=== PATIENT | female | born 1970 | race Caucasian/White ===

== ENCOUNTER 2018-02-14 14:33 | Inpatient (IN) ==
--- NOTE | 2018-02-14 15:03 | ED ---
HPI General Chief Complaint: Weakness Stated Complaint: GENERAL MALAISE Time Seen by Provider: 02/14/18 14:39 Source: patient, EMS and RN notes reviewed Mode of arrival: EMS Limitations: altered mental status History of Present Illness HPI narrative: 48-year-old female presents by ambulance after call for domestic by police. When they arrived on scene she had a laceration to her hand and hematoma to her head That she really can not tell them how she got them. She keeps talking to me about when she takes Benadryl at night she cannot sleep and has not really slept in 3 days. She states maybe she bumped herself on a cabinet but it is not sure. History is significantly limited. Related Data Home Medications Medication Instructions Recorded Confirmed diphenhydramine HCl [Benadryl] 25 mg PO Q4-6H PRN 02/14/18 02/14/18 divalproex [Depakote ER] 50 mg PO DAILY 02/14/18 02/14/18 Allergies Allergy/AdvReac Type Severity Reaction Status Date / Time Penicillins Allergy Unknown Hives Verified 02/14/18 14:43 Review of Systems ROS Unobtainable ROS Unobtainable: unobtainable due to mental status PMFSH Medical History Medical History Hx of bipolar disorder (Acute) Surgical History Surgical History History of partial hysterectomy (Acute) History of surgery on arm (Acute) Family History Family History Other Family history in first degree relatives is unremarkable Social History Social History Substance History: No History of Abuse Second Hand Smoke Exposure: No Smoking Status: Current every day smoker Tobacco Type: Cigarettes How Often Do You Have a Drink Containing Alcohol: Never Recent Travel in [place] within the Last 8 Weeks: No Recent Out of Country Travel within the Last 8 Weeks: No Immunization History Tetanus Immunization: Unsure Exam Narrative Exam Narrative: GENERAL: 48 y/o female who is hugging a iman bear SKIN: Focused skin assessment warm/dry. Laceration noted just below the DIP on dorsal aspect of right finger with deformity noted HEAD: hematoma to forehead. Normocephalic. EYES: Pupils equal and round. No scleral icterus. No injection or drainage. ENT: No nasal bleeding or discharge. Mucous membranes pink and moist. NECK: Trachea midline. No JVD. CARDIOVASCULAR: Regular rate and rhythm. RESPIRATORY: No accessory muscle use. Clear to auscultation. Breath sounds equal bilaterally. GASTROINTESTINAL: Abdomen soft, non-tender, nondistended MUSCULOSKELETAL: No clubbing. No cyanosis. No edema. NEUROLOGICAL: Awake. moves all extremities, pressured speech Course Reevaluation(s) Reevaluation #1: Patient suddenly became aggressive with staff and more confused and combative. She was given 20 of Geodon IM and a half a milligram of Ativan IV. Locked restraints were placed. Reevaluation #2: On reevaluation patient awakens easily to voice and is able to talk. She is now more calm and appropriate. She is now stating Elena has worked for her in the past and seems to again today. She is in acute rhabdomyolysis and appears to be in a sympathomimetic response with tachycardia , hypertension, mild elevated temp. Question drug exposure. She will need to be monitored more in the hospital for medical clearance and a Alexandra act has been placed. She will be monitored initially overnight in the ICU for closer monitoring Consultations Consultation #1: dr reese states to admit to the main icu for psych consult and further care Initial Documented Vital Signs Pulse Oximetry 98 02/14/18 14:40 Last Documented Vital Signs Temperature 100 F H 02/14/18 14:46 Pulse Rate 103 H 02/14/18 17:00 Respiratory Rate 18 02/14/18 17:00 Blood Pressure 177/76 H 02/14/18 17:00 Pulse Oximetry 96 02/14/18 17:00 Critical Care Time Critical Care Time: Yes Total Critical Care Time: 31 Attestation: Aggregate critical care time was 31 minutes. Time to perform other separately billable procedures was not included in the critical care time. My time did not include minutes spent treating any other patients simultaneously or on activities that did not directly contribute to the patient's treatment. The services I provided to this patient were to treat and/or prevent clinically significant deterioration that could result in: Further injury or I provided critical care services requiring my management, as noted below: Chart data review, documentation time, medication orders and management, vital sign assessments/reviewing monitor data, ordering and reviewing lab tests, ordering and interpreting/reviewing x-rays and diagnostic studies, care of the patient and discussion of the patient with the admitting physicians. Medical Decision Making MDM Narrative Medical decision making narrative: Will check blood work, imaging and monitor. Patient appears to be a harm to herself currently and appears to be in a manic phase. Will Place Alexandra act and help work on medical clearance Medical Screen Exam Complete: Yes Emergency Medical Condition: Yes Differential Diagnosis Differential Diagnosis: Intercranial bleed, fracture, UTI, pneumonia, ligament injury, laceration Lab Data Lab results reviewed: Yes I reviewed the patient's lab results. Result diagrams: 02/14/18 14:55 02/14/18 14:55 Lab Results 02/14/18 02/14/18 02/14/18 Range/Units 14:55 14:55 14:55 CBC w Diff Auto diff final WBC 15.2 H (4.0-11.0) th/mm3 RBC 4.83 (4.00-5.30) mil/mm3 Hgb 14.5 (11.6-15.3) gm/dL Hct 43.1 (35.0-46.0) % MCV 89.3 (80.0-100.0) fL MCH 30.0 (27.0-34.0) pg MCHC 33.6 (32.0-36.0) % RDW 13.3 (11.6-17.2) % Plt Count 364 (150-450) th/mm3 MPV 8.9 (7.0-11.0) fL Neut % (Auto) 88.6 H (16.0-70.0) % Lymph % (Auto) 6.8 L (9.0-44.0) % Mitchell % (Auto) 3.9 (0.0-8.0) % Eos % (Auto) 0.1 (0.0-4.0) % Baso % (Auto) 0.6 (0.0-2.0) % Neut # (Auto) 13.5 H (1.8-7.7) th/mm3 Lymph # (Auto) 1.0 (1.0-4.8) th/mm3 Mitchell # (Auto) 0.6 (0.0-0.9) th/mm3 Eos # (Auto) 0.0 (0.0-0.4) th/mm3 Baso # (Auto) 0.1 (0.0-0.2) th/mm3 WBC Differential . Differential Comment . PT 10.6 (9.8-11.6) sec INR 1.0 Ratio APTT 23.8 L (24.3-30.1) sec Sodium 139 (136-145) meq/L Potassium 2.8 L* (3.5-5.1) meq/L Chloride 103 (98-107) meq/L Carbon Dioxide 24.6 (21.0-32.0) meq/L Anion Gap 11 (5-15) meq/L BUN 14 (7-18) mg/dL Creatinine 1.80 H (0.50-1.00) mg/dL Estimated GFR 30 L (>89) mL/min Random Glucose 105 (74-106) mg/dL Calcium 8.3 L (8.5-10.1) mg/dL Magnesium 2.2 (1.5-2.5) mg/dL Total Bilirubin 0.8 (0.2-1.0) mg/dL AST 1177 H (15-37) U/L ALT 66 H (10-53) U/L Alkaline Phosphatase 102 (45-117) U/L Total Creatine Kinase Greater [place] 74408 H (26-192) U/L CK-MB (CK-2) 61.1 H (0.5-3.6) ng/mL CK-MB (CK-2) % 0.0 (0.0-4.0) % Total Protein 7.7 (6.4-8.2) g/dL Albumin 3.8 (3.4-5.0) g/dL Serum Alcohol Less than 3 (0-5) mg/dL Imaging Data Attestation: I personally reviewed and interpreted this imaging study as follows : Radiologist's impression: Hand X-Ray 02/14/18 14:39 CONCLUSION: No evidence of recent bony injury. Head CT 02/14/18 14:39 CONCLUSION: 1. No acute intracranial abnormality. . Chest X-Ray 02/14/18 14:41 CONCLUSION: Negative examination. Discharge Plan Discharge Disposition Patient Disposition: 30 Still Patient Discharge Details Diagnosis: Rhabdomyolysis, Acute kidney injury, Elevated liver enzymes, Acute psychosis, Acute hypokalemia Physicians Team ED Provider: Nanci Orr Primary Care Provider: Primary Care Elaine Leslie Attending Provider: Dmitry Cabezas Other Providers: Jl Kennedy Status ED Status: Admitted Patient
[2018-02-14 15:25] LABS: Baso # (Auto) 0.1 th/mm3 (0.0-0.2); Baso % (Auto) 0.6 % (0.0-2.0); Eos % (Auto) 0.1 % (0.0-4.0); Hematocrit 43.1 % (35.0-46.0); Hemoglobin 14.5 gm/dL (11.6-15.3); Lymph % (Auto) 6.8 % (9.0-44.0); Mean Corpuscular HGB Conc 33.6 % (32.0-36.0); Mean Corpuscular Volume 89.3 fL (80.0-100.0); Mean Platelet Volume 8.9 fL (7.0-11.0); Mono # (Auto) 0.6 th/mm3 (0.0-0.9); Mono % (Auto) 3.9 % (0.0-8.0); Neut # (Auto) 13.5 th/mm3 (1.8-7.7); Neut % (Auto) 88.6 % (16.0-70.0); Platelet Count 364 th/mm3 (150-450); Red Blood Count 4.83 mil/mm3 (4.00-5.30); Red Cell Distribution Width 13.3 % (11.6-17.2); White Blood Count 15.2 th/mm3 (4.0-11.0)
[2018-02-14 15:35] LABS: Activated Partial Thrombo Time 23.8 sec (24.3-30.1); Prothrombin Time 10.6 sec (9.8-11.6)
--- NOTE | 2018-02-14 15:47 | CT ---
EXAM DATE: 02/14/2018 3:09 PM EDT AGE/SEX: 48 years / Female INDICATIONS: Trauma. Head injury. CLINICAL DATA: This is the patient's initial encounter. Patient reports that signs and symptoms have been present for 1 day and indicates a pain score of 2/10. MEDICAL/SURGICAL HISTORY: . Bipolar. Hysterectomy. RADIATION DOSE: 47.44 CTDI (mGy) COMPARISON: . TECHNIQUE: CT of the head without contrast. Using automated exposure control and adjustment of the mA and/or kV according to patient size, radiation dose was kept as low as reasonably achievable to ob tain optimal diagnostic quality images. DICOM format image data is available electronically for revi ew and comparison. FINDINGS: Cerebrum: The ventricles are normal for age. No evidence of midline shift, mass lesion, hemorrhage or acute infarction. No extraaxial fluid collections are seen. Posterior Fossa: The cerebellum and brainstem are intact. The 4th ventricle is midline. The cerebe llopontine angle is unremarkable. Extracranial: The visualized portion of the orbits is intact. Skull: The calvaria is intact. No evidence of skull fracture. CONCLUSION: 1. No acute intracranial abnormality. . Electronically signed by: Abdulaziz Lazaro MD 02/14/2018 3:46 PM EDT
[2018-02-14 15:54] LABS: Alanine Aminotransferase 66 U/L (10-53); Albumin 3.8 g/dL (3.4-5.0); Alkaline Phosphatase 102 U/L (45-117); Anion Gap 11 meq/L (5-15); Aspartate Aminotransferase 1177 U/L (15-37); Blood Urea Nitrogen 14 mg/dL (7-18); Calcium 8.3 mg/dL (8.5-10.1); Carbon Dioxide 24.6 meq/L (21.0-32.0); Chloride 103 meq/L (98-107); Glomerular Filtration Rate 30 mL/min (>89); Glucose,Random 105 mg/dL (74-106); Magnesium 2.2 mg/dL (1.5-2.5); Sodium 139 meq/L (136-145); Total Protein 7.7 g/dL (6.4-8.2)
[2018-02-14 16:00] LABS: Potassium 2.8 meq/L (3.5-5.1)
--- NOTE | 2018-02-14 16:01 | XR ---
EXAM DATE: 02/14/2018 2:39 PM EDT AGE/SEX: 48 years / Female INDICATIONS: Right 3rd digit pain post punching injury today CLINICAL DATA: This is the patient's initial encounter. Patient reports that signs and symptoms have been present for 1 day and indicates a pain score of 2/10. MEDICAL/SURGICAL HISTORY: None. None. COMPARISON: No prior exams available for comparison. FINDINGS: Bony structures are intact and in normal alignment. Osseous density is normal. Soft tissues are unre markable. No radiopaque foreign bodies seen. CONCLUSION: No evidence of recent bony injury. Electronically signed by: Medhat Taylor MD 02/14/2018 3:59 PM EDT
[2018-02-14] MEDS ORDERED: Potassium Chlor 20 mEq Premix 20 MEQ/100 ML PIGGYBACK IV.SIG ONE (16:04)
[2018-02-14] MEDS ORDERED: Sod Chloride 0.9% Inj 1,000 ML IV.SIG SCH ×2 (16:30→17:15)
[2018-02-14 16:39] LABS: Creatine Kinase MB 61.1 ng/mL (0.5-3.6)
[2018-02-14] MEDS ORDERED: Bisacodyl 10 MG Supp RECTAL PRN (17:00)
--- NOTE | 2018-02-14 17:05 | P.HP ---
History of Present Illness Primary Care Physician: No Primary Care Physician Chief Complaint: Severe rhabdo, weakness, Alexandra act History of Present Illness: This is a 48-year-old female patient with a known medical history of bipolar disorder who presents the ED via ambulance after call for domestic abuse by the police. It was noted that the police arrived on the scene, patient supposedly had a laceration to her hand and hematoma to her head. Patient is definitely in a manic state on assessment this evening. She states that she has been unable to sleep for the past week, she states she has been taking excessive amounts of Benadryl at home. She states since Saturday night she has been taking at least 12 pills of Benadryl 25 mg at night to help her sleep. She denies any suicidal ideation or attempt. She slowly states that this was due to her inability to sleep and aspiration for something to help her in this area. When questioned about patient's laceration to her head she states she was moving too quickly and bumped her head on the cabinet. She states that also while she was at home she got angry and punched a wall. Patient does have a history of bipolar disorder, takes Depakote at home. She does have a history of tobacco abuse, states she smokes up to 2 packs/day of cigarettes. Patient denies any recent illness including fever, chills, cough, shortness of breath, headache, dumping, nausea, vomiting, diarrhea or dysuria. Patient has been admitted under Alexandra act. Patient will be transferred to the main hospital to the ICU for closer monitoring and eventually moved to the psychiatry unit. She presents with severe rhabdomyolysis with CPK above 14,000, liver enzymes elevated as well as acute kidney injury. - Diagnosis (1) Rhabdomyolysis (2) Bipolar 1 disorder, mixed (3) Acute kidney injury (4) Elevated liver enzymes Review of Systems All other systems reviewed negative except as stated in HPI PMFSH - History History Provided By: Patient, Nurses Supervisor / EMT - Medical History Medical History: Medical History (Last Reviewed 02/14/18 @ 15:00 by Nanci Orr MD) Hx of bipolar disorder - Surgical History Surgical History: Surgical History (Last Reviewed 02/14/18 @ 15:00 by Nanci Orr MD) History of partial hysterectomy History of surgery on arm - Family History Family History: Family History (Last Updated 02/14/18 @ 17:27 by Dede Paz) Other Family history in first degree relatives is unremarkable - Tobacco History Second Hand Smoke Exposure: No Tobacco Use In Past 30 Days: Yes Smoking Status: Current every day smoker Tobacco Type: Cigarettes - Alcohol History How Often Do You Have a Drink Containing Alcohol: Never - Substance Use History Substance History: No History of Abuse - Travel History Recent Travel in the [place] Within the Last 8 Weeks: No Recent Travel Out of the Country Within the Last 8 Weeks: No - Immunization History Tetanus Immunization: Unsure Medications and Allergies Active Medications: Active Medications Al Hydroxide/Mg Hydroxide (Milk Of Magnesia Liq) 30 ml PO Q12H PRN PRN Reason: Mild Constipation Bisacodyl (Dulcolax Supp) 10 mg RECTAL DAILY PRN PRN Reason: SEVERE CONSITIPATION Potassium Chloride (Kcl 20 Meq Premix Inj) 20 meq in 100 mls @ 50 mls/hr IV.SIG ONCE ONE Stop: 02/14/18 18:03 Last Admin: 02/14/18 16:40 Dose: 50 mls/hr Sodium Chloride (Ns Inj) 1,000 mls @ 0 mls/hr IV.SIG BOLUS SIGRID Last Admin: 02/14/18 16:37 Dose: 1,000 mls/hr Potassium Chloride 20 meq/ (Sodium Chloride) 1,010 mls @ 100 mls/hr IV.CONT .Q10H6M SIGRID Lactulose (Lactulose Liq) 30 ml PO DAILY PRN PRN Reason: SEVERE CONSITIPATION Ondansetron HCl (Zofran Inj) 4 mg IV.PUSH Q6H PRN PRN Reason: NAUSEA OR VOMITING Sennosides (Senokot) 17.2 mg PO Q12H PRN PRN Reason: Moderate Constipation Sodium Chloride (Ns Flush) 2 ml IV.FLUSH PRN PRN PRN Reason: FLUSH AFTER USING IV ACCESS Allergies Allergy/AdvReac Type Severity Reaction Status Date / Time Penicillins Allergy Unknown Hives Verified 02/14/18 14:43 Home Medications Medication Instructions Recorded Confirmed Type diphenhydramine HCl [Benadryl] 25 mg PO Q4-6H PRN 02/14/18 02/14/18 History divalproex [Depakote ER] 50 mg PO DAILY 02/14/18 02/14/18 History Exam Vital signs: Vital Signs 02/14/18 14:40 02/14/18 14:46 Temperature 100 F H Pulse Rate 109 H Respiratory Rate 16 Blood Pressure 153/100 H Pulse Oximetry 98 99 Intake & Output 02/13/18 02/14/18 02/14/18 18:59 06:59 18:59 Weight 94 kg Narrative: GENERAL: Well-developed, well-nourished patient in [facility]. SKIN: Warm and dry. No rash. RIGHT HAND: Laceration just below the DIP on dorsal aspect of the right finger. HEAD: Normocephalic. Atraumatic. Hematoma noted to right forehead. EYES: Pupils equal and round. No scleral icterus. No injection or drainage. ENT: No nasal bleeding or discharge. Mucous membranes pink and moist. NECK: Supple. Trachea midline. CARDIOVASCULAR: Regular rate and rhythm. S1, S2 noted. No murmur appreciated. RESPIRATORY: No accessory muscle use. Clear to auscultation. Breath sounds equal bilaterally. GASTROINTESTINAL: Abdomen soft, non-tender, nondistended. Normoactive bowel sounds x4. MUSCULOSKELETAL: No obvious deformities. Extremities without clubbing, cyanosis , or edema. NEUROLOGICAL: Awake and alert. No obvious cranial nerve deficits. Motor grossly within normal limits. 5/5 muscle strength in bilateral upper and lower extremities. Normal speech. PSYCHIATRIC: Appropriate mood and affect; insight and judgment normal. Results - Labs CBC & Chem 7: 02/14/18 14:55 02/14/18 14:55 Labs: Laboratory Results - last 24 hr 02/14/18 02/14/18 02/14/18 14:55 14:55 14:55 CBC w Diff Auto diff final WBC 15.2 H RBC 4.83 Hgb 14.5 Hct 43.1 MCV 89.3 MCH 30.0 MCHC 33.6 RDW 13.3 Plt Count 364 MPV 8.9 Neut % (Auto) 88.6 H Lymph % (Auto) 6.8 L Rolette % (Auto) 3.9 Eos % (Auto) 0.1 Baso % (Auto) 0.6 Neut # (Auto) 13.5 H Lymph # (Auto) 1.0 Rolette # (Auto) 0.6 Eos # (Auto) 0.0 Baso # (Auto) 0.1 WBC Differential . Differential Comment . PT 10.6 INR 1.0 APTT 23.8 L Sodium 139 Potassium 2.8 L* Chloride 103 Carbon Dioxide 24.6 Anion Gap 11 BUN 14 Creatinine 1.80 H Estimated GFR 30 L Random Glucose 105 Calcium 8.3 L Magnesium 2.2 Total Bilirubin 0.8 AST 1177 H ALT 66 H Alkaline Phosphatase 102 Total Creatine Kinase Greater than 32709 H CK-MB (CK-2) 61.1 H CK-MB (CK-2) % 0.0 Total Protein 7.7 Albumin 3.8 Serum Alcohol Less than 3 - Imaging Impressions Hand X-Ray 02/14/18 14:39 CONCLUSION: No evidence of recent bony injury. Head CT 02/14/18 14:39 CONCLUSION: 1. No acute intracranial abnormality. . Caprini VTE Risk Assessment Caprini VTE Risk Assessment: No/Low Risk (score <= 1) Caprini Risk Assessment Model: Point Value = 1 Point Value = 2 Point Value = 3 Point Value = 5 Age 41-60 Minor surgery BMI > 25 kg/m2 Swollen legs Varicose veins or History of unexplained or recurrent spontaneous Oral contraceptives or hormone replacement Sepsis (< 1 month) Serious lung disease, including pneumonia (< 1 month) Abnormal pulmonary function Acute myocardial infarction Congestive heart failure (< 1 month) History of inflammatory bowel disease Medical patient at bed rest Age 61-74 Arthroscopic surgery Major open surgery (> 45 min) Laparoscopic surgery (> 45 min) Malignancy Confined to bed (> 72 hours) Immobilizing plaster cast Central venous access Age >= 75 History of VTE Family history of VTE Factor V Leiden Prothrombin [id number] Lupus anticoagulant Anticardiolipin antibodies Elevated serum homocysteine Heparin-induced thrombocytopenia Other congenital or acquired thrombophilia Stroke (< 1 month) Elective arthroplasty Hip, pelvis, or leg fracture Acute spinal cord injury (< 1 month) Prophylaxis Regimen: Total Risk Factor Score Risk Level Prophylaxis Regimen 0-1 Low Early ambulation 2 Moderate Order ONE of the following: *Sequential Compression Device (SCD) *Heparin 5000 units SQ BID 3-4 Higher Order ONE of the following medications: *Heparin 5000 units SQ TID *Enoxaparin/Lovenox 40 mg SQ daily (WT < 150 kg, CrCl > 30 mL/min) *Enoxaparin/Lovenox 30 mg SQ daily (WT < 150 kg, CrCl > 10-29 mL/min) *Enoxaparin/Lovenox 30 mg SQ BID (WT < 150 kg, CrCl > 30 mL/min) AND/OR *Sequential Compression Device (SCD) 5 or more Highest Order ONE of the following medications: *Heparin 5000 units SQ TID (Preferred with Epidurals) *Enoxaparin/Lovenox 40 mg SQ daily (WT < 150 kg, CrCl > 30 mL/min) *Enoxaparin/Lovenox 30 mg SQ daily (WT < 150 kg, CrCl > 10-29 mL/min) *Enoxaparin/Lovenox 30 mg SQ BID (WT < 150 kg, CrCl > 30 mL/min) AND *Sequential Compression Device (SCD) Assessment and Plan - Assessment (1) Rhabdomyolysis Code(s): M62.82 - Rhabdomyolysis Status: Acute (2) Bipolar 1 disorder, mixed Code(s): F31.60 - Bipolar disorder, current episode mixed, unspecified Status : Acute (3) Acute kidney injury Code(s): N17.9 - Acute kidney failure, unspecified Status: Acute (4) Elevated liver enzymes Code(s): R74.8 - Abnormal levels of other serum enzymes Status: Acute - Plan This is a 48-year-old female patient with: Severe rhabdomyolysis Elevated liver enzymes suspect secondary to above Acute kidney injury suspect secondary to above -Patient admits to taking 12 pills of Benadryl nightly for the past 5 nights. Has been admitted under Alexandra act. Patient denies any suicidal ideation, plan or act. -CPK was well over 14,000. Patient given 2 L NS bolus in ED. Will continue IV fluid. -Continue cardiac telemetry, monitor for any arrhythmias. -Continue to monitor labs tonight and in a.m. including CPK and LFTs. -Avoid nephrotoxins and hepatotoxins. -Admit to ICU for closer monitoring. Hypokalemia -Replete as ordered. Continue IVF with potassium supplementation. -Monitor potassium level. -Continue cardiac telemetry. Leukocytosis -Patient meets SIRS criteria with leukocytosis 15,000, fever of 100, tachycardia. Source unknown at this time, may be stress reaction. -Lactic acid pending. Follow. -Chest x-ray, blood cultures and UA pending, follow. Hand laceration: Right hand with laceration, secondary to patient hitting a wall. X-ray reviewed showing no fracture. Stable at this time. Continue to monitor. Head laceration: Head CT done in ED and reviewed showing no acute findings. History of bipolar disorder, currently in manic state -Admitted under Alexandra act. Geodon and Ativan given in ED. Available as needed. -Consult placed to psychiatry, input and recommendations pending. -Continue restraints as needed. -On Depakote at home. Hold for now secondary to elevated LFTs. Check valproic acid level. -Ativan as needed for agitation. -Transfer to [facility] then eventually to psych unit when stable. DVT prophylaxis: SCDs.
--- NOTE | 2018-02-14 18:01 | XR ---
EXAM DATE: 02/14/2018 2:41 PM EDT AGE/SEX: 48 years / Female INDICATIONS: Fever starting today CLINICAL DATA: This is the patient's initial encounter. Patient reports that signs and symptoms have been present for 1 day and indicates a pain score of 0/10. MEDICAL/SURGICAL HISTORY: None. None. COMPARISON: No prior exams available for comparison. FINDINGS: A single AP view of the chest demonstrates the lungs to be symmetrically aerated without evidence of mass, infiltrate or effusion. The cardiomediastinal contours are unremarkable. Osseous structures a re intact. CONCLUSION: Negative examination. Electronically signed by: Charlie Dominguez MD 02/14/2018 5:59 PM EDT
[2018-02-14 22:14] LABS: Albumin 3.5 g/dL (3.4-5.0); Anion Gap 9 meq/L (5-15); Blood Urea Nitrogen 18 mg/dL (7-18); Calcium 7.7 mg/dL (8.5-10.1); Carbon Dioxide 22.6 meq/L (21.0-32.0); Chloride 107 meq/L (98-107); Glucose,Random 71 mg/dL (74-106); Potassium 3.2 meq/L (3.5-5.1); Sodium 139 meq/L (136-145)
[2018-02-14 22:16] LABS: Alanine Aminotransferase 78 U/L (10-53); Valproic Acid 15 mcg/mL (50-100)
[2018-02-14 22:36] LABS: Amphetamine Screen,Urine Neg (Neg); Barbiturate Screen,Urine Neg (Neg); Cannabinoid Screen,Urine Neg (Neg); Cocaine Screen,Urine Neg (Neg)
[2018-02-14 22:39] LABS: Amorphous Sediment,Urine Rare /hpf; Bacteria,Urine Rare /hpf; Bilirubin,Urine Negative (Negative); Clarity,Urine Cloudy (Clear); Color,Urine Amber (Yellw/Straw); Glucose,Urine (UA) Negative (Negative); Leukocyte Esterase,Urine Negative (Negative); Mucus,Urine Few /lpf (Occasional); Nitrite,Urine Negative (Negative); Specific Gravity,Urine 1.017 (1.002-1.035); Squamous Epithelial Cell,Urine <1 /hpf (0-5)
[2018-02-14 22:41] LABS: Alkaline Phosphatase 92 U/L (45-117); Aspartate Aminotransferase 1485 U/L (15-37); Total Protein 7.1 g/dL (6.4-8.2)
[2018-02-14 22:52] LABS: Opiate Screen,Urine Neg (Neg)
[2018-02-14 23:43] LABS: Creatine Kinase 137699 U/L (26-192)
[2018-02-14 23:58] LABS: Creatine Kinase MB 60.1 ng/mL (0.5-3.6)
[2018-02-15] MEDS ORDERED: Sodium Chloride 0.9% 2 ML Flush PRN IV.FLUSH (03:43)
[2018-02-15] MEDS ORDERED: Chlorhexidine Gluconate 2% 1 Pack (2 Cloths) TOPICAL PRN (04:00)
[2018-02-15] MEDS: Chlorhexidine Gluconate 2% 1 Pack (2 Cloths) TOPICAL SCH (04:30)
[2018-02-15 06:42] LABS: Baso % (Auto) 0.4 % (0.0-2.0); Eos # (Auto) 0.1 th/mm3 (0.0-0.4); Eos % (Auto) 0.9 % (0.0-4.0); Hematocrit 39.8 % (35.0-46.0); Hemoglobin 13.5 gm/dL (11.6-15.3); Lymph # (Auto) 1.7 th/mm3 (1.0-4.8); Lymph % (Auto) 16.1 % (9.0-44.0); Mean Corpuscular HGB Conc 33.9 % (32.0-36.0); Mean Corpuscular Hemoglobin 30.8 pg (27.0-34.0); Mean Corpuscular Volume 90.8 fL (80.0-100.0); Mean Platelet Volume 8.4 fL (7.0-11.0); Mono # (Auto) 0.7 th/mm3 (0.0-0.9); Mono % (Auto) 6.1 % (0.0-8.0); Neut # (Auto) 8.3 th/mm3 (1.8-7.7); Neut % (Auto) 76.5 % (16.0-70.0); Platelet Count 264 th/mm3 (150-450); Red Blood Count 4.38 mil/mm3 (4.00-5.30); Red Cell Distribution Width 14.1 % (11.6-17.2); White Blood Count 10.9 th/mm3 (4.0-11.0)
[2018-02-15 07:22] LABS: Calcium 7.5 mg/dL (8.5-10.1); Carbon Dioxide 20.8 meq/L (21.0-32.0); Potassium 3.6 meq/L (3.5-5.1); Total Protein 6.4 g/dL (6.4-8.2)
[2018-02-15] MEDS ORDERED: Dextrose 50% in Water 50 ML Vial IV.PUSH PRN (07:39)
[2018-02-15] MEDS: Sod Chloride 0.9% Inj 1,000 ML IV.CONT SCH ×2 (08:45→18:28)
[2018-02-15] MEDS: Sodium Chloride 0.9% 2 ML Flush BID IV.FLUSH SCH ×2 (08:45→20:09)
[2018-02-15] MEDS: QUEtiapine 25 MG Tablet PO SCH ×2 (08:45→20:09)
[2018-02-15 10:39] LABS: Creatine Kinase MB 47.1 ng/mL (0.5-3.6)
--- NOTE | 2018-02-15 10:46 | P.PNIM ---
Subjective Interval history: 48-year-old female admitted to ICU for severe rhabdomyolysis and acute kidney impairment. She states she is feeling much better this morning, she is sitting up and eating her breakfast and quite conversive. She has bipolar disorder and has insight into this, admits to being hypomanic currently. Physical Exam Vital signs: Vital Signs 02/14/18 14:40 02/14/18 14:46 02/14/18 17:00 Temperature 100 F H Pulse Rate 109 H 103 H Respiratory Rate 16 18 Blood Pressure 153/100 H 177/76 H Pulse Oximetry 98 99 96 02/14/18 18:30 02/14/18 20:00 02/14/18 21:07 Temperature Pulse Rate 100 H 95 H Respiratory Rate 16 42 H Blood Pressure 152/90 H Pulse Oximetry 95 98 100 02/14/18 21:30 02/14/18 22:00 02/14/18 22:30 Temperature Pulse Rate 91 H 91 H 93 H Respiratory Rate 32 H 23 28 H Blood Pressure 146/78 H 128/75 144/91 H Pulse Oximetry 99 98 99 02/14/18 23:00 02/14/18 23:30 02/15/18 00:00 Temperature 99.2 F Pulse Rate 96 H 92 H 86 Respiratory Rate 19 44 H 24 Blood Pressure 155/78 H 169/98 H 125/64 Pulse Oximetry 100 98 97 02/15/18 00:30 02/15/18 01:00 02/15/18 01:30 Temperature Pulse Rate 78 79 81 Respiratory Rate 27 H 27 H 26 H Blood Pressure 115/65 123/69 127/66 Pulse Oximetry 96 97 98 02/15/18 02:00 02/15/18 02:30 02/15/18 03:00 Temperature Pulse Rate 78 78 85 Respiratory Rate 25 H 27 H 31 H Blood Pressure 118/68 121/76 131/78 Pulse Oximetry 97 100 98 02/15/18 03:30 02/15/18 04:00 02/15/18 04:30 Temperature 98.1 F 98.9 F Pulse Rate 83 80 81 Respiratory Rate 38 H 36 H 25 H Blood Pressure 142/64 H 129/66 127/75 Pulse Oximetry 97 95 96 02/15/18 05:00 02/15/18 05:30 02/15/18 06:00 Temperature Pulse Rate 80 80 87 Respiratory Rate 25 H 25 H 20 Blood Pressure 123/74 127/72 144/71 H Pulse Oximetry 96 96 99 02/15/18 06:30 02/15/18 07:00 02/15/18 08:00 Temperature 96.8 F L Pulse Rate 90 83 82 Respiratory Rate 9 L 26 H 24 Blood Pressure 126/68 131/68 113/71 Pulse Oximetry 97 97 98 02/15/18 09:00 02/15/18 10:00 Temperature Pulse Rate 85 91 H Respiratory Rate 27 H Blood Pressure 140/76 Pulse Oximetry 98 Intake & Output 02/14/18 02/15/18 02/15/18 18:59 06:59 18:59 Intake Total 1900 / 1900 1500 / 1500 300 / 300 Output Total 50 / 50 Balance 1900 / 1900 1450 / 1450 300 / 300 Weight 94 kg 94.5 kg Intake: IV 1900 / 1900 1000 / 1000 300 / 300 NS + KCl 20 mEq Inj 1,000 ML @ 1000 / 1000 300 / 300 100 mls/hr IV.CONT .Q10H SIGRID Rx #:[id number] KCl 20 mEq Premix Inj 20 meq In 100 / 100 100 ml @ 50 mls/hr IV.SIG ONCE ONE Rx#:[id number] NS Inj 1,000 ML @ Wide Open IV. 1800 / 1800 SIG BOLUS SIGRID Rx#:[id number] Oral 500 / 500 Output: Urine 50 / 50 Other: Date of Last Bowel Movement 02/13/18 02/13/18 Weight On Admission 98.5 kg Narrative: GENERAL: AAOx3, no acute distress, talkative SKIN: Warm and dry. No rashes, bruise scrape on forehead, laceration on right finger under bandage, bruising over both arms HEAD: Atruamtic, normocephalic. EYES: No scleral icterus. No injection or drainage. ENT: Moist mucous membranes, patent nares, no erythema of oropharynx. NECK: Supple, trachea midline. No JVD or lymphadenopathy. Normal thyroid. CARDIOVASCULAR: Regular rate and rhythm. No murmurs, gallops, or rubs. RESPIRATORY: Breath sounds clear equal bilaterally. No crackles or wheezes. No accessory muscle use. GASTROINTESTINAL: Abdomen soft, non-tender, nondistended, normal active bowel sounds MUSCULOSKELETAL: No cyanosis, or edema. NEURO: CN II-XII grossly intact, no focal deficits, no slurring of speech PSYCH: Patient is exhibiting signs of hypomanic affect, no evidence of delusion or psychosis Results - Labs CBC & Chem 7: 02/15/18 06:12 02/15/18 09:33 Laboratory Results - last 24 hr 02/14/18 02/14/18 02/14/18 14:55 14:55 14:55 CBC w Diff Auto diff final WBC 15.2 H RBC 4.83 Hgb 14.5 Hct 43.1 MCV 89.3 MCH 30.0 MCHC 33.6 RDW 13.3 Plt Count 364 MPV 8.9 Neut % (Auto) 88.6 H Lymph % (Auto) 6.8 L [place] % (Auto) 3.9 Eos % (Auto) 0.1 Baso % (Auto) 0.6 Neut # (Auto) 13.5 H Lymph # (Auto) 1.0 [place] # (Auto) 0.6 Eos # (Auto) 0.0 Baso # (Auto) 0.1 WBC Differential . Differential Comment . PT 10.6 INR 1.0 APTT 23.8 L Sodium 139 Potassium 2.8 L* Chloride 103 Carbon Dioxide 24.6 Anion Gap 11 BUN 14 Creatinine 1.80 H Estimated GFR 30 L POC Glucose Random Glucose 105 Lactic Acid Calcium 8.3 L Magnesium 2.2 Total Bilirubin 0.8 Direct Bilirubin Indirect Bilirubin AST 1177 H ALT 66 H Alkaline Phosphatase 102 Total Creatine Kinase Greater than 99068 H CK-MB (CK-2) 61.1 H CK-MB (CK-2) % 0.0 Total Protein 7.7 Albumin 3.8 Urine Color Urine Clarity Urine pH Ur Specific [place] Urine Protein Urine Glucose (UA) Urine Ketones Urine Occult Blood Urine Nitrate Urine Bilirubin Urine Urobilinogen Ur Leukocyte Esterase Urine RBC Urine WBC Urine WBC Clumps Ur Squamous Epith Cells Amorphous Sediment Urine Bacteria Urine Mucus Micro UA Comment Ur Microscopic Review Urine Culture Comments Nasal Screen MRSA (PCR) Urine Opiates Screen Ur Barbiturates Screen Valproic Acid Ur Amphetamines Screen U Benzodiazepines Scrn Urine Cocaine Screen U Cannabinoids Screen Serum Alcohol Less than 3 02/14/18 02/14/18 02/14/18 19:40 21:25 21:25 CBC w Diff WBC RBC Hgb Hct MCV MCH MCHC RDW Plt Count MPV Neut % (Auto) Lymph % (Auto) [place] % (Auto) Eos % (Auto) Baso % (Auto) Neut # (Auto) Lymph # (Auto) [place] # (Auto) Eos # (Auto) Baso # (Auto) WBC Differential Differential Comment PT INR APTT Sodium 139 Potassium 3.2 L Chloride 107 Carbon Dioxide 22.6 Anion Gap 9 BUN 18 Creatinine 2.27 H Estimated GFR POC Glucose Random Glucose 71 L Lactic Acid 0.9 Calcium 7.7 L Magnesium Total Bilirubin 0.7 Direct Bilirubin Indirect Bilirubin AST 1485 H ALT 78 H Alkaline Phosphatase 92 Total Creatine Kinase 191552 H CK-MB (CK-2) 60.1 H CK-MB (CK-2) % 0.0 Total Protein 7.1 D Albumin 3.5 Urine Color Urine Clarity Urine pH Ur Specific [place] Urine Protein Urine Glucose (UA) Urine Ketones Urine Occult Blood Urine Nitrate Urine Bilirubin Urine Urobilinogen Ur Leukocyte Esterase Urine RBC Urine WBC Urine WBC Clumps Ur Squamous Epith Cells Amorphous Sediment Urine Bacteria Urine Mucus Micro UA Comment Ur Microscopic Review Urine Culture Comments Nasal Screen MRSA (PCR) Not detected Urine Opiates Screen Ur Barbiturates Screen Valproic Acid 15 L Ur Amphetamines Screen U Benzodiazepines Scrn Urine Cocaine Screen U Cannabinoids Screen Serum Alcohol 02/14/18 02/14/18 02/15/18 22:10 22:10 06:12 CBC w Diff WBC 10.9 RBC 4.38 Hgb 13.5 Hct 39.8 MCV 90.8 MCH 30.8 MCHC 33.9 RDW 14.1 Plt Count 264 MPV 8.4 Neut % (Auto) 76.5 H Lymph % (Auto) 16.1 [place] % (Auto) 6.1 Eos % (Auto) 0.9 Baso % (Auto) 0.4 Neut # (Auto) 8.3 H Lymph # (Auto) 1.7 [place] # (Auto) 0.7 Eos # (Auto) 0.1 Baso # (Auto) 0.0 WBC Differential . Differential Comment Auto diff final PT INR APTT Sodium Potassium Chloride Carbon Dioxide Anion Gap BUN Creatinine Estimated GFR POC Glucose Random Glucose Lactic Acid Calcium Magnesium Total Bilirubin Direct Bilirubin Indirect Bilirubin AST ALT Alkaline Phosphatase Total Creatine Kinase CK-MB (CK-2) CK-MB (CK-2) % Total Protein Albumin Urine Color [place] Urine Clarity Cloudy H Urine pH 5.0 Ur Specific [place] 1.017 Urine Protein 100 H Urine Glucose (UA) Negative Urine Ketones Negative Urine Occult Blood Large H Urine Nitrate Negative Urine Bilirubin Negative Urine Urobilinogen Less than 2 Ur Leukocyte Esterase Negative Urine RBC 1 Urine WBC 2 Urine WBC Clumps Rare H Ur Squamous Epith Cells <1 Amorphous Sediment Rare H Urine Bacteria Rare H Urine Mucus Few H Micro UA Comment Culture not ind Ur Microscopic Review Not Reportable Urine Culture Comments Culture not ind Nasal Screen MRSA (PCR) Urine Opiates Screen Neg Ur Barbiturates Screen Neg Valproic Acid Ur Amphetamines Screen Neg U Benzodiazepines Scrn Neg Urine Cocaine Screen Neg U Cannabinoids Screen Neg Serum Alcohol 02/15/18 02/15/18 02/15/18 06:12 07:48 08:05 CBC w Diff WBC RBC Hgb Hct MCV MCH MCHC RDW Plt Count MPV Neut % (Auto) Lymph % (Auto) [place] % (Auto) Eos % (Auto) Baso % (Auto) Neut # (Auto) Lymph # (Auto) [place] # (Auto) Eos # (Auto) Baso # (Auto) WBC Differential Differential Comment PT INR APTT Sodium 141 Potassium 3.6 Chloride 110 H Carbon Dioxide 20.8 L Anion Gap 10 BUN 27 H Creatinine 3.15 H Estimated GFR 16 L POC Glucose 70 98 Random Glucose 45 L* Lactic Acid Calcium 7.5 L Magnesium Total Bilirubin 0.5 Direct Bilirubin 0.2 Indirect Bilirubin 0.3 AST 1556 H ALT 79 H Alkaline Phosphatase 83 Total Creatine Kinase CK-MB (CK-2) CK-MB (CK-2) % Total Protein 6.4 D Albumin 3.0 L Urine Color Urine Clarity Urine pH Ur Specific [place] Urine Protein Urine Glucose (UA) Urine Ketones Urine Occult Blood Urine Nitrate Urine Bilirubin Urine Urobilinogen Ur Leukocyte Esterase Urine RBC Urine WBC Urine WBC Clumps Ur Squamous Epith Cells Amorphous Sediment Urine Bacteria Urine Mucus Micro UA Comment Ur Microscopic Review Urine Culture Comments Nasal Screen MRSA (PCR) Urine Opiates Screen Ur Barbiturates Screen Valproic Acid Ur Amphetamines Screen U Benzodiazepines Scrn Urine Cocaine Screen U Cannabinoids Screen Serum Alcohol 02/15/18 02/15/18 08:32 09:33 CBC w Diff WBC RBC Hgb Hct MCV MCH MCHC RDW Plt Count MPV Neut % (Auto) Lymph % (Auto) [place] % (Auto) Eos % (Auto) Baso % (Auto) Neut # (Auto) Lymph # (Auto) [place] # (Auto) Eos # (Auto) Baso # (Auto) WBC Differential Differential Comment PT INR APTT Sodium Potassium Chloride Carbon Dioxide Anion Gap BUN Creatinine Estimated GFR POC Glucose 123 H Random Glucose 121 H Lactic Acid Calcium Magnesium Total Bilirubin Direct Bilirubin Indirect Bilirubin AST ALT Alkaline Phosphatase Total Creatine Kinase CK-MB (CK-2) CK-MB (CK-2) % Total Protein Albumin Urine Color Urine Clarity Urine pH Ur Specific [place] Urine Protein Urine Glucose (UA) Urine Ketones Urine Occult Blood Urine Nitrate Urine Bilirubin Urine Urobilinogen Ur Leukocyte Esterase Urine RBC Urine WBC Urine WBC Clumps Ur Squamous Epith Cells Amorphous Sediment Urine Bacteria Urine Mucus Micro UA Comment Ur Microscopic Review Urine Culture Comments Nasal Screen MRSA (PCR) Urine Opiates Screen Ur Barbiturates Screen Valproic Acid Ur Amphetamines Screen U Benzodiazepines Scrn Urine Cocaine Screen U Cannabinoids Screen Serum Alcohol - Imaging Impressions Hand X-Ray 02/14/18 14:39 CONCLUSION: No evidence of recent bony injury. Head CT 02/14/18 14:39 CONCLUSION: 1. No acute intracranial abnormality. . Chest X-Ray 02/14/18 14:41 CONCLUSION: Negative examination. Assessment and Plan - Assessment (1) Rhabdomyolysis Code(s): M62.82 - Rhabdomyolysis Status: Acute (2) Bipolar 1 disorder, mixed Code(s): F31.60 - Bipolar disorder, current episode mixed, unspecified Status : Acute (3) Acute kidney injury Code(s): N17.9 - Acute kidney failure, unspecified Status: Acute (4) Elevated liver enzymes Code(s): R74.8 - Abnormal levels of other serum enzymes Status: Acute - Plan Severe rhabdomyolysis CK on admission was greater than 14,000, now down to mid 13,000s Continue generous IV fluid hydration for flushing Monitor daily CK level Acute renal impairment Creatinine increased from 1.7 at admission to 3.15 today Patient is asymptomatic, this is likely a latent effect from rhabdomyolysis Monitor kidney function closely, intake and output If creatinine does not trend downward, consult nephrology Bipolar disorder, hypomanic Patient admits to being hypomanic, she has been taking Benadryl at home to help her sleep She may have taken too much Benadryl, laid in bed for too long, dehydration contributing to rhabdomyolysis She denies any suicidal ideations and does not seem depressed She is hypomanic but does not exhibit signs of psychosis or delusions Psychiatry started her on Seroquel Appreciate psychiatry consult Lacerations Right finger under wrap, gauze clean Superficial scrapes and bruising of forehead, no sign of infection Continue with routine wound care DVT prophylaxis SCD hose, chemoprophylaxis held at this time due to lacerations and extensive bruising Disposition Patient is stable for transfer out of the ICU, continue to monitor renal function and CK levels closely (1) Rhabdomyolysis Qualifiers: Rhabdomyolysis type: non-traumatic Qualified Code(s): M62.82 - Rhabdomyolysis
--- NOTE | 2018-02-15 13:18 | P.CONPSY ---
Provisional Diagnosis Admission Date: February 14, 2018 16:34 [place] I.: Bipolar disorder History of Present Illness Service: Medicine Primary Care Provider: No Primary Care Physician Chief Complaint: Severe rhabdo, weakness, Alexandra act History of Present Illness: The patient 48-year-old woman, domiciled along in [place], no kids , single, unemployed, on SSI process, with a psychiatric history of bipolar disorder, 2 previous psychiatric hospitalization, last hospitalization in 2016, she denies previous suicide attempts, she is on Depakote 500 mg twice daily, with a Depakote level of 7, with a medical history of IBS, who presents the ED via ambulance after call for domestic abuse by the police. It was noted that the police arrived on the scene, patient supposedly had a laceration to her hand and hematoma to her head. Patient was reported definitely in a manic state by physicians in the ER. She initially reported that she has been unable to sleep for the past week, she stated she has been taking excessive amounts of Benadryl at home. She stated that since Saturday night she has been taking at least 12 pills of Benadryl 25 mg at night to help her sleep. Patient was admitted under Alexandra act. Patient was be transferred to the main hospital from [place] to the ICU for closer monitoring and eventually moved to the psychiatry unit. She presents with severe rhabdomyolysis with CPK above 14,000 , liver enzymes elevated as well as acute kidney injury. She is now admitted to medicine with severe rhabdomyolysis CK on admission was greater than 14,000, now down to mid-13,000s, Acute renal impairment, Creatinine increased from 1.7 at admission to 3.15 today. She also has Right finger under wrap, gauze clean, Superficial scrapes and bruising of forehead, no sign of infection. The chart was reviewed. No collateral information available. On my psychiatric evaluation today I find a patient that is quite calm, superficially cooperative , with a very low volume in her voice and decreased tone. She reports that she feels much better today. She says that the last weeks have been crazy for her. She says that she has not been sleeping, especially the last 3 days. She says that she has been manic but very manic in a happy way. She has being hypertalkative, not sleeping, with an increased energy, also doing crazy stuff . The patient cannot tell me the reason of her lacerations. Initially told me that it was an accident. But later on told me that she fell. She described a good mood at the moment, denies depressive symptoms, she denies anxiety, she denies suicidal and homicidal ideation, she denies visual and auditory hallucinations. She does seem to be a little bit expansive, is smiling inappropriately at the moment. Oddly related, but there is no pressure speech at the moment, there is no major loosening of associations flight of ideas, there is no elicited paranoia or delusions at this moment. She is fully oriented x3, no attention deficit, no fluctuation of consciousness. The patient reports that she has not been taking her Depakote I keep forgetting, but at the same time she does admit that she has been misusing Benadryl just to sleep. She denies the use of illegal drugs or alcohol. PPHx: psychiatric history of bipolar disorder, 2 previous psychiatric hospitalization, last hospitalization in 2016, she denies previous suicide attempts, she is on Depakote 500 mg twice daily, with a Depakote level of 7 PMHx: with a medical history of IBS Substance Hx: She denies the use of illegal drugs or alcohol. 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 - Medical History Medical History: Medical History (Last Reviewed 02/14/18 @ 18:05 by Nanci Orr MD) Hx of bipolar disorder - Surgical History Surgical History: Surgical History (Last Reviewed 02/14/18 @ 18:05 by Nanci Orr MD) History of partial hysterectomy History of surgery on arm - Family History Family History: Family History (Last Reviewed 02/14/18 @ 18:05 by Nanci Orr MD) Other Family history in first degree relatives is unremarkable - Tobacco History Second Hand Smoke Exposure: No Tobacco Use In Past 30 Days: Yes Smoking Status: Current every day smoker Tobacco Type: Cigarettes - Alcohol History How Often Do You Have a Drink Containing Alcohol: Never - Substance Use History Substance History: No History of Abuse - Travel History Recent Travel in the [place] Within the Last 8 Weeks: No Recent Travel Out of the Country Within the Last 8 Weeks: No - Immunization History Tetanus Immunization: Unsure Medications and Allergies Active Medications: Active Medications Al Hydroxide/Mg Hydroxide (Milk Of Magnesia Liq) 30 ml PO Q12H PRN PRN Reason: Mild Constipation Bisacodyl (Dulcolax Supp) 10 mg RECTAL DAILY PRN PRN Reason: SEVERE CONSITIPATION Chlorhexidine Gluconate (Chlorhexidine 2% Cloth) 3 pack TOPICAL DAILY@0400 [facility] Stop: 02/20/18 03:59 Last Admin: 02/15/18 04:30 Dose: 3 pack Chlorhexidine Gluconate (Chlorhexidine 2% Cloth) 3 pack TOPICAL DAILY@0400 PRN PRN Reason: Extra cloth needed Stop: 02/20/18 03:59 Dextrose (D50w Vial) 50 ml IV.PUSH UNSCH PRN PRN Reason: PER HYPOGLYCEMIA PROTOCOL Sodium Chloride (Ns Inj) 1,000 mls @ 0 mls/hr IV.SIG BOLUS [facility] Last Infusion: 02/14/18 17:36 Dose: Infused Sodium Chloride (Ns Inj) 1,000 mls @ 0 mls/hr IV.SIG BOLUS [facility] Last Infusion: 02/14/18 18:38 Dose: Infused Sodium Chloride (Ns Inj) 1,000 mls @ 100 mls/hr IV.CONT .Q10H [facility] Last Admin: 02/15/18 08:45 Dose: 100 mls/hr Lactulose (Lactulose Liq) 30 ml PO DAILY PRN PRN Reason: SEVERE CONSITIPATION Lorazepam (Ativan Inj) 1 mg IV.PUSH Q4H PRN PRN Reason: AGITATION Last Admin: 02/15/18 01:24 Dose: 1 mg Ondansetron HCl (Zofran Inj) 4 mg IV.PUSH Q6H PRN PRN Reason: NAUSEA OR VOMITING Quetiapine Fumarate (Seroquel) 50 mg PO BID [facility] Last Admin: 02/15/18 08:45 Dose: 50 mg Sennosides (Senokot) 17.2 mg PO Q12H PRN PRN Reason: Moderate Constipation Sodium Chloride (Ns Flush) 2 ml IV.FLUSH BID [facility] Last Admin: 02/15/18 08:45 Dose: 2 ml Sodium Chloride (Ns Flush) 2 ml IV.FLUSH PRN PRN PRN Reason: FLUSH AFTER USING IV ACCESS Ziprasidone (Geodon Inj) 10 mg IM Q12H PRN PRN Reason: SEVERE AGITATION Allergies Allergy/AdvReac Type Severity Reaction Status Date / Time Penicillins Allergy Unknown Hives Verified 02/14/18 14:43 Home Medications Medication Instructions Recorded Confirmed Type diphenhydramine HCl [Benadryl] 25 mg PO Q4-6H PRN 02/14/18 02/14/18 History divalproex [Depakote ER] 50 mg PO DAILY 02/14/18 02/14/18 History Exam Vital signs: Vital Signs 02/14/18 14:40 02/14/18 14:46 02/14/18 17:00 Temperature 100 F H Pulse Rate 109 H 103 H Respiratory Rate 16 18 Blood Pressure 153/100 H 177/76 H Pulse Oximetry 98 99 96 02/14/18 18:30 02/14/18 20:00 02/14/18 21:07 Temperature Pulse Rate 100 H 95 H Respiratory Rate 16 42 H Blood Pressure 152/90 H Pulse Oximetry 95 98 100 02/14/18 21:30 02/14/18 22:00 02/14/18 22:30 Temperature Pulse Rate 91 H 91 H 93 H Respiratory Rate 32 H 23 28 H Blood Pressure 146/78 H 128/75 144/91 H Pulse Oximetry 99 98 99 02/14/18 23:00 02/14/18 23:30 02/15/18 00:00 Temperature 99.2 F Pulse Rate 96 H 92 H 86 Respiratory Rate 19 44 H 24 Blood Pressure 155/78 H 169/98 H 125/64 Pulse Oximetry 100 98 97 02/15/18 00:30 02/15/18 01:00 02/15/18 01:30 Temperature Pulse Rate 78 79 81 Respiratory Rate 27 H 27 H 26 H Blood Pressure 115/65 123/69 127/66 Pulse Oximetry 96 97 98 02/15/18 02:00 02/15/18 02:30 02/15/18 03:00 Temperature Pulse Rate 78 78 85 Respiratory Rate 25 H 27 H 31 H Blood Pressure 118/68 121/76 131/78 Pulse Oximetry 97 100 98 02/15/18 03:30 02/15/18 04:00 02/15/18 04:30 Temperature 98.1 F 98.9 F Pulse Rate 83 80 81 Respiratory Rate 38 H 36 H 25 H Blood Pressure 142/64 H 129/66 127/75 Pulse Oximetry 97 95 96 02/15/18 05:00 02/15/18 05:30 02/15/18 06:00 Temperature Pulse Rate 80 80 87 Respiratory Rate 25 H 25 H 20 Blood Pressure 123/74 127/72 144/71 H Pulse Oximetry 96 96 99 02/15/18 06:30 02/15/18 07:00 02/15/18 08:00 Temperature 96.8 F L Pulse Rate 90 83 82 Respiratory Rate 9 L 26 H 24 Blood Pressure 126/68 131/68 113/71 Pulse Oximetry 97 97 98 02/15/18 09:00 02/15/18 10:00 02/15/18 10:01 Temperature Pulse Rate 85 91 H 93 H Respiratory Rate 27 H 43 H 30 H Blood Pressure 140/76 133/60 Pulse Oximetry 98 99 99 02/15/18 11:00 02/15/18 12:00 Temperature 96.7 F L Pulse Rate 82 97 H Respiratory Rate 23 38 H Blood Pressure 135/70 135/69 Pulse Oximetry 95 88 L Intake & Output 02/14/18 02/15/18 02/15/18 18:59 06:59 18:59 Intake Total 1900 / 1900 1500 / 1500 300 / 300 Output Total 50 / 50 Balance 1900 / 1900 1450 / 1450 300 / 300 Weight 94 kg 94.5 kg Intake: IV 1900 / 1900 1000 / 1000 300 / 300 NS + KCl 20 mEq Inj 1,000 ML @ 1000 / 1000 300 / 300 100 mls/hr IV.CONT .Q10H [facility] Rx #:[id number] KCl 20 mEq Premix Inj 20 meq In 100 / 100 100 ml @ 50 mls/hr IV.SIG ONCE ONE Rx#:[id number] NS Inj 1,000 ML @ Wide Open IV. 1800 / 1800 SIG BOLUS [facility] Rx#:[id number] Oral 500 / 500 Output: Urine 50 / 50 Other: Date of Last Bowel Movement 02/13/18 02/13/18 Weight On Admission 98.5 kg Narrative: No EPS, no psychomotor agitation or retardation, no catatonia, no stiffness. - Constitutional mild distress - Routine HEENT Exam Head: Present: normocephalic, atraumatic Eye: Present: EOMI, PERRL ENT: Present: mucous membranes moist Mental Status Examination Appearance: Appropriate Consciousness: Alert Orientation: x4 Motor Activity: Normal gait Speech: Unremarkable Language: Adequate Fund of Knowledge: Adequate Attention and Concentration: Adequate Memory: Unremarkable Mood: Good, Manic Affect: Other Thought Process & Associations: Intact Thought Content: Appropriate Hallucination Type: None Delusion Type: None Suicidal Ideation: No Suicidal Plan: No Suicidal Intention: No Homicidal Ideation: No Homicidal Plan: No Homicidal Intention: No Insight: Poor Judgment: Poor Assessment and Plan - Assessment (1) Bipolar 1 disorder, mixed Code(s): F31.60 - Bipolar disorder, current episode mixed, unspecified Status : Acute - Plan Plan: Psychiatric evaluation I find a patient that is calm, cooperative, with attentive expansive mood, at times laughing inappropriately, oddly related, but mostly logical, coherent, relevant. The patient has been described as manic by initial assessment, she does report that she has not been sleeping at all in the last 3 days, sleeping poorly in the last 2 weeks, she has multiple lacerations over her body that she cannot explain, she also reports that she has being in a "happily manic state", and her Depakote level is subtherapeutic, 7. She has being using high amounts of Benadryl to sleep, she says that up to 12/day. She is a patient with a psychiatric history of bipolar disorder, 2 previous psychiatric hospitalizations, who has been in Depakote 500 mg twice daily for a long time now, she has been stable, who apparently has relapsed in a manic state. There is no collateral information available. The patient has a significant rhabdomyolysis, elevated liver enzyme and acute kidney injury, for this reason I am not starting the Depakote or lithium for her chuck. I am going to start a low dose of Seroquel, 50 mg twice daily as a mood stabilizer. Patient will continue on the Alexandra act for psychiatric admission once medically stable. I will follow-up in the medical floor. Justification for Continued Inpatient Stay: Patient needs psychiatric admission once medically stable.
[2018-02-16] MEDS: Sod Chloride 0.9% Inj 1,000 ML IV.CONT SCH ×3 (03:55→20:18)
[2018-02-16] MEDS: Chlorhexidine Gluconate 2% 1 Pack (2 Cloths) TOPICAL SCH (03:55)
[2018-02-16 06:13] LABS: Calcium 6.6 mg/dL (8.5-10.1); Carbon Dioxide 20.9 meq/L (21.0-32.0); Potassium 3.7 meq/L (3.5-5.1)
[2018-02-16 06:28] LABS: Total Protein 5.4 g/dL (6.4-8.2)
[2018-02-16 06:31] LABS: Calcium-Albumin Corrected 7.4 mg/dL (8.5-10.1)
[2018-02-16] MEDS ORDERED: Senna/Docusate Sodium 8.6/50 MG Tablet PO PRN (07:55)
[2018-02-16] MEDS: QUEtiapine 25 MG Tablet PO SCH ×2 (08:20→20:19)
[2018-02-16] MEDS: Sodium Chloride 0.9% 2 ML Flush BID IV.FLUSH SCH ×2 (08:37→20:19)
--- NOTE | 2018-02-16 11:18 | XR ---
EXAM DATE: 02/16/2018 12:00 AM EDT AGE/SEX: 48 years / Female INDICATIONS: Short of breath. CLINICAL DATA: This is the patient's subsequent encounter. Patient reports that signs and symptoms h ave been present for 4 - 6 days and indicates a pain score of 0/10. MEDICAL/SURGICAL HISTORY: None. Bipolar None. COMPARISON: [facility]PO, CHEST 1V SINGLE AP, 02/14/2018. . FINDINGS: A single AP view of the chest demonstrates the lungs to be symmetrically aerated without evidence of mass, infiltrate or effusion. The cardiomediastinal contours are unremarkable. Osseous structures a re intact. Multiple overlying electrocardiogram leads are present. CONCLUSION: Stable appearance with no acute cardiopulmonary disease. Electronically signed by: Jose Simeon MD 02/16/2018 11:17 AM EDT
--- NOTE | 2018-02-16 11:44 | P.PNIM ---
Subjective Interval history: Patient states that she does not feel any better compared to yesterday, but she also does not feel worse. I explained to her that her kidneys are failing to improve and in fact are worsening despite standard treatment for rhabdomyolysis with generous IV fluids. Physical Exam Vital signs: Vital Signs 02/15/18 12:00 02/15/18 13:00 02/15/18 14:00 Temperature 96.7 F L Pulse Rate 97 H 92 H 91 H Respiratory Rate 38 H 34 H 26 H Blood Pressure 135/69 123/71 121/71 Pulse Oximetry 88 L 99 97 02/15/18 15:00 02/15/18 16:00 02/15/18 17:00 Temperature 98.1 F Pulse Rate 100 H 88 88 Respiratory Rate 43 H 23 38 H Blood Pressure 135/61 123/68 Pulse Oximetry 98 94 L 94 L 02/15/18 17:18 02/15/18 18:00 02/15/18 19:00 Temperature Pulse Rate 89 90 92 H Respiratory Rate 32 H 33 H 36 H Blood Pressure 125/70 119/66 127/75 Pulse Oximetry 94 L 92 L 98 02/15/18 20:00 02/15/18 21:00 02/15/18 21:02 Temperature 98.7 F Pulse Rate 89 93 H 94 H Respiratory Rate 28 H 34 H 50 H Blood Pressure 127/71 136/96 H Pulse Oximetry 97 94 L 97 02/15/18 22:00 02/15/18 22:07 02/15/18 23:00 Temperature Pulse Rate 96 H 99 H 88 Respiratory Rate 51 H 18 18 Blood Pressure 130/68 Pulse Oximetry 93 L 95 97 02/16/18 00:00 02/16/18 01:00 02/16/18 02:00 Temperature 98.6 F Pulse Rate 91 H 86 89 Respiratory Rate 18 28 H 30 H Blood Pressure 124/71 Pulse Oximetry 94 L 93 L 94 L 02/16/18 02:24 02/16/18 03:00 02/16/18 04:00 Temperature 98.1 F Pulse Rate 89 87 83 Respiratory Rate 13 24 27 H Blood Pressure 138/78 132/81 Pulse Oximetry 97 93 L 94 L 02/16/18 04:05 02/16/18 05:00 02/16/18 05:16 Temperature Pulse Rate 85 84 81 Respiratory Rate 20 26 H 25 H Blood Pressure 132/81 144/70 H Pulse Oximetry 98 96 98 02/16/18 06:00 02/16/18 07:00 02/16/18 08:00 Temperature 97.9 F Pulse Rate 85 80 82 Respiratory Rate 25 H 22 24 Blood Pressure 112/73 119/73 Pulse Oximetry 92 L 92 L 94 L 02/16/18 10:00 Temperature Pulse Rate 83 Respiratory Rate Blood Pressure Pulse Oximetry Intake & Output 02/15/18 02/16/18 02/16/18 18:59 06:59 18:59 Intake Total 2019 1700 / 1700 Output Total Balance 1999 / 1999 1700 / 1700 Weight 100.5 kg Intake: IV 1300 / 1300 1000 / 1000 NS + KCl 20 mEq Inj 1,000 ML @ 300 / 300 100 mls/hr IV.CONT .Q10H [facility] Rx #:[id number] NS Inj 1,000 ML @ 100 mls/hr IV 1000 / 1000 1000 / 1000 .CONT .Q10H [facility] Rx#:[id number] Oral 720 / 720 700 / 700 Output: Urine Other: # Voids 1 Date of Last Bowel Movement 02/15/18 02/16/18 02/16/18 # Bowel Movements 1 1 Narrative: GENERAL: AAOx3, no acute distress, talkative SKIN: Warm and dry. Extensive bruising, laceration of right finger under bandage, scrape and bruise on right forehead HEAD: Atruamtic, normocephalic. EYES: No scleral icterus. No injection or drainage. ENT: Moist mucous membranes, patent nares, no erythema of oropharynx. NECK: Supple, trachea midline. No JVD or lymphadenopathy. Normal thyroid. CARDIOVASCULAR: Regular rate and rhythm. No murmurs, gallops, or rubs. RESPIRATORY: Breath sounds clear equal bilaterally. No crackles or wheezes. No accessory muscle use. GASTROINTESTINAL: Abdomen soft, non-tender, nondistended, normal active bowel sounds MUSCULOSKELETAL: No cyanosis, or edema. NEURO: CN II-XII grossly intact, no focal deficits, no slurring of speech Results - Labs CBC & Chem 7: 02/15/18 06:12 02/16/18 05:18 Laboratory Results - last 24 hr 02/15/18 02/15/18 02/15/18 11:52 16:10 20:11 Sodium Potassium Chloride Carbon Dioxide Anion Gap BUN Creatinine Estimated GFR POC Glucose 75 102 131 H Random Glucose Calcium Prot Corrected Calcium Total Protein 02/16/18 02/16/18 02/16/18 00:43 03:57 05:18 Sodium 137 Potassium 3.7 Chloride 106 Carbon Dioxide 20.9 L Anion Gap 10 BUN 41 H Creatinine 5.21 H Estimated GFR 9 L POC Glucose 109 168 H Random Glucose 92 Calcium 6.6 L* D Prot Corrected Calcium 7.4 L* Total Protein 5.4 L D 02/16/18 08:04 Sodium Potassium Chloride Carbon Dioxide Anion Gap BUN Creatinine Estimated GFR POC Glucose 92 Random Glucose Calcium Prot Corrected Calcium Total Protein Microbiology 02/14/18 21:30 Blood - Peripheral Aerobic Blood Culture - Preliminary No growth in 2 days 02/14/18 21:30 Blood - Peripheral Anaerobic Blood Culture - Preliminary No growth in 2 days 02/14/18 21:25 Blood - Peripheral Aerobic Blood Culture - Preliminary No growth in 2 days 02/14/18 21:25 Blood - Peripheral Anaerobic Blood Culture - Preliminary No growth in 2 days - Imaging Impressions Chest X-Ray 02/16/18 00:00 CONCLUSION: Stable appearance with no acute cardiopulmonary disease. Assessment and Plan - Assessment (1) Rhabdomyolysis Code(s): M62.82 - Rhabdomyolysis Status: Acute (2) Bipolar 1 disorder, mixed Code(s): F31.60 - Bipolar disorder, current episode mixed, unspecified Status : Acute (3) Acute kidney injury Code(s): N17.9 - Acute kidney failure, unspecified Status: Acute (4) Elevated liver enzymes Code(s): R74.8 - Abnormal levels of other serum enzymes Status: Acute - Plan Severe rhabdomyolysis with acute renal failure CK on admission was greater than 14,000, up to 130,000 and now 98,000 She has failed to respond to generous IV fluid hydration Creatinine 1.7 on admission, 3.15 yesterday, now 5.21 Her urine output has been rather dismal despite receiving generous amounts of IV fluids, she does not seem dehydrated at this point Nephrology consult for possible dialysis intervention Monitor daily CK level Hypocalcemia Will monitor for now given poor urine output and increasing creatinine Follow all electrolytes with a.m. labs Bipolar disorder, hypomanic Patient admits to being hypomanic, she has been taking Benadryl at home to help her sleep She may have taken too much Benadryl, laid in bed for too long, dehydration contributing to rhabdomyolysis She denies any suicidal ideations and does not seem depressed She is hypomanic but does not exhibit signs of psychosis or delusions Psychiatry started her on Seroquel Appreciate psychiatry consult Lacerations Right finger under wrap, gauze clean Superficial scrapes and bruising of forehead, no sign of infection Continue with routine wound care DVT prophylaxis SCD hose, chemoprophylaxis held at this time due to lacerations and extensive bruising Disposition Keep in ICU due to acute renal failure and elevating creatinine level (1) Rhabdomyolysis Qualifiers: Rhabdomyolysis type: non-traumatic Qualified Code(s): M62.82 - Rhabdomyolysis
[2018-02-16] MEDS ORDERED: Calcium Gluconate Inj 2 GM in Dextrose 5% in Water Inj 100 ML IV.SIG ONE ×2 (12:00)
[2018-02-16 12:01] LABS: Bacteria,Urine Many /hpf; Bilirubin,Urine Negative (Negative); Clarity,Urine Hazy (Clear); Color,Urine Yellow (Yellw/Straw); Glucose,Urine (UA) Negative (Negative); Leukocyte Esterase,Urine Moderate (Negative); Nitrite,Urine Negative (Negative); Specific Gravity,Urine 1.009 (1.002-1.035); Squamous Epithelial Cell,Urine 16 /hpf (0-5)
--- NOTE | 2018-02-16 13:15 | MB ---
cc: Ervin Stallings MD DATE: 02/16/2018 REASON FOR CONSULTATION: Acute renal failure management. HISTORY OF PRESENT ILLNESS: This is a 48-year-old female with a known history of bipolar disorder. Apparently, she was treated with Depakote for this. Patient was admitted on 02/14/2018, when she was brought via the ambulance to the hospital. She apparently had been taking excessive amounts of Benadryl at home with more than 12 mg of Benadryl nightly. She denies any suicidal ideations and she was seen with Psychiatry here. However, the patient reports that she was having some ongoing confusion and apparently has had an ongoing manic episode in the middle of her bipolar disorder. Apparently, the patient had inability to sleep; however, took a lot of Benadryl and slept for an excessive amount of time. She is unclear as far as the timeframe of these events. However, she apparently punched a wall at home and got angry. She was admitted here under a Alexandra Act. Here, the patient was seen with Psychiatry and assessed with a manic episode of her bipolar disorder. As far as her medical issues, the patient had a creatinine of 1.8 at time of admission. She also had a serum CPK level of greater than a 140,000 consistent with rhabdomyolysis. Her creatinine over the last several days since admission has increased up to a level of 5.2 today. Over the last 24 hours, she has had minimal urine output with only 20 mL of urine output. Her electrolytes have otherwise been stable with a potassium of 3.7 and a bicarbonate level of 20.9. Given her decreased urine output and azotemia in the setting of rhabdomyolysis, Nephrology was consulted for further evaluation. REVIEW OF SYSTEMS: The patient denies any fevers or chills, however, reports feeling somewhat fatigued at this point. No nausea, no vomiting, no diarrhea, no constipation. No dysuria. The patient has had minimal urine output. The patient denies any chest pain. No shortness of breath at this time. Otherwise, review of systems is negative. PAST MEDICAL HISTORY: Includes bipolar disorder. No other medical history noted. SURGICAL HISTORY: Includes partial hysterectomy, previous surgery of the arm. FAMILY HISTORY: Noncontributory. SOCIAL HISTORY: The patient is a smoker with daily cigarette use. No alcohol use. No reported drug use. Urine tox screen was negative for any drugs other than Depakote, which she has been taking for bipolar. ALLERGIES: INCLUDE PENICILLIN. MEDICATIONS AT HOME: Included Benadryl and Depakote. PHYSICAL EXAMINATION: VITAL SIGNS: At time of evaluation, temperature 97.9, pulse 83, blood pressure 119/73, pulse oximetry 94%. GENERAL: Awake, alert, mild confusion. HEENT: The patient with dry oral mucosa. NECK: Soft, supple. CARDIAC: Regular rate and rhythm. PULMONARY: Lungs clear to auscultation. Decreased breath sounds at bases. ABDOMEN: Soft, nontender, nondistended. EXTREMITIES: No edema. LABORATORY DATA: Sodium 137, potassium 3.7, chloride 106, bicarbonate 20.9, BUN 41, creatinine 5.2, glucose 92, corrected calcium 7.4, magnesium 2.2. AST 1500, ALT is 79. CK level initially greater than 140,000, improved to 98,000 now. Urinalysis with 100 protein, large occult blood, 1 RBC, rare bacteria, rare mucus. ASSESSMENT AND PLAN: 1. Acute kidney injury. The patient has apparent acute kidney injury in the setting of rhabdomyolysis. It is unclear what her baseline renal function is. However, she presented here with a creatinine of 1.8. This has steadily increased to a level of 5.2 today. Her CK level and urinalysis are all suggestive of acute rhabdomyolysis. This may have been secondary to prolonged sleeping with the recent Benadryl versus recent trauma with punching a wall at home. It is unclear as far as exact circumstances prior to admission here. At this point, continue with IV fluids. The patient had been receiving normal saline at 100 mL per hour. I will go ahead and increase to 150 mL per hour. In addition, I will go ahead and place a Hamm catheter. With a benadryl overdose urinary retention is possible at times; however, bladder scans have been negative. We will use a Hamm catheter and further quantify urine output. At this point, there is no acute indications for dialysis. While she does have increasing azotemia with a creatinine up to 5.2, her potassium and bicarbonate levels are stable. In addition, she has no signs of any respiratory dysfunction and she is breathing well on room air at this point. We will get a chest x-ray to assess for any pulmonary edema; however, continue with aggressive IV fluids at this point. If she has little improvement in urine output over the next 24-48 hours, she may require hemodialysis; however, there is no acute indications at this point. Regarding her Benadryl overdose, this is several days out now. It is unclear if she took an actual overdose of Benadryl versus taking just multiple tablets. Per Psychiatry, there is no suicidal ideations here. We will continue to monitor and continue with supportive care. In addition, the patient has slightly low calcium levels. We will replace this IV. Continue to monitor with ICU team. Continue to monitor closely with daily electrolytes. 2. Bipolar disorder. The patient has been seen with Psychiatry here. [place] has not been given at this point. She had been on Depakote at home. Continue followup management with Psychiatry. She appears stable at this point in the setting of a manic episode of her bipolar disorder. MD BRENNEN Moares/ron , 10:25 AM , 10:37 AM MTDD
--- NOTE | 2018-02-16 14:28 | US ---
EXAM DATE: 02/16/2018 10:25 AM EDT AGE/SEX: 48 years / Female INDICATIONS: Elevated lab values. CLINICAL DATA: This is the patient's initial encounter. Patient reports that signs and symptoms have been present for 1 day and indicates a pain score of 1/10. MEDICAL/SURGICAL HISTORY: . Bipolar disorder. Hysterectomy. Surgery on arm. COMPARISON: No prior exams available for comparison. MEASUREMENTS: Right Kidney:__12.1 x 5.3 x 4.4 cm Left Kidney:__10.2 x 5.5 x 4.8 cm FINDINGS: Right Kidney: Increased echotexture. No mass or hydronephrosis. Left Kidney: Increased echotexture. No mass or hydronephrosis. Bladder: Hamm catheter is present. Bladder decompressed. Other: None. CONCLUSION: 1. Mildly echogenic kidneys which may reflect medical renal disease. 2. No sonographic evidence for obstructive uropathy. Electronically signed by: Wang Hernadez MD 02/16/2018 2:27 PM EDT
[2018-02-16] MEDS: Nitrofurantoin Monohydrate-Macrocrystal 100 MG Capsule PO SCH ×2 (15:07→18:26)
[2018-02-16 17:12] LABS: Calcium 6.8 mg/dL (8.5-10.1); Carbon Dioxide 19.1 meq/L (21.0-32.0); Potassium 4.2 meq/L (3.5-5.1)
[2018-02-16 17:31] LABS: Calcium-Albumin Corrected 7.7 mg/dL (8.5-10.1); Total Protein 5.3 g/dL (6.4-8.2)
[2018-02-17] MEDS: Sod Chloride 0.9% Inj 1,000 ML IV.CONT SCH ×3 (03:38→21:31)
[2018-02-17] MEDS: Chlorhexidine Gluconate 2% 1 Pack (2 Cloths) TOPICAL SCH (03:39)
[2018-02-17 04:53] LABS: Hematocrit 33.1 % (35.0-46.0); Hemoglobin 11.5 gm/dL (11.6-15.3); Mean Corpuscular HGB Conc 34.6 % (32.0-36.0); Mean Corpuscular Hemoglobin 30.8 pg (27.0-34.0); Mean Corpuscular Volume 88.8 fL (80.0-100.0); Mean Platelet Volume 9.2 fL (7.0-11.0); Platelet Count 213 th/mm3 (150-450); Red Blood Count 3.72 mil/mm3 (4.00-5.30); Red Cell Distribution Width 13.9 % (11.6-17.2); White Blood Count 9.9 th/mm3 (4.0-11.0)
[2018-02-17 06:17] LABS: Calcium 6.8 mg/dL (8.5-10.1); Magnesium 1.7 mg/dL (1.5-2.5); Phosphorus 2.9 mg/dL (2.5-4.9); Potassium 4.7 meq/L (3.5-5.1)
[2018-02-17 06:18] LABS: Albumin 2.3 g/dL (3.4-5.0); Total Protein 5.5 g/dL (6.4-8.2)
[2018-02-17 06:35] LABS: Creatine Kinase MB 9.5 ng/mL (0.5-3.6)
--- NOTE | 2018-02-17 07:20 | P.PN ---
Subjective Interval history: Patient doing well overnight. Reports that she is tolerating p.o., but having minimal urine output. Patient has no other concerns today. Physical Exam Vital signs: Vital Signs 02/16/18 08:00 02/16/18 09:00 02/16/18 10:00 Temperature 97.9 F Pulse Rate 82 81 83 Respiratory Rate 24 25 H 28 H Blood Pressure 119/73 132/80 Pulse Oximetry 94 L 97 95 02/16/18 11:00 02/16/18 12:00 02/16/18 13:00 Temperature 97.4 F L Pulse Rate 79 74 86 Respiratory Rate 23 22 31 H Blood Pressure 129/76 Pulse Oximetry 95 99 99 02/16/18 14:00 02/16/18 15:00 02/16/18 16:00 Temperature 97.7 F Pulse Rate 80 90 77 Respiratory Rate 17 38 H 25 H Blood Pressure 141/90 H 144/81 H Pulse Oximetry 97 98 100 02/16/18 17:00 02/16/18 18:00 02/16/18 19:00 Temperature Pulse Rate 79 85 80 Respiratory Rate 28 H 30 H 28 H Blood Pressure 138/71 Pulse Oximetry 100 96 96 02/16/18 20:00 02/16/18 21:00 02/16/18 21:01 Temperature 97.7 F Pulse Rate 78 78 76 Respiratory Rate 22 25 H 30 H Blood Pressure 145/79 H 152/81 H Pulse Oximetry 98 100 100 02/16/18 22:00 02/16/18 23:00 02/17/18 00:00 Temperature 98 F Pulse Rate 79 83 79 Respiratory Rate 25 H 23 21 Blood Pressure 155/90 H 151/94 H 153/91 H Pulse Oximetry 97 98 94 L 02/17/18 01:00 02/17/18 02:00 02/17/18 03:00 Temperature Pulse Rate 82 83 81 Respiratory Rate 15 19 15 Blood Pressure 147/85 H 140/78 158/89 H Pulse Oximetry 94 L 94 L 93 L 02/17/18 04:00 02/17/18 05:00 02/17/18 06:00 Temperature 98.1 F Pulse Rate 80 80 75 Respiratory Rate 27 H 27 H 18 Blood Pressure 143/80 H 140/83 154/93 H Pulse Oximetry 96 97 94 L Intake & Output 02/16/18 02/17/18 02/17/18 18:59 06:59 18:59 Intake Total 2720 / 2720 1999 Output Total Balance 2664 / 2664 1999 Weight 105.5 kg Intake: IV 1120 / 1120 1999 NS Inj 1,000 ML @ 150 mls/hr IV 1000 / 1000 1999 .CONT .Q6H40M [facility] Rx#:[id number] Calcium Gluconate Inj 2 GM In 120 / 120 D5W Inj 100 ML @ 120 mls/hr IV. SIG ONCE ONE Rx#:[id number] Oral 1600 / 1600 Output: Urine Amount (Catheter) Indwelling Urethral Catheter Other: Date of Last Bowel Movement 02/16/18 02/16/18 # Bowel Movements 1 Narrative: GENERAL: Well-nourished female, in no acute distress, lying comfortably in bed SKIN: Warm and dry. Extensive bruising, laceration of right finger under bandage , scrape and bruise on right forehead. HEAD: Normocephalic. EYES: No scleral icterus. No injection or drainage. NECK: Supple, trachea midline. No JVD or lymphadenopathy. CARDIOVASCULAR: Regular rate and rhythm without murmurs, gallops, or rubs. RESPIRATORY: Breath sounds equal bilaterally. No accessory muscle use. GASTROINTESTINAL: Abdomen soft, non-tender, nondistended. MUSCULOSKELETAL: No cyanosis, or edema. BACK: Nontender without obvious deformity. No CVA tenderness. NEURO: AAO x3, no focal deficits - Urinary Catheter Management Indwelling Urethral Catheter Cath placed during this visit: yes Reason for continuing: Acute urinary retention Insertion date: 02/16/18 Insertion time: 13:00 Results - Labs CBC & Chem 7: 02/17/18 03:37 02/17/18 03:37 Laboratory Results - last 24 hr 02/16/18 02/16/18 02/16/18 08:04 10:50 12:02 WBC RBC Hgb Hct MCV MCH MCHC RDW Plt Count MPV Sodium Potassium Chloride Carbon Dioxide Anion Gap BUN Creatinine Estimated GFR POC Glucose 92 137 H Random Glucose Calcium Prot Corrected Calcium Phosphorus Magnesium Total Bilirubin AST ALT Alkaline Phosphatase Total Creatine Kinase CK-MB (CK-2) CK-MB (CK-2) % Total Protein Albumin Urine Color Yellow Urine Clarity Hazy H Urine pH 5.0 Ur Specific [place] 1.009 Urine Protein 100 H Urine Glucose (UA) Negative Urine Ketones Negative Urine Occult Blood Large H Urine Nitrate Negative Urine Bilirubin Negative Urine Urobilinogen Less than 2 Ur Leukocyte Esterase Moderate H Urine RBC 39 H Urine WBC Urine WBC Clumps Many H Ur Squamous Epith Cells 16 Urine Bacteria Many H Micro UA Comment Cath-culture ind Ur Microscopic Review Not Reportable Urine Culture Comments Cath-cult indicated 02/16/18 02/16/18 02/16/18 16:31 16:40 20:17 WBC RBC Hgb Hct MCV MCH MCHC RDW Plt Count MPV Sodium 132 L Potassium 4.2 Chloride 102 Carbon Dioxide 19.1 L Anion Gap 11 BUN 42 H Creatinine 5.68 H Estimated GFR 8 L POC Glucose 110 93 Random Glucose 96 Calcium 6.8 L* Prot Corrected Calcium 7.7 L Phosphorus Magnesium Total Bilirubin AST ALT Alkaline Phosphatase Total Creatine Kinase CK-MB (CK-2) CK-MB (CK-2) % Total Protein 5.3 L Albumin Urine Color Urine Clarity Urine pH Ur Specific [place] Urine Protein Urine Glucose (UA) Urine Ketones Urine Occult Blood Urine Nitrate Urine Bilirubin Urine Urobilinogen Ur Leukocyte Esterase Urine RBC Urine WBC Urine WBC Clumps Ur Squamous Epith Cells Urine Bacteria Micro UA Comment Ur Microscopic Review Urine Culture Comments 02/17/18 02/17/18 02/17/18 01:06 03:37 03:37 WBC 9.9 RBC 3.72 L Hgb 11.5 L D Hct 33.1 L MCV 88.8 MCH 30.8 MCHC 34.6 RDW 13.9 Plt Count 213 MPV 9.2 Sodium 132 L Potassium 4.7 Chloride 102 Carbon Dioxide 21.0 Anion Gap 9 BUN 45 H Creatinine 6.31 H Estimated GFR 7 L POC Glucose 90 Random Glucose 89 Calcium 6.8 L* Prot Corrected Calcium 7.6 L Phosphorus 2.9 Magnesium 1.7 Total Bilirubin 0.3 AST 787 H ALT 55 H Alkaline Phosphatase 72 Total Creatine Kinase 09982 H CK-MB (CK-2) 9.5 H CK-MB (CK-2) % 0.0 Total Protein 5.5 L Albumin 2.3 L D Urine Color Urine Clarity Urine pH Ur Specific [place] Urine Protein Urine Glucose (UA) Urine Ketones Urine Occult Blood Urine Nitrate Urine Bilirubin Urine Urobilinogen Ur Leukocyte Esterase Urine RBC Urine WBC Urine WBC Clumps Ur Squamous Epith Cells Urine Bacteria Micro UA Comment Ur Microscopic Review Urine Culture Comments Microbiology 02/14/18 21:30 Blood - Peripheral Aerobic Blood Culture - Preliminary No growth in 2 days 02/14/18 21:30 Blood - Peripheral Anaerobic Blood Culture - Preliminary No growth in 2 days 02/14/18 21:25 Blood - Peripheral Aerobic Blood Culture - Preliminary No growth in 2 days 02/14/18 21:25 Blood - Peripheral Anaerobic Blood Culture - Preliminary No growth in 2 days - Imaging Impressions Chest X-Ray 02/16/18 00:00 CONCLUSION: Stable appearance with no acute cardiopulmonary disease. Abdomen/Bladder Ultrasound 02/16/18 10:25 CONCLUSION: 1. Mildly echogenic kidneys which may reflect medical renal disease. 2. No sonographic evidence for obstructive uropathy. Assessment and Plan - Assessment (1) Rhabdomyolysis Code(s): M62.82 - Rhabdomyolysis Status: Acute (2) Bipolar 1 disorder, mixed Code(s): F31.60 - Bipolar disorder, current episode mixed, unspecified Status : Chronic (3) Acute kidney injury Code(s): N17.9 - Acute kidney failure, unspecified Status: Acute (4) Elevated liver enzymes Code(s): R74.8 - Abnormal levels of other serum enzymes Status: Acute - Plan This is a 48-year Female with past medical history of bipolar disorder admitted under a Alexandra apt for a manic state, and found to have acute renal insufficiency and severe rhabdomyolysis, HD #4 1. Severe Rhabdomyolysis with Acute Renal Failure CK improving, 22,117 today from 98,670 yesterday Creatinine worsening, 6.31 today from 5.68 yesterday Continue NS at 150 mL/HR Nephrology consulted, appreciate assistance with management, per their recommendations if no improvement in urine output will likely need HD Her urine output has been rather dismal despite receiving generous amounts of IVF, she does not seem dehydrated at this point Continue to monitor CK and creatinine Avoid nephrotoxic medication 2. Elevated LFT's Likely due to above Trending down Continue to monitor 3. Hyponatremia/Hypocalemia Na 132, Ca 7.6 Cont. NS Follow-up BMP in AM Follow-up nephrology recommendations on replacement of Ca 4. Bipolar disorder, hypomanic Managed by psych Patient admits to being hypomanic, she has been taking Benadryl at home to help her sleep She may have taken too much Benadryl, laid in bed for too long, dehydration contributing to rhabdomyolysis Denies suicidal ideations and does not seem depressed Does not exhibit signs of psychosis or delusions Cont. Seroquel and trazodone 5. UTI Pending urine culture On Macrobid, will continue until urine culture results Bld Cx NG at 2 daysx4 6. Lacerations Right finger under wrap, gauze clean Superficial scrapes and bruising of forehead, no sign of infection Continue with routine wound care 7. DVT prophylaxis SCD's/Feliberto, chemoprophylaxis held at this time due to lacerations and extensive bruising 8. Disposition: Keep in ICU due to acute renal failure and elevating creatinine level, follow-up no further recommendations Code Status: full Discussed Condition With: Patient, RN (1) Rhabdomyolysis Qualifiers: Rhabdomyolysis type: non-traumatic Qualified Code(s): M62.82 - Rhabdomyolysis
[2018-02-17] MEDS: Nitrofurantoin Monohydrate-Macrocrystal 100 MG Capsule PO SCH ×2 (09:52→17:59)
[2018-02-17] MEDS: Sodium Chloride 0.9% 2 ML Flush BID IV.FLUSH SCH ×2 (09:52→20:12)
[2018-02-17] MEDS: QUEtiapine 25 MG Tablet PO SCH ×2 (09:52→20:11)
--- NOTE | 2018-02-17 10:20 | P.PNNP ---
Subjective Interval history: Sitting up in bed. No shortness of breath, chest pain, nausea, or vomiting. No edema. Creatinine increased at 6.31 and urinary output is low. <Denise Raymond - Last Filed: 02/17/18 10:20> Physical Exam Vital signs: Vital Signs 02/16/18 11:00 02/16/18 12:00 02/16/18 13:00 Temperature 97.4 F L Pulse Rate 79 74 86 Respiratory Rate 23 22 31 H Blood Pressure 129/76 Pulse Oximetry 95 99 99 02/16/18 14:00 02/16/18 15:00 02/16/18 16:00 Temperature 97.7 F Pulse Rate 80 90 77 Respiratory Rate 17 38 H 25 H Blood Pressure 141/90 H 144/81 H Pulse Oximetry 97 98 100 02/16/18 17:00 02/16/18 18:00 02/16/18 19:00 Temperature Pulse Rate 79 85 80 Respiratory Rate 28 H 30 H 28 H Blood Pressure 138/71 Pulse Oximetry 100 96 96 02/16/18 20:00 02/16/18 21:00 02/16/18 21:01 Temperature 97.7 F Pulse Rate 78 78 76 Respiratory Rate 22 25 H 30 H Blood Pressure 145/79 H 152/81 H Pulse Oximetry 98 100 100 02/16/18 22:00 02/16/18 23:00 02/17/18 00:00 Temperature 98 F Pulse Rate 79 83 79 Respiratory Rate 25 H 23 21 Blood Pressure 155/90 H 151/94 H 153/91 H Pulse Oximetry 97 98 94 L 02/17/18 01:00 02/17/18 02:00 02/17/18 03:00 Temperature Pulse Rate 82 83 81 Respiratory Rate 15 19 15 Blood Pressure 147/85 H 140/78 158/89 H Pulse Oximetry 94 L 94 L 93 L 02/17/18 04:00 02/17/18 05:00 02/17/18 06:00 Temperature 98.1 F Pulse Rate 80 80 75 Respiratory Rate 27 H 27 H 18 Blood Pressure 143/80 H 140/83 154/93 H Pulse Oximetry 96 97 94 L 02/17/18 08:00 Temperature Pulse Rate Respiratory Rate 21 Blood Pressure Pulse Oximetry Intake & Output 02/16/18 02/17/18 02/17/18 18:59 06:59 18:59 Intake Total 2720 / 2720 2400 / 2400 Output Total 60 / 60 Balance 2664 / 2664 2340 / 2340 Weight 105.5 kg Intake: IV 1120 / 1120 1999 NS Inj 1,000 ML @ 150 mls/hr IV 1000 / 1000 1999 .CONT .Q6H40M [facility] Rx#:[id number] Calcium Gluconate Inj 2 GM In 120 / 120 D5W Inj 100 ML @ 120 mls/hr IV. SIG ONCE ONE Rx#:[id number] Oral 1600 / 1600 400 / 400 Output: Urine Amount (Catheter) 60 60 Indwelling Urethral Catheter 60 60 Other: Date of Last Bowel Movement 02/16/18 02/16/18 # Bowel Movements 1 0 Narrative: GENERAL: Alert and oriented. NECK: Supple, trachea midline. No JVD or lymphadenopathy. CARDIOVASCULAR: Regular rate and rhythm without murmurs, gallops, or rubs. RESPIRATORY: Breath sounds equal bilaterally. No accessory muscle use. GASTROINTESTINAL: Abdomen soft, non-tender, large MUSCULOSKELETAL: No cyanosis, or edema. BACK: Nontender without obvious deformity. No CVA tenderness. - Urinary Catheter Management Indwelling Urethral Catheter Cath placed during this visit: yes Reason for continuing: Acute urinary retention Insertion date: 02/16/18 Insertion time: 13:00 <Denise Raymond - Last Filed: 02/17/18 10:20> Vital signs: Vital Signs 02/17/18 20:00 02/17/18 22:00 02/18/18 00:00 Temperature 98.7 F 98.3 F Pulse Rate 80 77 75 Respiratory Rate 20 19 Blood Pressure 182/91 H 156/96 H Pulse Oximetry 99 97 02/18/18 02:00 02/18/18 04:00 02/18/18 06:00 Temperature 98.4 F Pulse Rate 75 72 71 Respiratory Rate 18 Blood Pressure 189/98 H Pulse Oximetry 97 02/18/18 08:00 02/18/18 10:00 02/18/18 12:00 Temperature 98.5 F Pulse Rate 80 71 72 Respiratory Rate 18 Blood Pressure 164/84 H Pulse Oximetry 97 02/18/18 14:00 02/18/18 16:00 02/18/18 18:00 Temperature 98.3 F Pulse Rate 71 68 80 Respiratory Rate 17 Blood Pressure 149/58 H Pulse Oximetry 98 Intake & Output 02/17/18 02/18/18 02/18/18 18:59 06:59 18:59 Intake Total 1600 / 1600 2720 / 2720 1140 / 1140 Output Total 60 / 60 50 / 50 2019 / 2019 Balance 1540 / 1540 2670 / 2670 -880 / -880 Weight 112 kg Intake: IV 1000 / 1000 1999 / 1999 900 / 900 NS Inj 1,000 ML @ 150 mls/hr IV 1000 / 1000 1999 / 1999 900 / 900 .[facility] .Q6H40[facility] Rx#:[id number] Oral 600 / 600 720 / 720 240 / 240 Output: Urine 50 / 50 20 / 20 Hemodialysis Amount 1999 Urine Amount (Catheter) 60 Indwelling Urethral Catheter Other: Date of Last Bowel Movement 02/17/18 02/17/18 02/17/18 # Bowel Movements 1 0 0 - Urinary Catheter Management Indwelling Urethral Catheter Cath placed during this visit: no <Robert Doherty - Last Filed: 02/18/18 18:23> Assessment and Plan - Assessment (1) Acute kidney injury Code(s): N17.9 - Acute kidney failure, unspecified Status: Acute Plan: Acute kidney injury with a creatinine of 5.2 on day of consult Baseline renal function is unclear but on admission on the creatinine was 1.8 and has steadily increased. The patient has apparent acute kidney injury in the setting of rhabdomyolysis. Renal ultrasound with mildly echogenic kidneys which may reflect medical renal disease Plan Avoid nephrotoxins including NSAIDS, IV contrast and aminoglycosides Maintain strict I+O, keep indwelling Hamm catheter Continue Normal saline at 150 ml/hr tolerating well. Urine output remains low but has increased some. No acute indication for hemodialysis. HCO3, potassium level, has remained normal and patient continues to be on room air. Continue to monitor closely (2) Rhabdomyolysis Code(s): M62.82 - Rhabdomyolysis Status: Acute Qualifiers: Rhabdomyolysis type: non-traumatic Qualified Code(s): M62.82 - Rhabdomyolysis Plan: Serial CPK continue IVF <Denise Raymond - Last Filed: 02/17/18 10:20> - Assessment (1) Acute kidney injury Code(s): N17.9 - Acute kidney failure, unspecified Status: Acute Plan: Patient seen and examined, agree with above. Patient has CRISTA, with Rhabdomyolysis. Urine out put is low, and Creatinine continue to increase. If not better, will need Dialysis. (2) Rhabdomyolysis Code(s): M62.82 - Rhabdomyolysis Status: Acute Qualifiers: Rhabdomyolysis type: non-traumatic Qualified Code(s): M62.82 - Rhabdomyolysis <Robert Doherty - Last Filed: 02/18/18 18:23>
[2018-02-18] MEDS: Chlorhexidine Gluconate 2% 1 Pack (2 Cloths) TOPICAL SCH (04:00)
[2018-02-18] MEDS: Sod Chloride 0.9% Inj 1,000 ML IV.CONT SCH ×2 (04:17→07:16)
[2018-02-18 05:30] LABS: Baso % (Auto) 0.4 % (0.0-2.0); Eos # (Auto) 0.4 th/mm3 (0.0-0.4); Eos % (Auto) 4.2 % (0.0-4.0); Hematocrit 34.6 % (35.0-46.0); Hemoglobin 11.6 gm/dL (11.6-15.3); Lymph # (Auto) 1.4 th/mm3 (1.0-4.8); Lymph % (Auto) 15.4 % (9.0-44.0); Mean Corpuscular HGB Conc 33.5 % (32.0-36.0); Mean Corpuscular Hemoglobin 30.2 pg (27.0-34.0); Mean Corpuscular Volume 90.3 fL (80.0-100.0); Mean Platelet Volume 9.6 fL (7.0-11.0); Mono # (Auto) 0.6 th/mm3 (0.0-0.9); Mono % (Auto) 6.4 % (0.0-8.0); Neut # (Auto) 6.6 th/mm3 (1.8-7.7); Neut % (Auto) 73.6 % (16.0-70.0); Platelet Count 185 th/mm3 (150-450); Red Blood Count 3.84 mil/mm3 (4.00-5.30); Red Cell Distribution Width 13.9 % (11.6-17.2); White Blood Count 8.9 th/mm3 (4.0-11.0)
[2018-02-18] MEDS ORDERED: hydrALAZINE HCl Inj 20 MG/ML Vial IV.PUSH ONE (06:23)
[2018-02-18 06:28] LABS: Albumin 2.2 g/dL (3.4-5.0); Calcium 6.8 mg/dL (8.5-10.1); Carbon Dioxide 15.9 meq/L (21.0-32.0); Magnesium 1.6 mg/dL (1.5-2.5); Phosphorus 3.4 mg/dL (2.5-4.9); Potassium 4.8 meq/L (3.5-5.1); Total Protein 5.6 g/dL (6.4-8.2)
[2018-02-18 06:50] LABS: CKMB Percent 0.1 % (0.0-4.0); Creatine Kinase MB 6.3 ng/mL (0.5-3.6)
[2018-02-18] MEDS: Nitrofurantoin Monohydrate-Macrocrystal 100 MG Capsule PO SCH ×3 (08:14→17:27)
[2018-02-18] MEDS: QUEtiapine 25 MG Tablet PO SCH ×3 (08:14→20:01)
[2018-02-18] MEDS: Sodium Chloride 0.9% 2 ML Flush BID IV.FLUSH SCH ×2 (08:14→20:01)
--- NOTE | 2018-02-18 09:13 | P.PN ---
Subjective Interval history: Patient doing well but reports feeling confused today, she know where she is and why she is here but feels "foggy", denies Cp and SOB. Patient is tolerating PO, minimal voiding. Physical Exam Vital signs: Vital Signs 02/17/18 10:00 02/17/18 12:00 02/17/18 14:00 Temperature 98.0 F Pulse Rate 74 76 74 Respiratory Rate 23 Blood Pressure 160/88 H Pulse Oximetry 97 02/17/18 16:00 02/17/18 18:00 02/17/18 20:00 Temperature 98.0 F 98.7 F Pulse Rate 83 81 80 Respiratory Rate 18 20 Blood Pressure 153/82 H 182/91 H Pulse Oximetry 98 99 02/17/18 22:00 02/18/18 00:00 02/18/18 02:00 Temperature 98.3 F Pulse Rate 77 75 75 Respiratory Rate 19 Blood Pressure 156/96 H Pulse Oximetry 97 02/18/18 04:00 02/18/18 06:00 Temperature 98.4 F Pulse Rate 72 71 Respiratory Rate 18 Blood Pressure 189/98 H Pulse Oximetry 97 Intake & Output 02/17/18 02/18/18 02/18/18 18:59 06:59 18:59 Intake Total 1600 / 1600 2720 / 2720 Output Total 60 / 60 50 / 50 Balance 1540 / 1540 2670 / 2670 Weight 112 kg Intake: IV 1000 / 1000 1999 NS Inj 1,000 ML @ 150 mls/hr IV 1000 / 1000 1999 .CONT .Q6H40M [facility] Rx#:[id number] Oral 600 / 600 720 / 720 Output: Urine 50 / 50 Urine Amount (Catheter) 60 / 60 Indwelling Urethral Catheter 60 / 60 Other: Date of Last Bowel Movement 02/17/18 02/17/18 # Bowel Movements 1 0 Narrative: GENERAL: well nourished female, in no acute distress, lying in bed, talkative but reports some confusion today SKIN: Warm and dry. Extensive bruising, laceration of right finger under bandage, scrape and bruise on right forehead HEENT: Atraumatic, normocephalic. No scleral icterus. No injection or drainage. PERRLA. MOM. NECK: Supple, trachea midline. No JVD or lymphadenopathy. Normal thyroid. CARDIOVASCULAR: Regular rate and rhythm. No murmurs, gallops, or rubs. RESPIRATORY: CTAx2. No crackles or wheezes. No accessory muscle use. GASTROINTESTINAL: Abdomen soft, non-tender, nondistended, normal active bowel sounds MUSCULOSKELETAL: No cyanosis, or edema. NEURO: CN II-XII grossly intact, no focal deficits, no slurring of speech, AAOx3 - Urinary Catheter Management Indwelling Urethral Catheter Cath placed during this visit: yes Reason for continuing: Acute urinary retention Insertion date: 02/16/18 Insertion time: 13:00 Results - Labs CBC & Chem 7: 02/18/18 04:16 02/18/18 04:16 Laboratory Results - last 24 hr 02/16/18 02/17/18 02/17/18 10:50 12:15 18:15 WBC RBC Hgb Hct MCV MCH MCHC RDW Plt Count MPV Neut % (Auto) Lymph % (Auto) [place] % (Auto) Eos % (Auto) Baso % (Auto) Neut # (Auto) Lymph # (Auto) [place] # (Auto) Eos # (Auto) Baso # (Auto) WBC Differential Differential Comment Sodium Potassium Chloride Carbon Dioxide Anion Gap BUN Creatinine Estimated GFR POC Glucose 122 H 110 Random Glucose Calcium Prot Corrected Calcium Phosphorus Magnesium Total Bilirubin AST ALT Alkaline Phosphatase Total Creatine Kinase CK-MB (CK-2) CK-MB (CK-2) % Total Protein Albumin Urine Color Yellow Urine Clarity Hazy H Urine pH 5.0 Ur Specific [place] 1.009 Urine Protein 100 H Urine Glucose (UA) Negative Urine Ketones Negative Urine Occult Blood Large H Urine Nitrate Negative Urine Bilirubin Negative Urine Urobilinogen Less than 2 Ur Leukocyte Esterase Moderate H Urine RBC 39 H Urine WBC Urine WBC Clumps Many H Ur Squamous Epith Cells 16 Urine Bacteria Many H Micro UA Comment Cath-culture ind Urine Culture Comments Cath-cult indicated 02/17/18 02/17/18 02/18/18 20:41 23:34 03:57 WBC RBC Hgb Hct MCV MCH MCHC RDW Plt Count MPV Neut % (Auto) Lymph % (Auto) [place] % (Auto) Eos % (Auto) Baso % (Auto) Neut # (Auto) Lymph # (Auto) [place] # (Auto) Eos # (Auto) Baso # (Auto) WBC Differential Differential Comment Sodium Potassium Chloride Carbon Dioxide Anion Gap BUN Creatinine Estimated GFR POC Glucose 134 H 123 H 96 Random Glucose Calcium Prot Corrected Calcium Phosphorus Magnesium Total Bilirubin AST ALT Alkaline Phosphatase Total Creatine Kinase CK-MB (CK-2) CK-MB (CK-2) % Total Protein Albumin Urine Color Urine Clarity Urine pH Ur Specific [place] Urine Protein Urine Glucose (UA) Urine Ketones Urine Occult Blood Urine Nitrate Urine Bilirubin Urine Urobilinogen Ur Leukocyte Esterase Urine RBC Urine WBC Urine WBC Clumps Ur Squamous Epith Cells Urine Bacteria Micro UA Comment Urine Culture Comments 02/18/18 02/18/18 04:16 04:16 WBC 8.9 RBC 3.84 L Hgb 11.6 Hct 34.6 L MCV 90.3 MCH 30.2 MCHC 33.5 RDW 13.9 Plt Count 185 MPV 9.6 Neut % (Auto) 73.6 H Lymph % (Auto) 15.4 [place] % (Auto) 6.4 Eos % (Auto) 4.2 H Baso % (Auto) 0.4 Neut # (Auto) 6.6 Lymph # (Auto) 1.4 [place] # (Auto) 0.6 Eos # (Auto) 0.4 Baso # (Auto) 0.0 WBC Differential . Differential Comment Auto diff final Sodium 129 L Potassium 4.8 Chloride 101 Carbon Dioxide 15.9 L Anion Gap 12 BUN 47 H Creatinine 7.13 H Estimated GFR 6 L POC Glucose Random Glucose 83 Calcium 6.8 L* Prot Corrected Calcium 7.6 L Phosphorus 3.4 Magnesium 1.6 Total Bilirubin 0.3 AST 505 H ALT 45 Alkaline Phosphatase 79 Total Creatine Kinase 8332 H CK-MB (CK-2) 6.3 H CK-MB (CK-2) % 0.1 Total Protein 5.6 L Albumin 2.2 L Urine Color Urine Clarity Urine pH Ur Specific [place] Urine Protein Urine Glucose (UA) Urine Ketones Urine Occult Blood Urine Nitrate Urine Bilirubin Urine Urobilinogen Ur Leukocyte Esterase Urine RBC Urine WBC Urine WBC Clumps Ur Squamous Epith Cells Urine Bacteria Micro UA Comment Urine Culture Comments Microbiology 02/16/18 10:50 Catheterized Urine Urine Culture - Final Escherichia coli 02/14/18 21:30 Blood - Peripheral Aerobic Blood Culture - Preliminary No growth in 3 days 02/14/18 21:30 Blood - Peripheral Anaerobic Blood Culture - Preliminary No growth in 3 days 02/14/18 21:25 Blood - Peripheral Aerobic Blood Culture - Preliminary No growth in 3 days 02/14/18 21:25 Blood - Peripheral Anaerobic Blood Culture - Preliminary No growth in 3 days Assessment and Plan - Assessment (1) Rhabdomyolysis Code(s): M62.82 - Rhabdomyolysis Status: Acute (2) Bipolar 1 disorder, mixed Code(s): F31.60 - Bipolar disorder, current episode mixed, unspecified Status : Chronic (3) Acute kidney injury Code(s): N17.9 - Acute kidney failure, unspecified Status: Acute (4) Elevated liver enzymes Code(s): R74.8 - Abnormal levels of other serum enzymes Status: Acute - Plan This is a 48-year Female with past medical history of bipolar disorder admitted under a Alexandra apt for a manic state, and found to have acute renal insufficiency and severe rhabdomyolysis, HD #5 1. Severe Rhabdomyolysis with Acute Renal Failure Now symptomatic with Fatigue and Confusion/Azotemia CK improving, 8,332 today from 22,117 Creatinine worsening, 7.13 today from 6.31 Continue NS at 150 mL/HR Nephrology consulted, appreciate assistance with management, per their recommendations if no improvement in urine output will likely need HD Her urine output has been minimal despite receiving generous amounts of IVF, she does not seem dehydrated at this point Continue to monitor CK and Cr Avoid nephrotoxic medications Per Nephro reccs 02/17: Avoid nephrotoxins including NSAIDS, IV contrast and aminoglycosides Maintain strict I+O, keep indwelling Hamm catheter Continue Normal saline at 150 ml/hr tolerating well. Urine output remains low but has increased some. No acute indication for hemodialysis. HCO3, potassium level, has remained normal and patient continues to be on room air. Continue to monitor closely 2. Elevated LFT's, improving Likely due to above Trending down Continue to monitor 3. Hyponatremia/Hypocalemia Na 129 today from 132, Ca 7.6 (will replace if <7) Cont. NS Free fluid restriction to 1500ml Follow-up BMP in AM Follow-up nephrology recommendations 4. Bipolar disorder, hypomanic Managed by psych Patient admits to being hypomanic, she has been taking Benadryl at home to help her sleep She may have taken too much Benadryl, laid in bed for too long, dehydration contributing to rhabdomyolysis Denies suicidal ideations and does not seem depressed Does not exhibit signs of psychosis or delusions Cont. Seroquel 5. UTI Urine Cx, Gram neg rods, pending sensitivities On Macrobid, will continue until FINAL urine culture results Bld Cx from02/14, NG at 3 daysx4 6. Lacerations Right finger under wrap, gauze clean Superficial scrapes and bruising of forehead, no sign of infection Continue with routine wound care 7. DVT prophylaxis SCD's/Feliberto, chemoprophylaxis held at this time due to lacerations and extensive bruising 8. Disposition: Keep in ICU due to acute renal failure and elevating creatinine level, follow-up Nephro reccs, no further recommendations Code Status: full Discussed Condition With: patient (1) Rhabdomyolysis Qualifiers: Rhabdomyolysis type: non-traumatic Qualified Code(s): M62.82 - Rhabdomyolysis
[2018-02-18] MEDS ORDERED: Heparin 10,000 UNITS/10 ML Vial (for IV use) OTHER PRN (09:18)
[2018-02-18] MEDS ORDERED: Albumin Human 25% Inj 100 ML IV.SIG PRN (09:18)
[2018-02-18] MEDS ORDERED: Gelatin 12 MM/7 MM Topical Foam TOPICAL PRN (09:18)
[2018-02-18] MEDS ORDERED: Acetaminophen 325 MG Tablet PO PRN (09:18)
[2018-02-18] MEDS ORDERED: Sod Chloride 0.9% Inj 1,000 ML IV.CONT PRN (09:18)
[2018-02-18] MEDS ORDERED: Sod Chloride 0.9% Inj 1,000 ML OTHER PRN ×2 (09:18)
--- NOTE | 2018-02-18 09:27 | P.PNNP ---
Subjective Interval history: Reports not feeling well, shortness of breath, nausea, muscle weakness, and swollen. Creatinine has increased at 7.13 and HCo3 down to 15.9. <Denise Raymond - Last Filed: 02/18/18 09:20> Physical Exam Vital signs: Vital Signs 02/17/18 10:00 02/17/18 12:00 02/17/18 14:00 Temperature 98.0 F Pulse Rate 74 76 74 Respiratory Rate 23 Blood Pressure 160/88 H Pulse Oximetry 97 02/17/18 16:00 02/17/18 18:00 02/17/18 20:00 Temperature 98.0 F 98.7 F Pulse Rate 83 81 80 Respiratory Rate 18 20 Blood Pressure 153/82 H 182/91 H Pulse Oximetry 98 99 02/17/18 22:00 02/18/18 00:00 02/18/18 02:00 Temperature 98.3 F Pulse Rate 77 75 75 Respiratory Rate 19 Blood Pressure 156/96 H Pulse Oximetry 97 02/18/18 04:00 02/18/18 06:00 Temperature 98.4 F Pulse Rate 72 71 Respiratory Rate 18 Blood Pressure 189/98 H Pulse Oximetry 97 Intake & Output 02/17/18 02/18/18 02/18/18 18:59 06:59 18:59 Intake Total 1600 / 1600 2720 / 2720 Output Total 60 / 60 50 / 50 Balance 1540 / 1540 2670 / 2670 Weight 112 kg Intake: IV 1000 / 1000 1999 / 1999 NS Inj 1,000 ML @ 150 mls/hr IV 1000 / 1000 1999 .CONT .Q6H40M [facility] Rx#:[id number] Oral 600 / 600 720 / 720 Output: Urine 50 / 50 Urine Amount (Catheter) 60 / 60 Indwelling Urethral Catheter 60 / 60 Other: Date of Last Bowel Movement 02/17/18 02/17/18 # Bowel Movements 1 0 Narrative: GENERAL: Alert and oriented. NECK: Supple, trachea midline. No JVD or lymphadenopathy. CARDIOVASCULAR: Regular rate and rhythm without murmurs, gallops, or rubs. RESPIRATORY: Breath sounds equal bilaterally. No accessory muscle use. Crackles in bases. GASTROINTESTINAL: Abdomen soft, non-tender, large MUSCULOSKELETAL: No cyanosis. Dependent edema. BACK: Nontender without obvious deformity. No CVA tenderness. - Urinary Catheter Management Indwelling Urethral Catheter Cath placed during this visit: yes Reason for continuing: Acute urinary retention Insertion date: 02/16/18 Insertion time: 13:00 <Denise Raymond - Last Filed: 02/18/18 09:20> Vital signs: Vital Signs 02/18/18 20:00 02/18/18 20:16 02/18/18 22:00 Temperature 98.0 F Pulse Rate 80 71 Respiratory Rate 22 Blood Pressure 154/90 H Pulse Oximetry 97 98 02/19/18 00:00 02/19/18 02:00 02/19/18 04:00 Temperature 98.1 F 97.9 F Pulse Rate 62 65 72 Respiratory Rate 19 18 Blood Pressure 152/93 H 182/90 H Pulse Oximetry 96 97 02/19/18 06:00 02/19/18 07:45 02/19/18 08:00 Temperature 98.0 F Pulse Rate 62 70 Respiratory Rate 17 Blood Pressure 177/93 H Pulse Oximetry 96 97 02/19/18 10:00 02/19/18 12:00 02/19/18 14:00 Temperature 98.2 F Pulse Rate 69 75 71 Respiratory Rate 17 Blood Pressure 178/91 H Pulse Oximetry 97 02/19/18 16:00 02/19/18 18:00 Temperature 98.1 F Pulse Rate 79 75 Respiratory Rate 18 Blood Pressure 195/91 H Pulse Oximetry 99 Intake & Output 02/19/18 02/19/18 02/20/18 06:59 18:59 06:59 Intake Total 240 / 240 Output Total 100 / 100 3020 / 3020 Balance 140 / 140 -3020 / -3020 Weight 112 kg Intake: Oral 240 / 240 Output: Urine 100 / 100 20 / 20 Hemodialysis Amount 3000 / 3000 Other: Date of Last Bowel Movement 02/17/18 02/17/18 # Bowel Movements 0 2 - Urinary Catheter Management Indwelling Urethral Catheter Cath placed during this visit: no <Robert Doherty - Last Filed: 02/19/18 19:34> Assessment and Plan - Assessment (1) Acute kidney injury Code(s): N17.9 - Acute kidney failure, unspecified Status: Acute Plan: Acute kidney injury with a creatinine of 5.2 on day of consult Baseline renal function is unclear but on admission on the creatinine was 1.8 and has steadily increased. The patient has apparent acute kidney injury in the setting of rhabdomyolysis. Renal ultrasound with mildly echogenic kidneys which may reflect medical renal disease Plan Avoid nephrotoxins including NSAIDS, IV contrast and aminoglycosides Maintain strict I+O, keep indwelling Hamm catheter Showing some signs of uremia, increase in creatinine at 7.13, HCO3 down to 15.9 Remains oliguric Will proceed to hemodialysis. Interventional radiology consulted for vas cath placement Hemodialysis today will remove fluid as tolerated. (2) Rhabdomyolysis Code(s): M62.82 - Rhabdomyolysis Status: Acute Qualifiers: Rhabdomyolysis type: non-traumatic Qualified Code(s): M62.82 - Rhabdomyolysis <Denise Raymond - Last Filed: 02/18/18 09:20> - Assessment (1) Acute kidney injury Code(s): N17.9 - Acute kidney failure, unspecified Status: Acute Plan: Patient seen and examine, agree with above. Has CRISTA most likely due to Rhabdo. Creatinine continue to increase, started on HD, tolerating well. Follow the urine out put and watch for renal recovery. (2) Rhabdomyolysis Code(s): M62.82 - Rhabdomyolysis Status: Acute Qualifiers: Rhabdomyolysis type: non-traumatic Qualified Code(s): M62.82 - Rhabdomyolysis <Robert Doherty - Last Filed: 02/19/18 19:34>
[2018-02-18] MEDS: Metoprolol Tartrate 25 MG Tablet PO SCH ×2 (09:38→20:01)
[2018-02-18] MEDS ORDERED: *Heparin 10,000 UNITS/10 ML Vial Periprocedural ONLY ONE (11:40)
--- NOTE | 2018-02-18 12:19 | P.RAD ---
Post Procedure Progress Note - Pre Procedure Diagnosis (1) Acute kidney injury - Post Procedure Diagnosis (1) Acute kidney injury - Procedure Information Procedure Date: 02/18/18 Supervising Radiologist: Curt Milan Jr, MD Proceduralist/Assist: Valdemar Brambila Estimated blood loss (mL): 0 Anesthesia: Local - Plan of Activity Patient to Unit: Nursing Unit Patient Condition: Good See PACS Report for procedural detail/treatment. [facility] Radiology Procedures right Internal Jugular Hemodialysis Catheter Non-Tunneled Placement Device: dual lumen Citizen [place]: 14 - Additional Detail Findings: Placed RIJ Vascath, in good position, functions well. OK to use.
[2018-02-18 12:21] LABS: Hepatitis A IgM Antibody Nonreactive (Nonreactive); Hepatitits B Surface Antigen Nonreactive (Nonreactive)
--- NOTE | 2018-02-18 13:53 | IR ---
EXAM DATE: 02/18/2018 12:00 AM EDT AGE/SEX: 48 years / Female INDICATIONS: Patient presents with acute renal injury in need of dialysis catheter placement. CLINICAL DATA: This is the patient's initial encounter. Patient reports that signs and symptoms have been present for 1 day and indicates a pain score of 4/10. MEDICAL/SURGICAL HISTORY: . History of bipolar disease. . Arm surgery, Partial hysterectomy. COMPARISON: . FLUORO TIME (min): 0.36 IMAGE SERIES: 2 ACCESS SITE: Right internal jugular vein MEDICATION(S): 2,200 units Heparin IV DEVICE(S): 14 [place] double lumen 15cm Schon Vas Cath . . PROCEDURE : 1. Ultrasound guided venipuncture. 2. Fluoroscopic guidance. 3. Central line placement. The risks, benefits and alternatives to the procedure were explained and verbal and written consent w as obtained. The site was prepped in sterile fashion. Full sterile technique was used, including ca p, mask, sterile gloves and gown and a large sterile sheet. Hand hygiene and 2% chlorhexidine prep w as utilized per protocol for cutaneous antisepsis with appropriate dry time for site. Sterile gel an d sterile probe cover were utilized for ultrasound guidance. The skin and subcutaneous tissues were infiltrated with local anesthetic solution. A suitable site a lilliana the vein was selected with ultrasound and fluoroscopic guidance. A small incision was made. Th e vein was accessed under direct ultrasound visualization using the micropuncture technique. The lobo ropuncture set was exchanged for a 0.035 wire. The tract was dilated. The catheter was advanced int o position under direct fluoroscopic visualization, and was advanced with the tip at the junction of the superior vena cava and rt atrium. The catheter was fixed in place with suture and a sterile dres sing was applied. The patient tolerated the procedure well and there were no complications. CONCLUSION: 1. Uncomplicated line placement as above. Electronically signed by: Curt Milan MD 02/18/2018 1:52 PM EDT
[2018-02-18] MEDS: Heparin 10,000 UNITS/10 ML Vial (for IV use) OTHER PRN (16:22)
[2018-02-18] MEDS: Acetaminophen 325 MG Tablet PO PRN (20:02)
[2018-02-19] MEDS: Chlorhexidine Gluconate 2% 1 Pack (2 Cloths) TOPICAL SCH (04:00)
[2018-02-19] MEDS: Acetaminophen 325 MG Tablet PO PRN ×2 (04:14→20:02)
[2018-02-19 05:39] LABS: Baso # (Auto) 0.1 th/mm3 (0.0-0.2); Baso % (Auto) 0.5 % (0.0-2.0); Eos # (Auto) 0.3 th/mm3 (0.0-0.4); Eos % (Auto) 3.3 % (0.0-4.0); Hematocrit 34.8 % (35.0-46.0); Lymph # (Auto) 1.3 th/mm3 (1.0-4.8); Lymph % (Auto) 13.2 % (9.0-44.0); Mean Corpuscular HGB Conc 34.4 % (32.0-36.0); Mean Corpuscular Hemoglobin 30.5 pg (27.0-34.0); Mean Corpuscular Volume 88.6 fL (80.0-100.0); Mean Platelet Volume 9.6 fL (7.0-11.0); Mono # (Auto) 0.7 th/mm3 (0.0-0.9); Mono % (Auto) 7.3 % (0.0-8.0); Neut # (Auto) 7.6 th/mm3 (1.8-7.7); Neut % (Auto) 75.7 % (16.0-70.0); Platelet Count 209 th/mm3 (150-450); Red Blood Count 3.93 mil/mm3 (4.00-5.30); Red Cell Distribution Width 14.4 % (11.6-17.2)
[2018-02-19 06:23] LABS: Albumin 2.2 g/dL (3.4-5.0); Carbon Dioxide 18.2 meq/L (21.0-32.0); Magnesium 1.5 mg/dL (1.5-2.5); Phosphorus 4.1 mg/dL (2.5-4.9); Potassium 4.6 meq/L (3.5-5.1); Total Protein 5.7 g/dL (6.4-8.2)
[2018-02-19 06:50] LABS: CKMB Percent 0.1 % (0.0-4.0); Creatine Kinase MB 3.8 ng/mL (0.5-3.6)
--- NOTE | 2018-02-19 07:44 | P.PN ---
Subjective Interval history: Patient doing well, reports improved fatigue since starting HD. Patient is tolerating PO/voiding/stooling well. No other concerns. Physical Exam Vital signs: Vital Signs 02/18/18 08:00 02/18/18 10:00 02/18/18 12:00 Temperature 98.5 F Pulse Rate 80 71 72 Respiratory Rate 18 Blood Pressure 164/84 H Pulse Oximetry 97 02/18/18 14:00 02/18/18 16:00 02/18/18 18:00 Temperature 98.3 F Pulse Rate 71 68 80 Respiratory Rate 17 Blood Pressure 149/58 H Pulse Oximetry 98 02/18/18 20:00 02/18/18 20:16 02/18/18 22:00 Temperature 98.0 F Pulse Rate 80 71 Respiratory Rate 22 Blood Pressure 154/90 H Pulse Oximetry 97 98 02/19/18 00:00 02/19/18 02:00 02/19/18 04:00 Temperature 98.1 F 97.9 F Pulse Rate 62 65 72 Respiratory Rate 19 18 Blood Pressure 152/93 H 182/90 H Pulse Oximetry 96 97 02/19/18 06:00 Temperature Pulse Rate 62 Respiratory Rate Blood Pressure Pulse Oximetry Intake & Output 02/18/18 02/19/18 02/19/18 18:59 06:59 18:59 Intake Total 1140 / 1140 240 / 240 Output Total 2019 100 / 100 Balance -880 / -880 140 / 140 Weight 112 kg Intake: IV 900 / 900 NS Inj 1,000 ML @ 150 mls/hr IV 900 / 900 .CONT .Q6H40M [facility] Rx#:[id number] Oral 240 / 240 240 / 240 Output: Urine 20 / 20 100 / 100 Hemodialysis Amount 1999 Other: Date of Last Bowel Movement 02/17/18 02/17/18 # Bowel Movements 0 0 Narrative: GENERAL: well nourished female, in no acute distress, lying in bed, talkative but reports some confusion today SKIN: Warm and dry. Extensive bruising, laceration of right finger under bandage, scrape and bruise on right forehead HEENT: Atraumatic, normocephalic. No scleral icterus. No injection or drainage. PERRLA. MOM. NECK: Supple, trachea midline. No JVD or lymphadenopathy. Normal thyroid. CARDIOVASCULAR: Regular rate and rhythm. No murmurs, gallops, or rubs. RESPIRATORY: CTAx2. No crackles or wheezes. No accessory muscle use. GASTROINTESTINAL: Abdomen soft, non-tender, nondistended, normal active bowel sounds MUSCULOSKELETAL: No cyanosis, or edema. NEURO: CN II-XII grossly intact, no focal deficits, no slurring of speech, AAOx3 - Urinary Catheter Management Indwelling Urethral Catheter Cath placed during this visit: yes Reason for continuing: Acute urinary retention Insertion date: 02/16/18 Insertion time: 13:00 Results - Labs CBC & Chem 7: 02/19/18 03:47 02/19/18 03:47 Laboratory Results - last 24 hr 02/18/18 02/18/18 02/18/18 10:24 13:39 16:10 WBC RBC Hgb Hct MCV MCH MCHC RDW Plt Count MPV Neut % (Auto) Lymph % (Auto) [place] % (Auto) Eos % (Auto) Baso % (Auto) Neut # (Auto) Lymph # (Auto) [place] # (Auto) Eos # (Auto) Baso # (Auto) WBC Differential Differential Comment Sodium Potassium Chloride Carbon Dioxide Anion Gap BUN Creatinine Estimated GFR POC Glucose 97 96 Random Glucose Calcium Prot Corrected Calcium Phosphorus Magnesium Total Bilirubin AST ALT Alkaline Phosphatase Total Creatine Kinase CK-MB (CK-2) CK-MB (CK-2) % Total Protein Albumin Hepatitis A IgM Ab Nonreactive Hep Bs Antigen Nonreactive Hep B Core IgM Ab Nonreactive Hep C IgG Ab Nonreactive 02/18/18 02/18/18 02/19/18 19:38 23:16 03:22 WBC RBC Hgb Hct MCV MCH MCHC RDW Plt Count MPV Neut % (Auto) Lymph % (Auto) [place] % (Auto) Eos % (Auto) Baso % (Auto) Neut # (Auto) Lymph # (Auto) [place] # (Auto) Eos # (Auto) Baso # (Auto) WBC Differential Differential Comment Sodium Potassium Chloride Carbon Dioxide Anion Gap BUN Creatinine Estimated GFR POC Glucose 143 H 125 H 99 Random Glucose Calcium Prot Corrected Calcium Phosphorus Magnesium Total Bilirubin AST ALT Alkaline Phosphatase Total Creatine Kinase CK-MB (CK-2) CK-MB (CK-2) % Total Protein Albumin Hepatitis A IgM Ab Hep Bs Antigen Hep B Core IgM Ab Hep C IgG Ab 02/19/18 02/19/18 03:47 03:47 WBC 10.0 RBC 3.93 L Hgb 12.0 Hct 34.8 L MCV 88.6 MCH 30.5 MCHC 34.4 RDW 14.4 Plt Count 209 MPV 9.6 Neut % (Auto) 75.7 H Lymph % (Auto) 13.2 [place] % (Auto) 7.3 Eos % (Auto) 3.3 Baso % (Auto) 0.5 Neut # (Auto) 7.6 Lymph # (Auto) 1.3 [place] # (Auto) 0.7 Eos # (Auto) 0.3 Baso # (Auto) 0.1 WBC Differential . Differential Comment Auto diff final Sodium 129 L Potassium 4.6 Chloride 98 Carbon Dioxide 18.2 L Anion Gap 13 BUN 41 H Creatinine 6.45 H Estimated GFR 7 L POC Glucose Random Glucose 77 Calcium 7.0 L* Prot Corrected Calcium 7.7 L Phosphorus 4.1 Magnesium 1.5 Total Bilirubin 0.4 AST 332 H ALT 38 Alkaline Phosphatase 82 Total Creatine Kinase 3774 H CK-MB (CK-2) 3.8 H CK-MB (CK-2) % 0.1 Total Protein 5.7 L Albumin 2.2 L Hepatitis A IgM Ab Hep Bs Antigen Hep B Core IgM Ab Hep C IgG Ab Microbiology 02/14/18 21:30 Blood - Peripheral Aerobic Blood Culture - Preliminary No growth in 4 days 02/14/18 21:30 Blood - Peripheral Anaerobic Blood Culture - Preliminary No growth in 4 days 02/14/18 21:25 Blood - Peripheral Aerobic Blood Culture - Preliminary No growth in 4 days 02/14/18 21:25 Blood - Peripheral Anaerobic Blood Culture - Preliminary No growth in 4 days 02/16/18 10:50 Catheterized Urine Urine Culture - Final Escherichia coli - Imaging Impressions Catheter Placement 02/18/18 00:00 CONCLUSION: 1. Uncomplicated line placement as above. Assessment and Plan - Assessment (1) Rhabdomyolysis Code(s): M62.82 - Rhabdomyolysis Status: Acute (2) Bipolar 1 disorder, mixed Code(s): F31.60 - Bipolar disorder, current episode mixed, unspecified Status : Chronic (3) Acute kidney injury Code(s): N17.9 - Acute kidney failure, unspecified Status: Acute (4) Elevated liver enzymes Code(s): R74.8 - Abnormal levels of other serum enzymes Status: Acute - Plan This is a 48-year Female with past medical history of bipolar disorder admitted under a Alexandra apt for a manic state, and found to have acute renal insufficiency and severe rhabdomyolysis, HD #7 1. Severe Rhabdomyolysis with Acute Renal Failure, improving s/p hemodialysis started on 02/18 CK improving, 3,774 today from 8,332 Creatinine improving, Cr 6.45 today from 7.13 s/p IVF's, stopped for HD Nephrology consulted, appreciate assistance with management Continue to monitor CK and Cr Avoid nephrotoxic medications Per Nephro reccs 02/18: Avoid nephrotoxins including NSAIDS, IV contrast and aminoglycosides Maintain strict I+O, keep indwelling Hamm catheter Showing some signs of uremia, increase in creatinine at 7.13, HCO3 down to 15.9 Remains oliguric Will proceed to hemodialysis. Interventional radiology consulted for vas cath placement Hemodialysis today will remove fluid as tolerated. 2. Elevated LFT's, improving Likely due to above Trending down Continue to monitor 3. Hyponatremia/Hypocalemia Na 129 today from 129, Ca 7.7 Cont. NS Free fluid restriction to 1500ml Follow-up BMP in AM Follow-up nephrology recommendations 3. HTN Not well controlled, BP 167/70 during my evaluation Started on Metoprolol on 02/18, inc. to 25mg BID today Cont. to monitor Cont. Clonidine PRN, adding Hydralazine PRN If cannot keep blood pressures controlled with Metoprolol and PRN meds, consider drip which would require critical care management 4. Bipolar disorder, hypomanic Managed by psych Patient admits to being hypomanic, she has been taking Benadryl at home to help her sleep She may have taken too much Benadryl, laid in bed for too long, dehydration contributing to rhabdomyolysis Denies suicidal ideations and does not seem depressed Does not exhibit signs of psychosis or delusions Cont. Seroquel 5. UTI Urine Cx 02/14, E.Coli, pansensitive On Macrobid started on 02/04 Bld Cx from02/14, NG at 5 daysx4 6. Lacerations Right finger under wrap, gauze clean Superficial scrapes and bruising of forehead, no sign of infection Continue with routine wound care 7. DVT prophylaxis: SCD's/Feliberto, chemoprophylaxis held at this time due to lacerations and extensive bruising 8. Disposition: Keep in ICU due to elevated BP and acute renal failure, follow- up Nephro reccs, may need critical care management with a drip if we cannot better control her blood pressures. Code Status: full Discussed Condition With: patient, RN (1) Rhabdomyolysis Qualifiers: Rhabdomyolysis type: non-traumatic Qualified Code(s): M62.82 - Rhabdomyolysis
--- NOTE | 2018-02-19 09:30 | P.PNNP ---
Subjective Interval history: Seen during hemodialysis. Shortness of breath improving. No chest pain, nausea , or vomiting. <Denise Raymond - Last Filed: 02/19/18 09:22> Physical Exam Vital signs: Vital Signs 02/18/18 10:00 02/18/18 12:00 02/18/18 14:00 Temperature Pulse Rate 71 72 71 Respiratory Rate Blood Pressure Pulse Oximetry 02/18/18 16:00 02/18/18 18:00 02/18/18 20:00 Temperature 98.3 F 98.0 F Pulse Rate 68 80 80 Respiratory Rate 17 22 Blood Pressure 149/58 H 154/90 H Pulse Oximetry 98 97 02/18/18 20:16 02/18/18 22:00 02/19/18 00:00 Temperature 98.1 F Pulse Rate 71 62 Respiratory Rate 19 Blood Pressure 152/93 H Pulse Oximetry 98 96 02/19/18 02:00 02/19/18 04:00 02/19/18 06:00 Temperature 97.9 F Pulse Rate 65 72 62 Respiratory Rate 18 Blood Pressure 182/90 H Pulse Oximetry 97 02/19/18 07:45 Temperature Pulse Rate Respiratory Rate Blood Pressure Pulse Oximetry 96 Intake & Output 02/18/18 02/19/18 02/19/18 18:59 06:59 18:59 Intake Total 1140 / 1140 240 / 240 Output Total 2019 100 / 100 Balance -880 / -880 140 / 140 Weight 112 kg Intake: IV 900 / 900 NS Inj 1,000 ML @ 150 mls/hr IV 900 / 900 .CONT .Q6H40M [facility] Rx#:[id number] Oral 240 / 240 240 / 240 Output: Urine 20 / 20 100 / 100 Hemodialysis Amount 1999 Other: Date of Last Bowel Movement 02/17/18 02/17/18 # Bowel Movements 0 0 Narrative: GENERAL: Alert and oriented. NECK: Supple, trachea midline. No JVD or lymphadenopathy. CARDIOVASCULAR: Regular rate and rhythm without murmurs, gallops, or rubs. Vas cath right IJ RESPIRATORY: Breath sounds equal bilaterally. No accessory muscle use. Crackles in bases. GASTROINTESTINAL: Abdomen soft, non-tender, large MUSCULOSKELETAL: No cyanosis. Dependent edema. BACK: Nontender without obvious deformity. No CVA tenderness. - Urinary Catheter Management Indwelling Urethral Catheter Cath placed during this visit: yes Reason for continuing: Acute urinary retention Insertion date: 02/16/18 Insertion time: 13:00 <Denise Raymond - Last Filed: 02/19/18 09:22> Vital signs: Vital Signs 02/19/18 20:00 02/19/18 22:00 02/20/18 00:00 Temperature 98.5 F 98.3 F Pulse Rate 76 72 74 Respiratory Rate 21 14 Blood Pressure 170/80 H 157/68 H Pulse Oximetry 98 96 02/20/18 01:00 02/20/18 01:30 02/20/18 02:00 Temperature Pulse Rate 74 73 73 Respiratory Rate 14 18 19 Blood Pressure 151/70 H 146/67 H 146/67 H Pulse Oximetry 92 L 93 L 94 L 02/20/18 02:30 02/20/18 03:00 02/20/18 03:30 Temperature Pulse Rate 72 74 73 Respiratory Rate 17 18 15 Blood Pressure 145/68 H 150/70 H 153/70 H Pulse Oximetry 94 L 95 94 L 02/20/18 04:00 02/20/18 04:30 02/20/18 05:00 Temperature 98.2 F Pulse Rate 72 70 70 Respiratory Rate 18 17 16 Blood Pressure 156/71 H 154/70 H 158/74 H Pulse Oximetry 94 L 94 L 95 02/20/18 05:30 02/20/18 06:00 02/20/18 06:30 Temperature Pulse Rate 70 71 68 Respiratory Rate 17 16 17 Blood Pressure 158/72 H 160/74 H 160/74 H Pulse Oximetry 94 L 96 95 02/20/18 07:00 02/20/18 07:30 02/20/18 08:00 Temperature 98.0 F Pulse Rate 69 68 69 Respiratory Rate 13 15 16 Blood Pressure 174/77 H 156/71 H 166/77 H Pulse Oximetry 95 95 94 L 02/20/18 08:30 02/20/18 09:00 02/20/18 09:30 Temperature Pulse Rate 68 66 62 Respiratory Rate 16 16 15 Blood Pressure 162/72 H 178/73 H 152/67 H Pulse Oximetry 94 L 94 L 94 L 02/20/18 10:00 02/20/18 10:30 02/20/18 11:00 Temperature Pulse Rate 70 70 71 Respiratory Rate 25 H 16 17 Blood Pressure 153/74 H 152/70 H 154/71 H Pulse Oximetry 94 L 94 L 95 02/20/18 11:30 02/20/18 12:00 02/20/18 12:30 Temperature Pulse Rate 72 69 68 Respiratory Rate 15 16 16 Blood Pressure 157/67 H 163/72 H 165/72 H Pulse Oximetry 94 L 93 L 95 02/20/18 13:00 02/20/18 16:00 Temperature 97.6 F Pulse Rate 69 71 Respiratory Rate 16 18 Blood Pressure 168/73 H 136/68 Pulse Oximetry 94 L 95 Intake & Output 02/20/18 02/20/18 02/21/18 06:59 18:59 06:59 Intake Total 240 / 240 100 / 100 Balance 240 / 240 100 / 100 Weight 112 kg Intake: IV 100 / 100 Rocephin Inj 1,000 MG In NS Inj 100 / 100 100 ML @ 200 mls/hr IV.SIG Q24H [facility] Rx#:[id number] Oral 240 / 240 Other: # Voids 1 2 Date of Last Bowel Movement 02/17/18 02/19/18 # Bowel Movements 0 1 - Urinary Catheter Management Indwelling Urethral Catheter Cath placed during this visit: no <Robert Doherty - Last Filed: 02/20/18 19:32> Assessment and Plan - Assessment (1) Acute kidney injury Code(s): N17.9 - Acute kidney failure, unspecified Status: Acute Plan: Acute kidney injury with a creatinine of 5.2 on day of consult Baseline renal function is unclear but on admission on the creatinine was 1.8 and has steadily increased. The patient has apparent acute kidney injury in the setting of rhabdomyolysis. Renal ultrasound with mildly echogenic kidneys which may reflect medical renal disease Hemodialysis started on 02/18 with removal of 2 liters of fluid Vas cath placed in right IJ 02/18 Avoid nephrotoxins including NSAIDS, IV contrast and aminoglycosides Maintain strict I+O, keep indwelling Hamm catheter Creatinine at 6.45 and oliguric, will follow urinary output and labs. HCO3 at 18, sodium bicarbonate added Hypocalcemia, oral replacement added. Seen during hemodialysis today will remove fluid as tolerated. (2) Rhabdomyolysis Code(s): M62.82 - Rhabdomyolysis Status: Acute Qualifiers: Rhabdomyolysis type: non-traumatic Qualified Code(s): M62.82 - Rhabdomyolysis <Denise Raymond Last Filed: 02/19/18 09:22> - Assessment (1) Acute kidney injury Code(s): N17.9 - Acute kidney failure, unspecified Status: Acute Plan: Patient seen and examine, agree with above. Has Acute kidney injury due to Rhabdo. Urine out put is low, started on HD. HD done today, watch for renal recovery. (2) Rhabdomyolysis Code(s): M62.82 - Rhabdomyolysis Status: Acute Qualifiers: Rhabdomyolysis type: non-traumatic Qualified Code(s): M62.82 - Rhabdomyolysis <Robert Doherty - Last Filed: 02/20/18 19:32>
[2018-02-19] MEDS: Heparin 10,000 UNITS/10 ML Vial (for IV use) OTHER PRN (10:41)
[2018-02-19] MEDS: QUEtiapine 25 MG Tablet PO SCH ×2 (11:39→20:03)
[2018-02-19] MEDS: Sodium Chloride 0.9% 2 ML Flush BID IV.FLUSH SCH ×2 (11:39→20:03)
[2018-02-19] MEDS: Nitrofurantoin Monohydrate-Macrocrystal 100 MG Capsule PO SCH ×2 (11:40→17:34)
[2018-02-19] MEDS: Metoprolol Tartrate 25 MG Tablet PO SCH ×2 (11:40→20:03)
[2018-02-19] MEDS: hydrALAZINE HCl Inj 20 MG/ML Vial IV.PUSH PRN ×2 (17:34→23:05)
[2018-02-19] MEDS ORDERED: Labetalol HCl Inj 100 MG/20 ML Vial IV.PUSH ONE (19:45)
[2018-02-19] MEDS: Sodium Bicarbonate 650 MG Tablet PO SCH (20:03)
[2018-02-19] MEDS: Calcium Carbonate 500 MG Tablet PO SCH (20:03)
[2018-02-20 04:02] LABS: Baso % (Auto) 0.3 % (0.0-2.0); Eos # (Auto) 0.3 th/mm3 (0.0-0.4); Eos % (Auto) 3.2 % (0.0-4.0); Hematocrit 32.6 % (35.0-46.0); Hemoglobin 10.9 gm/dL (11.6-15.3); Lymph # (Auto) 1.1 th/mm3 (1.0-4.8); Mean Corpuscular HGB Conc 33.5 % (32.0-36.0); Mean Corpuscular Hemoglobin 30.2 pg (27.0-34.0); Mean Corpuscular Volume 90.1 fL (80.0-100.0); Mean Platelet Volume 9.3 fL (7.0-11.0); Mono # (Auto) 0.7 th/mm3 (0.0-0.9); Mono % (Auto) 8.9 % (0.0-8.0); Neut % (Auto) 73.6 % (16.0-70.0); Platelet Count 208 th/mm3 (150-450); Red Blood Count 3.62 mil/mm3 (4.00-5.30); Red Cell Distribution Width 14.5 % (11.6-17.2); White Blood Count 8.1 th/mm3 (4.0-11.0)
[2018-02-20 04:58] LABS: Albumin 2.2 g/dL (3.4-5.0); Calcium 7.2 mg/dL (8.5-10.1); Carbon Dioxide 24.8 meq/L (21.0-32.0); Magnesium 1.6 mg/dL (1.5-2.5); Phosphorus 3.6 mg/dL (2.5-4.9); Total Protein 5.5 g/dL (6.4-8.2)
[2018-02-20 06:32] LABS: CKMB Percent 0.1 % (0.0-4.0)
[2018-02-20] MEDS: Sodium Chloride 0.9% 2 ML Flush BID IV.FLUSH SCH ×2 (08:17→22:15)
[2018-02-20] MEDS: Nitrofurantoin Monohydrate-Macrocrystal 100 MG Capsule PO SCH (08:18)
[2018-02-20] MEDS: QUEtiapine 25 MG Tablet PO SCH ×2 (08:18→22:13)
[2018-02-20] MEDS: Metoprolol Tartrate 25 MG Tablet PO SCH ×2 (08:18→22:14)
[2018-02-20] MEDS: Calcium Carbonate 500 MG Tablet PO SCH ×2 (08:18→22:13)
[2018-02-20] MEDS: Sodium Bicarbonate 650 MG Tablet PO SCH ×2 (08:19→22:13)
--- NOTE | 2018-02-20 10:48 | P.PN ---
Subjective Interval history: Nursing denies any deterioration since last night. Blood pressure still seem to be high in the 170 systolic. Patient herself denies any new complaints today. Physical Exam Vital signs: Vital Signs 02/19/18 12:00 02/19/18 14:00 02/19/18 16:00 Temperature 98.2 F 98.1 F Pulse Rate 75 71 79 Respiratory Rate 17 18 Blood Pressure 178/91 H 195/91 H Pulse Oximetry 97 99 02/19/18 18:00 02/19/18 20:00 02/19/18 22:00 Temperature 98.5 F Pulse Rate 75 76 72 Respiratory Rate 21 Blood Pressure 170/80 H Pulse Oximetry 98 02/20/18 00:00 02/20/18 02:00 02/20/18 04:00 Temperature 98.3 F 98.2 F Pulse Rate 74 73 72 Respiratory Rate 14 18 Blood Pressure 157/68 H 156/71 H Pulse Oximetry 96 94 L 02/20/18 06:00 02/20/18 08:00 02/20/18 10:00 Temperature 98.0 F Pulse Rate 71 67 69 Respiratory Rate 17 Blood Pressure 178/73 H Pulse Oximetry 98 Intake & Output 02/19/18 02/20/18 02/20/18 18:59 06:59 18:59 Intake Total 240 / 240 Output Total 3020 / 3020 Balance -3020 / -3020 240 / 240 Weight 112 kg Intake: Oral 240 / 240 Output: Urine 20 / 20 Hemodialysis Amount 3000 / 3000 Other: # Voids 1 Date of Last Bowel Movement 02/17/18 02/17/18 02/19/18 # Bowel Movements 2 0 Narrative: Clear lungs bilaterally, unlabored breathing Heart sounds regular rate and rhythm, no murmurs Sitting up in bed, just finished eating, no acute distress - Urinary Catheter Management Indwelling Urethral Catheter Cath placed during this visit: yes, but has since been removed by the nurse Reason for continuing: Acute urinary retention Insertion date: 02/16/18 Insertion time: 13:00 Removal date: 02/19/18 Removal time: 15:00 Results - Labs CBC & Chem 7: 02/20/18 02:38 02/20/18 02:38 Laboratory Results - last 24 hr 02/19/18 02/19/18 02/19/18 13:09 17:28 19:59 WBC RBC Hgb Hct MCV MCH MCHC RDW Plt Count MPV Neut % (Auto) Lymph % (Auto) [place] % (Auto) Eos % (Auto) Baso % (Auto) Neut # (Auto) Lymph # (Auto) [place] # (Auto) Eos # (Auto) Baso # (Auto) WBC Differential Differential Comment Sodium Potassium Chloride Carbon Dioxide Anion Gap BUN Creatinine Estimated GFR POC Glucose 140 H 91 120 H Random Glucose Calcium Prot Corrected Calcium Phosphorus Magnesium Total Bilirubin AST ALT Alkaline Phosphatase Total Creatine Kinase CK-MB (CK-2) CK-MB (CK-2) % Total Protein Albumin 02/19/18 02/20/18 02/20/18 23:47 02:38 02:38 WBC 8.1 RBC 3.62 L Hgb 10.9 L Hct 32.6 L MCV 90.1 MCH 30.2 MCHC 33.5 RDW 14.5 Plt Count 208 MPV 9.3 Neut % (Auto) 73.6 H Lymph % (Auto) 14.0 [place] % (Auto) 8.9 H Eos % (Auto) 3.2 Baso % (Auto) 0.3 Neut # (Auto) 6.0 Lymph # (Auto) 1.1 [place] # (Auto) 0.7 Eos # (Auto) 0.3 Baso # (Auto) 0.0 WBC Differential . Differential Comment Auto diff final Sodium 129 L Potassium 5.0 Chloride 95 L Carbon Dioxide 24.8 Anion Gap 9 BUN 34 H Creatinine 5.92 H Estimated GFR 8 L POC Glucose 129 H Random Glucose 95 Calcium 7.2 L* Prot Corrected Calcium 8.1 L Phosphorus 3.6 Magnesium 1.6 Total Bilirubin 0.3 AST 218 H ALT 29 Alkaline Phosphatase 79 Total Creatine Kinase 1931 H CK-MB (CK-2) 2.0 CK-MB (CK-2) % 0.1 Total Protein 5.5 L Albumin 2.2 L 02/20/18 02/20/18 03:19 08:22 WBC RBC Hgb Hct MCV MCH MCHC RDW Plt Count MPV Neut % (Auto) Lymph % (Auto) [place] % (Auto) Eos % (Auto) Baso % (Auto) Neut # (Auto) Lymph # (Auto) [place] # (Auto) Eos # (Auto) Baso # (Auto) WBC Differential Differential Comment Sodium Potassium Chloride Carbon Dioxide Anion Gap BUN Creatinine Estimated GFR POC Glucose 122 H 106 Random Glucose Calcium Prot Corrected Calcium Phosphorus Magnesium Total Bilirubin AST ALT Alkaline Phosphatase Total Creatine Kinase CK-MB (CK-2) CK-MB (CK-2) % Total Protein Albumin Microbiology 02/14/18 21:30 Blood - Peripheral Aerobic Blood Culture - Final No growth in 5 days 02/14/18 21:30 Blood - Peripheral Anaerobic Blood Culture - Final No growth in 5 days 02/14/18 21:25 Blood - Peripheral Aerobic Blood Culture - Final No growth in 5 days 02/14/18 21:25 Blood - Peripheral Anaerobic Blood Culture - Final No growth in 5 days Assessment and Plan - Assessment (1) Rhabdomyolysis Code(s): M62.82 - Rhabdomyolysis Status: Acute (2) Bipolar 1 disorder, mixed Code(s): F31.60 - Bipolar disorder, current episode mixed, unspecified Status : Chronic (3) Acute kidney injury Code(s): N17.9 - Acute kidney failure, unspecified Status: Acute (4) Elevated liver enzymes Code(s): R74.8 - Abnormal levels of other serum enzymes Status: Acute - Plan This is a 48-year Female with past medical history of bipolar disorder admitted under a Alexandra apt for a manic state with Benadryl overdosing, and found to have acute renal insufficiency and severe rhabdomyolysis. Currently in the ICU. Has been Alexandra acted by psychiatry and will likely need psychiatric admission once medically stable. 1. Severe Rhabdomyolysis with Acute Renal Failure CK level improving, however creatinine seems to be fluctuating up and down Nephrology following, dialyzing accordingly through Vas-Cath that was recently placed 2. Elevated LFT's, improving Likely due to above rhabdo; checking GGT Trending down 3. Hyponatremia/Hypocalemia Na 129 Cont. NS Free fluid restriction to 1500ml 3. HTN Will likely be hard to control as long as renal function is impaired, continue Lopressor, will add on nifedipine today 4. Bipolar disorder, hypomanic Psychiatry following and managing Patient admits to being hypomanic, she has been taking Benadryl at home to help her sleep She may have taken too much Benadryl, laid in bed for too long, dehydration contributing to rhabdomyolysis Will be admitted to psychiatry once medically stable 5. UTI Urine Cx 02/14, E.Coli, pansensitive due to macrobid's poor effectiveness w/ RF; start Rocephin 6. Lacerations Right finger under wrap, gauze clean Superficial scrapes and bruising of forehead, no sign of infection Continue with routine wound care 7. DVT prophylaxis: SCD's/Feliberto, chemoprophylaxis held at this time due to lacerations and extensive bruising (1) Rhabdomyolysis Qualifiers: Rhabdomyolysis type: non-traumatic Qualified Code(s): M62.82 - Rhabdomyolysis
--- NOTE | 2018-02-20 11:16 | P.PNNP ---
Subjective Interval history: Doing well. Shortness of breath has improved. Continues to have edema. <Denise Raymond - Last Filed: 02/20/18 15:00> Physical Exam Vital signs: Vital Signs 02/19/18 12:00 02/19/18 14:00 02/19/18 16:00 Temperature 98.2 F 98.1 F Pulse Rate 75 71 79 Respiratory Rate 17 18 Blood Pressure 178/91 H 195/91 H Pulse Oximetry 97 99 02/19/18 18:00 02/19/18 20:00 02/19/18 22:00 Temperature 98.5 F Pulse Rate 75 76 72 Respiratory Rate 21 Blood Pressure 170/80 H Pulse Oximetry 98 02/20/18 00:00 02/20/18 02:00 02/20/18 04:00 Temperature 98.3 F 98.2 F Pulse Rate 74 73 72 Respiratory Rate 14 18 Blood Pressure 157/68 H 156/71 H Pulse Oximetry 96 94 L 02/20/18 06:00 02/20/18 08:00 02/20/18 10:00 Temperature 98.0 F Pulse Rate 71 67 69 Respiratory Rate 17 Blood Pressure 178/73 H Pulse Oximetry 98 Intake & Output 02/19/18 02/20/18 02/20/18 18:59 06:59 18:59 Intake Total 240 / 240 Output Total 3020 / 3020 Balance -3020 / -3020 240 / 240 Weight 112 kg Intake: Oral 240 / 240 Output: Urine 20 / 20 Hemodialysis Amount 3000 / 3000 Other: # Voids 1 Date of Last Bowel Movement 02/17/18 02/17/18 02/19/18 # Bowel Movements 2 0 Narrative: GENERAL: Alert and oriented. NECK: Supple, trachea midline. No JVD or lymphadenopathy. CARDIOVASCULAR: Regular rate and rhythm without murmurs, gallops, or rubs. Vas cath right IJ RESPIRATORY: Breath sounds equal bilaterally. No accessory muscle use. GASTROINTESTINAL: Abdomen soft, non-tender, large MUSCULOSKELETAL: No cyanosis. Dependent edema. - Urinary Catheter Management Indwelling Urethral Catheter Cath placed during this visit: yes, but has since been removed by the nurse Reason for continuing: Acute urinary retention Insertion date: 02/16/18 Insertion time: 13:00 Removal date: 02/19/18 Removal time: 15:00 <Denise Raymond - Last Filed: 02/20/18 15:00> Vital signs: Vital Signs 02/21/18 20:00 02/22/18 00:00 02/22/18 04:00 Temperature 97.6 F 97.9 F 98.5 F Pulse Rate 90 78 83 Respiratory Rate 17 18 18 Blood Pressure 158/80 H 131/70 149/65 H Pulse Oximetry 94 L 92 L 93 L 02/22/18 08:00 02/22/18 09:48 02/22/18 12:00 Temperature 98.2 F 97.8 F Pulse Rate 81 78 Respiratory Rate 17 17 Blood Pressure 153/86 H 124/63 Pulse Oximetry 94 L 94 L 93 L 02/22/18 16:00 Temperature 97.7 F Pulse Rate 80 Respiratory Rate Blood Pressure 139/71 Pulse Oximetry 94 L Intake & Output 02/21/18 02/22/18 02/22/18 18:59 06:59 18:59 Intake Total 580 / 580 480 / 480 100 / 100 Output Total 3000 / 3000 0 / 0 Balance -2420 / -2420 480 / 480 100 / 100 Weight 113.5 kg Intake: IV 100 / 100 100 / 100 Rocephin Inj 1,000 MG In NS Inj 100 / 100 100 / 100 100 ML @ 200 mls/hr IV.SIG Q24H [facility] Rx#:[id number] Oral 480 / 480 480 / 480 Output: Urine 0 / 0 Hemodialysis Amount 3000 / 3000 Other: # Voids 2 Date of Last Bowel Movement 02/19/18 02/19/18 - Urinary Catheter Management Indwelling Urethral Catheter Cath placed during this visit: no <Robert Doherty - Last Filed: 02/22/18 18:29> Assessment and Plan - Assessment (1) Acute kidney injury Code(s): N17.9 - Acute kidney failure, unspecified Status: Acute Plan: Acute kidney injury with a creatinine of 5.2 on day of consult Baseline renal function is unclear but on admission on the creatinine was 1.8 and has steadily increased. The patient has apparent acute kidney injury in the setting of rhabdomyolysis. Renal ultrasound with mildly echogenic kidneys which may reflect medical renal disease Hemodialysis started on 02/18 with removal of 2 liters of fluid Vas cath placed in right IJ 02/18 Avoid nephrotoxins including NSAIDS, IV contrast and aminoglycosides Maintain strict I+O Creatinine at 5.92 and oliguric, will follow urinary output and labs. Acidosis has improved on sodium bicarbonate. Hemodialysis tomorrow, tolerating well. (2) Rhabdomyolysis Code(s): M62.82 - Rhabdomyolysis Status: Acute Qualifiers: Rhabdomyolysis type: non-traumatic Qualified Code(s): M62.82 - Rhabdomyolysis Plan: Serial CPK continue IVF <Denise Raymond - Last Filed: 02/20/18 15:00> - Assessment (1) Acute kidney injury Code(s): N17.9 - Acute kidney failure, unspecified Status: Acute Plan: Patient seen and examine, agree with above. Creatinine is still elevated. Continue HD as needed. Watch for renal recovery. (2) Rhabdomyolysis Code(s): M62.82 - Rhabdomyolysis Status: Acute Qualifiers: Rhabdomyolysis type: non-traumatic Qualified Code(s): M62.82 - Rhabdomyolysis <Robert Doherty - Last Filed: 02/22/18 18:29>
[2018-02-20] MEDS: NIFEdipine 10 MG Capsule PO SCH ×4 (12:12→22:14)
[2018-02-20] MEDS: Acetaminophen 325 MG Tablet PO PRN (14:22)
[2018-02-20] MEDS ORDERED: Butalbital/APAP/Caff 50/325/40 MG Tablet PO ONE (21:15)
[2018-02-21 07:52] LABS: Baso # (Auto) 0.1 th/mm3 (0.0-0.2); Baso % (Auto) 0.8 % (0.0-2.0); Eos # (Auto) 0.5 th/mm3 (0.0-0.4); Eos % (Auto) 5.4 % (0.0-4.0); Hematocrit 31.3 % (35.0-46.0); Hemoglobin 10.9 gm/dL (11.6-15.3); Lymph # (Auto) 1.1 th/mm3 (1.0-4.8); Lymph % (Auto) 12.7 % (9.0-44.0); Mean Corpuscular HGB Conc 34.9 % (32.0-36.0); Mean Corpuscular Hemoglobin 30.9 pg (27.0-34.0); Mean Corpuscular Volume 88.6 fL (80.0-100.0); Mono # (Auto) 0.7 th/mm3 (0.0-0.9); Mono % (Auto) 8.1 % (0.0-8.0); Neut # (Auto) 6.5 th/mm3 (1.8-7.7); Platelet Count 228 th/mm3 (150-450); Red Blood Count 3.53 mil/mm3 (4.00-5.30); Red Cell Distribution Width 14.2 % (11.6-17.2); White Blood Count 8.9 th/mm3 (4.0-11.0)
[2018-02-21 08:16] LABS: Alanine Aminotransferase 22 U/L (10-53); Albumin 2.4 g/dL (3.4-5.0); Anion Gap 11 meq/L (5-15); Aspartate Aminotransferase 157 U/L (15-37); Blood Urea Nitrogen 46 mg/dL (7-18); Chloride 91 meq/L (98-107); Complement C3 114 mg/dL (90-180); Glomerular Filtration Rate 6 mL/min (>89); Glucose,Random 84 mg/dL (74-106); Magnesium 1.9 mg/dL (1.5-2.5); Phosphorus 4.6 mg/dL (2.5-4.9); Potassium 5.6 meq/L (3.5-5.1); Sodium 125 meq/L (136-145)
[2018-02-21 08:23] LABS: Alkaline Phosphatase 79 U/L (45-117); Total Protein 5.7 g/dL (6.4-8.2)
[2018-02-21] MEDS: QUEtiapine 25 MG Tablet PO SCH ×2 (08:33→21:26)
[2018-02-21] MEDS: Metoprolol Tartrate 25 MG Tablet PO SCH ×2 (08:34→21:27)
[2018-02-21] MEDS: Calcium Carbonate 500 MG Tablet PO SCH ×2 (08:34→21:27)
[2018-02-21] MEDS: NIFEdipine 10 MG Capsule PO SCH ×4 (08:34→21:26)
[2018-02-21] MEDS: Sodium Chloride 0.9% 2 ML Flush BID IV.FLUSH SCH ×2 (08:34→21:27)
[2018-02-21] MEDS: Sodium Bicarbonate 650 MG Tablet PO SCH ×2 (08:34→21:27)
--- NOTE | 2018-02-21 11:08 | P.PN ---
Subjective Interval history: Nursing denies any deterioration since last night. Patient himself has no new complaints. Says she feels fine. Physical Exam Vital signs: Vital Signs 02/20/18 11:30 02/20/18 12:00 02/20/18 12:30 Temperature Pulse Rate 72 69 68 Respiratory Rate 15 16 16 Blood Pressure 157/67 H 163/72 H 165/72 H Pulse Oximetry 94 L 93 L 95 02/20/18 13:00 02/20/18 16:00 02/20/18 20:00 Temperature 97.6 F 97.5 F L Pulse Rate 69 73 75 Respiratory Rate 16 18 18 Blood Pressure 168/73 H 136/68 134/73 Pulse Oximetry 94 L 95 94 L 02/21/18 00:00 02/21/18 00:39 02/21/18 04:00 Temperature 97.4 F L 97.0 F L Pulse Rate 69 72 Respiratory Rate 18 18 17 Blood Pressure 122/69 163/79 H Pulse Oximetry 90 L 93 L 02/21/18 08:00 Temperature 97.9 F Pulse Rate 70 Respiratory Rate 18 Blood Pressure 157/84 H Pulse Oximetry 95 Intake & Output 02/20/18 02/21/18 02/21/18 18:59 06:59 18:59 Intake Total 100 / 100 Balance 100 / 100 Weight 111.2 kg Intake: IV 100 / 100 Rocephin Inj 1,000 MG In NS Inj 100 / 100 100 ML @ 200 mls/hr IV.SIG Q24H [facility] Rx#:[id number] Other: # Voids 2 3 Date of Last Bowel Movement 02/19/18 02/19/18 # Bowel Movements 1 Narrative: Clear lungs bilaterally, unlabored breathing Heart sounds regular rate and rhythm, no murmurs Awake and alert, no acute distress - Urinary Catheter Management Indwelling Urethral Catheter Cath placed during this visit: yes, but has since been removed by the nurse Reason for continuing: Acute urinary retention Insertion date: 02/16/18 Insertion time: 13:00 Removal date: 02/19/18 Removal time: 15:00 Results - Labs CBC & Chem 7: 02/21/18 06:50 02/21/18 06:50 Laboratory Results - last 24 hr 02/20/18 02/20/18 02/20/18 02:38 13:20 17:17 WBC RBC Hgb Hct MCV MCH MCHC RDW Plt Count MPV Neut % (Auto) Lymph % (Auto) [place] % (Auto) Eos % (Auto) Baso % (Auto) Neut # (Auto) Lymph # (Auto) [place] # (Auto) Eos # (Auto) Baso # (Auto) WBC Differential Differential Comment Sodium Potassium Chloride Carbon Dioxide Anion Gap BUN Creatinine Estimated GFR POC Glucose 153 H 144 H Random Glucose Calcium Phosphorus Magnesium Total Bilirubin GGT Less than 3 L AST ALT Alkaline Phosphatase Total Protein Albumin Complement C3 Complement C4 02/20/18 02/21/18 02/21/18 19:50 06:50 06:50 WBC 8.9 RBC 3.53 L Hgb 10.9 L Hct 31.3 L MCV 88.6 MCH 30.9 MCHC 34.9 RDW 14.2 Plt Count 228 MPV 9.0 Neut % (Auto) 73.0 H Lymph % (Auto) 12.7 [place] % (Auto) 8.1 H Eos % (Auto) 5.4 H Baso % (Auto) 0.8 Neut # (Auto) 6.5 Lymph # (Auto) 1.1 [place] # (Auto) 0.7 Eos # (Auto) 0.5 H Baso # (Auto) 0.1 WBC Differential . Differential Comment Auto diff final Sodium 125 L Potassium 5.6 H Chloride 91 L Carbon Dioxide 23.0 Anion Gap 11 BUN 46 H Creatinine 7.10 H Estimated GFR 6 L POC Glucose 129 H Random Glucose 84 Calcium 8.0 L D Phosphorus 4.6 D Magnesium 1.9 Total Bilirubin 0.3 GGT AST 157 H ALT 22 Alkaline Phosphatase 79 Total Protein 5.7 L Albumin 2.4 L Complement C3 114 Complement C4 28 02/21/18 07:51 WBC RBC Hgb Hct MCV MCH MCHC RDW Plt Count MPV Neut % (Auto) Lymph % (Auto) [place] % (Auto) Eos % (Auto) Baso % (Auto) Neut # (Auto) Lymph # (Auto) [place] # (Auto) Eos # (Auto) Baso # (Auto) WBC Differential Differential Comment Sodium Potassium Chloride Carbon Dioxide Anion Gap BUN Creatinine Estimated GFR POC Glucose 84 Random Glucose Calcium Phosphorus Magnesium Total Bilirubin GGT AST ALT Alkaline Phosphatase Total Protein Albumin Complement C3 Complement C4 Assessment and Plan - Assessment (1) Rhabdomyolysis Code(s): M62.82 - Rhabdomyolysis Status: Acute (2) Bipolar 1 disorder, mixed Code(s): F31.60 - Bipolar disorder, current episode mixed, unspecified Status : Chronic (3) Acute kidney injury Code(s): N17.9 - Acute kidney failure, unspecified Status: Acute (4) Elevated liver enzymes Code(s): R74.8 - Abnormal levels of other serum enzymes Status: Acute - Plan This is a 48-year Female with past medical history of bipolar disorder admitted under a Alexandra apt for a manic state with Benadryl overdosing, and found to have acute renal insufficiency and severe rhabdomyolysis. Currently in the ICU. Has been Alexandra acted by psychiatry and will likely need psychiatric admission once medically stable. 1. Severe Rhabdomyolysis -CK level improving, however creatinine seems to be fluctuating up and down Acute renal failure -Secondary to rhabdomyolysis -Nephrology following, dialyzing accordingly through Vas-Cath that was recently placed 2. Elevated LFTs -Likely due to above rhabdo; GGT is within normal limits 3. Hyponatremia/Hypocalemia Free fluid restriction to 1500ml 3. HTN Continue Lopressor and nifedipine 4. Bipolar disorder, hypomanic Psychiatry following and managing Patient admits to being hypomanic, she has been taking Benadryl at home to help her sleep taken too much Benadryl purposefully vs accidental? 5. UTI Rocephin day 2 6. Lacerations Right finger under wrap, gauze clean Superficial scrapes and bruising of forehead, no sign of infection Continue with routine wound care 7. DVT prophylaxis: SCD's/Feliberto, chemoprophylaxis held at this time due to lacerations and extensive bruising Discharge Planning: medically stable, will need further dialysis otherwise w/ nephrology, stable to dc to med-psych once bed available (1) Rhabdomyolysis Qualifiers: Rhabdomyolysis type: non-traumatic Qualified Code(s): M62.82 - Rhabdomyolysis
--- NOTE | 2018-02-21 16:20 | P.DS ---
Date of admission: 02/14/18 16:34 Primary care physician: No Primary Care Physician Brief History from admission: This is a 48-year-old female patient with a known medical history of bipolar disorder who presents the ED via ambulance after call for domestic abuse by the police. It was noted that the police arrived on the scene, patient supposedly had a laceration to her hand and hematoma to her head. Patient is definitely in a manic state on assessment this evening. She states that she has been unable to sleep for the past week, she states she has been taking excessive amounts of Benadryl at home. She states since Saturday night she has been taking at least 12 pills of Benadryl 25 mg at night to help her sleep. She denies any suicidal ideation or attempt. She slowly states that this was due to her inability to sleep and aspiration for something to help her in this area. When questioned about patient's laceration to her head she states she was moving too quickly and bumped her head on the cabinet. She states that also while she was at home she got angry and punched a wall. Patient does have a history of bipolar disorder, takes Depakote at home. She does have a history of tobacco abuse, states she smokes up to 2 packs/day of cigarettes. Patient denies any recent illness including fever, chills, cough, shortness of breath, headache, dumping, nausea, vomiting, diarrhea or dysuria. Patient has been admitted under Alexandra act. Patient will be transferred to the main hospital to the ICU for closer monitoring and eventually moved to the psychiatry unit. She presents with severe rhabdomyolysis with CPK above 14,000, liver enzymes elevated as well as acute kidney injury. Patient update on day of discharge: Patient had some exertional dyspnea which resolved sometime after resting. DS: Diagnosis - Discharge Diagnosis (1) Rhabdomyolysis Status: Acute (2) Bipolar 1 disorder, mixed Status: Chronic (3) Acute kidney injury Status: Acute (4) Elevated liver enzymes Status: Acute DS: Medications - Discharge Medications Prescriptions: metoprolol tartrate 25 mg PO BID #60 tab DS: Summary Hospital Course: Patient was admitted, started on aggressive IV fluids for severe rhabdomyolysis with a CK level greater than 140,000. CK levels show significant improvement however renal function started to show significant deterioration with creatinine reaching as high as 6, ultimately underwent Vas-Cath placement and underwent dialysis. Patient was evaluated by psychiatry and ultimately deemed appropriate for psychiatric admission after medical clearance. Patient's respiratory status and p.o. intake status was stable. Was producing urine but was still undergoing dialysis while CK levels were stabilizing. Cleared for discharge to [facility] while still needing dialysis. Found to have very small bilateral pleural effusions were too small to drain. Patient was also treated with Rocephin for E. coli UTI. Patient has met maximal benefit from hospitalization and is medically stable for discharge to [facility] where she will will need continued dialysis for the next few days, nephrology to follow. Addendum: Discharge to [facility] was ultimately canceled due to the patient no longer needing inpatient involuntary psychiatric admission. Patient still required medical care nonetheless. - Time Spent with Patient Total time spent providing and/or coordinating discharge services: Less than 30 minutes - Quality: VTE Deep Vein Thrombosis/Pulmonary Embolism Present on Admission: No Exam Vital signs: Vital Signs 02/20/18 20:00 02/21/18 00:00 02/21/18 00:39 Temperature 97.5 F L 97.4 F L Pulse Rate 75 69 Respiratory Rate 18 18 18 Blood Pressure 134/73 122/69 Pulse Oximetry 94 L 90 L 02/21/18 04:00 02/21/18 08:00 02/21/18 12:00 Temperature 97.0 F L 97.9 F 97.2 F L Pulse Rate 72 70 68 Respiratory Rate 17 18 18 Blood Pressure 163/79 H 157/84 H 138/79 Pulse Oximetry 93 L 95 94 L Intake & Output 02/20/18 02/21/18 02/21/18 18:59 06:59 18:59 Intake Total 100 / 100 100 / 100 Balance 100 / 100 100 / 100 Weight 111.2 kg Intake: IV 100 / 100 100 / 100 Rocephin Inj 1,000 MG In NS Inj 100 / 100 100 / 100 100 ML @ 200 mls/hr IV.SIG Q24H [facility] Rx#:[id number] Other: # Voids 2 3 Date of Last Bowel Movement 02/19/18 02/19/18 # Bowel Movements 1 Narrative: Clear lungs bilaterally, unlabored breathing Heart sounds regular rate rhythm Mild edema in hands and bilateral thighs Results Procedures completed during hospitalization: Vas-Cath placement Labs on day of discharge: Labs from last 24 hours 02/21/18 02/21/18 02/21/18 07:51 06:50 06:50 WBC RBC Hgb Hct MCV MCH MCHC RDW Plt Count MPV Neut % (Auto) Lymph % (Auto) [place] % (Auto) Eos % (Auto) Baso % (Auto) Neut # (Auto) Lymph # (Auto) [place] # (Auto) Eos # (Auto) Baso # (Auto) WBC Differential Differential Comment Sodium Potassium Chloride Carbon Dioxide Anion Gap BUN Creatinine Estimated GFR POC Glucose 84 Random Glucose Calcium Phosphorus Magnesium Total Bilirubin GGT AST ALT Alkaline Phosphatase Total Protein Albumin MICAH Screen Neg Anti-Proteinase 3 Pending Anti-Myeloperoxidase Pending Complement C3 Complement C4 02/21/18 02/21/18 02/20/18 06:50 06:50 19:50 WBC 8.9 RBC 3.53 L Hgb 10.9 L Hct 31.3 L MCV 88.6 MCH 30.9 MCHC 34.9 RDW 14.2 Plt Count 228 MPV 9.0 Neut % (Auto) 73.0 H Lymph % (Auto) 12.7 [place] % (Auto) 8.1 H Eos % (Auto) 5.4 H Baso % (Auto) 0.8 Neut # (Auto) 6.5 Lymph # (Auto) 1.1 [place] # (Auto) 0.7 Eos # (Auto) 0.5 H Baso # (Auto) 0.1 WBC Differential . Differential Comment Auto diff final Sodium 125 L Potassium 5.6 H Chloride 91 L Carbon Dioxide 23.0 Anion Gap 11 BUN 46 H Creatinine 7.10 H Estimated GFR 6 L POC Glucose 129 H Random Glucose 84 Calcium 8.0 L D Phosphorus 4.6 D Magnesium 1.9 Total Bilirubin 0.3 GGT AST 157 H ALT 22 Alkaline Phosphatase 79 Total Protein 5.7 L Albumin 2.4 L MICAH Screen Anti-Proteinase 3 Anti-Myeloperoxidase Complement C3 114 Complement C4 28 02/20/18 02/20/18 17:17 02:38 WBC RBC Hgb Hct MCV MCH MCHC RDW Plt Count MPV Neut % (Auto) Lymph % (Auto) [place] % (Auto) Eos % (Auto) Baso % (Auto) Neut # (Auto) Lymph # (Auto) [place] # (Auto) Eos # (Auto) Baso # (Auto) WBC Differential Differential Comment Sodium Potassium Chloride Carbon Dioxide Anion Gap BUN Creatinine Estimated GFR POC Glucose 144 H Random Glucose Calcium Phosphorus Magnesium Total Bilirubin GGT Less than 3 L AST ALT Alkaline Phosphatase Total Protein Albumin MICAH Screen Anti-Proteinase 3 Anti-Myeloperoxidase Complement C3 Complement C4 - Impressions ITS Impressions Hand X-Ray 02/14/18 14:39 CONCLUSION: No evidence of recent bony injury. Head CT 02/14/18 14:39 CONCLUSION: 1. No acute intracranial abnormality. . Chest X-Ray 02/16/18 00:00 CONCLUSION: Stable appearance with no acute cardiopulmonary disease. Abdomen/Bladder Ultrasound 02/16/18 10:25 CONCLUSION: 1. Mildly echogenic kidneys which may reflect medical renal disease. 2. No sonographic evidence for obstructive uropathy. Catheter Placement 02/18/18 00:00 CONCLUSION: 1. Uncomplicated line placement as above. Discharge Plan - Discharge Disposition Patient Disposition: 67 Disc To [facility] Facility - Discharge Condition Condition: Stable - Discharge Order Discharge Orders: Discharge Order (Routine); Ordered 02/24/18 Ordered By: Sean Knutson - Physicians Team Primary Care Provider: Primary Care Mariama,Elaine Attending Provider: Oli Estes Other Providers: Jl Kennedy MD ; Ervin Stallings MD
[2018-02-21] MEDS ORDERED: Butalbital/APAP/Caff 50/325/40 MG Tablet PO ONE (17:00)
--- NOTE | 2018-02-21 19:39 | P.PNNP ---
Subjective Interval history: Patient seen during HD,alert, not in distress. Physical Exam Vital signs: Vital Signs 02/20/18 20:00 02/21/18 00:00 02/21/18 00:39 Temperature 97.5 F L 97.4 F L Pulse Rate 75 69 Respiratory Rate 18 18 18 Blood Pressure 134/73 122/69 Pulse Oximetry 94 L 90 L 02/21/18 04:00 02/21/18 08:00 02/21/18 12:00 Temperature 97.0 F L 97.9 F 97.2 F L Pulse Rate 72 70 68 Respiratory Rate 17 18 Blood Pressure 163/79 H 157/84 H 138/79 Pulse Oximetry 93 L 95 94 L 02/21/18 16:00 02/21/18 17:23 Temperature Pulse Rate 72 Respiratory Rate Blood Pressure Pulse Oximetry 94 L Intake & Output 02/21/18 02/21/18 02/22/18 06:59 18:59 06:59 Intake Total 580 / 580 Output Total 3000 / 3000 Balance -2420 / -2420 Weight 111.2 kg Intake: IV 100 / 100 Rocephin Inj 1,000 MG In NS Inj 100 / 100 100 ML @ 200 mls/hr IV.SIG Q24H [facility] Rx#:[id number] Oral 480 / 480 Output: Hemodialysis Amount 3000 / 3000 Other: # Voids 3 2 Date of Last Bowel Movement 02/19/18 Narrative: Clear lungs bilaterally, unlabored breathing Heart sounds regular rate and rhythm, no murmurs Awake and alert, no acute distress - Urinary Catheter Management Indwelling Urethral Catheter Cath placed during this visit: yes, but has since been removed by the nurse Reason for continuing: Acute urinary retention Insertion date: 02/16/18 Insertion time: 13:00 Removal date: 02/19/18 Removal time: 15:00 Assessment and Plan - Assessment (1) Acute kidney injury Code(s): N17.9 - Acute kidney failure, unspecified Status: Acute Plan: Has Acute kidney injury due to Rhabdo. Urine out put is low, started on HD. HD now, remove fluid as tolerated. BUN and Creatinine remain elevated, Na. was low and K was increased. watch for renal recovery. Seen by Psych., OK to go to psych unit. Will continue HD 3 times a week and as needed. (2) Rhabdomyolysis Code(s): M62.82 - Rhabdomyolysis Status: Acute Qualifiers: Rhabdomyolysis type: non-traumatic Qualified Code(s): M62.82 - Rhabdomyolysis Plan: Serial CPK continue IVF
[2018-02-22] MEDS: Sodium Bicarbonate 650 MG Tablet PO SCH ×2 (08:39→20:44)
[2018-02-22] MEDS: Metoprolol Tartrate 25 MG Tablet PO SCH ×2 (08:39→20:44)
[2018-02-22] MEDS: QUEtiapine 25 MG Tablet PO SCH ×2 (08:39→20:44)
[2018-02-22] MEDS: Calcium Carbonate 500 MG Tablet PO SCH ×2 (08:39→20:44)
[2018-02-22] MEDS: NIFEdipine 10 MG Capsule PO SCH ×4 (08:39→20:44)
[2018-02-22] MEDS: Sodium Chloride 0.9% 2 ML Flush BID IV.FLUSH SCH ×2 (08:40→20:45)
--- NOTE | 2018-02-22 12:05 | P.PNNP ---
Subjective Interval history: Reports some increase in shortness of breath today and malaise. Denies any chest pain, nausea, or vomiting. <Denise Raymond - Last Filed: 02/22/18 11:54> Physical Exam Vital signs: Vital Signs 02/21/18 12:00 02/21/18 16:00 02/21/18 17:23 Temperature 97.2 F L Pulse Rate 68 72 Respiratory Rate 18 Blood Pressure 138/79 Pulse Oximetry 94 L 94 L 02/21/18 20:00 02/22/18 00:00 02/22/18 04:00 Temperature 97.6 F 97.9 F 98.5 F Pulse Rate 90 78 83 Respiratory Rate 17 18 18 Blood Pressure 158/80 H 131/70 149/65 H Pulse Oximetry 94 L 92 L 93 L 02/22/18 08:00 02/22/18 09:48 Temperature 98.2 F Pulse Rate 81 Respiratory Rate 17 Blood Pressure 153/86 H Pulse Oximetry 94 L 94 L Intake & Output 02/21/18 02/22/18 02/22/18 18:59 06:59 18:59 Intake Total 580 / 580 480 / 480 Output Total 3000 / 3000 0 / 0 Balance -2420 / -2420 480 / 480 Weight 113.5 kg Intake: IV 100 / 100 Rocephin Inj 1,000 MG In NS Inj 100 / 100 100 ML @ 200 mls/hr IV.SIG Q24H [facility] Rx#:[id number] Oral 480 / 480 480 / 480 Output: Urine 0 / 0 Hemodialysis Amount 3000 / 3000 Other: # Voids 2 Date of Last Bowel Movement 02/19/18 02/19/18 Narrative: GENERAL: alert and oriented. NECK: Supple, trachea midline. No JVD. CARDIOVASCULAR: Regular rate and rhythm without murmurs, gallops, or rubs. RESPIRATORY: Breath sounds diminished bilaterally. No accessory muscle use. GASTROINTESTINAL: Abdomen soft, non-tender, large MUSCULOSKELETAL: No cyanosis, generalized edema. - Urinary Catheter Management Indwelling Urethral Catheter Cath placed during this visit: yes, but has since been removed by the nurse Reason for continuing: Acute urinary retention Insertion date: 02/16/18 Insertion time: 13:00 Removal date: 02/19/18 Removal time: 15:00 <Denise Raymond - Last Filed: 02/22/18 11:54> Vital signs: Vital Signs 02/21/18 20:00 02/22/18 00:00 02/22/18 04:00 Temperature 97.6 F 97.9 F 98.5 F Pulse Rate 90 78 83 Respiratory Rate 17 18 18 Blood Pressure 158/80 H 131/70 149/65 H Pulse Oximetry 94 L 92 L 93 L 02/22/18 08:00 02/22/18 09:48 02/22/18 12:00 Temperature 98.2 F 97.8 F Pulse Rate 81 78 Respiratory Rate 17 17 Blood Pressure 153/86 H 124/63 Pulse Oximetry 94 L 94 L 93 L 02/22/18 16:00 Temperature 97.7 F Pulse Rate 80 Respiratory Rate Blood Pressure 139/71 Pulse Oximetry 94 L Intake & Output 02/22/18 02/22/18 02/23/18 06:59 18:59 06:59 Intake Total 480 / 480 100 / 100 Output Total 0 / 0 Balance 480 / 480 100 / 100 Weight 113.5 kg Intake: IV 100 / 100 Rocephin Inj 1,000 MG In NS Inj 100 / 100 100 ML @ 200 mls/hr IV.SIG Q24H [facility] Rx#:[id number] Oral 480 / 480 Output: Urine 0 / 0 Other: Date of Last Bowel Movement 02/19/18 02/19/18 - Urinary Catheter Management Indwelling Urethral Catheter Cath placed during this visit: no <Robert Doherty - Last Filed: 02/22/18 19:08> Assessment and Plan - Assessment (1) Acute kidney injury Code(s): N17.9 - Acute kidney failure, unspecified Status: Acute Plan: Acute kidney injury with a creatinine of 5.2 on day of consult Baseline renal function is unclear but on admission on the creatinine was 1.8 and has steadily increased. The patient has apparent acute kidney injury in the setting of rhabdomyolysis. Renal ultrasound with mildly echogenic kidneys which may reflect medical renal disease Hemodialysis started on 02/18 Vas cath placed in right IJ 02/18 Avoid nephrotoxins including NSAIDS, IV contrast and aminoglycosides Maintain strict I+O Follow urinary output and labs. Hemodialysis yesterday tolerated well with removal of 3 liters of fluid Reports shortness of breath today, will order scheduled lasix and chest Xray. Creatinine remains high with low urinary output, continue HD 3 X week. (2) Rhabdomyolysis Code(s): M62.82 - Rhabdomyolysis Status: Acute Qualifiers: Rhabdomyolysis type: non-traumatic Qualified Code(s): M62.82 - Rhabdomyolysis Plan: CPK labs trending downward <Denise Raymond - Last Filed: 02/22/18 11:54> - Assessment (1) Acute kidney injury Code(s): N17.9 - Acute kidney failure, unspecified Status: Acute Plan: Patient seen and examine, agree with above. HD was done yesterday. Has edema, will add Lasix. (2) Rhabdomyolysis Code(s): M62.82 - Rhabdomyolysis Status: Acute Qualifiers: Rhabdomyolysis type: non-traumatic Qualified Code(s): M62.82 - Rhabdomyolysis <Robert Doherty - Last Filed: 02/22/18 19:08>
[2018-02-22 13:03] LABS: Carbon Dioxide 28.3 meq/L (21.0-32.0); Phosphorus 3.7 mg/dL (2.5-4.9); Potassium 4.4 meq/L (3.5-5.1)
[2018-02-22 13:13] LABS: Calcium 6.9 mg/dL (8.5-10.1)
--- NOTE | 2018-02-22 13:42 | XR ---
EXAM DATE: 02/22/2018 1:37 PM EDT AGE/SEX: 48 years / Female INDICATIONS: . Short of breath. CLINICAL DATA: This is the patient's subsequent encounter. Patient reports that signs and symptoms h ave been present for 4 - 6 days and indicates a pain score of 0/10. MEDICAL/SURGICAL HISTORY: . Bipolar disorder. Hysterectomy. Surgery on arm. . COMPARISON: [facility] [place], CHEST 1V SINGLE AP, 02/16/2018. . FINDINGS: AP and lateral views of the chest demonstrate a normal size cardiac silhouette. Right IJ central line distal tip is in the SVC. There are bibasilar pleural-parenchymal opacities. No pneumothorax is iden tified. The bones and soft tissues demonstrate no acute abnormality. CONCLUSION: Small bilateral pleural effusions with associated atelectasis and/or airspace consolidation. Electronically signed by: Danish Eastman MD 02/22/2018 1:41 PM EDT
[2018-02-22] MEDS: Furosemide 40 MG Tablet PO SCH (20:44)
[2018-02-22] MEDS: Acetaminophen 325 MG Tablet PO PRN (23:05)
[2018-02-23 06:58] LABS: Baso # (Auto) 0.1 th/mm3 (0.0-0.2); Baso % (Auto) 0.8 % (0.0-2.0); Eos # (Auto) 0.5 th/mm3 (0.0-0.4); Hematocrit 29.5 % (35.0-46.0); Hemoglobin 10.2 gm/dL (11.6-15.3); Lymph # (Auto) 1.6 th/mm3 (1.0-4.8); Lymph % (Auto) 20.2 % (9.0-44.0); Mean Corpuscular HGB Conc 34.7 % (32.0-36.0); Mean Corpuscular Hemoglobin 31.1 pg (27.0-34.0); Mean Corpuscular Volume 89.7 fL (80.0-100.0); Mean Platelet Volume 7.9 fL (7.0-11.0); Mono # (Auto) 0.6 th/mm3 (0.0-0.9); Mono % (Auto) 8.1 % (0.0-8.0); Neut % (Auto) 63.9 % (16.0-70.0); Platelet Count 267 th/mm3 (150-450); Red Blood Count 3.29 mil/mm3 (4.00-5.30); Red Cell Distribution Width 14.7 % (11.6-17.2); White Blood Count 7.8 th/mm3 (4.0-11.0)
[2018-02-23 07:32] LABS: Albumin 2.1 g/dL (3.4-5.0); Carbon Dioxide 28.9 meq/L (21.0-32.0); Phosphorus 4.9 mg/dL (2.5-4.9); Potassium 4.9 meq/L (3.5-5.1)
[2018-02-23 07:35] LABS: Calcium 7.2 mg/dL (8.5-10.1)
[2018-02-23] MEDS: Calcium Carbonate 500 MG Tablet PO SCH ×2 (09:35→20:44)
[2018-02-23] MEDS: QUEtiapine 25 MG Tablet PO SCH ×2 (09:35→20:44)
[2018-02-23] MEDS: NIFEdipine 10 MG Capsule PO SCH ×4 (09:35→20:44)
[2018-02-23] MEDS: Metoprolol Tartrate 25 MG Tablet PO SCH ×2 (09:35→20:44)
[2018-02-23] MEDS: Sodium Bicarbonate 650 MG Tablet PO SCH ×2 (09:36→20:44)
[2018-02-23] MEDS: Furosemide 40 MG Tablet PO SCH ×2 (09:38→17:18)
[2018-02-23] MEDS: Sodium Chloride 0.9% 2 ML Flush BID IV.FLUSH SCH ×2 (10:45→20:45)
--- NOTE | 2018-02-23 11:27 | P.PNNP ---
Subjective Interval history: Sitting up in bed with family at bedside. Shortness of breath has improved. Started on lasix yesterday and urinary output is starting to improve. Creatinine remains elevated at 7.33. <Denise Raymond - Last Filed: 02/23/18 11:19> Physical Exam Vital signs: Vital Signs 02/22/18 12:00 02/22/18 16:00 02/22/18 20:00 Temperature 97.8 F 97.7 F 97.9 F Pulse Rate 78 80 80 Respiratory Rate 17 18 Blood Pressure 124/63 139/71 140/90 Pulse Oximetry 93 L 94 L 95 02/23/18 00:00 02/23/18 00:30 02/23/18 04:00 Temperature 98.0 F 97.7 F Pulse Rate 80 83 Respiratory Rate 19 20 18 Blood Pressure 141/89 H 160/99 H Pulse Oximetry 93 L 95 02/23/18 08:00 Temperature 97.8 F Pulse Rate 75 Respiratory Rate 18 Blood Pressure 171/85 H Pulse Oximetry 94 L Intake & Output 02/22/18 02/23/18 02/23/18 18:59 06:59 18:59 Intake Total 1110 / 1110 480 / 480 Output Total 200 / 200 Balance 910 / 910 480 / 480 Weight 113.5 kg Intake: IV 100 / 100 Rocephin Inj 1,000 MG In NS Inj 100 / 100 100 ML @ 200 mls/hr IV.SIG Q24H SIGRID Rx#:[id number] Oral 1010 / 1010 480 / 480 Output: Urine 200 / 200 Other: Date of Last Bowel Movement 02/19/18 02/19/18 # Bowel Movements 1 Narrative: GENERAL: alert and oriented. NECK: Supple, trachea midline. No JVD. CARDIOVASCULAR: Regular rate and rhythm without murmurs, gallops, or rubs. RESPIRATORY: Breath sounds diminished bilaterally. No accessory muscle use. GASTROINTESTINAL: Abdomen soft, non-tender, large MUSCULOSKELETAL: No cyanosis, generalized edema. - Urinary Catheter Management Indwelling Urethral Catheter Cath placed during this visit: yes, but has since been removed by the nurse Reason for continuing: Acute urinary retention Insertion date: 02/16/18 Insertion time: 13:00 Removal date: 02/19/18 Removal time: 15:00 <Denise Raymond - Last Filed: 02/23/18 11:19> Vital signs: Vital Signs 02/24/18 20:00 02/25/18 00:00 02/25/18 04:00 Temperature 98.4 F 98.3 F 98 F Pulse Rate 84 84 79 Respiratory Rate 18 18 18 Blood Pressure 149/96 H 166/87 H Pulse Oximetry 93 L 93 L 95 02/25/18 04:33 02/25/18 08:00 02/25/18 12:00 Temperature 98.3 F Pulse Rate 80 74 Respiratory Rate 18 Blood Pressure 179/96 H 182/87 H Pulse Oximetry 95 02/25/18 12:29 Temperature Pulse Rate Respiratory Rate Blood Pressure Pulse Oximetry 95 Intake & Output 02/24/18 02/25/18 02/25/18 18:59 06:59 18:59 Intake Total 520 / 520 Output Total 3200 / 3200 300 / 300 Balance -3200 / -3200 220 / 220 Weight 118 kg Intake: IV 400 / 400 NS Inj 1,000 ML @ As Directed 400 / 400 OTHER .Q0M PRN Rx#:[id number] Oral 120 / 120 Output: Urine 300 / 300 Hemodialysis Amount 3200 / 3200 Other: Date of Last Bowel Movement 02/24/18 02/24/18 - Urinary Catheter Management Indwelling Urethral Catheter Cath placed during this visit: no <Audrey Doherty Q - Last Filed: 02/25/18 17:58> Assessment and Plan - Assessment (1) Acute kidney injury Code(s): N17.9 - Acute kidney failure, unspecified Status: Acute Plan: The patient has apparent acute kidney injury in the setting of rhabdomyolysis. Complements are normal and MICAH normal. Renal ultrasound with mildly echogenic kidneys which may reflect medical renal disease. Hemodialysis started on . Vas cath placed in right IJ 02/18 Avoid nephrotoxic agents. Need to maintain strict I+O discussed with nursing. Lasix started yesterday and urinary output has increased but creatinine remains elevated at 7.33. Chest xray with small bilateral pleural effusions. Will continue with HD 3 x week. Hemodialysis tomorrow will remove fluid as tolerated. Will follow urinary output, BMP, and watch for renal recovery. (2) Rhabdomyolysis Code(s): M62.82 - Rhabdomyolysis Status: Acute Qualifiers: Rhabdomyolysis type: non-traumatic Qualified Code(s): M62.82 - Rhabdomyolysis Plan: CPK labs trending downward <Denise Raymond - Last Filed: 02/23/18 11:19> - Assessment (1) Acute kidney injury Code(s): N17.9 - Acute kidney failure, unspecified Status: Acute Plan: Patient seen and examine, agree with above. Continue HD 3 times a week. Watch for renal recovery. Follow the urine out put and BMP. (2) Rhabdomyolysis Code(s): M62.82 - Rhabdomyolysis Status: Acute Qualifiers: Rhabdomyolysis type: non-traumatic Qualified Code(s): M62.82 - Rhabdomyolysis <Robert Doherty - Last Filed: 02/25/18 17:58>
--- NOTE | 2018-02-23 12:26 | P.DS ---
Date of admission: 02/14/18 16:34 Primary care physician: No Primary Care Physician Brief History from admission: This is a 48-year-old female patient with a known medical history of bipolar disorder who presents the ED via ambulance after call for domestic abuse by the police. It was noted that the police arrived on the scene, patient supposedly had a laceration to her hand and hematoma to her head. Patient is definitely in a manic state on assessment this evening. She states that she has been unable to sleep for the past week, she states she has been taking excessive amounts of Benadryl at home. She states since Saturday night she has been taking at least 12 pills of Benadryl 25 mg at night to help her sleep. She denies any suicidal ideation or attempt. She slowly states that this was due to her inability to sleep and aspiration for something to help her in this area. When questioned about patient's laceration to her head she states she was moving too quickly and bumped her head on the cabinet. She states that also while she was at home she got angry and punched a wall. Patient does have a history of bipolar disorder, takes Depakote at home. She does have a history of tobacco abuse, states she smokes up to 2 packs/day of cigarettes. Patient denies any recent illness including fever, chills, cough, shortness of breath, headache, dumping, nausea, vomiting, diarrhea or dysuria. Patient has been admitted under Alexandra act. Patient will be transferred to the main hospital to the ICU for closer monitoring and eventually moved to the psychiatry unit. She presents with severe rhabdomyolysis with CPK above 14,000, liver enzymes elevated as well as acute kidney injury. DS: Diagnosis - Discharge Diagnosis (1) Rhabdomyolysis Status: Acute (2) Bipolar 1 disorder, mixed Status: Chronic (3) Acute kidney injury Status: Acute (4) Elevated liver enzymes Status: Acute DS: Medications - Discharge Medications Prescriptions: metoprolol tartrate 25 mg PO BID #60 tab DS: Summary - Time Spent with Patient Total time spent providing and/or coordinating discharge services: - Quality: VTE Deep Vein Thrombosis/Pulmonary Embolism Present on Admission: No Exam Vital signs: Vital Signs 02/22/18 16:00 02/22/18 20:00 02/23/18 00:00 Temperature 97.7 F 97.9 F 98.0 F Pulse Rate 80 80 80 Respiratory Rate 18 19 Blood Pressure 139/71 140/90 141/89 H Pulse Oximetry 94 L 95 93 L 02/23/18 00:30 02/23/18 04:00 02/23/18 08:00 Temperature 97.7 F 97.8 F Pulse Rate 83 75 Respiratory Rate 20 18 18 Blood Pressure 160/99 H 171/85 H Pulse Oximetry 95 94 L Intake & Output 02/22/18 02/23/18 02/23/18 18:59 06:59 18:59 Intake Total 1110 / 1110 480 / 480 Output Total 200 / 200 Balance 910 / 910 480 / 480 Weight 113.5 kg Intake: IV 100 / 100 Rocephin Inj 1,000 MG In NS Inj 100 / 100 100 ML @ 200 mls/hr IV.SIG Q24H SIGRID Rx#:[id number] Oral 1010 / 1010 480 / 480 Output: Urine 200 / 200 Other: Date of Last Bowel Movement 02/19/18 02/19/18 # Bowel Movements 1 Results Labs on day of discharge: Labs from last 24 hours 02/23/18 02/23/18 02/22/18 05:26 05:26 12:00 WBC 7.8 RBC 3.29 L Hgb 10.2 L Hct 29.5 L MCV 89.7 MCH 31.1 MCHC 34.7 RDW 14.7 Plt Count 267 MPV 7.9 Neut % (Auto) 63.9 Lymph % (Auto) 20.2 [place] % (Auto) 8.1 H Eos % (Auto) 7.0 H Baso % (Auto) 0.8 Neut # (Auto) 5.0 Lymph # (Auto) 1.6 [place] # (Auto) 0.6 Eos # (Auto) 0.5 H Baso # (Auto) 0.1 WBC Differential . Differential Comment Auto diff final Sodium 128 L 130 L Potassium 4.9 4.4 D Chloride 92 L 94 L Carbon Dioxide 28.9 28.3 Anion Gap 7 8 BUN 44 H 36 H Creatinine 7.33 H 6.49 H Estimated GFR 6 L 7 L Random Glucose 75 89 Calcium 7.2 L* 6.9 L* D Phosphorus 4.9 D 3.7 Albumin 2.1 L 2.0 L - Impressions ITS Impressions Hand X-Ray 02/14/18 14:39 CONCLUSION: No evidence of recent bony injury. Head CT 02/14/18 14:39 CONCLUSION: 1. No acute intracranial abnormality. . Abdomen/Bladder Ultrasound 02/16/18 10:25 CONCLUSION: 1. Mildly echogenic kidneys which may reflect medical renal disease. 2. No sonographic evidence for obstructive uropathy. Catheter Placement 02/18/18 00:00 CONCLUSION: 1. Uncomplicated line placement as above. Chest X-Ray 02/22/18 00:00 CONCLUSION: Small bilateral pleural effusions with associated atelectasis and/or airspace consolidation. Discharge Plan - Discharge Disposition Patient Disposition: 67 [facility] To [facility] - Discharge Condition Condition: Stable - Discharge Order Discharge Orders: Discharge Order (Routine); Ordered 02/23/18 Ordered By: Sean Knutson - Physicians Team Primary Care Provider: Primary Care Elaine Leslie Attending Provider: Sean Knutson Other Providers: Jl Kennedy MD ; Ervin Stallings MD
--- NOTE | 2018-02-23 12:26 | P.PN ---
Subjective Interval history: Nursing denies any deteriorations overnight. Patient herself says she is feeling good today. Physical Exam Vital signs: Vital Signs 02/22/18 16:00 02/22/18 20:00 02/23/18 00:00 Temperature 97.7 F 97.9 F 98.0 F Pulse Rate 80 80 80 Respiratory Rate 18 19 Blood Pressure 139/71 140/90 141/89 H Pulse Oximetry 94 L 95 93 L 02/23/18 00:30 02/23/18 04:00 02/23/18 08:00 Temperature 97.7 F 97.8 F Pulse Rate 83 75 Respiratory Rate 20 18 18 Blood Pressure 160/99 H 171/85 H Pulse Oximetry 95 94 L Intake & Output 02/22/18 02/23/18 02/23/18 18:59 06:59 18:59 Intake Total 1110 / 1110 480 / 480 Output Total 200 / 200 Balance 910 / 910 480 / 480 Weight 113.5 kg Intake: IV 100 / 100 Rocephin Inj 1,000 MG In NS Inj 100 / 100 100 ML @ 200 mls/hr IV.SIG Q24H SIGRID Rx#:[id number] Oral 1010 / 1010 480 / 480 Output: Urine 200 / 200 Other: Date of Last Bowel Movement 02/19/18 02/19/18 # Bowel Movements 1 Narrative: Heart sounds regular rate and rhythm, no murmurs Sitting up in bed, clear lungs bilaterally, unlabored breathing Awake and alert, no acute distress - Urinary Catheter Management Indwelling Urethral Catheter Cath placed during this visit: yes, but has since been removed by the nurse Reason for continuing: Acute urinary retention Insertion date: 02/16/18 Insertion time: 13:00 Removal date: 02/19/18 Removal time: 15:00 Results - Labs CBC & Chem 7: 02/23/18 05:26 02/23/18 05:26 Laboratory Results - last 24 hr 02/22/18 02/23/18 02/23/18 12:00 05:26 05:26 WBC 7.8 RBC 3.29 L Hgb 10.2 L Hct 29.5 L MCV 89.7 MCH 31.1 MCHC 34.7 RDW 14.7 Plt Count 267 MPV 7.9 Neut % (Auto) 63.9 Lymph % (Auto) 20.2 [place] % (Auto) 8.1 H Eos % (Auto) 7.0 H Baso % (Auto) 0.8 Neut # (Auto) 5.0 Lymph # (Auto) 1.6 [place] # (Auto) 0.6 Eos # (Auto) 0.5 H Baso # (Auto) 0.1 WBC Differential . Differential Comment Auto diff final Sodium 130 L 128 L Potassium 4.4 D 4.9 Chloride 94 L 92 L Carbon Dioxide 28.3 28.9 Anion Gap 8 7 BUN 36 H 44 H Creatinine 6.49 H 7.33 H Estimated GFR 7 L 6 L Random Glucose 89 75 Calcium 6.9 L* D 7.2 L* Phosphorus 3.7 4.9 D Albumin 2.0 L 2.1 L - Imaging Impressions Chest X-Ray 02/22/18 00:00 CONCLUSION: Small bilateral pleural effusions with associated atelectasis and/or airspace consolidation. Assessment and Plan - Assessment (1) Rhabdomyolysis Code(s): M62.82 - Rhabdomyolysis Status: Acute (2) Bipolar 1 disorder, mixed Code(s): F31.60 - Bipolar disorder, current episode mixed, unspecified Status : Chronic (3) Acute kidney injury Code(s): N17.9 - Acute kidney failure, unspecified Status: Acute (4) Elevated liver enzymes Code(s): R74.8 - Abnormal levels of other serum enzymes Status: Acute - Plan This is a 48-year Female with past medical history of bipolar disorder admitted under a Alexandra apt for a manic state with Benadryl overdosing, and found to have acute renal insufficiency and severe rhabdomyolysis. Currently in the ICU. Has been Alexandra acted by psychiatry and will likely need psychiatric admission once medically stable. 1. Severe Rhabdomyolysis -CK continues to improve with dialysis Acute renal failure -Secondary to rhabdomyolysis -Nephrology following, dialyzing accordingly through Vas-Cath that was recently placed, not showing sustained improvement and creatinine however urine output is slowly improving 2. Elevated LFTs -Secondary to rhabdomyolysis, improving, GGT is negative 3. Hyponatremia/Hypocalemia Free fluid restriction to 1500ml 3. HTN Continue Lopressor and nifedipine 4. Bipolar disorder, hypomanic Psychiatry following and managing Patient admits to being hypomanic, she has been taking Benadryl at home to help her sleep taken too much Benadryl purposefully vs accidental? 5. UTI Rocephin 6. Lacerations Right finger under wrap, gauze clean Superficial scrapes and bruising of forehead, no sign of infection Continue with routine wound care 7. DVT prophylaxis: SCD's/Feliberto, chemoprophylaxis held at this time due to lacerations and extensive bruising Discharge Planning: medically stable, will need further dialysis otherwise w/ nephrology, stable to dc to med-psych once bed available (1) Rhabdomyolysis Qualifiers: Rhabdomyolysis type: non-traumatic Qualified Code(s): M62.82 - Rhabdomyolysis
[2018-02-23] MEDS: Acetaminophen 325 MG Tablet PO PRN (15:39)
[2018-02-23] MEDS: cefTRIAXone Inj 1,000 MG Vial IM SCH ×2 (16:16→19:21)
[2018-02-24] MEDS: Heparin 10,000 UNITS/10 ML Vial (for IV use) OTHER PRN (10:05)
[2018-02-24] MEDS: NIFEdipine 10 MG Capsule PO SCH ×4 (10:09→20:50)
--- NOTE | 2018-02-24 10:23 | P.PNNP ---
Subjective Interval history: Seen during hemodialysis, tolerating well. No new labs today but urinary output is increasing. <Denise Raymond - Last Filed: 02/24/18 10:19> Physical Exam Vital signs: Vital Signs 02/23/18 12:00 02/23/18 15:58 02/23/18 16:00 Temperature 97.8 F 97.3 F L Pulse Rate 74 77 76 Respiratory Rate 18 18 Blood Pressure 144/74 H 144/86 H Pulse Oximetry 94 L 96 02/23/18 19:25 02/23/18 20:00 02/23/18 23:00 Temperature 97.8 F Pulse Rate 79 Respiratory Rate 15 Blood Pressure 163/87 H Pulse Oximetry 95 97 92 L 02/24/18 00:00 02/24/18 04:00 02/24/18 08:00 Temperature 97.8 F 98.4 F 97.9 F Pulse Rate 75 69 78 Respiratory Rate 15 16 18 Blood Pressure 152/98 H 156/62 H 166/89 H Pulse Oximetry 95 98 93 L 02/24/18 10:19 Temperature Pulse Rate Respiratory Rate Blood Pressure Pulse Oximetry 94 L Intake & Output 02/23/18 02/24/18 02/24/18 18:59 06:59 18:59 Intake Total 720 / 720 240 / 240 Output Total 50 / 50 950 / 950 Balance 670 / 670 -710 / -710 Weight 112.8 kg Intake: Oral 720 / 720 240 / 240 Output: Urine 50 / 50 950 / 950 Other: Date of Last Bowel Movement 02/19/18 # Bowel Movements 2 1 Narrative: GENERAL: alert and oriented. NECK: Supple, trachea midline. No JVD. CARDIOVASCULAR: Regular rate and rhythm without murmurs, gallops, or rubs. Right IJ Vas cath RESPIRATORY: Breath sounds diminished bilaterally. No accessory muscle use. GASTROINTESTINAL: Abdomen soft, non-tender, large MUSCULOSKELETAL: No cyanosis, generalized edema. - Urinary Catheter Management Indwelling Urethral Catheter Cath placed during this visit: yes, but has since been removed by the nurse Reason for continuing: Acute urinary retention Insertion date: 02/16/18 Insertion time: 13:00 Removal date: 02/19/18 Removal time: 15:00 <Denise Raymond - Last Filed: 02/24/18 10:19> Vital signs: Vital Signs 02/25/18 16:00 02/25/18 20:00 02/26/18 00:00 Temperature 97.5 F L 98.2 F 97.9 F Pulse Rate 77 88 78 Respiratory Rate 18 18 17 Blood Pressure 165/86 H 163/93 H 118/65 Pulse Oximetry 92 L 95 94 L 02/26/18 03:17 02/26/18 08:00 02/26/18 14:30 Temperature 98.7 F 98.3 F Pulse Rate 82 88 Respiratory Rate 18 20 Blood Pressure 175/96 H 183/91 H Pulse Oximetry 94 L 93 L 94 L Intake & Output 02/25/18 02/26/18 02/26/18 18:59 06:59 18:59 Intake Total 236 / 236 Output Total 4000 / 4000 Balance 236 / 236 -4000 / -4000 Weight 118.8 kg Intake: Oral 236 / 236 Output: Hemodialysis Amount 4000 / 4000 Other: # Voids 2 Date of Last Bowel Movement 02/24/18 # Bowel Movements 2 - Urinary Catheter Management Indwelling Urethral Catheter Cath placed during this visit: no <Robert Doherty - Last Filed: 02/26/18 15:05> Assessment and Plan - Assessment (1) Acute kidney injury Code(s): N17.9 - Acute kidney failure, unspecified Status: Acute Plan: The patient has apparent acute kidney injury in the setting of rhabdomyolysis. Complements are normal and MICAH normal. Renal ultrasound with mildly echogenic kidneys which may reflect medical renal disease. Hemodialysis started on . Vas cath placed in right IJ 02/18. Avoid nephrotoxic agents. maintain strict I+O. Urinary output has increased at 1 L/24 hours but creatinine remains elevated. Seen during hemodialysis today will remove fluid as tolerated. Will continue with HD 3 x week. Will follow urinary output, BMP, and watch for renal recovery. labs ordered for tomorrow. (2) Rhabdomyolysis Code(s): M62.82 - Rhabdomyolysis Status: Acute Qualifiers: Rhabdomyolysis type: non-traumatic Qualified Code(s): M62.82 - Rhabdomyolysis Plan: CPK labs trending downward <Denise Raymond - Last Filed: 02/24/18 10:19> - Assessment (1) Acute kidney injury Code(s): N17.9 - Acute kidney failure, unspecified Status: Acute Plan: Patient seen and examined, agree with above. HD to continue as needed. Watch for renal recovery. (2) Rhabdomyolysis Code(s): M62.82 - Rhabdomyolysis Status: Acute Qualifiers: Rhabdomyolysis type: non-traumatic Qualified Code(s): M62.82 - Rhabdomyolysis <Robert Doherty - Last Filed: 02/26/18 15:05>
[2018-02-24] MEDS: Calcium Carbonate 500 MG Tablet PO SCH ×2 (12:04→20:49)
[2018-02-24] MEDS: Furosemide 40 MG Tablet PO SCH ×2 (12:04→17:16)
[2018-02-24] MEDS: Metoprolol Tartrate 25 MG Tablet PO SCH ×2 (12:04→20:50)
[2018-02-24] MEDS: Sodium Bicarbonate 650 MG Tablet PO SCH ×2 (12:05→20:49)
[2018-02-24] MEDS: Sodium Chloride 0.9% 2 ML Flush BID IV.FLUSH SCH ×2 (12:05→20:50)
[2018-02-24] MEDS: QUEtiapine 25 MG Tablet PO SCH ×2 (12:05→20:50)
[2018-02-24] MEDS: cefTRIAXone Inj 1,000 MG Vial IM SCH (15:07)
--- NOTE | 2018-02-24 15:34 | ECHRPT ---
Indication: HEART FAILURE CONCLUSIONS The left ventricular systolic function is low normal with an estimated ejection fraction in the rang e of 50- 55%. No regional wall motion abnormalities. Normal left ventricular size and wall thickness. IVC is normal size. A small left sided pleural effusion is noted. BP: / HR: Rhythm: Technical Quality: FINDINGS LEFT VENTRICLE Normal left ventricular size. Wall thickness is normal. The left ventricular systolic function is low normal with an estimated ejection fraction in the rang e of 50- 55%. RIGHT VENTRICLE Normal right ventricular size and systolic function. LEFT ATRIUM The left atrial size is normal. RIGHT ATRIUM The right atrial size is normal. ATRIAL SEPTUM Normal atrial septal thickness without atrial level shunting by limited color doppler interrogation. AORTA The aortic root and proximal ascending aorta are normal in size on limited imaging. MITRAL VALVE Structurally normal mitral valve. No mitral valve stenosis or regurgitation. AORTIC VALVE Trileaflet aortic valve. No aortic valve stenosis or regurgitation. TRICUSPID VALVE Structurally normal tricuspid valve. No tricuspid valve stenosis or regurgitation. PULMONARY VALVE The pulmonary valve is not well visualized. VESSELS The inferior vena cava is normal in size. Hayes Stallings MD (Electronically Signed) Final Date:24 February 2018 15:33
--- NOTE | 2018-02-24 16:26 | P.PN ---
Subjective Interval history: No acute events reported overnight. Patient herself states that she is not short of breath this sitting. She does note that she had to sleep with the head of the bed substantially elevated, says at home she only uses one pillow whereas appear she needs to have elevation. Physical Exam Vital signs: Vital Signs 02/23/18 19:25 02/23/18 20:00 02/23/18 23:00 Temperature 97.8 F Pulse Rate 79 Respiratory Rate 15 Blood Pressure 163/87 H Pulse Oximetry 95 97 92 L 02/24/18 00:00 02/24/18 04:00 02/24/18 08:00 Temperature 97.8 F 98.4 F 97.9 F Pulse Rate 75 69 78 Respiratory Rate 15 16 18 Blood Pressure 152/98 H 156/62 H 166/89 H Pulse Oximetry 95 98 93 L 02/24/18 10:19 02/24/18 12:00 Temperature 97.2 F L Pulse Rate 79 Respiratory Rate 18 Blood Pressure 183/95 H Pulse Oximetry 94 L 92 L Intake & Output 02/23/18 02/24/18 02/24/18 18:59 06:59 18:59 Intake Total 720 / 720 240 / 240 Output Total 50 / 50 950 / 950 3200 / 3200 Balance 670 / 670 -710 / -710 -3200 / -3200 Weight 112.8 kg Intake: Oral 720 / 720 240 / 240 Output: Urine 50 / 50 950 / 950 Hemodialysis Amount 3200 / 3200 Other: Date of Last Bowel Movement 02/19/18 # Bowel Movements 2 1 Narrative: Heart sounds regular rate rhythm, no murmurs Clear lungs bilaterally, unlabored breathing Largely unchanged edema in the hands and thighs - Urinary Catheter Management Indwelling Urethral Catheter Cath placed during this visit: yes, but has since been removed by the nurse Reason for continuing: Acute urinary retention Insertion date: 02/16/18 Insertion time: 13:00 Removal date: 02/19/18 Removal time: 15:00 Results - Labs CBC & Chem 7: 02/23/18 05:26 03/01/18 05:33 Assessment and Plan - Assessment (1) Rhabdomyolysis Code(s): M62.82 - Rhabdomyolysis Status: Acute (2) Bipolar 1 disorder, mixed Code(s): F31.60 - Bipolar disorder, current episode mixed, unspecified Status : Chronic (3) Acute kidney injury Code(s): N17.9 - Acute kidney failure, unspecified Status: Acute (4) Elevated liver enzymes Code(s): R74.8 - Abnormal levels of other serum enzymes Status: Acute - Plan This is a 48-year Female with past medical history of bipolar disorder admitted under a Alexandra apt for a manic state with Benadryl overdosing, and found to have acute renal insufficiency and severe rhabdomyolysis. Currently in the ICU. Has been Alexandra acted by psychiatry and will likely need psychiatric admission once medically stable. 1. Severe Rhabdomyolysis -CK continues to improve with dialysis Acute renal failure -Secondary to rhabdomyolysis -Nephrology following, dialyzing accordingly through Vas-Cath that was recently placed, not showing sustained improvement and creatinine however urine output is slowly improving Orthopnea Likely secondary to fluid overload from renal standpoint, elevated of the bed at night for now. EKG which I independently reviewed showed no acute changes concerning for ischemia or infarction. no CP. Echocardiogram is unremarkable for any systolic heart failure. 2. Elevated LFTs -Secondary to rhabdomyolysis, improving, GGT is negative 3. Hyponatremia/Hypocalemia Free fluid restriction to 1500ml 3. HTN Continue Lopressor and nifedipine 4. Bipolar disorder, hypomanic Psychiatry following and managing Patient admits to being hypomanic, she has been taking Benadryl at home to help her sleep taken too much Benadryl purposefully vs accidental? 5. UTI Rocephin 6. Lacerations Right finger under wrap, gauze clean Superficial scrapes and bruising of forehead, no sign of infection Continue with routine wound care 7. DVT prophylaxis: SCD's/Feliberto, chemoprophylaxis held at this time due to lacerations and extensive bruising Discharge Planning: medically stable, will need further dialysis otherwise w/ nephrology, stable to dc to med-psych once bed available (1) Rhabdomyolysis Qualifiers: Rhabdomyolysis type: non-traumatic Qualified Code(s): M62.82 - Rhabdomyolysis
[2018-02-25 08:31] LABS: Albumin 2.2 g/dL (3.4-5.0); Calcium 7.5 mg/dL (8.5-10.1); Carbon Dioxide 30.7 meq/L (21.0-32.0); Phosphorus 4.7 mg/dL (2.5-4.9); Potassium 5.5 meq/L (3.5-5.1)
[2018-02-25] MEDS: Calcium Carbonate 500 MG Tablet PO SCH ×2 (09:01→21:17)
[2018-02-25] MEDS: Furosemide 40 MG Tablet PO SCH ×2 (09:01→17:21)
[2018-02-25] MEDS: QUEtiapine 25 MG Tablet PO SCH (09:01)
[2018-02-25] MEDS: Sodium Bicarbonate 650 MG Tablet PO SCH ×2 (09:01→21:17)
[2018-02-25] MEDS: Metoprolol Tartrate 25 MG Tablet PO SCH (09:01)
[2018-02-25] MEDS: NIFEdipine 10 MG Capsule PO SCH ×4 (09:01→21:17)
[2018-02-25] MEDS: Sodium Chloride 0.9% 2 ML Flush BID IV.FLUSH SCH ×2 (09:01→21:18)
--- NOTE | 2018-02-25 09:50 | P.PNNP ---
Physical Exam Vital signs: Vital Signs 02/24/18 10:19 02/24/18 12:00 02/24/18 16:00 Temperature 97.2 F L 98.2 F Pulse Rate 79 76 Respiratory Rate 18 18 Blood Pressure 183/95 H 171/83 H Pulse Oximetry 94 L 92 L 94 L 02/24/18 20:00 02/25/18 00:00 02/25/18 04:00 Temperature 98.4 F 98.3 F 98 F Pulse Rate 84 84 79 Respiratory Rate 18 18 18 Blood Pressure 149/96 H 166/87 H Pulse Oximetry 93 L 93 L 95 02/25/18 04:33 Temperature Pulse Rate Respiratory Rate Blood Pressure 179/96 H Pulse Oximetry Intake & Output 02/24/18 02/25/18 02/25/18 18:59 06:59 18:59 Intake Total 520 / 520 Output Total 3200 / 3200 300 / 300 Balance -3200 / -3200 220 / 220 Weight 118 kg Intake: IV 400 / 400 NS Inj 1,000 ML @ As Directed 400 / 400 OTHER .Q0M PRN Rx#:[id number] Oral 120 / 120 Output: Urine 300 / 300 Hemodialysis Amount 3200 / 3200 Other: Date of Last Bowel Movement 02/24/18 - Urinary Catheter Management Indwelling Urethral Catheter Cath placed during this visit: yes, but has since been removed by the nurse Reason for continuing: Acute urinary retention Insertion date: 02/16/18 Insertion time: 13:00 Removal date: 02/19/18 Removal time: 15:00 Assessment and Plan - Assessment (1) Acute kidney injury Code(s): N17.9 - Acute kidney failure, unspecified Status: Acute Plan: The patient has apparent acute kidney injury in the setting of rhabdomyolysis. Complements are normal and MICAH normal. Renal ultrasound with mildly echogenic kidneys which may reflect medical renal disease. Hemodialysis started on . Vas cath placed in right IJ 02/18. Avoid nephrotoxic agents. maintain strict I+O. Urinary output has increased at 1 L/24 hours but creatinine remains elevated. Seen during hemodialysis today will remove fluid as tolerated. Will continue with HD 3 x week. Will follow urinary output, BMP, and watch for renal recovery. labs ordered for tomorrow. (2) Rhabdomyolysis Code(s): M62.82 - Rhabdomyolysis Status: Acute Qualifiers: Rhabdomyolysis type: non-traumatic Qualified Code(s): M62.82 - Rhabdomyolysis Plan: CPK labs trending downward
[2018-02-25] MEDS: Acetaminophen 325 MG Tablet PO PRN (12:48)
--- NOTE | 2018-02-25 13:05 | P.PNPSY ---
Subjective Remarks: The patient was seen for reevaluation. She reports feeling better today, but still having very hard time to sleep at night. Patient clarified that she did not overdose with suicidal intentions, and her mood is improved, even though at times she is having mood swings. She denies suicidal enemas ideation, she denies visual and auditory hallucinations. She is fully oriented x3, no attention deficit, no fluctuation of consciousness. Mental Status Examination Appearance: Appropriate Consciousness: Alert Orientation: x4 Motor Activity: Normal gait Speech: Unremarkable Language: Adequate Fund of Knowledge: Adequate Attention and Concentration: Adequate Memory: Unremarkable Mood: Good Affect: Irritable Thought Process & Associations: Intact Thought Content: Appropriate Hallucination Type: None Delusion Type: None Suicidal Ideation: No Suicidal Plan: No Suicidal Intention: No Homicidal Ideation: No Homicidal Plan: No Homicidal Intention: No Insight: Fair Judgment: Impulsive Assessment and Plan - Assessment (1) Bipolar 1 disorder, mixed Code(s): F31.60 - Bipolar disorder, current episode mixed, unspecified Status : Chronic - Plan Plan: Patient continues to have mood swings and difficulty sleeping at night, but definitely improved. We will increase Seroquel to 100 mg twice daily. Support , motivation and psychoeducation provided. The patient does not meet criteria for involuntary psychiatric admission. Justification for Continued Inpatient Stay: No criteria for involuntary psychiatric admission
[2018-02-25] MEDS ORDERED: QUEtiapine 100 MG Tablet PO SCH (14:00)
--- NOTE | 2018-02-25 14:52 | ECG ---
Date Performed: 02/24/2018 Time Performed: 13:17:40 PTAGE: 48 years EKG: Sinus rhythm NORMAL ECG NO PREVIOUS TRACING DOCTOR: Varghese Ward Interpretating Date/Time 02/25/2018 14:48:50
--- NOTE | 2018-02-25 14:56 | P.PNNP ---
Subjective Interval history: Sitting up in bed with not complaints. Shortness of breath has improved, no nausea, vomiting or diarrhea. Creatinine remains high at 7.49. <Denise Raymond - Last Filed: 02/25/18 14:49> Physical Exam Vital signs: Vital Signs 02/24/18 16:00 02/24/18 20:00 02/25/18 00:00 Temperature 98.2 F 98.4 F 98.3 F Pulse Rate 76 84 84 Respiratory Rate 18 18 18 Blood Pressure 171/83 H 149/96 H 166/87 H Pulse Oximetry 94 L 93 L 93 L 02/25/18 04:00 02/25/18 04:33 02/25/18 08:00 Temperature 98 F 98.3 F Pulse Rate 79 80 Respiratory Rate 18 Blood Pressure 179/96 H 182/87 H Pulse Oximetry 95 95 02/25/18 12:00 02/25/18 12:29 Temperature Pulse Rate 74 Respiratory Rate Blood Pressure Pulse Oximetry 95 Intake & Output 02/24/18 02/25/18 02/25/18 18:59 06:59 18:59 Intake Total 520 / 520 Output Total 3200 / 3200 300 / 300 Balance -3200 / -3200 220 / 220 Weight 118 kg Intake: IV 400 / 400 NS Inj 1,000 ML @ As Directed 400 / 400 OTHER .Q0M PRN Rx#:[id number] Oral 120 / 120 Output: Urine 300 / 300 Hemodialysis Amount 3200 / 3200 Other: Date of Last Bowel Movement 02/24/18 02/24/18 Narrative: GENERAL: alert and oriented. NECK: Supple, trachea midline. No JVD. CARDIOVASCULAR: Regular rate and rhythm without murmurs, gallops, or rubs. Right IJ Vas cath RESPIRATORY: Breath sounds diminished bilaterally. No accessory muscle use. GASTROINTESTINAL: Abdomen soft, non-tender, large MUSCULOSKELETAL: No cyanosis, generalized edema. - Urinary Catheter Management Indwelling Urethral Catheter Cath placed during this visit: yes, but has since been removed by the nurse Reason for continuing: Acute urinary retention Insertion date: 02/16/18 Insertion time: 13:00 Removal date: 02/19/18 Removal time: 15:00 <Denise Raymond - Last Filed: 02/25/18 14:49> Vital signs: Vital Signs 02/25/18 20:00 02/26/18 00:00 02/26/18 03:17 Temperature 98.2 F 97.9 F 98.7 F Pulse Rate 88 78 82 Respiratory Rate 18 17 18 Blood Pressure 163/93 H 118/65 175/96 H Pulse Oximetry 95 94 L 94 L 02/26/18 08:00 02/26/18 14:30 02/26/18 16:00 Temperature 98.3 F 97.3 F L Pulse Rate 88 71 Respiratory Rate 20 17 Blood Pressure 183/91 H 155/83 H Pulse Oximetry 93 L 94 L 97 Intake & Output 02/25/18 02/26/18 02/26/18 18:59 06:59 18:59 Intake Total 236 / 236 Output Total 4000 / 4000 Balance 236 / 236 -4000 / -4000 Weight 118.8 kg Intake: Oral 236 / 236 Output: Hemodialysis Amount 4000 / 4000 Other: # Voids 2 Date of Last Bowel Movement 02/24/18 # Bowel Movements 2 - Urinary Catheter Management Indwelling Urethral Catheter Cath placed during this visit: no <Robert Doherty - Last Filed: 02/26/18 17:54> Assessment and Plan - Assessment (1) Acute kidney injury Code(s): N17.9 - Acute kidney failure, unspecified Status: Acute Plan: The patient has apparent acute kidney injury in the setting of rhabdomyolysis. Complements are normal and MICAH normal. Renal ultrasound with mildly echogenic kidneys which may reflect medical renal disease. Hemodialysis started on . Vas cath placed in right IJ 02/18. Avoid nephrotoxic agents. Maintain strict I+O. Creatinine remains elevated at 7.49 with mild hyperkalemia at 5.5. Will order 1 dose of veltassa and diet has been changed to lower potassium, renal. Hemodialysis yesterday tolerated well with removal of 3.2 L of fluid. Will continue with HD 3 x week and watch for renal recovery. Hemodialysis planned for tomorrow.. Will follow urinary output and BMP (2) Rhabdomyolysis Code(s): M62.82 - Rhabdomyolysis Status: Acute Qualifiers: Rhabdomyolysis type: non-traumatic Qualified Code(s): M62.82 - Rhabdomyolysis Plan: CPK labs trending downward <Denise Raymond - Last Filed: 02/25/18 14:49> - Assessment (1) Acute kidney injury Code(s): N17.9 - Acute kidney failure, unspecified Status: Acute Plan: Patient seen and examined, agree with above. Started passing more urine. Creatinine is still elevated, HD will be in AM. (2) Rhabdomyolysis Code(s): M62.82 - Rhabdomyolysis Status: Acute Qualifiers: Rhabdomyolysis type: non-traumatic Qualified Code(s): M62.82 - Rhabdomyolysis (3) Hypertension Code(s): I10 - Essential (primary) hypertension Status: Acute <Robert Doherty - Last Filed: 02/26/18 17:54>
[2018-02-25] MEDS: cefTRIAXone Inj 1,000 MG Vial IM SCH (15:31)
--- NOTE | 2018-02-25 15:53 | P.PN ---
Subjective Interval history: Follow up for CRISTA and rhabdomyolysis: Patient seen and examined, complains of occasional shortness of breath with activity, leg edema improved, making urine. No chest pain. Had dialysis yesterday. No fever. BP elevated. No acute changes overnight Physical Exam Vital signs: Vital Signs 02/24/18 16:00 02/24/18 20:00 02/25/18 00:00 Temperature 98.2 F 98.4 F 98.3 F Pulse Rate 76 84 84 Respiratory Rate 18 18 18 Blood Pressure 171/83 H 149/96 H 166/87 H Pulse Oximetry 94 L 93 L 93 L 02/25/18 04:00 02/25/18 04:33 02/25/18 08:00 Temperature 98 F 98.3 F Pulse Rate 79 80 Respiratory Rate 18 Blood Pressure 179/96 H 182/87 H Pulse Oximetry 95 95 02/25/18 12:00 02/25/18 12:29 Temperature Pulse Rate 74 Respiratory Rate Blood Pressure Pulse Oximetry 95 Intake & Output 02/24/18 02/25/18 02/25/18 18:59 06:59 18:59 Intake Total 520 / 520 Output Total 3200 / 3200 300 / 300 Balance -3200 / -3200 220 / 220 Weight 118 kg Intake: IV 400 / 400 NS Inj 1,000 ML @ As Directed 400 / 400 OTHER .Q0M PRN Rx#:[id number] Oral 120 / 120 Output: Urine 300 / 300 Hemodialysis Amount 3200 / 3200 Other: Date of Last Bowel Movement 02/24/18 02/24/18 Narrative: GENERAL: Obese female, no apparent distress SKIN: Warm and dry. Right IJ vascath HEAD: Atraumatic. Normocephalic. EYES: Pupils equal and round. No scleral icterus. No injection or drainage. ENT: No nasal bleeding or discharge. Mucous membranes pink and moist. NECK: Trachea midline. No JVD. CARDIOVASCULAR: Regular rate and rhythm. RESPIRATORY: No accessory muscle use. Clear to auscultation. Breath sounds equal bilaterally. GASTROINTESTINAL: Abdomen soft, non-tender, nondistended. Hepatic and splenic margins not palpable. MUSCULOSKELETAL: No joint abnormalities. Bilateral lower extremity with +1 pitting edema, all the way up to thighs. Pedal pulses 2+. NEUROLOGICAL: Awake and alert. No obvious cranial nerve deficits. Motor grossly within normal limits. Five out of 5 muscle strength in the arms and legs. Normal speech. PSYCHIATRIC: Flat affect. - Urinary Catheter Management Indwelling Urethral Catheter Cath placed during this visit: yes, but has since been removed by the nurse Reason for continuing: Acute urinary retention Insertion date: 02/16/18 Insertion time: 13:00 Removal date: 02/19/18 Removal time: 15:00 Results - Labs CBC & Chem 7: 02/23/18 05:26 02/25/18 06:36 Laboratory Results - last 24 hr 02/25/18 06:36 Sodium 133 L Potassium 5.5 H Chloride 94 L Carbon Dioxide 30.7 Anion Gap 8 BUN 43 H Creatinine 7.49 H Estimated GFR 6 L Random Glucose 75 Calcium 7.5 L Phosphorus 4.7 Albumin 2.2 L Assessment and Plan - Assessment (1) Rhabdomyolysis Code(s): M62.82 - Rhabdomyolysis Status: Acute (2) Bipolar 1 disorder, mixed Code(s): F31.60 - Bipolar disorder, current episode mixed, unspecified Status : Chronic (3) Acute kidney injury Code(s): N17.9 - Acute kidney failure, unspecified Status: Acute (4) Elevated liver enzymes Code(s): R74.8 - Abnormal levels of other serum enzymes Status: Acute - Plan 48-year Female with past medical history of bipolar disorder admitted under a [facility] apt for a manic state with Benadryl overdosing, and found to have acute renal insufficiency and severe rhabdomyolysis. Was initially in the ICU. Severe Rhabdomyolysis -CK continues to improve with dialysis Acute renal failure Secondary to rhabdomyolysis -Nephrology following -Continue with dialysis Saturday Monitor for renal recovery, creatinine remains elevated. Making some urine Monitor intake and output Hyperkalemia k 5.5 Veltassa given per nephrology Orthopnea Likely secondary to fluid overload from renal standpoint, elevated of the bed at night for now. - Echocardiogram is unremarkable for any systolic heart failure, EF 50-55% -continue Lasix 40 mg p.o. twice daily' Elevated LFTs -Secondary to rhabdomyolysis, improving, GGT is negative Hyponatremia/Hypocalemia Na 133 -Free fluid restriction to 1500ml HTN BP not optimally controlled -Continue Lopressor and nifedipine -Increase Lopressor to 50 twice daily Continue with clonidine as needed Bipolar disorder, hypomanic -Psychiatry following and managing -Patient admits to being hypomanic, she has been taking Benadryl at home to help her sleep-taken too much Benadryl purposefully vs accidental? -Continue Seroquel 100 mg p.o. twice daily -Per psych, does not meet criteria for involuntary psychiatric admission. UTI UC + ecoli -Continue with IM Rocephin Lacerations Right finger under wrap, gauze clean Superficial scrapes and bruising of forehead, no sign of infection -Continue with routine wound care DVT prophylaxis: SCD's/Feliberto, chemoprophylaxis held at this time due to lacerations and extensive bruising Physical therapy, needs out of bed Repeat labs in the morning Code Status: Full code Discussed Condition With: RN, pt, CM Discharge Planning: Not ready for dc yet, waiting for renal clearance. Still on HD M/W/F (1) Rhabdomyolysis Qualifiers: Rhabdomyolysis type: non-traumatic Qualified Code(s): M62.82 - Rhabdomyolysis
[2018-02-25] MEDS: Metoprolol Tartrate 50 MG Tablet PO SCH (21:17)
[2018-02-25] MEDS: QUEtiapine 100 MG Tablet PO SCH (21:17)
--- NOTE | 2018-02-26 08:49 | P.PN ---
Subjective Interval history: Follow up for CRISTA and rhabdomyolysis: Patient seen and examined, getting ready to go to hemodialysis. Did not sleep much. Shortness of breath more with activity, but overall has improved. Desats off oxygen and with activity. Leg swelling is better. Did get up and ambulate around the room and hallway. no chest pain. States that she voided more yesterday. No fever. Physical Exam Vital signs: Vital Signs 02/25/18 12:00 02/25/18 12:29 02/25/18 16:00 Temperature 97.8 F 97.5 F L Pulse Rate 76 77 Respiratory Rate 18 18 Blood Pressure 156/85 H 165/86 H Pulse Oximetry 93 L 95 92 L 02/25/18 20:00 02/26/18 00:00 02/26/18 03:17 Temperature 98.2 F 97.9 F 98.7 F Pulse Rate 88 78 82 Respiratory Rate 18 17 18 Blood Pressure 163/93 H 118/65 175/96 H Pulse Oximetry 95 94 L 94 L Intake & Output 02/25/18 02/26/18 02/26/18 18:59 06:59 18:59 Intake Total 236 / 236 Balance 236 / 236 Weight 118.8 kg Intake: Oral 236 / 236 Other: # Voids 2 Date of Last Bowel Movement 02/24/18 # Bowel Movements 2 Narrative: GENERAL: Obese female, no apparent distress SKIN: Warm and dry. Right IJ vascath HEAD: Atraumatic. Normocephalic. EYES: Pupils equal and round. No scleral icterus. No injection or drainage. ENT: No nasal bleeding or discharge. Mucous membranes pink and moist. NECK: Trachea midline. No JVD. CARDIOVASCULAR: Regular rate and rhythm. RESPIRATORY: No accessory muscle use. Clear to auscultation. Breath sounds equal bilaterally. GASTROINTESTINAL: Abdomen soft, non-tender, nondistended. Hepatic and splenic margins not palpable. MUSCULOSKELETAL: No joint abnormalities. Bilateral lower extremity with +1 pitting edema, all the way up to thighs. Pedal pulses 2+. NEUROLOGICAL: Awake and alert. No obvious cranial nerve deficits. Motor grossly within normal limits. Five out of 5 muscle strength in the arms and legs. Normal speech. PSYCHIATRIC: Flat affect. - Urinary Catheter Management Indwelling Urethral Catheter Cath placed during this visit: yes, but has since been removed by the nurse Reason for continuing: Acute urinary retention Insertion date: 02/16/18 Insertion time: 13:00 Removal date: 02/19/18 Removal time: 15:00 Results - Labs CBC & Chem 7: 02/23/18 05:26 02/25/18 06:36 Laboratory Results - last 24 hr 02/21/18 06:50 Anti-Proteinase 3 Less than 1.0 Anti-Myeloperoxidase Less than 1.0 Assessment and Plan - Assessment (1) Rhabdomyolysis Code(s): M62.82 - Rhabdomyolysis Status: Acute (2) Bipolar 1 disorder, mixed Code(s): F31.60 - Bipolar disorder, current episode mixed, unspecified Status : Chronic (3) Acute kidney injury Code(s): N17.9 - Acute kidney failure, unspecified Status: Acute (4) Elevated liver enzymes Code(s): R74.8 - Abnormal levels of other serum enzymes Status: Acute - Plan 48-year Female with past medical history of bipolar disorder admitted under a Alexandra apt for a manic state with Benadryl overdosing, and found to have acute renal insufficiency and severe rhabdomyolysis. Was initially in the ICU. Severe Rhabdomyolysis -CK continues to improve with dialysis Acute renal failure Secondary to rhabdomyolysis -Nephrology following -Continue with dialysis Saturday Monitor for renal recovery, creatinine remains elevated. Making some urine Monitor intake and output Hyperkalemia k 5.5 Veltassa given per nephrology -Potassium pending today Orthopnea Likely secondary to fluid overload from renal standpoint, elevated of the bed at night for now. - Echocardiogram is unremarkable for any systolic heart failure, EF 50-55% -continue Lasix 40 mg p.o. twice daily' Hypoxia, desats with ambulation Likely due to fluid overload -continue with oxygen at 2L/NC for now. Elevated LFTs -Secondary to rhabdomyolysis, improving, GGT is negative Hyponatremia/Hypocalemia Na 133 -bmp pending HTN BP not optimally controlled -Continue Lopressor and nifedipine Continue with clonidine as needed Bipolar disorder, hypomanic -Psychiatry following and managing -Patient admits to being hypomanic, she has been taking Benadryl at home to help her sleep-taken too much Benadryl purposefully vs accidental? -Continue Seroquel 100 mg p.o. twice daily -Per psych, does not meet criteria for involuntary psychiatric admission. Insomnia -continue Seroquel UTI UC + ecoli -Continue with IM Rocephin Lacerations Right finger under wrap, gauze clean Superficial scrapes and bruising of forehead, no sign of infection -Continue with routine wound care DVT prophylaxis: SCD's/Feliberto, chemoprophylaxis held at this time due to lacerations and extensive bruising Physical therapy, needs out of bed Labs pending Code Status: Full code Discussed Condition With: RN, patient, case management Discharge Planning: Not ready for dc yet, waiting for renal clearance. Still on HD M/W/F (1) Rhabdomyolysis Qualifiers: Rhabdomyolysis type: non-traumatic Qualified Code(s): M62.82 - Rhabdomyolysis
[2018-02-26 10:19] LABS: Albumin 2.4 g/dL (3.4-5.0); Calcium 8.1 mg/dL (8.5-10.1); Carbon Dioxide 30.4 meq/L (21.0-32.0)
--- NOTE | 2018-02-26 10:34 | P.PNNP ---
Subjective Interval history: Seen during hemodialysis, tolerating well. Creatinine remains high. Mild shortness of breath reported, no nausea or vomiting. <Denise Raymond - Last Filed: 02/26/18 16:21> Physical Exam Vital signs: Vital Signs 02/25/18 12:00 02/25/18 12:29 02/25/18 16:00 Temperature 97.8 F 97.5 F L Pulse Rate 76 77 Respiratory Rate 18 18 Blood Pressure 156/85 H 165/86 H Pulse Oximetry 93 L 95 92 L 02/25/18 20:00 02/26/18 00:00 02/26/18 03:17 Temperature 98.2 F 97.9 F 98.7 F Pulse Rate 88 78 82 Respiratory Rate 18 17 18 Blood Pressure 163/93 H 118/65 175/96 H Pulse Oximetry 95 94 L 94 L 02/26/18 08:00 Temperature 98.3 F Pulse Rate 88 Respiratory Rate 20 Blood Pressure 183/91 H Pulse Oximetry 93 L Intake & Output 02/25/18 02/26/18 02/26/18 18:59 06:59 18:59 Intake Total 236 / 236 Balance 236 / 236 Weight 118.8 kg Intake: Oral 236 / 236 Other: # Voids 2 Date of Last Bowel Movement 02/24/18 # Bowel Movements 2 Narrative: GENERAL: alert and oriented. NECK: Supple, trachea midline. No JVD. CARDIOVASCULAR: Regular rate and rhythm without murmurs, gallops, or rubs. Right IJ Vas cath RESPIRATORY: Breath sounds diminished bilaterally. No accessory muscle use. GASTROINTESTINAL: Abdomen soft, non-tender, large MUSCULOSKELETAL: No cyanosis, generalized edema. - Urinary Catheter Management Indwelling Urethral Catheter Cath placed during this visit: yes, but has since been removed by the nurse Reason for continuing: Acute urinary retention Insertion date: 02/16/18 Insertion time: 13:00 Removal date: 02/19/18 Removal time: 15:00 <Denise Raymond - Last Filed: 02/26/18 16:21> Vital signs: Vital Signs 02/26/18 14:30 02/26/18 16:00 02/26/18 20:00 Temperature 97.3 F L 97.6 F Pulse Rate 71 91 H Respiratory Rate 17 18 Blood Pressure 155/83 H 148/78 H Pulse Oximetry 94 L 97 91 L 02/27/18 00:00 02/27/18 04:00 02/27/18 08:00 Temperature 97.9 F 98.1 F 98.3 F Pulse Rate 79 83 77 Respiratory Rate 18 20 16 Blood Pressure 154/81 H 162/81 H 175/88 H Pulse Oximetry 92 L 92 L 95 02/27/18 10:43 02/27/18 12:00 Temperature 97.9 F Pulse Rate 80 Respiratory Rate 16 Blood Pressure 126/66 Pulse Oximetry 95 94 L Intake & Output 02/26/18 02/27/18 02/27/18 18:59 06:59 18:59 Intake Total 360 / 360 Output Total 4400 / 4400 Balance -4040 / -4040 Weight 113.4 kg Intake: Oral 360 / 360 Output: Urine 400 / 400 Hemodialysis Amount 4000 / 4000 Other: Date of Last Bowel Movement 02/26/18 02/26/18 # Bowel Movements 1 - Urinary Catheter Management Indwelling Urethral Catheter Cath placed during this visit: no <Robert Doherty - Last Filed: 02/27/18 12:22> Assessment and Plan - Assessment (1) Acute kidney injury Code(s): N17.9 - Acute kidney failure, unspecified Status: Acute Plan: The patient has apparent acute kidney injury in the setting of rhabdomyolysis. Complements are normal and MICAH normal. Renal ultrasound with mildly echogenic kidneys which may reflect medical renal disease. Hemodialysis started on . Vas cath placed in right IJ 02/18. Avoid nephrotoxic agents. Maintain strict I+O. Creatinine remains elevated, pt reports that her urinary output is improving. Hyperkalemia resolved. Low potassium diet. Continue lasix BID. Sodium bicarbonate discontinued. Hemodialysis today with removal of 4 liters of fluid. Will continue with HD 3 x week and watch for renal recovery. Will follow urinary output and BMP. Strict I+O needs to be done. (2) Rhabdomyolysis Code(s): M62.82 - Rhabdomyolysis Status: Acute Qualifiers: Rhabdomyolysis type: non-traumatic Qualified Code(s): M62.82 - Rhabdomyolysis (3) Hypertension Code(s): I10 - Essential (primary) hypertension Status: Acute Plan: Some hypertension. Expect improvement after hemodialysis. On metoprolol and hydralazine. Will monitor <Denise Raymond - Last Filed: 02/26/18 16:21> - Assessment (1) Acute kidney injury Code(s): N17.9 - Acute kidney failure, unspecified Status: Acute Plan: Patient has still elevated BUN and Creatinine, HD done today. Watch for renal recovery. (2) Rhabdomyolysis Code(s): M62.82 - Rhabdomyolysis Status: Acute Qualifiers: Rhabdomyolysis type: non-traumatic Qualified Code(s): M62.82 - Rhabdomyolysis (3) Hypertension Code(s): I10 - Essential (primary) hypertension Status: Acute <Robert Doherty - Last Filed: 02/27/18 12:22>
[2018-02-26 10:37] LABS: CKMB Percent 0.5 % (0.0-4.0); Creatine Kinase MB 1.9 ng/mL (0.5-3.6)
[2018-02-26] MEDS: NIFEdipine 10 MG Capsule PO SCH ×4 (12:50→20:52)
[2018-02-26] MEDS: Furosemide 40 MG Tablet PO SCH ×2 (13:11→18:10)
[2018-02-26] MEDS: Sodium Bicarbonate 650 MG Tablet PO SCH (13:11)
[2018-02-26] MEDS: Calcium Carbonate 500 MG Tablet PO SCH ×2 (13:11→20:52)
[2018-02-26] MEDS: Metoprolol Tartrate 50 MG Tablet PO SCH ×2 (13:12→20:52)
[2018-02-26] MEDS: Sodium Chloride 0.9% 2 ML Flush BID IV.FLUSH SCH ×3 (13:12→20:55)
[2018-02-26] MEDS: QUEtiapine 100 MG Tablet PO SCH ×2 (13:13→20:52)
[2018-02-26] MEDS: Acetaminophen 325 MG Tablet PO PRN ×2 (15:38→21:03)
[2018-02-26] MEDS: cefTRIAXone Inj 1,000 MG Vial IM SCH (15:40)
[2018-02-27 09:41] LABS: Albumin 2.4 g/dL (3.4-5.0); Calcium 7.6 mg/dL (8.5-10.1); Phosphorus 5.1 mg/dL (2.5-4.9); Potassium 4.9 meq/L (3.5-5.1)
[2018-02-27] MEDS: NIFEdipine 10 MG Capsule PO SCH ×4 (09:42→21:43)
[2018-02-27] MEDS: QUEtiapine 100 MG Tablet PO SCH ×2 (09:43→21:43)
[2018-02-27] MEDS: Metoprolol Tartrate 50 MG Tablet PO SCH ×2 (09:43→21:43)
[2018-02-27] MEDS: Furosemide 40 MG Tablet PO SCH ×2 (09:43→18:17)
[2018-02-27] MEDS: Calcium Carbonate 500 MG Tablet PO SCH ×2 (09:43→21:43)
[2018-02-27] MEDS: Sodium Chloride 0.9% 2 ML Flush BID IV.FLUSH SCH ×2 (09:45→21:43)
--- NOTE | 2018-02-27 10:38 | P.PN ---
Subjective Interval history: Follow up for CRISTA and rhabdomyolysis: Patient seen and examined, smiling, indicates she slept much better yesterday. Slept for about 5 hours. Indicates that her arm and leg swelling is much more improved, less short of breath with activity. Has been ambulating in hallways with physical therapy. Has occasional chest discomfort with deep breathing. No fever. No cough. No nausea, no vomiting, no diarrhea. Voiding well. Physical Exam Vital signs: Vital Signs 02/26/18 14:30 02/26/18 16:00 02/26/18 20:00 Temperature 97.3 F L 97.6 F Pulse Rate 71 91 H Respiratory Rate 17 18 Blood Pressure 155/83 H 148/78 H Pulse Oximetry 94 L 97 91 L 02/27/18 00:00 02/27/18 04:00 02/27/18 08:00 Temperature 97.9 F 98.1 F 98.3 F Pulse Rate 79 83 77 Respiratory Rate 18 20 16 Blood Pressure 154/81 H 162/81 H 175/88 H Pulse Oximetry 92 L 92 L 95 Intake & Output 02/26/18 02/27/18 02/27/18 18:59 06:59 18:59 Intake Total 360 / 360 Output Total 4400 / 4400 Balance -4040 / -4040 Weight 113.4 kg Intake: Oral 360 / 360 Output: Urine 400 / 400 Hemodialysis Amount 4000 / 4000 Other: Date of Last Bowel Movement 02/26/18 02/26/18 # Bowel Movements 1 Narrative: GENERAL: Obese female, no apparent distress SKIN: Warm and dry. Right IJ vascath HEAD: Atraumatic. Normocephalic. EYES: Pupils equal and round. No scleral icterus. No injection or drainage. ENT: No nasal bleeding or discharge. Mucous membranes pink and moist. NECK: Trachea midline. No JVD. CARDIOVASCULAR: Regular rate and rhythm. RESPIRATORY: No accessory muscle use. Clear to auscultation. Breath sounds equal bilaterally. GASTROINTESTINAL: Abdomen soft, non-tender, nondistended. Hepatic and splenic margins not palpable. MUSCULOSKELETAL: No joint abnormalities. Bilateral lower extremity with +1 pitting edema, all the way up to thighs. Pedal pulses 2+. NEUROLOGICAL: Awake and alert. No obvious cranial nerve deficits. Motor grossly within normal limits. Five out of 5 muscle strength in the arms and legs. Normal speech. PSYCHIATRIC: Smiling, pleasant. - Urinary Catheter Management Indwelling Urethral Catheter Cath placed during this visit: yes, but has since been removed by the nurse Reason for continuing: Acute urinary retention Insertion date: 02/16/18 Insertion time: 13:00 Removal date: 02/19/18 Removal time: 15:00 Results - Labs CBC & Chem 7: 02/23/18 05:26 02/27/18 08:43 Laboratory Results - last 24 hr 02/26/18 02/27/18 07:38 08:43 Sodium 137 Potassium 4.9 Chloride 95 L Carbon Dioxide 32.0 Anion Gap 10 BUN 36 H Creatinine 6.72 H Estimated GFR 7 L Random Glucose 80 Calcium 7.6 L Phosphorus 5.1 H CK-MB (CK-2) 1.9 CK-MB (CK-2) % 0.5 Albumin 2.4 L Assessment and Plan - Assessment (1) Rhabdomyolysis Code(s): M62.82 - Rhabdomyolysis Status: Acute (2) Bipolar 1 disorder, mixed Code(s): F31.60 - Bipolar disorder, current episode mixed, unspecified Status : Chronic (3) Acute kidney injury Code(s): N17.9 - Acute kidney failure, unspecified Status: Acute (4) Elevated liver enzymes Code(s): R74.8 - Abnormal levels of other serum enzymes Status: Acute - Plan 48-year Female with past medical history of bipolar disorder admitted under a [facility] apt for a manic state with Benadryl overdosing, and found to have acute renal insufficiency and severe rhabdomyolysis. Was initially in the ICU. Severe Rhabdomyolysis -CK continues to improve with dialysis Acute renal failure Secondary to rhabdomyolysis -Nephrology following -Continue with dialysis Saturday Monitor intake and output -Creatinine improving slowly, 6.7 today. Continues to make urine. Monitor for renal recovery Hyperkalemia k 5.5 Veltassa given per nephrology -Potassium 4.9 Orthopnea Likely secondary to fluid overload from renal standpoint, elevated of the bed at night for now. - Echocardiogram is unremarkable for any systolic heart failure, EF 50-55% -continue Lasix 40 mg p.o. twice daily' Hypoxia, desats with ambulation Likely due to fluid overload -continue with oxygen at 2L/NC for now. Elevated LFTs -Secondary to rhabdomyolysis, improving, GGT is negative Hyponatremia/Hypocalemia Na 137 -Continue to follow BMP, sodium improving. HTN BP not optimally controlled -Continue Lopressor and nifedipine Continue with clonidine as needed -Blood pressure remains elevated, not optimally controlled. We will add hydralazine 10 mg p.o. 3 times daily Bipolar disorder, hypomanic -Psychiatry following and managing -Patient admits to being hypomanic, she has been taking Benadryl at home to help her sleep-taken too much Benadryl purposefully vs accidental? -Continue Seroquel 100 mg p.o. twice daily -Per psych, does not meet criteria for involuntary psychiatric admission. -Mood is improved. Insomnia -continue Seroquel -Sleeping better, continue with present treatment UTI UC + ecoli -Continue with IM Rocephin-DC after today's dose Lacerations Right finger under wrap, gauze clean Superficial scrapes and bruising of forehead, no sign of infection -Continue with routine wound care DVT prophylaxis: SCD's/Feliberto, chemoprophylaxis held at this time due to lacerations and extensive bruising Physical therapy, needs out of bed Follow BMP daily Code Status: Full code Discussed Condition With: RN, patient, case management Discharge Planning: Not ready for dc yet, waiting for renal clearance. Still on HD M/W/F (1) Rhabdomyolysis Qualifiers: Rhabdomyolysis type: non-traumatic Qualified Code(s): M62.82 - Rhabdomyolysis
--- NOTE | 2018-02-27 11:59 | P.PNNP ---
Subjective Interval history: Sitting up in Chair. Reports some chest discomfort with deep breathing. Edema and urinary output improving. No nausea, vomiting, or diarrhea. <Denise Raymond - Last Filed: 02/27/18 11:52> Physical Exam Vital signs: Vital Signs 02/26/18 14:30 02/26/18 16:00 02/26/18 20:00 Temperature 97.3 F L 97.6 F Pulse Rate 71 91 H Respiratory Rate 17 18 Blood Pressure 155/83 H 148/78 H Pulse Oximetry 94 L 97 91 L 02/27/18 00:00 02/27/18 04:00 02/27/18 08:00 Temperature 97.9 F 98.1 F 98.3 F Pulse Rate 79 83 77 Respiratory Rate 18 20 16 Blood Pressure 154/81 H 162/81 H 175/88 H Pulse Oximetry 92 L 92 L 95 02/27/18 10:43 Temperature Pulse Rate Respiratory Rate Blood Pressure Pulse Oximetry 95 Intake & Output 02/26/18 02/27/18 02/27/18 18:59 06:59 18:59 Intake Total 360 / 360 Output Total 4400 / 4400 Balance -4040 / -4040 Weight 113.4 kg Intake: Oral 360 / 360 Output: Urine 400 / 400 Hemodialysis Amount 4000 / 4000 Other: Date of Last Bowel Movement 02/26/18 02/26/18 # Bowel Movements 1 Narrative: GENERAL: alert and oriented. NECK: Supple, trachea midline. No JVD. CARDIOVASCULAR: Regular rate and rhythm without murmurs, gallops, or rubs. Right IJ Vas cath RESPIRATORY: Breath sounds diminished bilaterally. No accessory muscle use. GASTROINTESTINAL: Abdomen soft, non-tender, large MUSCULOSKELETAL: No cyanosis, generalized edema. - Urinary Catheter Management Indwelling Urethral Catheter Cath placed during this visit: yes, but has since been removed by the nurse Reason for continuing: Acute urinary retention Insertion date: 02/16/18 Insertion time: 13:00 Removal date: 02/19/18 Removal time: 15:00 <Denise Raymond - Last Filed: 02/27/18 11:52> Vital signs: Vital Signs 02/26/18 14:30 02/26/18 16:00 02/26/18 20:00 Temperature 97.3 F L 97.6 F Pulse Rate 71 91 H Respiratory Rate 17 18 Blood Pressure 155/83 H 148/78 H Pulse Oximetry 94 L 97 91 L 02/27/18 00:00 02/27/18 04:00 02/27/18 08:00 Temperature 97.9 F 98.1 F 98.3 F Pulse Rate 79 83 77 Respiratory Rate 18 20 16 Blood Pressure 154/81 H 162/81 H 175/88 H Pulse Oximetry 92 L 92 L 95 02/27/18 10:43 02/27/18 12:00 Temperature 97.9 F Pulse Rate 80 Respiratory Rate 16 Blood Pressure 126/66 Pulse Oximetry 95 94 L Intake & Output 02/26/18 02/27/18 02/27/18 18:59 06:59 18:59 Intake Total 360 / 360 Output Total 4400 / 4400 Balance -4040 / -4040 Weight 113.4 kg Intake: Oral 360 / 360 Output: Urine 400 / 400 Hemodialysis Amount 4000 / 4000 Other: Date of Last Bowel Movement 02/26/18 02/26/18 # Bowel Movements 1 - Urinary Catheter Management Indwelling Urethral Catheter Cath placed during this visit: no <Robert Doherty - Last Filed: 02/27/18 12:45> Assessment and Plan - Assessment (1) Acute kidney injury Code(s): N17.9 - Acute kidney failure, unspecified Status: Acute Plan: The patient has apparent acute kidney injury in the setting of rhabdomyolysis. Complements are normal and MICAH normal. Renal ultrasound with mildly echogenic kidneys which may reflect medical renal disease. Hemodialysis started on . Vas cath placed in right IJ 02/18. Avoid nephrotoxic agents. Maintain strict I+O. Creatinine at 6.72, urinary output at over 1 L yesterday. Continue lasix BID. Hemodialysis yesterday with removal of 4 liters of fluid. Will continue with HD 3 x week and watch for renal recovery. Follow urinary output and BMP. Strict I+O. Hemodialysis tomorrow but some improvement noted in renal function. (2) Rhabdomyolysis Code(s): M62.82 - Rhabdomyolysis Status: Acute Qualifiers: Rhabdomyolysis type: non-traumatic Qualified Code(s): M62.82 - Rhabdomyolysis (3) Hypertension Code(s): I10 - Essential (primary) hypertension Status: Acute Plan: Some hypertension. On metoprolol, procardia, and hydralazine. Will monitor <Denise Raymond - Last Filed: 02/27/18 11:52> - Assessment (1) Acute kidney injury Code(s): N17.9 - Acute kidney failure, unspecified Status: Acute Plan: Patient seen and examined, agree with above. HD done yesterday, edema is better. Urine out put is better. Creatinine is still elevated. Continue HD as needed. (2) Rhabdomyolysis Code(s): M62.82 - Rhabdomyolysis Status: Acute Qualifiers: Rhabdomyolysis type: non-traumatic Qualified Code(s): M62.82 - Rhabdomyolysis (3) Hypertension Code(s): I10 - Essential (primary) hypertension Status: Acute <Robert Doherty - Last Filed: 02/27/18 12:45>
[2018-02-27] MEDS: hydrALAZINE 10 MG Tablet PO SCH ×2 (13:12→18:17)
[2018-02-27] MEDS: cefTRIAXone Inj 1,000 MG Vial IM SCH (15:26)
[2018-02-28 08:04] LABS: Albumin 2.2 g/dL (3.4-5.0); Calcium 7.8 mg/dL (8.5-10.1); Carbon Dioxide 31.6 meq/L (21.0-32.0); Phosphorus 5.5 mg/dL (2.5-4.9); Potassium 4.7 meq/L (3.5-5.1)
--- NOTE | 2018-02-28 08:53 | P.PN ---
Subjective Interval history: Follow up for CRISTA and rhabdomyolysis: Patient seen and examined, slept fair. Mood stable. No cp, minimal sob with activity, on RA. Continues to make urine Physical Exam Vital signs: Vital Signs 02/27/18 10:43 02/27/18 12:00 02/27/18 16:00 Temperature 97.9 F 97.8 F Pulse Rate 80 78 Respiratory Rate 16 17 Blood Pressure 126/66 158/83 H Pulse Oximetry 95 94 L 94 L 02/27/18 20:00 02/28/18 00:00 02/28/18 04:00 Temperature 98.8 F 98.6 F 97.8 F Pulse Rate 90 82 83 Respiratory Rate 18 18 18 Blood Pressure 156/87 H 145/84 H 188/102 H Pulse Oximetry 95 92 L 96 02/28/18 06:42 02/28/18 08:00 Temperature 97.7 F Pulse Rate 73 66 Respiratory Rate 18 Blood Pressure 159/85 H 171/91 H Pulse Oximetry 94 L Intake & Output 02/27/18 02/28/18 02/28/18 18:59 06:59 18:59 Intake Total 720 / 720 Output Total 900 / 900 1050 / 1050 Balance -180 / -180 -1050 / -1050 Weight 111.4 kg Intake: Oral 720 / 720 Output: Urine 900 / 900 1050 / 1050 Other: Date of Last Bowel Movement 02/27/18 02/27/18 # Bowel Movements 1 Narrative: GENERAL: Obese female, no apparent distress SKIN: Warm and dry. Right IJ vascath HEAD: Atraumatic. Normocephalic. EYES: Pupils equal and round. No scleral icterus. No injection or drainage. ENT: No nasal bleeding or discharge. Mucous membranes pink and moist. NECK: Trachea midline. No JVD. CARDIOVASCULAR: Regular rate and rhythm. RESPIRATORY: No accessory muscle use. Clear to auscultation. Breath sounds equal bilaterally. GASTROINTESTINAL: Abdomen soft, non-tender, nondistended. Hepatic and splenic margins not palpable. MUSCULOSKELETAL: No joint abnormalities. Bilateral lower extremity with +1 pitting edema, all the way up to thighs. Pedal pulses 2+. NEUROLOGICAL: Awake and alert. No obvious cranial nerve deficits. Motor grossly within normal limits. Five out of 5 muscle strength in the arms and legs. Normal speech. PSYCHIATRIC: Smiling, pleasant. - Urinary Catheter Management Indwelling Urethral Catheter Cath placed during this visit: yes, but has since been removed by the nurse Reason for continuing: Acute urinary retention Insertion date: 02/16/18 Insertion time: 13:00 Removal date: 02/19/18 Removal time: 15:00 Results - Labs CBC & Chem 7: 02/23/18 05:26 02/28/18 06:26 Laboratory Results - last 24 hr 02/27/18 02/28/18 08:43 06:26 Sodium 137 137 Potassium 4.9 4.7 Chloride 95 L 97 L Carbon Dioxide 32.0 31.6 Anion Gap 10 8 BUN 36 H 41 H Creatinine 6.72 H 7.61 H Estimated GFR 7 L 6 L Random Glucose 80 86 Calcium 7.6 L 7.8 L Phosphorus 5.1 H 5.5 H Albumin 2.4 L 2.2 L Assessment and Plan - Assessment (1) Rhabdomyolysis Code(s): M62.82 - Rhabdomyolysis Status: Acute (2) Bipolar 1 disorder, mixed Code(s): F31.60 - Bipolar disorder, current episode mixed, unspecified Status : Chronic (3) Acute kidney injury Code(s): N17.9 - Acute kidney failure, unspecified Status: Acute (4) Elevated liver enzymes Code(s): R74.8 - Abnormal levels of other serum enzymes Status: Acute - Plan 48-year Female with past medical history of bipolar disorder admitted under a [facility] apt for a manic state with Benadryl overdosing, and found to have acute renal insufficiency and severe rhabdomyolysis. Was initially in the ICU. Severe Rhabdomyolysis -CK continues to improve with dialysis Acute renal failure Secondary to rhabdomyolysis -Nephrology following -Continue with dialysis Saturday Monitor intake and output -making urine, creat 7. Going for HD today Hyperkalemia k 5.5 Veltassa given per nephrology -Potassium 4.9 Orthopnea Likely secondary to fluid overload from renal standpoint, elevated of the bed at night for now. - Echocardiogram is unremarkable for any systolic heart failure, EF 50-55% -continue Lasix 40 mg p.o. twice daily' Hypoxia, desats with ambulation Likely due to fluid overload -continue with oxygen at 2L/NC for now. Elevated LFTs -Secondary to rhabdomyolysis, improving, GGT is negative Hyponatremia/Hypocalemia Na 137 -Continue to follow BMP, sodium improving. HTN BP not optimally controlled -Continue Lopressor and nifedipine Continue with clonidine as needed - hydralazine 10 mg p.o. 3 times daily Bipolar disorder, hypomanic -Psychiatry following and managing -Patient admits to being hypomanic, she has been taking Benadryl at home to help her sleep-taken too much Benadryl purposefully vs accidental? -Continue Seroquel 100 mg p.o. twice daily -Per psych, does not meet criteria for involuntary psychiatric admission. -Mood is improved. Insomnia -continue Seroquel -Sleeping better, continue with present treatment UTI UC + ecoli -DC Rocephin. Lacerations Right finger under wrap, gauze clean Superficial scrapes and bruising of forehead, no sign of infection -Continue with routine wound care DVT prophylaxis: SCD's/Feliberto, chemoprophylaxis held at this time due to lacerations and extensive bruising Physical therapy, needs out of bed Follow BMP daily Code Status: Full code Discussed Condition With: RN, pt, CM Discharge Planning: Not ready for dc yet, waiting for renal clearance. Still on HD M/W/F (1) Rhabdomyolysis Qualifiers: Rhabdomyolysis type: non-traumatic Qualified Code(s): M62.82 - Rhabdomyolysis
[2018-02-28] MEDS: hydrALAZINE 10 MG Tablet PO SCH ×3 (09:34→17:53)
[2018-02-28] MEDS: Sodium Chloride 0.9% 2 ML Flush BID IV.FLUSH SCH ×2 (09:35→20:56)
[2018-02-28] MEDS: NIFEdipine 10 MG Capsule PO SCH (09:35)
--- NOTE | 2018-02-28 10:03 | P.PNNP ---
Subjective Interval history: Seen during hemodialysis, tolerating well. Shortness of breath and edema improving. No nausea, vomiting, or diarrhea. <Denise Raymond - Last Filed: 02/28/18 09:47> Physical Exam Vital signs: Vital Signs 02/27/18 10:43 02/27/18 12:00 02/27/18 16:00 Temperature 97.9 F 97.8 F Pulse Rate 80 78 Respiratory Rate 16 17 Blood Pressure 126/66 158/83 H Pulse Oximetry 95 94 L 94 L 02/27/18 20:00 02/28/18 00:00 02/28/18 04:00 Temperature 98.8 F 98.6 F 97.8 F Pulse Rate 90 82 83 Respiratory Rate 18 18 18 Blood Pressure 156/87 H 145/84 H 188/102 H Pulse Oximetry 95 92 L 96 02/28/18 06:42 02/28/18 08:00 Temperature 97.7 F Pulse Rate 73 66 Respiratory Rate 18 Blood Pressure 159/85 H 171/91 H Pulse Oximetry 94 L Intake & Output 02/27/18 02/28/18 02/28/18 18:59 06:59 18:59 Intake Total 720 / 720 Output Total 900 / 900 1050 / 1050 Balance -180 / -180 -1050 / -1050 Weight 111.4 kg Intake: Oral 720 / 720 Output: Urine 900 / 900 1050 / 1050 Other: Date of Last Bowel Movement 02/27/18 02/27/18 # Bowel Movements 1 Narrative: GENERAL: Alert and oriented. NECK: Supple, trachea midline. No JVD. CARDIOVASCULAR: Regular rate and rhythm without murmurs, gallops, or rubs. Right IJ Vas cath RESPIRATORY: Breath sounds diminished bilaterally. No accessory muscle use. GASTROINTESTINAL: Abdomen soft, non-tender, large MUSCULOSKELETAL: No cyanosis, generalized edema. - Urinary Catheter Management Indwelling Urethral Catheter Cath placed during this visit: yes, but has since been removed by the nurse Reason for continuing: Acute urinary retention Insertion date: 02/16/18 Insertion time: 13:00 Removal date: 02/19/18 Removal time: 15:00 <Denise Raymond - Last Filed: 02/28/18 09:47> Vital signs: Vital Signs 03/04/18 20:00 03/04/18 22:28 03/05/18 00:00 Temperature 97.9 F 98.1 F Pulse Rate 84 71 Respiratory Rate 20 20 Blood Pressure 109/60 113/67 Pulse Oximetry 97 97 96 03/05/18 04:00 03/05/18 08:00 03/05/18 13:28 Temperature 98.1 F 97.9 F 98.3 F Pulse Rate 74 77 90 Respiratory Rate 20 17 18 Blood Pressure 123/71 114/68 133/81 Pulse Oximetry 93 L 96 98 03/05/18 15:06 03/05/18 16:00 Temperature 97.8 F Pulse Rate 96 H Respiratory Rate 16 Blood Pressure 117/58 L Pulse Oximetry 98 97 Intake & Output 03/04/18 03/05/18 03/05/18 18:59 06:59 18:59 Intake Total 580 / 580 630 / 630 100 / 100 Output Total 3000 / 3000 1000 / 1000 Balance 580 / 580 -2370 / -2370 -900 / -900 Weight 107.9 kg Intake: IV 250 / 250 100 / 100 Flexbumin 25% Inj 100 ML @ 60 100 / 100 mls/hr IV.SIG WITH DIALYSIS PRN Rx#:[id number] Vancomycin Inj 1,000 MG In NS 250 / 250 Inj 250 ML @ 200 mls/hr IV.SIG [employer] Rx#:[id number] Oral 330 / 330 630 / 630 Output: Hemodialysis Amount 3000 / 3000 1000 / 1000 Other: # Voids 4 4 Date of Last Bowel Movement 03/02/18 # Bowel Movements 1 1 - Urinary Catheter Management Indwelling Urethral Catheter Cath placed during this visit: no <Robert Doherty - Last Filed: 03/05/18 18:09> Assessment and Plan - Assessment (1) Acute kidney injury Code(s): N17.9 - Acute kidney failure, unspecified Status: Acute Plan: The patient has apparent acute kidney injury in the setting of rhabdomyolysis. Complements are normal and MICAH normal. Renal ultrasound with mildly echogenic kidneys which may reflect medical renal disease. Hemodialysis started on . Vas cath placed in right IJ 02/18. Creatinine at 7.61, urinary output improving with over 1.9 L yesterday. HD on Saturday/Saturday/Saturday Avoid nephrotoxic agents. Maintain strict I+O. Follow urinary output and BMP. Continue Lasix BID. PO4 elevated phoslo added. Creatinine continues to remain elevated, will continue with HD 3 x week and watch for renal recovery. Seen during hemodialysis today tolerating well will remove fluid as tolerated. (2) Rhabdomyolysis Code(s): M62.82 - Rhabdomyolysis Status: Acute Qualifiers: Rhabdomyolysis type: non-traumatic Qualified Code(s): M62.82 - Rhabdomyolysis (3) Hypertension Code(s): I10 - Essential (primary) hypertension Status: Acute Plan: Some hypertension. On metoprolol, nifedipine, and hydralazine. Nifedipine increased. <Denise Raymond - Last Filed: 02/28/18 09:47> - Assessment (1) Acute kidney injury Code(s): N17.9 - Acute kidney failure, unspecified Status: Acute Plan: Patient seen and examined, agree with above. Urine out put is better, Creatinine is still elevated. HD to continue for now. (2) Rhabdomyolysis Code(s): M62.82 - Rhabdomyolysis Status: Acute Qualifiers: Rhabdomyolysis type: non-traumatic Qualified Code(s): M62.82 - Rhabdomyolysis (3) Hypertension Code(s): I10 - Essential (primary) hypertension Status: Acute <Robert Doherty - Last Filed: 03/05/18 18:09>
[2018-02-28] MEDS: Heparin 10,000 UNITS/10 ML Vial (for IV use) OTHER PRN (12:20)
[2018-02-28] MEDS: Calcium Carbonate 500 MG Tablet PO SCH ×2 (13:54→20:56)
[2018-02-28] MEDS: Furosemide 40 MG Tablet PO SCH ×2 (13:54→17:53)
[2018-02-28] MEDS: Calcium Acetate 667 MG Capsule PO SCH ×2 (13:54→17:53)
[2018-02-28] MEDS: Metoprolol Tartrate 50 MG Tablet PO SCH ×2 (13:54→20:56)
[2018-02-28] MEDS: QUEtiapine 100 MG Tablet PO SCH ×2 (13:55→20:56)
[2018-03-01] MEDS ORDERED: Melatonin 5 MG Tablet PO ONE (01:19)
[2018-03-01 08:13] LABS: Albumin 2.9 g/dL (3.4-5.0); Calcium 8.6 mg/dL (8.5-10.1); Carbon Dioxide 32.4 meq/L (21.0-32.0); Phosphorus 3.9 mg/dL (2.5-4.9); Potassium 4.2 meq/L (3.5-5.1)
[2018-03-01] MEDS: Calcium Acetate 667 MG Capsule PO SCH ×3 (08:31→17:34)
[2018-03-01] MEDS: Calcium Carbonate 500 MG Tablet PO SCH ×2 (08:31→22:04)
[2018-03-01] MEDS: QUEtiapine 100 MG Tablet PO SCH ×2 (08:32→22:04)
[2018-03-01] MEDS: Metoprolol Tartrate 50 MG Tablet PO SCH ×2 (08:32→22:04)
[2018-03-01] MEDS: hydrALAZINE 10 MG Tablet PO SCH ×2 (08:33→12:13)
[2018-03-01] MEDS: Sodium Chloride 0.9% 2 ML Flush BID IV.FLUSH SCH ×2 (08:33→22:05)
[2018-03-01] MEDS: Furosemide 40 MG Tablet PO SCH ×2 (09:27→17:34)
--- NOTE | 2018-03-01 14:22 | P.PN ---
Subjective Interval history: Follow up for CRISTA and rhabdomyolysis: Patient seen and examined,didn't sleep much. No cp, no sob, no other complaints. BP up 170s Physical Exam Vital signs: Vital Signs 02/28/18 16:00 02/28/18 20:00 03/01/18 00:00 Temperature 97.4 F L 97.6 F 98.0 F Pulse Rate 70 77 75 Respiratory Rate 18 18 18 Blood Pressure 122/68 145/82 H 161/91 H Pulse Oximetry 94 L 94 L 95 03/01/18 04:00 03/01/18 08:00 03/01/18 12:05 Temperature 97.7 F 97.9 F Pulse Rate 75 70 Respiratory Rate 18 18 Blood Pressure 164/81 H 157/79 H Pulse Oximetry 95 100 95 Intake & Output 02/28/18 03/01/18 03/01/18 18:59 06:59 18:59 Intake Total 240 / 240 Output Total 5500 / 5500 1000 / 1000 Balance -5260 / -5260 -1000 / -1000 Weight 106.8 kg Intake: Oral 240 / 240 Output: Urine 1500 / 1500 1000 / 1000 Hemodialysis Amount 4000 / 4000 Other: Date of Last Bowel Movement 02/28/18 02/28/18 Narrative: GENERAL: Obese female, no apparent distress SKIN: Warm and dry. Right IJ vascath HEAD: Atraumatic. Normocephalic. EYES: Pupils equal and round. No scleral icterus. No injection or drainage. ENT: No nasal bleeding or discharge. Mucous membranes pink and moist. NECK: Trachea midline. No JVD. CARDIOVASCULAR: Regular rate and rhythm. RESPIRATORY: No accessory muscle use. Clear to auscultation. Breath sounds equal bilaterally. GASTROINTESTINAL: Abdomen soft, non-tender, nondistended. Hepatic and splenic margins not palpable. MUSCULOSKELETAL: No joint abnormalities. Bilateral lower extremity with +1 pitting edema, all the way up to thighs. Pedal pulses 2+. NEUROLOGICAL: Awake and alert. No obvious cranial nerve deficits. Motor grossly within normal limits. Five out of 5 muscle strength in the arms and legs. Normal speech. PSYCHIATRIC: appropriate - Urinary Catheter Management Indwelling Urethral Catheter Cath placed during this visit: yes, but has since been removed by the nurse Reason for continuing: Acute urinary retention Insertion date: 02/16/18 Insertion time: 13:00 Removal date: 02/19/18 Removal time: 15:00 Results - Labs CBC & Chem 7: 02/23/18 05:26 03/01/18 05:33 Laboratory Results - last 24 hr 03/01/18 05:33 Sodium 137 Potassium 4.2 Chloride 97 L Carbon Dioxide 32.4 H Anion Gap 8 BUN 31 H Creatinine 5.82 H Estimated GFR 8 L Random Glucose 89 Calcium 8.6 D Phosphorus 3.9 D Albumin 2.9 L D Assessment and Plan - Assessment (1) Rhabdomyolysis Code(s): M62.82 - Rhabdomyolysis Status: Acute (2) Bipolar 1 disorder, mixed Code(s): F31.60 - Bipolar disorder, current episode mixed, unspecified Status : Chronic (3) Acute kidney injury Code(s): N17.9 - Acute kidney failure, unspecified Status: Acute (4) Elevated liver enzymes Code(s): R74.8 - Abnormal levels of other serum enzymes Status: Acute - Plan 48-year Female with past medical history of bipolar disorder admitted under a Alexandra apt for a manic state with Benadryl overdosing, and found to have acute renal insufficiency and severe rhabdomyolysis. Was initially in the ICU. Severe Rhabdomyolysis -CK continues to improve with dialysis Acute renal failure Secondary to rhabdomyolysis -Nephrology following -Continue with dialysis Saturday Monitor intake and output -making urine, creat 5 today. Hyperkalemia k 5.5 Veltassa given per nephrology -Potassium 4.9 Orthopnea Likely secondary to fluid overload from renal standpoint, elevated of the bed at night for now. - Echocardiogram is unremarkable for any systolic heart failure, EF 50-55% -continue Lasix 40 mg p.o. twice daily' Hypoxia, desats with ambulation Likely due to fluid overload -continue with oxygen at 2L/NC for now. Elevated LFTs -Secondary to rhabdomyolysis, improving, GGT is negative Hyponatremia/Hypocalemia Na 137 -Continue to follow BMP, sodium improving. HTN BP not optimally controlled -Continue Lopressor and nifedipine Continue with clonidine as needed - Inc. hydralazine 25 mg p.o. 3 times daily Bipolar disorder, hypomanic -Psychiatry following and managing -Patient admits to being hypomanic, she has been taking Benadryl at home to help her sleep-taken too much Benadryl purposefully vs accidental? -Continue Seroquel 100 mg p.o. twice daily -Per psych, does not meet criteria for involuntary psychiatric admission. -Mood is improved. Insomnia -continue Seroquel -didn't sleep much, continue Melatonin q hs PRN UTI UC + ecoli -DC Rocephin. Lacerations Right finger under wrap, gauze clean Superficial scrapes and bruising of forehead, no sign of infection -Continue with routine wound care DVT prophylaxis: SCD's/Feliberto, chemoprophylaxis held at this time due to lacerations and extensive bruising Physical therapy, needs out of bed Follow BMP daily Code Status: Full code Discussed Condition With: RN, pt, CM Discharge Planning: Not ready for dc yet, waiting for renal clearance. Still on HD M/W/F (1) Rhabdomyolysis Qualifiers: Rhabdomyolysis type: non-traumatic Qualified Code(s): M62.82 - Rhabdomyolysis
[2018-03-01] MEDS: hydrALAZINE 25 MG Tablet PO SCH ×2 (15:31→22:04)
--- NOTE | 2018-03-01 17:41 | P.PNNP ---
Physical Exam Vital signs: Vital Signs 02/28/18 20:00 03/01/18 00:00 03/01/18 04:00 Temperature 97.6 F 98.0 F 97.7 F Pulse Rate 77 75 75 Respiratory Rate 18 18 18 Blood Pressure 145/82 H 161/91 H 164/81 H Pulse Oximetry 94 L 95 95 03/01/18 08:00 03/01/18 12:05 Temperature 97.9 F Pulse Rate 70 Respiratory Rate 18 Blood Pressure 157/79 H Pulse Oximetry 100 95 Intake & Output 02/28/18 03/01/18 03/01/18 18:59 06:59 18:59 Intake Total 240 / 240 Output Total 5500 / 5500 1000 / 1000 Balance -5260 / -5260 -1000 / -1000 Weight 106.8 kg Intake: Oral 240 / 240 Output: Urine 1500 / 1500 1000 / 1000 Hemodialysis Amount 4000 / 4000 Other: Date of Last Bowel Movement 02/28/18 02/28/18 Narrative: GENERAL: Obese female, no apparent distress SKIN: Warm and dry. Right IJ vascath HEAD: Atraumatic. Normocephalic. EYES: Pupils equal and round. No scleral icterus. No injection or drainage. ENT: No nasal bleeding or discharge. Mucous membranes pink and moist. NECK: Trachea midline. No JVD. CARDIOVASCULAR: Regular rate and rhythm. RESPIRATORY: No accessory muscle use. Clear to auscultation. Breath sounds equal bilaterally. GASTROINTESTINAL: Abdomen soft, non-tender, nondistended. Hepatic and splenic margins not palpable. MUSCULOSKELETAL: No joint abnormalities. Bilateral lower extremity with +1 pitting edema, all the way up to thighs. Pedal pulses 2+. NEUROLOGICAL: Awake and alert. No obvious cranial nerve deficits. Motor grossly within normal limits. Five out of 5 muscle strength in the arms and legs. Normal speech. PSYCHIATRIC: appropriate - Urinary Catheter Management Indwelling Urethral Catheter Cath placed during this visit: yes, but has since been removed by the nurse Reason for continuing: Acute urinary retention Insertion date: 02/16/18 Insertion time: 13:00 Removal date: 02/19/18 Removal time: 15:00 Assessment and Plan - Assessment (1) Acute kidney injury Code(s): N17.9 - Acute kidney failure, unspecified Status: Acute Plan: The patient has apparent acute kidney injury in the setting of rhabdomyolysis. Complements are normal and MICAH normal. Renal ultrasound with mildly echogenic kidneys which may reflect medical renal disease. Hemodialysis started on . Vas cath placed in right IJ 02/18. Creatinine improved post dialysis HD on Saturday/Saturday/Saturday Avoid nephrotoxic agents. Maintain strict I+O. Follow urinary output and BMP. Continue Lasix BID. PO4 elevated phoslo added. Creatinine continues to remain elevated, will continue with HD 3 x week and watch for renal recovery. Seen during hemodialysis today tolerating well will remove fluid as tolerated. (2) Rhabdomyolysis Code(s): M62.82 - Rhabdomyolysis Status: Acute Qualifiers: Rhabdomyolysis type: non-traumatic Qualified Code(s): M62.82 - Rhabdomyolysis (3) Hypertension Code(s): I10 - Essential (primary) hypertension Status: Acute Plan: Some hypertension. On metoprolol, nifedipine, and hydralazine. Nifedipine increased.
[2018-03-01] MEDS: Melatonin 5 MG Tablet PO PRN (22:04)
[2018-03-02] MEDS: Acetaminophen 325 MG Tablet PO PRN
[2018-03-02] MEDS: hydrALAZINE 25 MG Tablet PO SCH ×3 (06:01→21:00)
[2018-03-02] MEDS: Calcium Acetate 667 MG Capsule PO SCH ×3 (08:32→18:15)
[2018-03-02] MEDS: Calcium Carbonate 500 MG Tablet PO SCH ×2 (08:32→20:58)
[2018-03-02] MEDS: QUEtiapine 100 MG Tablet PO SCH ×2 (08:33→20:59)
[2018-03-02] MEDS: Metoprolol Tartrate 50 MG Tablet PO SCH ×2 (08:33→20:59)
[2018-03-02] MEDS: Furosemide 40 MG Tablet PO SCH ×2 (08:33→18:15)
[2018-03-02] MEDS: Sodium Chloride 0.9% 2 ML Flush BID IV.FLUSH SCH ×2 (08:34→21:00)
--- NOTE | 2018-03-02 13:26 | P.PN ---
Subjective Interval history: Follow up for CRISTA and rhabdomyolysis: Patient seen and examined, received Ativan p.o. last night and slept much better. No chest pain, no shortness of breath, continues to void. Leg swelling improving. No fever Physical Exam Vital signs: Vital Signs 03/01/18 16:00 03/01/18 20:00 03/02/18 00:00 Temperature 98.2 F 98.3 F 98.2 F Pulse Rate 86 89 79 Respiratory Rate 18 18 18 Blood Pressure 141/74 H 132/69 129/71 Pulse Oximetry 94 L 96 96 03/02/18 04:00 03/02/18 08:00 03/02/18 10:54 Temperature 97.7 F 97.9 F Pulse Rate 78 88 Respiratory Rate 18 20 Blood Pressure 160/88 H 170/89 H Pulse Oximetry 93 L 94 L 96 03/02/18 12:00 Temperature 98.3 F Pulse Rate 81 Respiratory Rate 18 Blood Pressure 130/61 Pulse Oximetry 95 Intake & Output 03/01/18 03/02/18 03/02/18 19:59 06:59 18:59 Intake Total Output Total Balance Weight Intake: Oral Output: Urine Other: Date of Last Bowel Movement 03/01/18 # Bowel Movements Narrative: GENERAL: Obese female, no apparent distress SKIN: Warm and dry. Right IJ vascath HEAD: Atraumatic. Normocephalic. EYES: Pupils equal and round. No scleral icterus. No injection or drainage. ENT: No nasal bleeding or discharge. Mucous membranes pink and moist. NECK: Trachea midline. No JVD. CARDIOVASCULAR: Regular rate and rhythm. RESPIRATORY: No accessory muscle use. Clear to auscultation. Breath sounds equal bilaterally. GASTROINTESTINAL: Abdomen soft, non-tender, nondistended. Hepatic and splenic margins not palpable. MUSCULOSKELETAL: No joint abnormalities. Bilateral lower extremity with +1 pitting edema, all the way up to thighs. Pedal pulses 2+. NEUROLOGICAL: Awake and alert. No obvious cranial nerve deficits. Motor grossly within normal limits. Five out of 5 muscle strength in the arms and legs. Normal speech. PSYCHIATRIC: appropriate - Urinary Catheter Management Indwelling Urethral Catheter Cath placed during this visit: yes, but has since been removed by the nurse Reason for continuing: Acute urinary retention Insertion date: 02/16/18 Insertion time: 13:00 Removal date: 02/19/18 Removal time: 15:00 Results - Labs CBC & Chem 7: 02/23/18 05:26 03/01/18 05:33 - Procedures Vas cath placed in right IJ 02/18. Assessment and Plan - Assessment (1) Rhabdomyolysis Code(s): M62.82 - Rhabdomyolysis Status: Acute (2) Bipolar 1 disorder, mixed Code(s): F31.60 - Bipolar disorder, current episode mixed, unspecified Status : Chronic (3) Acute kidney injury Code(s): N17.9 - Acute kidney failure, unspecified Status: Acute (4) Elevated liver enzymes Code(s): R74.8 - Abnormal levels of other serum enzymes Status: Acute - Plan 48-year Female with past medical history of bipolar disorder admitted under a Alexandra apt for a manic state with Benadryl overdosing, and found to have acute renal insufficiency and severe rhabdomyolysis. Was initially in the ICU. Severe Rhabdomyolysis -CK continues to improve with dialysis Acute renal failure Secondary to rhabdomyolysis -Nephrology following -Continue with dialysis Saturday Monitor intake and output -making urine, creat 5 today. Hyperkalemia k 5.5 Veltassa given per nephrology -Potassium 4.9 Orthopnea Likely secondary to fluid overload from renal standpoint, elevated of the bed at night for now. - Echocardiogram is unremarkable for any systolic heart failure, EF 50-55% -continue Lasix 40 mg p.o. twice daily' Hypoxia, desats with ambulation Likely due to fluid overload -on RA now, monitor sats Oxygen PRN Elevated LFTs -Secondary to rhabdomyolysis, improving, GGT is negative Hyponatremia/Hypocalemia Na 137 -Continue to follow BMP, sodium improving. HTN BP not optimally controlled -Continue Lopressor and nifedipine Continue with clonidine as needed - Inc. hydralazine 25 mg p.o. 3 times daily Bipolar disorder, hypomanic -Psychiatry following and managing -Patient admits to being hypomanic, she has been taking Benadryl at home to help her sleep-taken too much Benadryl purposefully vs accidental? -Continue Seroquel 100 mg p.o. twice daily -Per psych, does not meet criteria for involuntary psychiatric admission. -Mood is improved. Insomnia -continue Seroquel -Ativan 0.5 mg PO PRN -slept better. UTI UC + ecoli -DCd Rocephin. Lacerations Right finger under wrap, gauze clean Superficial scrapes and bruising of forehead, no sign of infection -Continue with routine wound care DVT prophylaxis: SCD's/Feliberto. Add Heparin sq Physical therapy, needs out of bed Follow BMP daily Code Status: Full code Discussed Condition With: RN, pt, CM Discharge Planning: Not ready for dc yet, waiting for renal clearance. Still on HD M/W/F (1) Rhabdomyolysis Qualifiers: Rhabdomyolysis type: non-traumatic Qualified Code(s): M62.82 - Rhabdomyolysis
[2018-03-02] MEDS: LORazepam 0.5 MG Tablet PO PRN ×2 (20:58)
[2018-03-02] MEDS: Heparin - SQ 10,000 UNITS/ML Vial SQ SCH (21:00)
[2018-03-03] MEDS: hydrALAZINE 25 MG Tablet PO SCH ×3 (05:26→21:20)
[2018-03-03 06:26] LABS: Carbon Dioxide 29.5 meq/L (21.0-32.0)
[2018-03-03] MEDS: Heparin - SQ 10,000 UNITS/ML Vial SQ SCH ×2 (08:43→20:51)
[2018-03-03] MEDS: Metoprolol Tartrate 50 MG Tablet PO SCH ×2 (08:44→20:52)
[2018-03-03] MEDS: Furosemide 40 MG Tablet PO SCH ×2 (08:44→17:49)
[2018-03-03] MEDS: Sodium Chloride 0.9% 2 ML Flush BID IV.FLUSH SCH ×2 (08:44→20:53)
[2018-03-03] MEDS: QUEtiapine 100 MG Tablet PO SCH ×2 (08:45→20:53)
[2018-03-03] MEDS: Calcium Carbonate 500 MG Tablet PO SCH (08:45)
[2018-03-03] MEDS: Calcium Acetate 667 MG Capsule PO SCH ×3 (08:45→17:49)
--- NOTE | 2018-03-03 10:20 | P.PNNP ---
Subjective Interval history: Seen during hemodialysis. Vas cath with poor flow. Creatinine remains elevated at 6.28. Shortness of breath improved. <Denise Raymond - Last Filed: 03/03/18 14:35> Physical Exam Vital signs: Vital Signs 03/02/18 10:54 03/02/18 12:00 03/02/18 16:00 Temperature 98.3 F 97.9 F Pulse Rate 81 89 Respiratory Rate 18 18 Blood Pressure 130/61 149/73 H Pulse Oximetry 96 95 96 03/02/18 20:00 03/03/18 00:00 03/03/18 04:00 Temperature 97.7 F 98.8 F 98.9 F Pulse Rate 79 87 85 Respiratory Rate 18 17 17 Blood Pressure 165/75 H 138/75 145/79 H Pulse Oximetry 92 L 93 L 95 03/03/18 08:00 Temperature 98.0 F Pulse Rate 81 Respiratory Rate 16 Blood Pressure 149/77 H Pulse Oximetry 93 L Intake & Output 03/02/18 03/03/18 03/03/18 18:59 06:59 18:59 Intake Total 960 / 960 Output Total 1100 / 1100 Balance -140 / -140 Weight 107.9 kg Intake: Oral 960 / 960 Output: Urine 1100 / 1100 Other: # Voids 6 Date of Last Bowel Movement 03/01/18 03/02/18 03/02/18 # Bowel Movements 1 Narrative: GENERAL: Alert and oriented. NAD NECK: Supple, trachea midline. No JVD. CARDIOVASCULAR: Regular rate and rhythm without murmurs, gallops, or rubs. Right IJ Vas cath RESPIRATORY: Breath sounds diminished bilaterally. No accessory muscle use. GASTROINTESTINAL: Abdomen soft, non-tender, large MUSCULOSKELETAL: No cyanosis, generalized edema. - Urinary Catheter Management Indwelling Urethral Catheter Cath placed during this visit: yes, but has since been removed by the nurse Reason for continuing: Acute urinary retention Insertion date: 02/16/18 Insertion time: 13:00 Removal date: 02/19/18 Removal time: 15:00 <Denise Raymond - Last Filed: 03/03/18 14:35> Vital signs: Vital Signs 03/04/18 20:00 03/04/18 22:28 03/05/18 00:00 Temperature 97.9 F 98.1 F Pulse Rate 84 71 Respiratory Rate 20 20 Blood Pressure 109/60 113/67 Pulse Oximetry 97 97 96 03/05/18 04:00 03/05/18 08:00 03/05/18 13:28 Temperature 98.1 F 97.9 F 98.3 F Pulse Rate 74 77 90 Respiratory Rate 20 17 18 Blood Pressure 123/71 114/68 133/81 Pulse Oximetry 93 L 96 98 03/05/18 15:06 03/05/18 16:00 Temperature 97.8 F Pulse Rate 96 H Respiratory Rate 16 Blood Pressure 117/58 L Pulse Oximetry 98 97 Intake & Output 03/04/18 03/05/18 03/05/18 18:59 06:59 18:59 Intake Total 580 / 580 630 / 630 580 / 580 Output Total 3000 / 3000 2400 / 2400 Balance 580 / 580 -2370 / -2370 -1820 / -1820 Weight 107.9 kg Intake: IV 250 / 250 100 / 100 Flexbumin 25% Inj 100 ML @ 60 100 / 100 mls/hr IV.SIG WITH DIALYSIS PRN Rx#:[id number] Vancomycin Inj 1,000 MG In NS 250 / 250 Inj 250 ML @ 200 mls/hr IV.SIG [employer] Rx#:[id number] Oral 330 / 330 630 / 630 480 / 480 Output: Urine 1400 / 1400 Hemodialysis Amount 3000 / 3000 1000 / 1000 Other: # Voids 4 4 Date of Last Bowel Movement 03/02/18 # Bowel Movements 1 1 0 - Urinary Catheter Management Indwelling Urethral Catheter Cath placed during this visit: no <Roebrt Doherty - Last Filed: 03/05/18 18:40> Assessment and Plan - Assessment (1) Acute kidney injury Code(s): N17.9 - Acute kidney failure, unspecified Status: Acute Plan: The patient has apparent acute kidney injury in the setting of rhabdomyolysis. Complements are normal and MICAH normal. Renal ultrasound with mildly echogenic kidneys which may reflect medical renal disease. Hemodialysis started on . Vas cath placed in right IJ 02/18. Creatinine at 6.28 HD on Saturday/Saturday/Saturday Avoid nephrotoxic agents. Maintain strict I+O. Follow urinary output and BMP. Continue Lasix BID. Urinary output has improved. Calcium replacement discontinued. Creatinine continues to remain elevated, will continue with HD 3 x week and watch for renal recovery. Seen during hemodialysis vas cath with poor flow will consult interventional radiology for perma cath placement. (2) Rhabdomyolysis Code(s): M62.82 - Rhabdomyolysis Status: Acute Qualifiers: Rhabdomyolysis type: non-traumatic Qualified Code(s): M62.82 - Rhabdomyolysis (3) Hypertension Code(s): I10 - Essential (primary) hypertension Status: Acute Plan: Blood pressure improved. Will continue to monitor; <Denise Raymond - Last Filed: 03/03/18 14:35> - Assessment (1) Acute kidney injury Code(s): N17.9 - Acute kidney failure, unspecified Status: Acute Plan: Patient seen and examined, agree with above. Still has not much improvement in the Creatinine. To get PermCath as has poor flow via Vascath today during HD. (2) Rhabdomyolysis Code(s): M62.82 - Rhabdomyolysis Status: Acute Qualifiers: Rhabdomyolysis type: non-traumatic Qualified Code(s): M62.82 - Rhabdomyolysis (3) Hypertension Code(s): I10 - Essential (primary) hypertension Status: Acute <Robetr Doherty - Last Filed: 03/05/18 18:40>
[2018-03-03] MEDS: Heparin 10,000 UNITS/10 ML Vial (for IV use) OTHER PRN (11:43)
--- NOTE | 2018-03-03 13:41 | P.PN ---
Subjective Interval history: Follow up for CRISTA and rhabdomyolysis: Patient seen and examined, is sleeping well with Ativan. No chest pain, no shortness of breath. Swelling continues to improve. No fever. Mother at bedside. Physical Exam Vital signs: Vital Signs 03/02/18 16:00 03/02/18 20:00 03/03/18 00:00 Temperature 97.9 F 97.7 F 98.8 F Pulse Rate 89 79 87 Respiratory Rate 18 18 17 Blood Pressure 149/73 H 165/75 H 138/75 Pulse Oximetry 96 92 L 93 L 03/03/18 04:00 03/03/18 08:00 03/03/18 10:38 Temperature 98.9 F 98.0 F Pulse Rate 85 81 Respiratory Rate 17 16 Blood Pressure 145/79 H 149/77 H Pulse Oximetry 95 93 L 93 L 03/03/18 12:50 Temperature 98.1 F Pulse Rate 80 Respiratory Rate 16 Blood Pressure 148/76 H Pulse Oximetry 94 L Intake & Output 03/02/18 03/03/18 03/03/18 18:59 06:59 18:59 Intake Total 960 / 960 Output Total 1100 / 1100 3000 / 3000 Balance -140 / -140 -3000 / -3000 Weight 107.9 kg Intake: Oral 960 / 960 Output: Urine 1100 / 1100 Hemodialysis Amount 3000 / 3000 Other: # Voids 6 Date of Last Bowel Movement 03/01/18 03/02/18 03/02/18 # Bowel Movements 1 Narrative: GENERAL: Obese female, no apparent distress SKIN: Warm and dry. Right IJ vascath HEAD: Atraumatic. Normocephalic. EYES: Pupils equal and round. No scleral icterus. No injection or drainage. ENT: No nasal bleeding or discharge. Mucous membranes pink and moist. NECK: Trachea midline. No JVD. CARDIOVASCULAR: Regular rate and rhythm. RESPIRATORY: No accessory muscle use. Clear to auscultation. Breath sounds equal bilaterally. GASTROINTESTINAL: Abdomen soft, non-tender, nondistended. Hepatic and splenic margins not palpable. MUSCULOSKELETAL: No joint abnormalities. Bilateral lower extremity edema mostly to thighs. Pedal pulses 2+. NEUROLOGICAL: Awake and alert. No obvious cranial nerve deficits. Motor grossly within normal limits. Five out of 5 muscle strength in the arms and legs. Normal speech. PSYCHIATRIC: appropriate - Urinary Catheter Management Indwelling Urethral Catheter Cath placed during this visit: yes, but has since been removed by the nurse Reason for continuing: Acute urinary retention Insertion date: 02/16/18 Insertion time: 13:00 Removal date: 02/19/18 Removal time: 15:00 Results - Labs CBC & Chem 7: 02/23/18 05:26 03/03/18 04:10 Laboratory Results - last 24 hr 03/03/18 04:10 Sodium 140 Potassium 4.0 Chloride 99 Carbon Dioxide 29.5 Anion Gap 12 BUN 43 H Creatinine 6.28 H Estimated GFR 7 L Random Glucose 83 Calcium 9.0 - Procedures Vas cath placed in right IJ 02/18. Assessment and Plan - Assessment (1) Rhabdomyolysis Code(s): M62.82 - Rhabdomyolysis Status: Acute (2) Bipolar 1 disorder, mixed Code(s): F31.60 - Bipolar disorder, current episode mixed, unspecified Status : Chronic (3) Acute kidney injury Code(s): N17.9 - Acute kidney failure, unspecified Status: Acute (4) Elevated liver enzymes Code(s): R74.8 - Abnormal levels of other serum enzymes Status: Acute - Plan 48-year Female with past medical history of bipolar disorder admitted under a Alexandra apt for a manic state with Benadryl overdosing, and found to have acute renal insufficiency and severe rhabdomyolysis. Was initially in the ICU. Severe Rhabdomyolysis -CK continues to improve with dialysis Acute renal failure Secondary to rhabdomyolysis -Nephrology following -Continue with dialysis Saturday Monitor intake and output -making urine, creat 6.28 Hyperkalemia k 5.5 Veltassa given per nephrology -Potassium 4.9 Orthopnea Likely secondary to fluid overload from renal standpoint, elevated of the bed at night for now. - Echocardiogram is unremarkable for any systolic heart failure, EF 50-55% -continue Lasix 40 mg p.o. twice daily' Hypoxia, desats with ambulation Likely due to fluid overload -on RA now, monitor sats Oxygen PRN Elevated LFTs -Secondary to rhabdomyolysis, improving, GGT is negative Hyponatremia/Hypocalemia Na 137 -Continue to follow BMP, sodium improving. HTN BP not optimally controlled -Continue Lopressor and nifedipine Continue with clonidine as needed - Cont. Hydralazine 25 mg p.o. 3 times daily Bipolar disorder, hypomanic -Psychiatry following and managing -Patient admits to being hypomanic, she has been taking Benadryl at home to help her sleep-taken too much Benadryl purposefully vs accidental? -Continue Seroquel 100 mg p.o. twice daily -Per psych, does not meet criteria for involuntary psychiatric admission. -Mood is improved. Insomnia -continue Seroquel -Ativan 0.5 mg PO PRN -slept better. UTI UC + ecoli -DCd Rocephin. Lacerations Right finger under wrap, gauze clean Superficial scrapes and bruising of forehead, no sign of infection -Continue with routine wound care DVT prophylaxis: SCD's/Feliberto/ Heparin sq Physical therapy, needs out of bed Follow BMP daily D/W pt's mom, she is willing to take pt. home with her. Asking about outpatient psych follow up Code Status: Full code Discussed Condition With: RN, pt, pt's mom, CM Discharge Planning: Not ready for dc yet, waiting for renal clearance. Still on HD M/W/F (1) Rhabdomyolysis Qualifiers: Rhabdomyolysis type: non-traumatic Qualified Code(s): M62.82 - Rhabdomyolysis
[2018-03-03] MEDS ORDERED: Vancomycin Inj 1 GM/200 ML PIGGYBACK IV.SIG SCH (16:00)
[2018-03-03 16:47] LABS: Prothrombin Time 10.1 sec (9.8-11.6)
[2018-03-03] MEDS: LORazepam 0.5 MG Tablet PO PRN (20:55)
[2018-03-04] MEDS: hydrALAZINE 25 MG Tablet PO SCH ×3 (05:13→22:03)
[2018-03-04 06:52] LABS: Calcium 8.7 mg/dL (8.5-10.1); Carbon Dioxide 31.8 meq/L (21.0-32.0); Potassium 4.5 meq/L (3.5-5.1)
[2018-03-04] MEDS ORDERED: Vancomycin Inj 1,000 MG in Sodium Chlor 0.9% Inj 250 ML IV.SIG SCH (08:00)
[2018-03-04] MEDS ORDERED: fentaNYL Citrate Inj 250 MCG/5 ML Ampul ONE ×2 (08:25→08:59)
[2018-03-04] MEDS ORDERED: Lidocaine 1%/Epinephrine 1:100,000 Inj 30 ML Vial ONE (08:28)
[2018-03-04] MEDS ORDERED: *Heparin 10,000 UNITS/10 ML Vial Periprocedural ONLY ONE (08:28)
[2018-03-04] MEDS: Heparin - SQ 10,000 UNITS/ML Vial SQ SCH ×2 (10:24→20:23)
[2018-03-04] MEDS: Furosemide 40 MG Tablet PO SCH ×2 (10:24→17:29)
[2018-03-04] MEDS: Metoprolol Tartrate 50 MG Tablet PO SCH ×2 (10:24→20:22)
[2018-03-04] MEDS: QUEtiapine 100 MG Tablet PO SCH ×2 (10:24→20:21)
[2018-03-04] MEDS: Sodium Chloride 0.9% 2 ML Flush BID IV.FLUSH SCH ×2 (10:25→20:22)
[2018-03-04] MEDS: Calcium Acetate 667 MG Capsule PO SCH ×3 (10:25→17:28)
[2018-03-04] MEDS: Acetaminophen 325 MG Tablet PO PRN ×2 (10:39→17:29)
--- NOTE | 2018-03-04 11:02 | P.PNNP ---
Subjective Interval history: Seen after permacath placement. Shortness of breath and edema improving. Creatinine at 4.64 today. <Denise Raymond - Last Filed: 03/04/18 10:58> Physical Exam Vital signs: Vital Signs 03/03/18 12:50 03/03/18 16:00 03/03/18 20:00 Temperature 98.1 F 98.1 F 98.2 F Pulse Rate 80 97 H 89 Respiratory Rate 16 16 18 Blood Pressure 148/76 H 126/63 119/58 L Pulse Oximetry 94 L 93 L 93 L 03/04/18 00:00 03/04/18 04:00 03/04/18 08:00 Temperature 97.8 F 98 F 97.9 F Pulse Rate 96 H 87 86 Respiratory Rate 18 Blood Pressure 118/66 145/75 H 126/72 Pulse Oximetry 95 95 97 03/04/18 10:44 Temperature Pulse Rate Respiratory Rate Blood Pressure Pulse Oximetry 95 Intake & Output 03/03/18 03/04/18 03/04/18 18:59 06:59 18:59 Intake Total 420 / 420 480 / 480 250 / 250 Output Total 3000 / 3000 Balance -2580 / -2580 480 / 480 250 / 250 Weight 107.9 kg Intake: IV 250 / 250 Vancomycin Inj 1,000 MG In NS 250 / 250 Inj 250 ML @ 200 mls/hr IV.SIG [facility] [facility] Rx#:[id number] Oral 420 / 420 480 / 480 Output: Hemodialysis Amount 3000 / 3000 Other: # Voids 4 5 Date of Last Bowel Movement 03/02/18 # Bowel Movements 0 Narrative: GENERAL: Alert and oriented. NAD NECK: Supple, trachea midline. No JVD. CARDIOVASCULAR: Regular rate and rhythm without murmurs, gallops, or rubs. Right IJ Perma Cath RESPIRATORY: Breath sounds clear bilaterally. No accessory muscle use. GASTROINTESTINAL: Abdomen soft, non-tender, large MUSCULOSKELETAL: No cyanosis, generalized edema, improving - Urinary Catheter Management Indwelling Urethral Catheter Cath placed during this visit: yes, but has since been removed by the nurse Reason for continuing: Acute urinary retention Insertion date: 02/16/18 Insertion time: 13:00 Removal date: 02/19/18 Removal time: 15:00 <Denise Raymond - Last Filed: 03/04/18 10:58> Vital signs: Vital Signs 03/06/18 00:00 03/06/18 04:00 03/06/18 08:00 Temperature 98.1 F 98.3 F 98.0 F Pulse Rate 80 80 77 Respiratory Rate 18 18 17 Blood Pressure 99/58 L 122/60 118/55 L Pulse Oximetry 96 97 97 03/06/18 10:57 03/06/18 11:44 03/06/18 12:00 Temperature 98.0 F Pulse Rate 76 Respiratory Rate 14 Blood Pressure 94/52 L Pulse Oximetry 95 97 96 03/06/18 12:02 03/06/18 14:40 03/06/18 16:00 Temperature 98.3 F Pulse Rate 78 Respiratory Rate 17 Blood Pressure 108/54 L 104/59 L Pulse Oximetry 96 95 03/06/18 20:00 03/06/18 20:58 Temperature 98.4 F Pulse Rate 89 Respiratory Rate 20 Blood Pressure 113/61 116/68 Pulse Oximetry 96 Intake & Output 03/06/18 03/06/18 03/07/18 06:59 18:59 06:59 Intake Total 600 / 600 Output Total 450 / 450 1600 / 1600 Balance -450 / -450 -1000 / -1000 Weight 97.6 kg Intake: Oral 600 / 600 Output: Urine 450 / 450 1600 / 1600 Other: # Bowel Movements 0 - Urinary Catheter Management Indwelling Urethral Catheter Cath placed during this visit: no <Audrey Doherty Q - Last Filed: 03/06/18 21:50> Assessment and Plan - Assessment (1) Acute kidney injury Code(s): N17.9 - Acute kidney failure, unspecified Status: Acute Plan: The patient has apparent acute kidney injury in the setting of rhabdomyolysis. Complements are normal and MICAH normal. Renal ultrasound with mildly echogenic kidneys which may reflect medical renal disease. Hemodialysis started on . Perma Cath placement 03/04 Creatinine at 4.69 HD on Saturday/Saturday/Saturday Avoid nephrotoxic agents. Maintain strict I+O. Follow urinary output and BMP. Continue Lasix BID. Will continue with HD 3 x week and watch for renal recovery. Hemodialysis planned for tomorrow some improvement in creatinine noted. . (2) Rhabdomyolysis Code(s): M62.82 - Rhabdomyolysis Status: Acute Qualifiers: Rhabdomyolysis type: non-traumatic Qualified Code(s): M62.82 - Rhabdomyolysis (3) Hypertension Code(s): I10 - Essential (primary) hypertension Status: Acute Plan: Blood pressure improved. Will continue to monitor; <Denise Raymond - Last Filed: 03/04/18 10:58> - Assessment (1) Acute kidney injury Code(s): N17.9 - Acute kidney failure, unspecified Status: Acute Plan: Patient seen and examined, agree with above. Watch for renal recovery. Continue HD as needed. (2) Rhabdomyolysis Code(s): M62.82 - Rhabdomyolysis Status: Acute Qualifiers: Rhabdomyolysis type: non-traumatic Qualified Code(s): M62.82 - Rhabdomyolysis (3) Hypertension Code(s): I10 - Essential (primary) hypertension Status: Acute <Robert Doherty - Last Filed: 03/06/18 21:50>
--- NOTE | 2018-03-04 13:16 | P.PN ---
Subjective Interval history: Follow-up acute renal injury requiring hemodialysis March 04, 2018-patient seen and examined, she had permacath placed today. Denies any chest pain or shortness of breath. Vital stable. Physical Exam Vital signs: Vital Signs 03/03/18 16:00 03/03/18 20:00 03/04/18 00:00 Temperature 98.1 F 98.2 F 97.8 F Pulse Rate 97 H 89 96 H Respiratory Rate 16 18 18 Blood Pressure 126/63 119/58 L 118/66 Pulse Oximetry 93 L 93 L 95 03/04/18 04:00 03/04/18 08:00 03/04/18 09:30 Temperature 98 F 97.9 F 98.5 F Pulse Rate 87 86 104 H Respiratory Rate 18 18 20 Blood Pressure 145/75 H 126/72 130/76 Pulse Oximetry 95 97 03/04/18 09:45 03/04/18 10:00 03/04/18 10:44 Temperature Pulse Rate 101 H 99 H Respiratory Rate 20 20 Blood Pressure 112/73 116/75 Pulse Oximetry 95 Intake & Output 03/03/18 03/04/18 03/04/18 18:59 06:59 18:59 Intake Total 420 / 420 480 / 480 250 / 250 Output Total 3000 / 3000 Balance -2580 / -2580 480 / 480 250 / 250 Weight 107.9 kg Intake: IV 250 / 250 Vancomycin Inj 1,000 MG In NS 250 / 250 Inj 250 ML @ 200 mls/hr IV.SIG [employer] [facility] Rx#:[id number] Oral 420 / 420 480 / 480 Output: Hemodialysis Amount 3000 / 3000 Other: # Voids 4 5 Date of Last Bowel Movement 03/02/18 # Bowel Movements 0 Narrative: GENERAL: Alert and oriented. NAD NECK: Supple, trachea midline. No JVD. CARDIOVASCULAR: Regular rate and rhythm without murmurs, gallops, or rubs. Right IJ Perma Cath RESPIRATORY: Breath sounds clear bilaterally. No accessory muscle use. GASTROINTESTINAL: Abdomen soft, non-tender, large MUSCULOSKELETAL: No cyanosis, generalized edema, improving - Urinary Catheter Management Indwelling Urethral Catheter Cath placed during this visit: yes, but has since been removed by the nurse Reason for continuing: Acute urinary retention Insertion date: 02/16/18 Insertion time: 13:00 Removal date: 02/19/18 Removal time: 15:00 Results - Labs CBC & Chem 7: 10/28/18 05:26 03/04/18 04:44 Laboratory Results - last 24 hr 03/03/18 03/04/18 16:23 04:44 PT 10.1 INR 1.0 Sodium 139 Potassium 4.5 Chloride 99 Carbon Dioxide 31.8 Anion Gap 8 BUN 38 H Creatinine 4.64 H Estimated GFR 10 L Random Glucose 86 Calcium 8.7 - Procedures Vas cath placed in right IJ 02/18. Right permacath placed March 04, 2018 Assessment and Plan - Assessment (1) Rhabdomyolysis Code(s): M62.82 - Rhabdomyolysis Status: Acute (2) Bipolar 1 disorder, mixed Code(s): F31.60 - Bipolar disorder, current episode mixed, unspecified Status : Chronic (3) Acute kidney injury Code(s): N17.9 - Acute kidney failure, unspecified Status: Acute (4) Elevated liver enzymes Code(s): R74.8 - Abnormal levels of other serum enzymes Status: Acute - Plan 48-year-old female with: Severe Rhabdomyolysis: Resolved Acute renal failure Secondary to rhabdomyolysis -Nephrology following -Continue with dialysis Saturday Status post permacath placement March 04, 2018 Hyperkalemia -Resolved Orthopnea - Echocardiogram with EF 50-55% -continue Lasix 40 mg p.o. twice daily' Hypoxia-resolved Elevated LFTs -Secondary to rhabdomyolysis, improving, GGT is negative Hyponatremia/Hypocalemia -Continue to follow BMP, sodium improving. HTN -Continue Lopressor and nifedipine Continue with clonidine as needed - Cont. Hydralazine 25 mg p.o. 3 times daily Bipolar disorder, hypomanic -Continue Seroquel 100 mg p.o. twice daily -Per psych, does not meet criteria for involuntary psychiatric admission. Insomnia -continue Seroquel -Ativan 0.5 mg PO PRN UTI -completed Rocephin. Lacerations Right finger under wrap, gauze clean -Superficial scrapes and bruising of forehead, no sign of infection -Continue with routine wound care DVT prophylaxis: SCD's/Feliberto/ Heparin sq Physical therapy, needs out of bed (1) Rhabdomyolysis Qualifiers: Rhabdomyolysis type: non-traumatic Qualified Code(s): M62.82 - Rhabdomyolysis
--- NOTE | 2018-03-04 15:31 | IR ---
EXAM DATE: 03/04/2018 10:00 AM EST AGE/SEX: 48 years / Female INDICATIONS: Patient presents with history of Acute Kidney Failure in need of a Tunneled Dialysis Ca theter placement for Hemodialysis. CLINICAL DATA: This is the patient's initial encounter. Patient reports that signs and symptoms have been present for 1 day and indicates a pain score of 0/10. MEDICAL/SURGICAL HISTORY: . Bipolar disease, Acute Kidney Failure. . Partial Hysterectomy, Arm surgery. COMPARISON: No prior exams available for comparison. FLUORO TIME (min): 1.46 IMAGE SERIES: 3 ACCESS SITE: Right internal jugular vein SEDATION TIME (min): 40 MEDICATION(S): 7 mg midazolam (Versed) IV 350 mcg fentanyl (Sublimaze) IV DEVICE(S): [employer] [place] W/Cupid-[employer]abs 19 T/c . . PROCEDURE: 1. Ultrasound-guided venipuncture. 2. PermaCath placement. 3. Conscious sedation with continuous EKG and oximetry monitoring. The risks, benefits and alternatives to the procedure were explained and verbal and written consent w as obtained. The site was prepped in sterile fashion. Full sterile technique was used, including ca p, mask, sterile gloves and gown and a large sterile sheet. Hand hygiene and 2% chlorhexidine and/or betadine/alcohol prep was utilized per protocol for cutaneous antisepsis. Sterile gel and sterile p robe cover were utilized for ultrasound guidance. The skin and subcutaneous tissues were infiltrated with local anesthetic solution. With ultrasound and fluoroscopic guidance a dermatotomy was created over the prescribed vein. A micr opuncture set was used to access the targeted vein and serial dilatation was performed to accept the prescribed length catheter. A subcutaneous tunnel was created in a retrograde fashion the catheter w as pulled through the tunnel. The catheter was flushed and assembled and locked with heparin. The c atheter was sutured in place. Conscious sedation was performed with the prescribed dosages and duration as above in the presence of an independent trained radiology nurse to assist in the monitoring of the patient. EKG and oximetry remained stable throughout the procedure. The patient tolerated the procedure well and there were n o complications. The patient was sent to post anesthesia recovery in stable condition. CONCLUSION: 1. Uncomplicated PermaCath placement as above. Electronically signed by: Wang Hernadez MD 03/04/2018 3:29 PM EST
--- NOTE | 2018-03-04 15:52 | IR ---
EXAM DATE: 03/04/2018 10:12 AM EST AGE/SEX: 48 years / Female INDICATIONS: Patient presents with history of Acute Kidney Failure in need of a right non-tunneled d ialysis catheter removal for a new tunneled dialysis catheter placement. CLINICAL DATA: This is the patient's initial encounter. Patient reports that signs and symptoms have been present for 1 day and indicates a pain score of 0/10. MEDICAL/SURGICAL HISTORY: . Bipolar disease. . Partial Hysterectomy, arm surgery. COMPARISON: No prior exams available for comparison. IMAGE SERIES: ACCESS SITE: Right internal jugular vein DEVICE(S): 14 [place] double lumen 15 cm Schon catheter . . PROCEDURE: 1. Temporary central venous catheter removal. The prescribed catheter was removed intact and hemostasis was achieved with direct pressure. The sit e was dressed appropriately. The patient tolerated the procedure well. CONCLUSION: 1. Uncomplicated catheter removal. Electronically signed by: Wang Hernadez MD 03/04/2018 3:51 PM EST
[2018-03-04] MEDS: LORazepam 0.5 MG Tablet PO PRN (20:26)
[2018-03-05] MEDS: hydrALAZINE 25 MG Tablet PO SCH ×3 (06:20→21:00)
[2018-03-05 06:59] LABS: Calcium 8.7 mg/dL (8.5-10.1); Carbon Dioxide 28.5 meq/L (21.0-32.0); Potassium 4.5 meq/L (3.5-5.1)
--- NOTE | 2018-03-05 09:27 | P.PN ---
Subjective Interval history: Follow-up acute renal injury requiring hemodialysis March 04, 2018-patient seen and examined, she had permacath placed today. Denies any chest pain or shortness of breath. Vital stable. March 05, 2018-patient seen and examined, plan for hemodialysis today. No complaints. Physical Exam Vital signs: Vital Signs 03/04/18 09:30 03/04/18 09:45 03/04/18 10:00 Temperature 98.5 F Pulse Rate 104 H 101 H 99 H Respiratory Rate 20 20 20 Blood Pressure 130/76 112/73 116/75 Pulse Oximetry 03/04/18 10:44 03/04/18 12:00 03/04/18 16:00 Temperature 97.5 F L 98.1 F Pulse Rate 76 71 Respiratory Rate 18 18 Blood Pressure 107/59 L 142/66 H Pulse Oximetry 95 95 94 L 03/04/18 20:00 03/04/18 22:28 03/05/18 00:00 Temperature 97.9 F 98.1 F Pulse Rate 84 71 Respiratory Rate 20 20 Blood Pressure 109/60 113/67 Pulse Oximetry 97 97 96 03/05/18 04:00 03/05/18 08:00 Temperature 98.1 F 97.9 F Pulse Rate 74 77 Respiratory Rate 20 17 Blood Pressure 123/71 114/68 Pulse Oximetry 93 L 96 Intake & Output 03/04/18 03/05/18 03/05/18 18:59 06:59 18:59 Intake Total 580 / 580 630 / 630 Output Total 3000 / 3000 Balance 580 / 580 -2370 / -2370 Weight 107.9 kg Intake: IV 250 / 250 Vancomycin Inj 1,000 MG In NS 250 / 250 Inj 250 ML @ 200 mls/hr IV.SIG [facility] Rx#:[id number] Oral 330 / 330 630 / 630 Output: Hemodialysis Amount 3000 / 3000 Other: # Voids 4 4 Date of Last Bowel Movement 03/02/18 # Bowel Movements 1 1 Narrative: GENERAL: Alert and oriented. NAD NECK: Supple, trachea midline. No JVD. CARDIOVASCULAR: Regular rate and rhythm without murmurs, gallops, or rubs. Right IJ Perma Cath RESPIRATORY: Breath sounds clear bilaterally. No accessory muscle use. GASTROINTESTINAL: Abdomen soft, non-tender, large MUSCULOSKELETAL: No cyanosis, generalized edema, improving - Urinary Catheter Management Indwelling Urethral Catheter Cath placed during this visit: yes, but has since been removed by the nurse Reason for continuing: Acute urinary retention Insertion date: 02/16/18 Insertion time: 13:00 Removal date: 02/19/18 Removal time: 15:00 Results - Labs CBC & Chem 7: 02/23/18 05:26 03/05/18 06:05 Laboratory Results - last 24 hr 03/05/18 06:05 Sodium 139 Potassium 4.5 Chloride 101 Carbon Dioxide 28.5 Anion Gap 10 BUN 48 H Creatinine 4.80 H Estimated GFR 10 L Random Glucose 89 Calcium 8.7 - Imaging Impressions Central Venous Line 03/04/18 00:00 CONCLUSION: 1. Uncomplicated PermaCath placement as above. Tube Removal 03/04/18 00:00 CONCLUSION: 1. Uncomplicated catheter removal. - Procedures Vas cath placed in right IJ 02/18. Right permacath placed March 04, 2018 Assessment and Plan - Assessment (1) Rhabdomyolysis Code(s): M62.82 - Rhabdomyolysis Status: Acute (2) Bipolar 1 disorder, mixed Code(s): F31.60 - Bipolar disorder, current episode mixed, unspecified Status : Chronic (3) Acute kidney injury Code(s): N17.9 - Acute kidney failure, unspecified Status: Acute (4) Elevated liver enzymes Code(s): R74.8 - Abnormal levels of other serum enzymes Status: Acute - Plan 48-year-old female with: Severe Rhabdomyolysis: Resolved Acute renal failure -Nephrology following -Continue with dialysis Saturday Status post permacath placement March 04, 2018 Hyperkalemia -Resolved Orthopnea-resolved - Echocardiogram with EF 50-55% -continue Lasix 40 mg p.o. twice daily' Hypoxia-resolved Elevated LFTs -Secondary to rhabdomyolysis, improving, GGT is negative Hyponatremia/Hypocalemia -Continue to follow BMP, sodium improving. HTN -Continue Lopressor and nifedipine Continue with clonidine as needed - Cont. Hydralazine 25 mg p.o. 3 times daily Bipolar disorder, hypomanic -Continue Seroquel 100 mg p.o. twice daily -Per psych, does not meet criteria for involuntary psychiatric admission. Insomnia -continue Seroquel -Ativan 0.5 mg PO PRN UTI -completed Rocephin. Lacerations -Superficial scrapes and bruising of forehead, no sign of infection -Continue with routine wound care DVT prophylaxis: SCD's/Feliberto/ Heparin sq Physical therapy, needs out of bed (1) Rhabdomyolysis Qualifiers: Rhabdomyolysis type: non-traumatic Qualified Code(s): M62.82 - Rhabdomyolysis
[2018-03-05] MEDS: Furosemide 40 MG Tablet PO SCH ×2 (09:33→17:09)
[2018-03-05] MEDS: Metoprolol Tartrate 50 MG Tablet PO SCH ×2 (09:33→20:25)
[2018-03-05] MEDS: Sodium Chloride 0.9% 2 ML Flush BID IV.FLUSH SCH ×2 (09:33→20:25)
[2018-03-05] MEDS: Heparin - SQ 10,000 UNITS/ML Vial SQ SCH ×2 (09:33→20:25)
[2018-03-05] MEDS: Calcium Acetate 667 MG Capsule PO SCH ×3 (09:33→17:09)
[2018-03-05] MEDS: QUEtiapine 100 MG Tablet PO SCH ×2 (09:34→20:25)
--- NOTE | 2018-03-05 10:21 | P.PNNP ---
Subjective Interval history: Seen during hemodialysis, having some nausea and lightheadedness. Creatinine at 4.8. <Denise Raymond - Last Filed: 03/05/18 10:18> Physical Exam Vital signs: Vital Signs 03/04/18 10:44 03/04/18 12:00 03/04/18 16:00 Temperature 97.5 F L 98.1 F Pulse Rate 76 71 Respiratory Rate 18 18 Blood Pressure 107/59 L 142/66 H Pulse Oximetry 95 95 94 L 03/04/18 20:00 03/04/18 22:28 03/05/18 00:00 Temperature 97.9 F 98.1 F Pulse Rate 84 71 Respiratory Rate 20 20 Blood Pressure 109/60 113/67 Pulse Oximetry 97 97 96 03/05/18 04:00 03/05/18 08:00 Temperature 98.1 F 97.9 F Pulse Rate 74 77 Respiratory Rate 20 17 Blood Pressure 123/71 114/68 Pulse Oximetry 93 L 96 Intake & Output 03/04/18 03/05/18 03/05/18 18:59 06:59 18:59 Intake Total 580 / 580 630 / 630 Output Total 3000 / 3000 Balance 580 / 580 -2370 / -2370 Weight 107.9 kg Intake: IV 250 / 250 Vancomycin Inj 1,000 MG In NS 250 / 250 Inj 250 ML @ 200 mls/hr IV.SIG [facility] [facility] Rx#:[id number] Oral 330 / 330 630 / 630 Output: Hemodialysis Amount 3000 / 3000 Other: # Voids 4 4 Date of Last Bowel Movement 03/02/18 # Bowel Movements 1 1 Narrative: GENERAL: Alert and oriented. NAD NECK: Supple, trachea midline. No JVD. CARDIOVASCULAR: Regular rate and rhythm without murmurs, gallops, or rubs. Right IJ Perma Cath RESPIRATORY: Breath sounds clear bilaterally. No accessory muscle use. GASTROINTESTINAL: Abdomen soft, non-tender, large MUSCULOSKELETAL: No cyanosis, generalized edema, improving - Urinary Catheter Management Indwelling Urethral Catheter Cath placed during this visit: yes, but has since been removed by the nurse Reason for continuing: Acute urinary retention Insertion date: 02/16/18 Insertion time: 13:00 Removal date: 02/19/18 Removal time: 15:00 <Denise Raymond - Last Filed: 03/05/18 10:18> Vital signs: Vital Signs 03/06/18 00:00 03/06/18 04:00 03/06/18 08:00 Temperature 98.1 F 98.3 F 98.0 F Pulse Rate 80 80 77 Respiratory Rate 18 18 17 Blood Pressure 99/58 L 122/60 118/55 L Pulse Oximetry 96 97 97 03/06/18 10:57 03/06/18 11:44 03/06/18 12:00 Temperature 98.0 F Pulse Rate 76 Respiratory Rate 14 Blood Pressure 94/52 L Pulse Oximetry 95 97 96 03/06/18 12:02 03/06/18 14:40 03/06/18 16:00 Temperature 98.3 F Pulse Rate 78 Respiratory Rate 17 Blood Pressure 108/54 L 104/59 L Pulse Oximetry 96 95 03/06/18 20:00 03/06/18 20:58 Temperature 98.4 F Pulse Rate 89 Respiratory Rate 20 Blood Pressure 113/61 116/68 Pulse Oximetry 96 Intake & Output 03/06/18 03/06/18 03/07/18 06:59 18:59 06:59 Intake Total 600 / 600 Output Total 450 / 450 1600 / 1600 Balance -450 / -450 -1000 / -1000 Weight 97.6 kg Intake: Oral 600 / 600 Output: Urine 450 / 450 1600 / 1600 Other: # Bowel Movements 0 - Urinary Catheter Management Indwelling Urethral Catheter Cath placed during this visit: no <Audrey Doherty Q - Last Filed: 03/06/18 22:00> Assessment and Plan - Assessment (1) Acute kidney injury Code(s): N17.9 - Acute kidney failure, unspecified Status: Acute Plan: The patient has apparent acute kidney injury in the setting of rhabdomyolysis. Complements are normal and MICAH normal. Renal ultrasound with mildly echogenic kidneys which may reflect medical renal disease. Hemodialysis started on . Perma Cath placement 03/04 Creatinine at 4.80 HD on Saturday/Saturday/Saturday Avoid nephrotoxic agents. Maintain strict I+O. Follow urinary output and BMP. Continue Lasix BID. Will continue with HD 3 x week and watch for renal recovery. Hemodialysis today will remove fluid as tolerated. (2) Rhabdomyolysis Code(s): M62.82 - Rhabdomyolysis Status: Acute Qualifiers: Rhabdomyolysis type: non-traumatic Qualified Code(s): M62.82 - Rhabdomyolysis (3) Hypertension Code(s): I10 - Essential (primary) hypertension Status: Acute Plan: Blood pressure improved. Will continue to monitor; <Denise Raymond - Last Filed: 03/05/18 10:18> - Assessment (1) Acute kidney injury Code(s): N17.9 - Acute kidney failure, unspecified Status: Acute Plan: Patient seen and examined, agree with above. HD done today, has PermCath. Watch for renal recovery, HD as needed. (2) Rhabdomyolysis Code(s): M62.82 - Rhabdomyolysis Status: Acute Qualifiers: Rhabdomyolysis type: non-traumatic Qualified Code(s): M62.82 - Rhabdomyolysis (3) Hypertension Code(s): I10 - Essential (primary) hypertension Status: Acute <Robert Doherty - Last Filed: 03/06/18 22:00>
[2018-03-05] MEDS ORDERED: Acetaminophen 325 MG Tablet PO PRN (17:59)
[2018-03-05] MEDS: LORazepam 0.5 MG Tablet PO PRN (20:25)
[2018-03-06 06:17] LABS: Calcium 8.7 mg/dL (8.5-10.1); Carbon Dioxide 32.1 meq/L (21.0-32.0)
[2018-03-06] MEDS: hydrALAZINE 25 MG Tablet PO SCH ×2 (06:25→13:19)
[2018-03-06] MEDS: Calcium Acetate 667 MG Capsule PO SCH ×3 (09:07→17:32)
[2018-03-06] MEDS: Sodium Chloride 0.9% 2 ML Flush BID IV.FLUSH SCH ×2 (09:08→20:48)
[2018-03-06] MEDS: QUEtiapine 100 MG Tablet PO SCH ×2 (09:08→20:46)
[2018-03-06] MEDS: Metoprolol Tartrate 50 MG Tablet PO SCH ×2 (09:08→20:45)
--- NOTE | 2018-03-06 09:23 | P.PN ---
Subjective Interval history: Follow-up acute renal injury requiring hemodialysis March 06, 2018-patient seen and examined, no complaint. denies any right chest pain. Afebrile. NO SOB/CP Physical Exam Vital signs: Vital Signs 03/05/18 13:28 03/05/18 15:06 03/05/18 16:00 Temperature 98.3 F 97.8 F Pulse Rate 90 96 H Respiratory Rate 18 16 Blood Pressure 133/81 117/58 L Pulse Oximetry 98 98 97 03/05/18 19:40 03/06/18 00:00 03/06/18 04:00 Temperature 98.2 F 98.1 F 98.3 F Pulse Rate 97 H 80 80 Respiratory Rate 18 18 18 Blood Pressure 140/75 99/58 L 122/60 Pulse Oximetry 98 96 97 03/06/18 08:00 Temperature 98.0 F Pulse Rate 77 Respiratory Rate 17 Blood Pressure 118/55 L Pulse Oximetry 97 Intake & Output 03/05/18 03/06/18 03/06/18 18:59 06:59 18:59 Intake Total 580 / 580 Output Total 2400 / 2400 450 / 450 Balance -1820 / -1820 -450 / -450 Weight 97.6 kg Intake: IV 100 / 100 Flexbumin 25% Inj 100 ML @ 60 100 / 100 mls/hr IV.SIG WITH [facility] Rx#:[id number] Oral 480 / 480 Output: Urine 1400 / 1400 450 / 450 Hemodialysis Amount 1000 / 1000 Other: # Bowel Movements 0 Narrative: GENERAL: Alert and oriented. NAD NECK: Supple, trachea midline. No JVD. CARDIOVASCULAR: Regular rate and rhythm without murmurs, gallops, or rubs. Right IJ Perma Cath RESPIRATORY: Breath sounds clear bilaterally. No accessory muscle use. GASTROINTESTINAL: Abdomen soft, non-tender, large MUSCULOSKELETAL: No cyanosis, generalized edema - Urinary Catheter Management Indwelling Urethral Catheter Cath placed during this visit: yes, but has since been removed by the nurse Reason for continuing: Acute urinary retention Insertion date: 02/16/18 Insertion time: 13:00 Removal date: 02/19/18 Removal time: 15:00 Results - Labs CBC & Chem 7: 02/23/18 05:26 03/06/18 04:41 Laboratory Results - last 24 hr 03/06/18 04:41 Sodium 138 Potassium 4.0 Chloride 98 Carbon Dioxide 32.1 H Anion Gap 8 BUN 33 H Creatinine 3.44 H Estimated GFR 14 L Random Glucose 93 Calcium 8.7 - Procedures Vas cath placed in right IJ 02/18. Right permacath placed March 04, 2018 Assessment and Plan - Assessment (1) Rhabdomyolysis Code(s): M62.82 - Rhabdomyolysis Status: Acute (2) Bipolar 1 disorder, mixed Code(s): F31.60 - Bipolar disorder, current episode mixed, unspecified Status : Chronic (3) Acute kidney injury Code(s): N17.9 - Acute kidney failure, unspecified Status: Acute (4) Elevated liver enzymes Code(s): R74.8 - Abnormal levels of other serum enzymes Status: Acute - Plan 48-year-old female with: Severe Rhabdomyolysis: Resolved Acute renal failure -Nephrology following -Continue with dialysis Saturday Status post permacath placement March 04, 2018 Hyperkalemia -Resolved Orthopnea-resolved - Echocardiogram with EF 50-55% -continue Lasix 40 mg p.o. twice daily' Hypoxia-resolved Elevated LFTs -Secondary to rhabdomyolysis, improving, GGT is negative Hyponatremia-Improve -Continue to follow BMP HTN -Continue Lopressor and nifedipine Continue with clonidine as needed - Cont. Hydralazine 25 mg p.o. 3 times daily Bipolar disorder, hypomanic -Continue Seroquel 100 mg p.o. twice daily -Per psych, does not meet criteria for involuntary psychiatric admission. Insomnia -continue Seroquel -Ativan 0.5 mg PO PRN UTI -completed Rocephin. DVT prophylaxis: SCD's/Feliberto/ Heparin sq Physical therapy, needs out of bed (1) Rhabdomyolysis Qualifiers: Rhabdomyolysis type: non-traumatic Qualified Code(s): M62.82 - Rhabdomyolysis
[2018-03-06] MEDS: Heparin - SQ 10,000 UNITS/ML Vial SQ SCH ×2 (10:02→20:45)
[2018-03-06] MEDS: Furosemide 40 MG Tablet PO SCH ×2 (10:10→17:32)
--- NOTE | 2018-03-06 14:19 | P.PNNP ---
Subjective Interval history: Seen in AM. Sitting up eating breakfast. Creatinine continues to improve at 3.44 today with good urinary output. No complaints reported. <Denise Raymond - Last Filed: 03/06/18 14:13> Physical Exam Vital signs: Vital Signs 03/05/18 15:06 03/05/18 16:00 03/05/18 19:40 Temperature 97.8 F 98.2 F Pulse Rate 96 H 97 H Respiratory Rate 16 18 Blood Pressure 117/58 L 140/75 Pulse Oximetry 98 97 98 03/06/18 00:00 03/06/18 04:00 03/06/18 08:00 Temperature 98.1 F 98.3 F 98.0 F Pulse Rate 80 80 77 Respiratory Rate 18 18 17 Blood Pressure 99/58 L 122/60 118/55 L Pulse Oximetry 96 97 97 03/06/18 10:57 03/06/18 11:44 03/06/18 12:00 Temperature 98.0 F Pulse Rate 76 Respiratory Rate 14 Blood Pressure 94/52 L Pulse Oximetry 95 97 96 03/06/18 12:02 Temperature Pulse Rate Respiratory Rate Blood Pressure 108/54 L Pulse Oximetry Intake & Output 03/05/18 03/06/18 03/06/18 18:59 06:59 18:59 Intake Total 580 / 580 Output Total 2400 / 2400 450 / 450 Balance -1820 / -1820 -450 / -450 Weight 97.6 kg Intake: IV 100 / 100 Flexbumin 25% Inj 100 ML @ 60 100 / 100 mls/hr IV.SIG WITH DIALYSIS PRN Rx#:[id number] Oral 480 / 480 Output: Urine 1400 / 1400 450 / 450 Hemodialysis Amount 1000 / 1000 Other: # Bowel Movements 0 Narrative: GENERAL: Alert and oriented. NAD NECK: Supple, trachea midline. No JVD. CARDIOVASCULAR: Regular rate and rhythm without murmurs, gallops, or rubs. Right IJ Perma Cath RESPIRATORY: Breath sounds clear bilaterally. No accessory muscle use. GASTROINTESTINAL: Abdomen soft, non-tender, large MUSCULOSKELETAL: No cyanosis, generalized edema improving. - Urinary Catheter Management Indwelling Urethral Catheter Cath placed during this visit: yes, but has since been removed by the nurse Reason for continuing: Acute urinary retention Insertion date: 02/16/18 Insertion time: 13:00 Removal date: 02/19/18 Removal time: 15:00 <Gellermann,Denise - Last Filed: 03/06/18 14:13> Vital signs: Vital Signs 03/06/18 20:00 03/06/18 20:58 03/07/18 00:00 Temperature 98.4 F 97.8 F Pulse Rate 89 68 Respiratory Rate 20 20 Blood Pressure 113/61 116/68 111/59 L Pulse Oximetry 96 97 03/07/18 03:52 03/07/18 07:27 03/07/18 12:40 Temperature 97.9 F 97.9 F 97.9 F Pulse Rate 71 82 96 H Respiratory Rate 18 17 18 Blood Pressure 122/68 97/70 L 123/70 Pulse Oximetry 95 97 97 03/07/18 15:47 Temperature Pulse Rate Respiratory Rate Blood Pressure Pulse Oximetry 97 Intake & Output 03/06/18 03/07/18 03/07/18 18:59 06:59 18:59 Intake Total 600 / 600 380 / 380 Output Total 1600 / 1600 700 / 700 1999 Balance -1000 / -1000 -320 / -320 -1999 Weight 95.7 kg Intake: Oral 600 / 600 380 / 380 Output: Urine 1600 / 1600 700 / 700 Hemodialysis Amount 1999 Other: # Voids 3 # Bowel Movements 0 - Urinary Catheter Management Indwelling Urethral Catheter Cath placed during this visit: no <Robert Doherty - Last Filed: 03/07/18 16:56> Assessment and Plan - Assessment (1) Acute kidney injury Code(s): N17.9 - Acute kidney failure, unspecified Status: Acute Plan: The patient has apparent acute kidney injury in the setting of rhabdomyolysis. Complements are normal and MICAH normal. Renal ultrasound with mildly echogenic kidneys which may reflect medical renal disease. Hemodialysis started on . Perma Cath placement 03/04 Creatinine at 3.44, UOP 1.8 L/24 hours. HD on Saturday/Saturday/Saturday Avoid nephrotoxic agents. Maintain strict I+O. Follow urinary output and BMP. Continue Lasix BID. Some renal recovery noted Will continue with HD, planned for tomorrow. Labs in AM. (2) Rhabdomyolysis Code(s): M62.82 - Rhabdomyolysis Status: Acute Qualifiers: Rhabdomyolysis type: non-traumatic Qualified Code(s): M62.82 - Rhabdomyolysis (3) Hypertension Code(s): I10 - Essential (primary) hypertension Status: Acute Plan: Blood pressure on lower side will discontinue hydralazine. <Denise Raymond - Last Filed: 03/06/18 14:13> - Assessment (1) Acute kidney injury Code(s): N17.9 - Acute kidney failure, unspecified Status: Acute Plan: Patient seen and examine, agree with above. Has some improvement in the Creatinine. Follow BMP in AM and HD as needed. (2) Hypertension Code(s): I10 - Essential (primary) hypertension Status: Acute <Robert Doherty - Last Filed: 03/07/18 16:56>
[2018-03-06] MEDS: LORazepam 0.5 MG Tablet PO PRN (20:57)
[2018-03-07 05:05] LABS: Baso # (Auto) 0.1 th/mm3 (0.0-0.2); Baso % (Auto) 1.2 % (0.0-2.0); Eos # (Auto) 0.6 th/mm3 (0.0-0.4); Eos % (Auto) 9.4 % (0.0-4.0); Hematocrit 32.4 % (35.0-46.0); Hemoglobin 11.1 gm/dL (11.6-15.3); Lymph # (Auto) 2.3 th/mm3 (1.0-4.8); Lymph % (Auto) 33.2 % (9.0-44.0); Mean Corpuscular HGB Conc 34.2 % (32.0-36.0); Mean Corpuscular Hemoglobin 30.5 pg (27.0-34.0); Mean Corpuscular Volume 89.2 fL (80.0-100.0); Mean Platelet Volume 7.8 fL (7.0-11.0); Mono # (Auto) 0.6 th/mm3 (0.0-0.9); Mono % (Auto) 9.2 % (0.0-8.0); Neut # (Auto) 3.2 th/mm3 (1.8-7.7); Platelet Count 280 th/mm3 (150-450); Red Blood Count 3.64 mil/mm3 (4.00-5.30); Red Cell Distribution Width 14.4 % (11.6-17.2); White Blood Count 6.8 th/mm3 (4.0-11.0)
[2018-03-07 05:34] LABS: Albumin 3.9 g/dL (3.4-5.0); Carbon Dioxide 30.4 meq/L (21.0-32.0); Phosphorus 5.1 mg/dL (2.5-4.9); Potassium 4.2 meq/L (3.5-5.1)
[2018-03-07] MEDS: Heparin - SQ 10,000 UNITS/ML Vial SQ SCH ×2 (09:31→21:53)
[2018-03-07] MEDS: Calcium Acetate 667 MG Capsule PO SCH ×3 (09:32→17:33)
--- NOTE | 2018-03-07 10:32 | P.PN ---
Subjective Interval history: Follow-up acute renal injury requiring hemodialysis March 06, 2018-patient seen and examined, no complaint. denies any right chest pain. Afebrile. NO SOB/CP March 07, 2018-patient seen and examined, she denies any acute event overnight. Plan for hemodialysis today. Physical Exam Vital signs: Vital Signs 03/06/18 10:57 03/06/18 11:44 03/06/18 12:00 Temperature 98.0 F Pulse Rate 76 Respiratory Rate 14 Blood Pressure 94/52 L Pulse Oximetry 95 97 96 03/06/18 12:02 03/06/18 14:40 03/06/18 16:00 Temperature 98.3 F Pulse Rate 78 Respiratory Rate 17 Blood Pressure 108/54 L 104/59 L Pulse Oximetry 96 95 03/06/18 20:00 03/06/18 20:58 03/07/18 00:00 Temperature 98.4 F 97.8 F Pulse Rate 89 68 Respiratory Rate 20 20 Blood Pressure 113/61 116/68 111/59 L Pulse Oximetry 96 97 03/07/18 03:52 03/07/18 07:27 Temperature 97.9 F 97.9 F Pulse Rate 71 82 Respiratory Rate 18 17 Blood Pressure 122/68 97/70 L Pulse Oximetry 95 97 Intake & Output 03/06/18 03/07/18 03/07/18 18:59 06:59 18:59 Intake Total 600 / 600 380 / 380 Output Total 1600 / 1600 700 / 700 Balance -1000 / -1000 -320 / -320 Weight 95.7 kg Intake: Oral 600 / 600 380 / 380 Output: Urine 1600 / 1600 700 / 700 Other: # Voids 3 # Bowel Movements 0 Narrative: GENERAL: Alert and oriented. NAD NECK: Supple, trachea midline. No JVD. CARDIOVASCULAR: Regular rate and rhythm without murmurs, gallops, or rubs. Right IJ Perma Cath RESPIRATORY: Breath sounds clear bilaterally. No accessory muscle use. GASTROINTESTINAL: Abdomen soft, non-tender, large MUSCULOSKELETAL: No cyanosis, generalized edema improving. - Urinary Catheter Management Indwelling Urethral Catheter Cath placed during this visit: yes, but has since been removed by the nurse Reason for continuing: Acute urinary retention Insertion date: 02/16/18 Insertion time: 13:00 Removal date: 02/19/18 Removal time: 15:00 Results - Labs CBC & Chem 7: 03/07/18 03:48 03/07/18 03:48 Laboratory Results - last 24 hr 03/07/18 03/07/18 03:48 03:48 WBC 6.8 RBC 3.64 L Hgb 11.1 L Hct 32.4 L MCV 89.2 MCH 30.5 MCHC 34.2 RDW 14.4 Plt Count 280 MPV 7.8 Neut % (Auto) 47.0 Lymph % (Auto) 33.2 Yancey % (Auto) 9.2 H Eos % (Auto) 9.4 H Baso % (Auto) 1.2 Neut # (Auto) 3.2 Lymph # (Auto) 2.3 Yancey # (Auto) 0.6 Eos # (Auto) 0.6 H Baso # (Auto) 0.1 WBC Differential . Differential Comment Auto diff final Sodium 140 Potassium 4.2 Chloride 99 Carbon Dioxide 30.4 Anion Gap 11 BUN 45 H Creatinine 3.87 H Estimated GFR 13 L Random Glucose 96 Calcium 9.0 Phosphorus 5.1 H Albumin 3.9 - Procedures Vas cath placed in right IJ 02/18. Right permacath placed March 04, 2018 Assessment and Plan - Assessment (1) Rhabdomyolysis Code(s): M62.82 - Rhabdomyolysis Status: Acute (2) Bipolar 1 disorder, mixed Code(s): F31.60 - Bipolar disorder, current episode mixed, unspecified Status : Chronic (3) Acute kidney injury Code(s): N17.9 - Acute kidney failure, unspecified Status: Acute (4) Elevated liver enzymes Code(s): R74.8 - Abnormal levels of other serum enzymes Status: Acute - Plan 48-year-old female with: Severe Rhabdomyolysis: Resolved Acute renal failure -Appreciate input from nephrology -Continue with dialysis Saturday Status post permacath placement March 04, 2018 Hyperkalemia -Resolved Orthopnea-resolved - Echocardiogram with EF 50-55% -continue Lasix 40 mg p.o. twice daily' Hypoxia-resolved Elevated LFTs -Secondary to rhabdomyolysis, improving, GGT is negative Hyponatremia-Improve -Continue to follow BMP HTN -Continue Lopressor and nifedipine Continue with clonidine as needed - Cont. Hydralazine 25 mg p.o. 3 times daily Bipolar disorder, hypomanic -Continue Seroquel 100 mg p.o. twice daily -Per psych, does not meet criteria for involuntary psychiatric admission. Insomnia -continue Seroquel -Ativan 0.5 mg PO PRN UTI -completed Rocephin. DVT prophylaxis: SCD's/Feliberto/ Heparin sq Physical therapy, OOB (1) Rhabdomyolysis Qualifiers: Rhabdomyolysis type: non-traumatic Qualified Code(s): M62.82 - Rhabdomyolysis
--- NOTE | 2018-03-07 11:52 | P.PNNP ---
Subjective Interval history: Seen during hemodialysis tolerating well. No shortness of breath, chest pain, nausea, or vomiting. <Denise Raymond - Last Filed: 03/07/18 11:48> Physical Exam Vital signs: Vital Signs 03/06/18 12:00 03/06/18 12:02 03/06/18 14:40 Temperature Pulse Rate Respiratory Rate Blood Pressure 108/54 L Pulse Oximetry 96 96 03/06/18 16:00 03/06/18 20:00 03/06/18 20:58 Temperature 98.3 F 98.4 F Pulse Rate 78 89 Respiratory Rate 17 20 Blood Pressure 104/59 L 113/61 116/68 Pulse Oximetry 95 96 03/07/18 00:00 03/07/18 03:52 03/07/18 07:27 Temperature 97.8 F 97.9 F 97.9 F Pulse Rate 68 71 82 Respiratory Rate 20 18 17 Blood Pressure 111/59 L 122/68 97/70 L Pulse Oximetry 97 95 97 Intake & Output 03/06/18 03/07/18 03/07/18 18:59 06:59 18:59 Intake Total 600 / 600 380 / 380 Output Total 1600 / 1600 700 / 700 Balance -1000 / -1000 -320 / -320 Weight 95.7 kg Intake: Oral 600 / 600 380 / 380 Output: Urine 1600 / 1600 700 / 700 Other: # Voids 3 # Bowel Movements 0 Narrative: GENERAL: Alert and oriented. NAD NECK: Supple, trachea midline. No JVD. CARDIOVASCULAR: Regular rate and rhythm without murmurs, gallops, or rubs. Right IJ Perma Cath RESPIRATORY: Breath sounds clear bilaterally. No accessory muscle use. GASTROINTESTINAL: Abdomen soft, non-tender, large MUSCULOSKELETAL: No cyanosis, generalized edema improving. - Urinary Catheter Management Indwelling Urethral Catheter Cath placed during this visit: yes, but has since been removed by the nurse Reason for continuing: Acute urinary retention Insertion date: 02/16/18 Insertion time: 13:00 Removal date: 02/19/18 Removal time: 15:00 <Denise Raymond - Last Filed: 03/07/18 11:48> Vital signs: Vital Signs 03/11/18 12:00 03/11/18 16:00 03/11/18 20:00 Temperature 98.1 F 98.3 F 97.4 F L Pulse Rate 95 H 87 90 Respiratory Rate 16 16 18 Blood Pressure 116/62 116/67 137/65 Pulse Oximetry 96 98 99 03/12/18 00:00 03/12/18 04:00 03/12/18 08:00 Temperature 97.9 F 98.6 F 97.9 F Pulse Rate 81 105 H 84 Respiratory Rate 17 17 18 Blood Pressure 129/83 124/83 116/58 L Pulse Oximetry 99 97 95 Intake & Output 03/11/18 03/12/18 03/12/18 18:59 06:59 18:59 Intake Total 460 / 460 1253 / 1253 Output Total 1999 Balance 460 / 460 -747 / -747 Weight 95.1 kg Intake: Oral 460 / 460 1253 / 1253 Output: Urine 1999 Other: # Voids 3 Date of Last Bowel Movement 03/10/18 03/12/18 # Bowel Movements 1 - Urinary Catheter Management Indwelling Urethral Catheter Cath placed during this visit: no <Robert Doherty - Last Filed: 03/12/18 10:38> Assessment and Plan - Assessment (1) Acute kidney injury Code(s): N17.9 - Acute kidney failure, unspecified Status: Acute Plan: The patient has apparent acute kidney injury in the setting of rhabdomyolysis. Complements are normal and MICAH normal. Renal ultrasound with mildly echogenic kidneys which may reflect medical renal disease. Hemodialysis started on . Perma Cath placement 03/04 Creatinine at 3.87, UOP 2.3 L/24 hours. HD on Saturday/Saturday/Saturday Avoid nephrotoxic agents. Maintain strict I+O. Follow urinary output and BMP. Continue Lasix BID. Some renal recovery noted, Next hemodialysis on Saturday with some renal recovery noted will evaluate prior to dialysis on Saturday to determine need. Labs in AM (2) Hypertension Code(s): I10 - Essential (primary) hypertension Status: Acute Plan: Blood pressure on lower side, nifedipine discontinued. <Denise Raymond - Last Filed: 03/07/18 11:48> - Assessment (1) Acute kidney injury Code(s): N17.9 - Acute kidney failure, unspecified Status: Acute Plan: Patient seen and examined, agree with above. HD today, watch for renal recovery over the weakened. (2) Hypertension Code(s): I10 - Essential (primary) hypertension Status: Acute <Robert Doherty - Last Filed: 03/12/18 10:38>
[2018-03-07] MEDS: Sodium Chloride 0.9% 2 ML Flush BID IV.FLUSH SCH ×2 (12:42→21:54)
[2018-03-07] MEDS: Furosemide 40 MG Tablet PO SCH ×2 (12:43→17:33)
[2018-03-07] MEDS: QUEtiapine 100 MG Tablet PO SCH ×2 (12:43→21:53)
[2018-03-07] MEDS: Metoprolol Tartrate 50 MG Tablet PO SCH ×2 (12:43→21:53)
[2018-03-07] MEDS: LORazepam 0.5 MG Tablet PO PRN (22:09)
[2018-03-08 06:13] LABS: Albumin 3.8 g/dL (3.4-5.0); Calcium 8.4 mg/dL (8.5-10.1); Carbon Dioxide 30.8 meq/L (21.0-32.0); Phosphorus 4.8 mg/dL (2.5-4.9); Potassium 3.9 meq/L (3.5-5.1)
[2018-03-08] MEDS: QUEtiapine 100 MG Tablet PO SCH ×2 (08:16→20:23)
[2018-03-08] MEDS: Sodium Chloride 0.9% 2 ML Flush BID IV.FLUSH SCH ×2 (08:16→20:24)
[2018-03-08] MEDS: Furosemide 40 MG Tablet PO SCH ×2 (08:16→17:03)
[2018-03-08] MEDS: Calcium Acetate 667 MG Capsule PO SCH ×3 (08:16→17:03)
[2018-03-08] MEDS: Metoprolol Tartrate 50 MG Tablet PO SCH ×3 (08:16→20:24)
[2018-03-08] MEDS: Heparin - SQ 10,000 UNITS/ML Vial SQ SCH ×2 (08:16→20:24)
--- NOTE | 2018-03-08 11:57 | P.PN ---
Subjective Interval history: Follow-up acute renal injury requiring hemodialysis March 06, 2018-patient seen and examined, no complaint. denies any right chest pain. Afebrile. NO SOB/CP March 07, 2018-patient seen and examined, she denies any acute event overnight. Plan for hemodialysis today. March 08, 2018-patient seen and examined, stable/no chest pain, SOB Physical Exam Vital signs: Vital Signs 03/07/18 12:40 03/07/18 15:47 03/07/18 16:00 Temperature 97.9 F 98.1 F Pulse Rate 96 H 99 H Respiratory Rate 18 18 Blood Pressure 123/70 110/63 Pulse Oximetry 97 97 03/07/18 20:00 03/08/18 00:00 03/08/18 04:00 Temperature 98.7 F 99.1 F 98 F Pulse Rate 104 H 85 75 Respiratory Rate 20 20 20 Blood Pressure 114/76 97/64 L 105/72 Pulse Oximetry 97 97 96 Intake & Output 03/07/18 03/08/18 03/08/18 18:59 06:59 18:59 Intake Total 480 / 480 720 / 720 Output Total 1999 / 1999 1100 / 1100 Balance -1520 / -1520 -380 / -380 Weight 95.7 kg Intake: Oral 480 / 480 720 / 720 Output: Urine 1100 / 1100 Hemodialysis Amount 1999 Other: # Voids 2 # Bowel Movements 1 Narrative: GENERAL: Alert and oriented. NAD NECK: Supple, trachea midline. No JVD. CARDIOVASCULAR: Regular rate and rhythm without murmurs, gallops, or rubs. Right IJ Perma Cath RESPIRATORY: Breath sounds clear bilaterally. No accessory muscle use. GASTROINTESTINAL: Abdomen soft, non-tender, large MUSCULOSKELETAL: No cyanosis, generalized edema improving. - Urinary Catheter Management Indwelling Urethral Catheter Cath placed during this visit: yes, but has since been removed by the nurse Reason for continuing: Acute urinary retention Insertion date: 02/16/18 Insertion time: 13:00 Removal date: 02/19/18 Removal time: 15:00 Results - Labs CBC & Chem 7: 03/07/18 03:48 03/08/18 04:24 Laboratory Results - last 24 hr 03/08/18 04:24 Sodium 139 Potassium 3.9 Chloride 97 L Carbon Dioxide 30.8 Anion Gap 11 BUN 37 H Creatinine 3.30 H Estimated GFR 15 L Random Glucose 95 Calcium 8.4 L Phosphorus 4.8 Albumin 3.8 - Procedures Vas cath placed in right IJ 02/18. Right permacath placed March 04, 2018 Assessment and Plan - Assessment (1) Rhabdomyolysis Code(s): M62.82 - Rhabdomyolysis Status: Acute (2) Bipolar 1 disorder, mixed Code(s): F31.60 - Bipolar disorder, current episode mixed, unspecified Status : Chronic (3) Acute kidney injury Code(s): N17.9 - Acute kidney failure, unspecified Status: Acute (4) Elevated liver enzymes Code(s): R74.8 - Abnormal levels of other serum enzymes Status: Acute - Plan 48-year-old female with: Severe Rhabdomyolysis: Resolved Acute renal failure -Appreciate input from nephrology -Continue with dialysis Saturday Status post permacath placement March 04, 2018 Hyperkalemia -Resolved Orthopnea-resolved - Echocardiogram with EF 50-55% -continue Lasix 40 mg p.o. twice daily' Hypoxia-resolved Elevated LFTs -Secondary to rhabdomyolysis, improving, GGT is negative Hyponatremia-Improve -Monitor BMP HTN -Continue Lopressor and nifedipine Continue with clonidine as needed - Cont. Hydralazine 25 mg p.o. 3 times daily Bipolar disorder, hypomanic -Continue Seroquel 100 mg p.o. twice daily -Per psych, does not meet criteria for involuntary psychiatric admission. Insomnia -continue Seroquel -Ativan 0.5 mg PO PRN UTI -completed Rocephin. DVT prophylaxis: SCD's/Feliberto/ Heparin sq Physical therapy, OOB (1) Rhabdomyolysis Qualifiers: Rhabdomyolysis type: non-traumatic Qualified Code(s): M62.82 - Rhabdomyolysis
--- NOTE | 2018-03-08 17:27 | P.PNNP ---
Subjective Interval history: no acute complaints Physical Exam Vital signs: Vital Signs 03/07/18 20:00 03/08/18 00:00 03/08/18 04:00 Temperature 98.7 F 99.1 F 98 F Pulse Rate 104 H 85 75 Respiratory Rate 20 20 20 Blood Pressure 114/76 97/64 L 105/72 Pulse Oximetry 97 97 96 03/08/18 16:00 03/08/18 17:20 Temperature 97.8 F Pulse Rate 86 Respiratory Rate 18 Blood Pressure 102/65 Pulse Oximetry 96 96 Intake & Output 03/07/18 03/08/18 03/08/18 18:59 06:59 18:59 Intake Total 480 / 480 720 / 720 Output Total 1999 1100 / 1100 Balance -1520 / -1520 -380 / -380 Weight 95.7 kg Intake: Oral 480 / 480 720 / 720 Output: Urine 1100 / 1100 Hemodialysis Amount 1999 Other: # Voids 2 # Bowel Movements 1 - Constitutional no acute distress - Routine HEENT Exam Head: Present: normocephalic Eye: Present: EOMI ENT: Present: mucous membranes moist - Routine Neck Exam Present: supple - Routine Respiratory Exam Present: CTA bilaterally - Routine Cardiovascular Exam Present: RRR - Routine Abdominal Exam Present: soft - Routine Extremities Exam Present: vascular access - Routine Skin Exam Present: intact - Routine Neurological Exam Present: alert - Detailed Neurological Exam: Coma Scale Eye Opening: Spontaneous - Routine Psychiatric Exam Present: normal affect - Urinary Catheter Management Indwelling Urethral Catheter Cath placed during this visit: yes, but has since been removed by the nurse Reason for continuing: Acute urinary retention Insertion date: 02/16/18 Insertion time: 13:00 Removal date: 02/19/18 Removal time: 15:00 Assessment and Plan - Assessment (1) Acute kidney injury Code(s): N17.9 - Acute kidney failure, unspecified Status: Acute Plan: The patient has apparent acute kidney injury in the setting of rhabdomyolysis. Complements are normal and MICAH normal. Renal ultrasound with mildly echogenic kidneys which may reflect medical renal disease. Hemodialysis started on . Perma Cath placement 03/04 HD on Saturday/Saturday/Saturday Avoid nephrotoxic agents. Maintain strict I+O. Follow urinary output and BMP. Continue Lasix BID. HD done Saturday 1.1 L UOP - continue to monitor for recovery Next HD Saturday if needed - evaluate Saturday for UOP and creatinine trend. (2) Hypertension Code(s): I10 - Essential (primary) hypertension Status: Acute Plan: Blood pressure on lower side, nifedipine discontinued.
[2018-03-08] MEDS: LORazepam 0.5 MG Tablet PO PRN (20:22)
[2018-03-09 05:07] LABS: Hematocrit 30.3 % (35.0-46.0); Hemoglobin 10.6 gm/dL (11.6-15.3); Mean Corpuscular HGB Conc 35.1 % (32.0-36.0); Mean Corpuscular Hemoglobin 30.8 pg (27.0-34.0); Mean Corpuscular Volume 87.7 fL (80.0-100.0); Mean Platelet Volume 8.2 fL (7.0-11.0); Platelet Count 266 th/mm3 (150-450); Red Blood Count 3.45 mil/mm3 (4.00-5.30); White Blood Count 7.4 th/mm3 (4.0-11.0)
[2018-03-09 05:41] LABS: Alanine Aminotransferase 21 U/L (10-53); Albumin 3.9 g/dL (3.4-5.0); Alkaline Phosphatase 83 U/L (45-117); Anion Gap 12 meq/L (5-15); Aspartate Aminotransferase 38 U/L (15-37); Blood Urea Nitrogen 49 mg/dL (7-18); Calcium 8.5 mg/dL (8.5-10.1); Carbon Dioxide 30.4 meq/L (21.0-32.0); Chloride 97 meq/L (98-107); Glomerular Filtration Rate 14 mL/min (>89); Glucose,Random 92 mg/dL (74-106); Potassium 3.6 meq/L (3.5-5.1); Sodium 139 meq/L (136-145); Total Protein 7.7 g/dL (6.4-8.2)
[2018-03-09] MEDS: Calcium Acetate 667 MG Capsule PO SCH ×4 (09:07→17:53)
[2018-03-09] MEDS: Furosemide 40 MG Tablet PO SCH ×2 (09:07→17:53)
[2018-03-09] MEDS: QUEtiapine 100 MG Tablet PO SCH ×2 (09:07→20:41)
--- NOTE | 2018-03-09 10:07 | P.PN ---
Subjective Interval history: Follow-up acute renal injury requiring hemodialysis March 09, 2018-patient seen and examined, doing well, vital stable. Plan for hemodialysis tomorrow. Physical Exam Vital signs: Vital Signs 03/08/18 16:00 03/08/18 17:20 03/08/18 20:00 Temperature 97.8 F 98.0 F Pulse Rate 86 100 H Respiratory Rate 18 18 Blood Pressure 102/65 108/73 Pulse Oximetry 96 96 96 03/09/18 00:00 03/09/18 04:00 03/09/18 08:00 Temperature 97.8 F 98.0 F 97.9 F Pulse Rate 90 84 91 H Respiratory Rate 18 17 18 Blood Pressure 114/71 123/67 117/63 Pulse Oximetry 94 L 95 96 Intake & Output 03/08/18 03/09/18 03/09/18 18:59 06:59 18:59 Intake Total 420 / 420 Output Total 1600 / 1600 Balance 420 / 420 -1600 / -1600 Weight 96.5 kg Intake: Oral 420 / 420 Output: Urine 1600 / 1600 Other: # Voids 5 Date of Last Bowel Movement 03/08/18 # Bowel Movements 0 Narrative: GENERAL: Alert and oriented. NAD NECK: Supple, trachea midline. No JVD. CARDIOVASCULAR: Regular rate and rhythm without murmurs, gallops, or rubs. Right IJ Perma Cath RESPIRATORY: Breath sounds clear bilaterally. No accessory muscle use. GASTROINTESTINAL: Abdomen soft, non-tender, large MUSCULOSKELETAL: No cyanosis, generalized edema improving. - Urinary Catheter Management Indwelling Urethral Catheter Cath placed during this visit: yes, but has since been removed by the nurse Reason for continuing: Acute urinary retention Insertion date: 02/16/18 Insertion time: 13:00 Removal date: 02/19/18 Removal time: 15:00 Results - Labs CBC & Chem 7: 03/09/18 03:54 03/09/18 03:54 Laboratory Results - last 24 hr 03/09/18 03/09/18 03:54 03:54 WBC 7.4 RBC 3.45 L Hgb 10.6 L Hct 30.3 L MCV 87.7 MCH 30.8 MCHC 35.1 RDW 14.0 Plt Count 266 MPV 8.2 Sodium 139 Potassium 3.6 Chloride 97 L Carbon Dioxide 30.4 Anion Gap 12 BUN 49 H Creatinine 3.51 H Estimated GFR 14 L Random Glucose 92 Calcium 8.5 Total Bilirubin 0.3 AST 38 H ALT 21 Alkaline Phosphatase 83 Total Protein 7.7 Albumin 3.9 - Procedures Vas cath placed in right IJ 02/18. Right permacath placed March 04, 2018 Assessment and Plan - Assessment (1) Rhabdomyolysis Code(s): M62.82 - Rhabdomyolysis Status: Acute (2) Bipolar 1 disorder, mixed Code(s): F31.60 - Bipolar disorder, current episode mixed, unspecified Status : Chronic (3) Acute kidney injury Code(s): N17.9 - Acute kidney failure, unspecified Status: Acute (4) Elevated liver enzymes Code(s): R74.8 - Abnormal levels of other serum enzymes Status: Acute - Plan 48-year-old female with: Severe Rhabdomyolysis: Resolved Acute renal failure requiring hemodialysis -Hemodialysis started on February 18, 2018 -Status post permacath placement March 04, 2018 -Appreciate input from nephrology -Continue with dialysis Saturday -Continue with Lasix twice daily and monitor BUN and creatinine -Nephrology to decide if patient will need outpatient hemodialysis Hyperkalemia -Resolved Orthopnea-resolved - Echocardiogram with EF 50-55% -continue Lasix 40 mg p.o. twice daily' Elevated LFTs -Secondary to rhabdomyolysis, improving, GGT is negative Hyponatremia-Improve -Monitor BMP HTN -Continue Lopressor and nifedipine -Continue with clonidine as needed -Cont. Hydralazine 25 mg p.o. 3 times daily Bipolar disorder, hypomanic -Continue Seroquel 100 mg p.o. twice daily -Per psych, does not meet criteria for involuntary psychiatric admission. Insomnia -continue Seroquel -Ativan 0.5 mg PO PRN UTI -completed Rocephin. DVT prophylaxis: SCD's/Feliberto/ Heparin sq Physical therapy, OOB (1) Rhabdomyolysis Qualifiers: Rhabdomyolysis type: non-traumatic Qualified Code(s): M62.82 - Rhabdomyolysis
[2018-03-09] MEDS: Sodium Chloride 0.9% 2 ML Flush BID IV.FLUSH SCH ×2 (11:18→20:40)
[2018-03-09] MEDS: Heparin - SQ 10,000 UNITS/ML Vial SQ SCH ×2 (11:18→20:42)
[2018-03-09] MEDS: Metoprolol Tartrate 50 MG Tablet PO SCH ×2 (11:18→20:42)
[2018-03-09] MEDS: Acetaminophen 325 MG Tablet PO PRN (11:45)
--- NOTE | 2018-03-09 14:54 | P.PNNP ---
Subjective Interval history: no acute complaints Physical Exam Vital signs: Vital Signs 03/08/18 16:00 03/08/18 17:20 03/08/18 20:00 Temperature 97.8 F 98.0 F Pulse Rate 86 100 H Respiratory Rate 18 18 Blood Pressure 102/65 108/73 Pulse Oximetry 96 96 96 03/09/18 00:00 03/09/18 04:00 03/09/18 08:00 Temperature 97.8 F 98.0 F 97.9 F Pulse Rate 90 84 91 H Respiratory Rate 18 17 18 Blood Pressure 114/71 123/67 117/63 Pulse Oximetry 94 L 95 96 03/09/18 12:00 Temperature 97.9 F Pulse Rate 94 H Respiratory Rate 18 Blood Pressure 117/81 Pulse Oximetry 98 Intake & Output 03/08/18 03/09/18 03/09/18 18:59 06:59 18:59 Intake Total 420 / 420 Output Total 1600 / 1600 Balance 420 / 420 -1600 / -1600 Weight 96.5 kg Intake: Oral 420 / 420 Output: Urine 1600 / 1600 Other: # Voids 5 Date of Last Bowel Movement 03/08/18 03/08/18 # Bowel Movements 0 - Constitutional no acute distress - Routine HEENT Exam Head: Present: normocephalic Eye: Present: EOMI ENT: Present: mucous membranes moist - Routine Neck Exam Present: supple - Routine Respiratory Exam Present: CTA bilaterally - Routine Cardiovascular Exam Present: RRR - Routine Abdominal Exam Present: soft - Routine Skin Exam Present: intact - Routine Neurological Exam Present: alert, oriented X3 - Routine Psychiatric Exam Present: normal affect - Urinary Catheter Management Indwelling Urethral Catheter Cath placed during this visit: yes, but has since been removed by the nurse Reason for continuing: Acute urinary retention Insertion date: 02/16/18 Insertion time: 13:00 Removal date: 02/19/18 Removal time: 15:00 Assessment and Plan - Assessment (1) Acute kidney injury Code(s): N17.9 - Acute kidney failure, unspecified Status: Acute Plan: The patient has apparent acute kidney injury in the setting of rhabdomyolysis. Complements are normal and MICAH normal. Renal ultrasound with mildly echogenic kidneys which may reflect medical renal disease. Hemodialysis started on . Perma Cath placement / HD on Saturday/Saturday/Saturday Avoid nephrotoxic agents. Maintain strict I+O. Follow urinary output and BMP. Continue Lasix BID. HD done Saturday 1.6 L UOP - continue to monitor for recovery Creatinine 3..3 -> 3.5 Next HD Saturday if needed - evaluate Saturday for UOP and creatinine trend to decide on further dialysis UOP improving. (2) Hypertension Code(s): I10 - Essential (primary) hypertension Status: Acute Plan: Blood pressure on lower side, nifedipine discontinued.
[2018-03-09] MEDS: LORazepam 0.5 MG Tablet PO PRN (20:41)
[2018-03-10 07:03] LABS: Hematocrit 31.3 % (35.0-46.0); Hemoglobin 10.6 gm/dL (11.6-15.3); Mean Corpuscular HGB Conc 33.9 % (32.0-36.0); Mean Corpuscular Hemoglobin 29.9 pg (27.0-34.0); Mean Corpuscular Volume 88.3 fL (80.0-100.0); Platelet Count 280 th/mm3 (150-450); Red Blood Count 3.54 mil/mm3 (4.00-5.30)
[2018-03-10 07:26] LABS: Albumin 3.7 g/dL (3.4-5.0); Anion Gap 8 meq/L (5-15); Aspartate Aminotransferase 33 U/L (15-37); Blood Urea Nitrogen 52 mg/dL (7-18); Calcium 8.6 mg/dL (8.5-10.1); Carbon Dioxide 30.5 meq/L (21.0-32.0); Chloride 102 meq/L (98-107); Glomerular Filtration Rate 15 mL/min (>89); Glucose,Random 92 mg/dL (74-106); Potassium 3.7 meq/L (3.5-5.1); Sodium 140 meq/L (136-145)
[2018-03-10 07:30] LABS: Alanine Aminotransferase 18 U/L (10-53); Alkaline Phosphatase 80 U/L (45-117); Total Protein 7.5 g/dL (6.4-8.2)
--- NOTE | 2018-03-10 09:33 | P.PNNP ---
Subjective Interval history: Sitting up in bed in breakfast. Denies any shortness of breath, chest pain, nausea, or vomiting. <Denise Raymond - Last Filed: 03/10/18 13:50> Physical Exam Vital signs: Vital Signs 03/09/18 12:00 03/09/18 16:00 03/09/18 20:00 Temperature 97.9 F 98.1 F 98.6 F Pulse Rate 94 H 90 98 H Respiratory Rate 18 18 17 Blood Pressure 117/81 123/70 120/61 Pulse Oximetry 98 97 96 03/10/18 00:00 03/10/18 04:00 03/10/18 08:00 Temperature 97.8 F 97.3 F L 97.0 F L Pulse Rate 98 H 92 H 77 Respiratory Rate 17 19 18 Blood Pressure 115/75 120/69 118/85 Pulse Oximetry 99 96 96 Intake & Output 03/09/18 03/10/18 03/10/18 18:59 06:59 18:59 Intake Total 1020 / 1020 480 / 480 Output Total 850 / 850 Balance 1020 / 1020 -370 / -370 Weight 95.8 kg Intake: Oral 1020 / 1020 480 / 480 Output: Urine 850 / 850 Other: # Voids 6 Date of Last Bowel Movement 03/08/18 03/09/18 # Bowel Movements 1 Narrative: GENERAL: Patient sitting up in bed eating breakfast. Appears comfortable. SKIN: Warm and dry. NECK: Supple, trachea midline. No JVD. CARDIOVASCULAR: Regular rate and rhythm without murmurs, gallops, or rubs. Right upper chest Vas-Cath in place. RESPIRATORY: Breath sounds equal bilaterally. No accessory muscle use. GASTROINTESTINAL: Abdomen soft, non-tender, nondistended. MUSCULOSKELETAL: No cyanosis, trace bilateral lower extremity edema. BACK: Nontender without obvious deformity. No CVA tenderness. - Urinary Catheter Management Indwelling Urethral Catheter Cath placed during this visit: yes, but has since been removed by the nurse Reason for continuing: Acute urinary retention Insertion date: 02/16/18 Insertion time: 13:00 Removal date: 02/19/18 Removal time: 15:00 <Denise Raymond - Last Filed: 03/10/18 13:50> Vital signs: Vital Signs 03/12/18 12:00 03/12/18 16:00 03/12/18 20:00 Temperature 98.0 F 97.4 F L 98 F Pulse Rate 95 H 88 90 Respiratory Rate 18 18 20 Blood Pressure 100/59 L 135/63 119/71 Pulse Oximetry 96 98 100 03/13/18 00:00 03/13/18 04:00 03/13/18 08:02 Temperature 97.9 F 97.8 F 97.9 F Pulse Rate 87 84 87 Respiratory Rate 18 18 16 Blood Pressure 121/67 114/70 112/72 Pulse Oximetry 97 97 98 03/13/18 10:25 Temperature 97.4 F L Pulse Rate 88 Respiratory Rate 18 Blood Pressure 124/58 L Pulse Oximetry 99 Intake & Output 03/12/18 03/13/18 03/13/18 18:59 06:59 18:59 Intake Total 520 / 520 0 / 0 Output Total 2300 / 2300 Balance -1780 / -1780 0 / 0 Weight 95.5 kg Intake: Oral 520 / 520 0 / 0 Output: Urine 2300 / 2300 Other: # Voids 7 Date of Last Bowel Movement 03/10/18 03/13/18 03/13/18 # Bowel Movements 1 7 - Urinary Catheter Management Indwelling Urethral Catheter Cath placed during this visit: no <Robert Doherty - Last Filed: 03/13/18 11:03> Assessment and Plan - Assessment (1) Acute kidney injury Code(s): N17.9 - Acute kidney failure, unspecified Status: Acute Plan: The patient has apparent acute kidney injury in the setting of rhabdomyolysis. Complements are normal and MICAH normal. Renal ultrasound with mildly echogenic kidneys which may reflect medical renal disease. Hemodialysis started on . Perma Cath placement 03/04 HD has been on Saturday/Saturday/Saturday. HD last done on Saturday. Held today, creatinine slightly improved 3.3, with good urinary output. Avoid nephrotoxic agents. Maintain strict I+O. Follow urinary output and BMP. Continue Lasix BID. Will monitor labs and urinary output daily assessing need for dialysis. (2) Hypertension Code(s): I10 - Essential (primary) hypertension Status: Acute Plan: Well controlled. <Denise Raymond - Last Filed: 03/10/18 13:50> - Assessment (1) Acute kidney injury Code(s): N17.9 - Acute kidney failure, unspecified Status: Acute Plan: Patient seen and examined, agree with above. Creatinine is slightly better, will hold HD for now. (2) Hypertension Code(s): I10 - Essential (primary) hypertension Status: Acute <Robert Doherty - Last Filed: 03/13/18 11:03>
--- NOTE | 2018-03-10 09:55 | P.PNIM ---
Subjective Interval history: Patient says she is feeling right. Denies any chest pain shortness of breath. Denies nausea or vomiting. Denies diarrhea or constipation. Physical Exam Vital signs: Vital Signs 03/09/18 12:00 03/09/18 16:00 03/09/18 20:00 Temperature 97.9 F 98.1 F 98.6 F Pulse Rate 94 H 90 98 H Respiratory Rate 18 18 17 Blood Pressure 117/81 123/70 120/61 Pulse Oximetry 98 97 96 03/10/18 00:00 03/10/18 04:00 03/10/18 08:00 Temperature 97.8 F 97.3 F L 97.0 F L Pulse Rate 98 H 92 H 77 Respiratory Rate 17 19 18 Blood Pressure 115/75 120/69 118/85 Pulse Oximetry 99 96 96 Intake & Output 03/09/18 03/10/18 03/10/18 18:59 06:59 18:59 Intake Total 1020 / 1020 480 / 480 Output Total 850 / 850 Balance 1020 / 1020 -370 / -370 Weight 95.8 kg Intake: Oral 1020 / 1020 480 / 480 Output: Urine 850 / 850 Other: # Voids 6 Date of Last Bowel Movement 03/08/18 03/09/18 # Bowel Movements 1 Narrative: GENERAL: Patient sitting up in bed eating breakfast. Appears comfortable. SKIN: Warm and dry. HEAD: Normocephalic. EYES: No scleral icterus. No injection or drainage. NECK: Supple, trachea midline. No JVD. CARDIOVASCULAR: Regular rate and rhythm without murmurs, gallops, or rubs. Right upper chest Vas-Cath in place. RESPIRATORY: Breath sounds equal bilaterally. No accessory muscle use. GASTROINTESTINAL: Abdomen soft, non-tender, nondistended. MUSCULOSKELETAL: No cyanosis, trace bilateral lower extremity edema. BACK: Nontender without obvious deformity. No CVA tenderness. - Urinary Catheter Management Indwelling Urethral Catheter Cath placed during this visit: yes, but has since been removed by the nurse Reason for continuing: Acute urinary retention Insertion date: 02/16/18 Insertion time: 13:00 Removal date: 02/19/18 Removal time: 15:00 Results - Labs CBC & Chem 7: 03/10/18 06:17 03/10/18 06:17 Laboratory Results - last 24 hr 03/10/18 03/10/18 06:17 06:17 WBC 7.0 RBC 3.54 L Hgb 10.6 L Hct 31.3 L MCV 88.3 MCH 29.9 MCHC 33.9 RDW 14.0 Plt Count 280 MPV 8.0 Sodium 140 Potassium 3.7 Chloride 102 Carbon Dioxide 30.5 Anion Gap 8 BUN 52 H Creatinine 3.39 H Estimated GFR 15 L Random Glucose 92 Calcium 8.6 Total Bilirubin 0.2 AST 33 ALT 18 Alkaline Phosphatase 80 Total Protein 7.5 Albumin 3.7 - Procedures Vas cath placed in right IJ 02/18. Right permacath placed March 04, 2018 Assessment and Plan - Assessment (1) Rhabdomyolysis Code(s): M62.82 - Rhabdomyolysis Status: Acute (2) Bipolar 1 disorder, mixed Code(s): F31.60 - Bipolar disorder, current episode mixed, unspecified Status : Chronic (3) Acute kidney injury Code(s): N17.9 - Acute kidney failure, unspecified Status: Acute (4) Elevated liver enzymes Code(s): R74.8 - Abnormal levels of other serum enzymes Status: Acute - Plan 48-year-old female with: //Severe Rhabdomyolysis: Resolved /Acute renal failure requiring hemodialysis -Hemodialysis started on February 18, 2018 -Status post permacath placement March 04, 2018 -Appreciate input from nephrology -Continue with dialysis Saturday -Continue with Lasix twice daily and monitor BUN and creatinine -Nephrology to decide if patient will need outpatient hemodialysis = 03/10. No need for hemodialysis today as per nephrology. Appreciate nephrology assistance. Continue to monitor. //Hyperkalemia -Resolved //Orthopnea-resolved - Echocardiogram with EF 50-55% -continue Lasix 40 mg p.o. twice daily' //Elevated LFTs -Secondary to rhabdomyolysis, improving, GGT is negative //Hyponatremia-Improve -Monitor BMP //HTN -Continue Lopressor and nifedipine -Continue with clonidine as needed -Blood pressure continues acceptable. Cont. Hydralazine 25 mg p.o. 3 times daily //Bipolar disorder, hypomanic -Continue Seroquel 100 mg p.o. twice daily -Per psych, does not meet criteria for involuntary psychiatric admission. = 03/10. Patient appropriate. Continue to monitor. //Insomnia -continue Seroquel -Ativan 0.5 mg PO PRN //UTI -completed Rocephin. //DVT prophylaxis: SCD's/Feliberto/ Heparin sq Physical therapy, OOB Discussed Condition With: Patient, will discuss with nurse at [facility]. Discharge Planning: Pending nephrology clearance. May need hemodialysis as outpatient. (1) Rhabdomyolysis Qualifiers: Rhabdomyolysis type: non-traumatic Qualified Code(s): M62.82 - Rhabdomyolysis
[2018-03-10] MEDS: Metoprolol Tartrate 50 MG Tablet PO SCH ×2 (09:56→21:42)
[2018-03-10] MEDS: Furosemide 40 MG Tablet PO SCH ×2 (09:56→18:29)
[2018-03-10] MEDS: Heparin - SQ 10,000 UNITS/ML Vial SQ SCH ×2 (09:56→21:43)
[2018-03-10] MEDS: Calcium Acetate 667 MG Capsule PO SCH ×3 (09:57→18:29)
[2018-03-10] MEDS: Sodium Chloride 0.9% 2 ML Flush BID IV.FLUSH SCH ×2 (09:57→21:43)
[2018-03-10] MEDS: QUEtiapine 100 MG Tablet PO SCH ×2 (09:57→21:43)
[2018-03-10] MEDS: LORazepam 0.5 MG Tablet PO PRN (21:43)
[2018-03-11 05:13] LABS: Hematocrit 30.9 % (35.0-46.0); Hemoglobin 10.4 gm/dL (11.6-15.3); Mean Corpuscular HGB Conc 33.7 % (32.0-36.0); Mean Corpuscular Hemoglobin 29.9 pg (27.0-34.0); Mean Corpuscular Volume 88.7 fL (80.0-100.0); Mean Platelet Volume 8.4 fL (7.0-11.0); Platelet Count 279 th/mm3 (150-450); Red Blood Count 3.48 mil/mm3 (4.00-5.30); Red Cell Distribution Width 13.5 % (11.6-17.2); White Blood Count 7.5 th/mm3 (4.0-11.0)
[2018-03-11 05:35] LABS: Albumin 3.8 g/dL (3.4-5.0); Anion Gap 11 meq/L (5-15); Aspartate Aminotransferase 33 U/L (15-37); Blood Urea Nitrogen 53 mg/dL (7-18); Calcium 8.6 mg/dL (8.5-10.1); Carbon Dioxide 29.2 meq/L (21.0-32.0); Chloride 95 meq/L (98-107); Glomerular Filtration Rate 15 mL/min (>89); Glucose,Random 88 mg/dL (74-106); Potassium 3.4 meq/L (3.5-5.1); Sodium 135 meq/L (136-145)
[2018-03-11 05:37] LABS: Alanine Aminotransferase 19 U/L (10-53)
[2018-03-11 05:39] LABS: Alkaline Phosphatase 81 U/L (45-117); Total Protein 7.6 g/dL (6.4-8.2)
[2018-03-11] MEDS: Heparin - SQ 10,000 UNITS/ML Vial SQ SCH ×2 (08:31→20:55)
[2018-03-11] MEDS: Metoprolol Tartrate 50 MG Tablet PO SCH ×2 (08:32→20:55)
[2018-03-11] MEDS: QUEtiapine 100 MG Tablet PO SCH ×2 (08:33→20:56)
[2018-03-11] MEDS: Furosemide 40 MG Tablet PO SCH (08:33)
[2018-03-11] MEDS: Calcium Acetate 667 MG Capsule PO SCH ×3 (08:33→18:05)
[2018-03-11] MEDS: Sodium Chloride 0.9% 2 ML Flush BID IV.FLUSH SCH ×2 (08:34→20:56)
--- NOTE | 2018-03-11 14:42 | P.PNNP ---
Subjective Interval history: Seen in AM. No acute events overnight. No shortness of breath, nausea, or vomiting. Creatinine continues to improve at 3.22. <Denise Raymond - Last Filed: 03/11/18 14:38> Physical Exam Vital signs: Vital Signs 03/10/18 16:00 03/10/18 20:00 03/11/18 00:00 Temperature 97.9 F 98.8 F 98.0 F Pulse Rate 92 H 97 H 111 H Respiratory Rate 18 18 20 Blood Pressure 119/79 101/60 129/85 Pulse Oximetry 97 96 96 03/11/18 04:00 03/11/18 07:47 03/11/18 08:00 Temperature 98.2 F 97.8 F Pulse Rate 91 H 86 Respiratory Rate 14 16 Blood Pressure 120/78 110/59 L Pulse Oximetry 98 98 95 03/11/18 12:00 Temperature 98.1 F Pulse Rate 95 H Respiratory Rate 16 Blood Pressure 116/62 Pulse Oximetry 96 Intake & Output 03/10/18 03/11/18 03/11/18 18:59 06:59 18:59 Intake Total 708 / 708 240 / 240 Output Total 500 / 500 Balance 708 / 708 -260 / -260 Weight 96 kg Intake: Oral 708 / 708 240 / 240 Output: Urine 500 / 500 Other: # Voids 5 Date of Last Bowel Movement 03/09/18 Narrative: GENERAL: Patient sitting up in bed eating breakfast. Appears comfortable. SKIN: Warm and dry. NECK: Supple, trachea midline. No JVD. CARDIOVASCULAR: Regular rate and rhythm without murmurs, gallops, or rubs. Right upper chest Vas-Cath in place. RESPIRATORY: Breath sounds equal bilaterally. No accessory muscle use. GASTROINTESTINAL: Abdomen soft, non-tender, nondistended. MUSCULOSKELETAL: No cyanosis, trace bilateral lower extremity edema. BACK: Nontender without obvious deformity. No CVA tenderness. - Urinary Catheter Management Indwelling Urethral Catheter Cath placed during this visit: yes, but has since been removed by the nurse Reason for continuing: Acute urinary retention Insertion date: 02/16/18 Insertion time: 13:00 Removal date: 02/19/18 Removal time: 15:00 <Denise Raymond - Last Filed: 03/11/18 14:38> Vital signs: Vital Signs 03/12/18 12:00 03/12/18 16:00 03/12/18 20:00 Temperature 98.0 F 97.4 F L 98 F Pulse Rate 95 H 88 90 Respiratory Rate 18 18 20 Blood Pressure 100/59 L 135/63 119/71 Pulse Oximetry 96 98 100 03/13/18 00:00 03/13/18 04:00 03/13/18 08:02 Temperature 97.9 F 97.8 F 97.9 F Pulse Rate 87 84 87 Respiratory Rate 16 Blood Pressure 121/67 114/70 112/72 Pulse Oximetry 97 97 98 03/13/18 10:25 Temperature 97.4 F L Pulse Rate 88 Respiratory Rate 18 Blood Pressure 124/58 L Pulse Oximetry 99 Intake & Output 03/12/18 03/13/18 03/13/18 18:59 06:59 18:59 Intake Total 520 / 520 0 / 0 Output Total 2300 / 2300 Balance -1780 / -1780 0 / 0 Weight 95.5 kg Intake: Oral 520 / 520 0 / 0 Output: Urine 2300 / 2300 Other: # Voids 7 Date of Last Bowel Movement 03/10/18 03/13/18 03/13/18 # Bowel Movements 1 7 - Urinary Catheter Management Indwelling Urethral Catheter Cath placed during this visit: no <Robert Doherty - Last Filed: 03/13/18 11:30> Assessment and Plan - Assessment (1) Acute kidney injury Code(s): N17.9 - Acute kidney failure, unspecified Status: Acute Plan: The patient has apparent acute kidney injury in the setting of rhabdomyolysis. Complements are normal and MICAH normal. Renal ultrasound with mildly echogenic kidneys which may reflect medical renal disease. Hemodialysis started on . Perma Cath placement 03/04 HD has been on Saturday/Saturday/Saturday. HD last done on Saturday. Held yesterday, creatinine continues to improve at 3.22, with 3.5 L/UOP in 24 hours Avoid nephrotoxic agents. Maintain strict I+O. Follow urinary output and BMP. Will monitor labs and urinary output daily assessing need for dialysis, currently on hold with some improvement noted. Lasix discontinued, Potassium at 3.4, replacement given. (2) Hypertension Code(s): I10 - Essential (primary) hypertension Status: Acute Plan: Well controlled. <Denise Raymond - Last Filed: 03/11/18 14:38> - Assessment (1) Acute kidney injury Code(s): N17.9 - Acute kidney failure, unspecified Status: Acute Plan: Patient seen and examined, agree with above. Creatinine is slightly better, continue to hold HD. (2) Hypertension Code(s): I10 - Essential (primary) hypertension Status: Acute <Robert Doherty - Last Filed: 03/13/18 11:30>
--- NOTE | 2018-03-11 18:51 | P.PNIM ---
Subjective Interval history: patient says she is feeling well. Denies any chest pain or shortness of breath. Denies nausea or vomiting Physical Exam Vital signs: Vital Signs 03/10/18 20:00 03/11/18 00:00 03/11/18 04:00 Temperature 98.8 F 98.0 F 98.2 F Pulse Rate 97 H 111 H 91 H Respiratory Rate 18 20 14 Blood Pressure 101/60 129/85 120/78 Pulse Oximetry 96 96 98 03/11/18 07:47 03/11/18 08:00 03/11/18 12:00 Temperature 97.8 F 98.1 F Pulse Rate 86 95 H Respiratory Rate 16 16 Blood Pressure 110/59 L 116/62 Pulse Oximetry 98 95 96 03/11/18 16:00 Temperature 98.3 F Pulse Rate 87 Respiratory Rate 16 Blood Pressure 116/67 Pulse Oximetry 98 Intake & Output 03/10/18 03/11/18 03/11/18 18:59 06:59 18:59 Intake Total 708 / 708 240 / 240 460 / 460 Output Total 500 / 500 Balance 708 / 708 -260 / -260 460 / 460 Weight 96 kg Intake: Oral 708 / 708 240 / 240 460 / 460 Output: Urine 500 / 500 Other: # Voids 5 3 Date of Last Bowel Movement 03/09/18 03/10/18 Narrative: GENERAL: Patient sitting up in bed watching videos on cell . Appears comfortable. SKIN: Warm and dry. NECK: Supple, trachea midline. No JVD. CARDIOVASCULAR: Regular rate and rhythm without murmurs, gallops, or rubs. Right upper chest Vas-Cath in place. RESPIRATORY: Breath sounds equal bilaterally. No accessory muscle use. GASTROINTESTINAL: Abdomen soft, non-tender, nondistended. MUSCULOSKELETAL: No cyanosis, trace bilateral lower extremity edema. BACK: Nontender without obvious deformity. No CVA tenderness. - Urinary Catheter Management Indwelling Urethral Catheter Cath placed during this visit: yes, but has since been removed by the nurse Reason for continuing: Acute urinary retention Insertion date: 02/16/18 Insertion time: 13:00 Removal date: 02/19/18 Removal time: 15:00 Results - Labs CBC & Chem 7: 03/11/18 04:07 03/11/18 04:07 Laboratory Results - last 24 hr 03/11/18 03/11/18 04:07 04:07 WBC 7.5 RBC 3.48 L Hgb 10.4 L Hct 30.9 L MCV 88.7 MCH 29.9 MCHC 33.7 RDW 13.5 Plt Count 279 MPV 8.4 Sodium 135 L Potassium 3.4 L Chloride 95 L Carbon Dioxide 29.2 Anion Gap 11 BUN 53 H Creatinine 3.22 H Estimated GFR 15 L Random Glucose 88 Calcium 8.6 Total Bilirubin 0.3 AST 33 ALT 19 Alkaline Phosphatase 81 Total Protein 7.6 Albumin 3.8 - Procedures Vas cath placed in right IJ 02/18. Right permacath placed March 04, 2018 Assessment and Plan - Assessment (1) Rhabdomyolysis Code(s): M62.82 - Rhabdomyolysis Status: Acute (2) Bipolar 1 disorder, mixed Code(s): F31.60 - Bipolar disorder, current episode mixed, unspecified Status : Chronic (3) Acute kidney injury Code(s): N17.9 - Acute kidney failure, unspecified Status: Acute (4) Elevated liver enzymes Code(s): R74.8 - Abnormal levels of other serum enzymes Status: Acute - Plan 48-year-old female with: //Severe Rhabdomyolysis: Resolved /Acute renal failure requiring hemodialysis -Hemodialysis started on February 18, 2018 -Status post permacath placement March 04, 2018 -Appreciate input from nephrology -Continue with dialysis Saturday -Continue with Lasix twice daily and monitor BUN and creatinine -Nephrology to decide if patient will need outpatient hemodialysis = 03/10. No need for hemodialysis today as per nephrology. Appreciate nephrology assistance. Continue to monitor. =03/11. Creatinine improving, however EUS in still elevated at 53. Continue to monitor. Patient without any insurance //Hyperkalemia -Resolved //Orthopnea-resolved - Echocardiogram with EF 50-55% -continue Lasix 40 mg p.o. twice daily' //Elevated LFTs -Secondary to rhabdomyolysis, improving, GGT is negative //Hyponatremia-Improve -Monitor BMP //HTN -Continue Lopressor and nifedipine -Continue with clonidine as needed -Blood pressure continues acceptable. Cont. Hydralazine 25 mg p.o. 3 times daily //Bipolar disorder, hypomanic -Continue Seroquel 100 mg p.o. twice daily -Per psych, does not meet criteria for involuntary psychiatric admission. = 03/10. Patient appropriate. Continue to monitor. //Insomnia -continue Seroquel -Ativan 0.5 mg PO PRN //UTI -completed Rocephin. //DVT prophylaxis: SCD's/Feliberto/ Heparin sq Physical therapy, OOB Discharge Planning: Pending nephrology clearance. May need hemodialysis as outpatient. patient without insurance. (1) Rhabdomyolysis Qualifiers: Rhabdomyolysis type: non-traumatic Qualified Code(s): M62.82 - Rhabdomyolysis
[2018-03-11] MEDS: LORazepam 0.5 MG Tablet PO PRN (20:56)
[2018-03-12 06:09] LABS: Hematocrit 30.3 % (35.0-46.0); Hemoglobin 10.6 gm/dL (11.6-15.3); Mean Corpuscular Hemoglobin 30.5 pg (27.0-34.0); Mean Platelet Volume 8.3 fL (7.0-11.0); Platelet Count 321 th/mm3 (150-450); Red Blood Count 3.49 mil/mm3 (4.00-5.30); Red Cell Distribution Width 13.6 % (11.6-17.2); White Blood Count 6.3 th/mm3 (4.0-11.0)
[2018-03-12 06:24] LABS: Albumin 4.1 g/dL (3.4-5.0); Anion Gap 11 meq/L (5-15); Aspartate Aminotransferase 45 U/L (15-37); Blood Urea Nitrogen 48 mg/dL (7-18); Calcium 8.9 mg/dL (8.5-10.1); Carbon Dioxide 30.2 meq/L (21.0-32.0); Chloride 95 meq/L (98-107); Glomerular Filtration Rate 18 mL/min (>89); Glucose,Random 107 mg/dL (74-106); Sodium 136 meq/L (136-145)
[2018-03-12 06:28] LABS: Alanine Aminotransferase 22 U/L (10-53); Alkaline Phosphatase 90 U/L (45-117); Total Protein 8.2 g/dL (6.4-8.2)
[2018-03-12] MEDS: Calcium Acetate 667 MG Capsule PO SCH ×3 (09:21→17:49)
[2018-03-12] MEDS: QUEtiapine 100 MG Tablet PO SCH ×2 (09:22→21:44)
[2018-03-12] MEDS: Heparin - SQ 10,000 UNITS/ML Vial SQ SCH (10:12)
[2018-03-12] MEDS: Sodium Chloride 0.9% 2 ML Flush BID IV.FLUSH SCH ×2 (10:13→21:45)
[2018-03-12] MEDS: Metoprolol Tartrate 50 MG Tablet PO SCH ×2 (10:13→21:44)
--- NOTE | 2018-03-12 11:36 | P.PNNP ---
Subjective Interval history: Seen in AM. Reported nausea, vomiting, and rectal bleeding last night. Plan for EGD and colonscopy tomorrow. Creatinine has continue to improve at 2.87. <Denise Raymond - Last Filed: 03/12/18 17:15> Physical Exam Vital signs: Vital Signs 03/11/18 12:00 03/11/18 16:00 03/11/18 20:00 Temperature 98.1 F 98.3 F 97.4 F L Pulse Rate 95 H 87 90 Respiratory Rate 16 16 18 Blood Pressure 116/62 116/67 137/65 Pulse Oximetry 96 98 99 03/12/18 00:00 03/12/18 04:00 03/12/18 08:00 Temperature 97.9 F 98.6 F 97.9 F Pulse Rate 81 105 H 84 Respiratory Rate 17 17 18 Blood Pressure 129/83 124/83 116/58 L Pulse Oximetry 99 97 95 Intake & Output 03/11/18 03/12/18 03/12/18 18:59 06:59 18:59 Intake Total 460 / 460 1253 / 1253 Output Total 1999 Balance 460 / 460 -747 / -747 Weight 95.1 kg Intake: Oral 460 / 460 1253 / 1253 Output: Urine 1999 Other: # Voids 3 Date of Last Bowel Movement 03/10/18 03/12/18 03/10/18 # Bowel Movements 1 Narrative: GENERAL: Alert and oriented. Appears comfortable. SKIN: Warm and dry. NECK: Supple, trachea midline. No JVD. CARDIOVASCULAR: Regular rate and rhythm without murmurs, gallops, or rubs. Right upper chest Vas-Cath in place. RESPIRATORY: Breath sounds equal bilaterally. No accessory muscle use. GASTROINTESTINAL: Abdomen soft, non-tender, nondistended. MUSCULOSKELETAL: No cyanosis, trace bilateral lower extremity edema. Positive bowel sounds. BACK: Nontender without obvious deformity. No CVA tenderness. - Urinary Catheter Management Indwelling Urethral Catheter Cath placed during this visit: yes, but has since been removed by the nurse Reason for continuing: Acute urinary retention Insertion date: 02/16/18 Insertion time: 13:00 Removal date: 02/19/18 Removal time: 15:00 <Denise Raymond - Last Filed: 03/12/18 17:15> Vital signs: Vital Signs 03/12/18 12:00 03/12/18 16:00 03/12/18 20:00 Temperature 98.0 F 97.4 F L 98 F Pulse Rate 95 H 88 90 Respiratory Rate 18 18 20 Blood Pressure 100/59 L 135/63 119/71 Pulse Oximetry 96 98 100 03/13/18 00:00 03/13/18 04:00 03/13/18 08:02 Temperature 97.9 F 97.8 F 97.9 F Pulse Rate 87 84 87 Respiratory Rate 18 18 16 Blood Pressure 121/67 114/70 112/72 Pulse Oximetry 97 97 98 03/13/18 10:25 Temperature 97.4 F L Pulse Rate 88 Respiratory Rate 18 Blood Pressure 124/58 L Pulse Oximetry 99 Intake & Output 03/12/18 03/13/18 03/13/18 18:59 06:59 18:59 Intake Total 520 / 520 0 / 0 Output Total 2300 / 2300 Balance -1780 / -1780 0 / 0 Weight 95.5 kg Intake: Oral 520 / 520 0 / 0 Output: Urine 2300 / 2300 Other: # Voids 7 Date of Last Bowel Movement 03/10/18 03/13/18 03/13/18 # Bowel Movements 1 7 - Urinary Catheter Management Indwelling Urethral Catheter Cath placed during this visit: no <Robert Doherty - Last Filed: 03/13/18 11:52> Assessment and Plan - Assessment (1) Acute kidney injury Code(s): N17.9 - Acute kidney failure, unspecified Status: Acute Plan: The patient has apparent acute kidney injury in the setting of rhabdomyolysis. Complements are normal and MICAH normal. Renal ultrasound with mildly echogenic kidneys which may reflect medical renal disease. Hemodialysis started on . Perma Cath placement 03/04 HD has been on Saturday/Saturday/Saturday. HD last done on Saturday. Has been on hold with improvement in labs and urinary output. Continue to avoid nephrotoxic agents. Maintain strict I+O. Follow urinary output and BMP. Will monitor labs and urinary output daily assessing need for dialysis, currently improvement noted. Hypokalemia, replacement ordered. (2) Hypertension Code(s): I10 - Essential (primary) hypertension Status: Acute Plan: Well controlled. <Denise Raymond - Last Filed: 03/12/18 17:15> - Assessment (1) Acute kidney injury Code(s): N17.9 - Acute kidney failure, unspecified Status: Acute Plan: Patient seen and examined, agree with above. Creatinine is improving, K is low, to replace. (2) Hypertension Code(s): I10 - Essential (primary) hypertension Status: Acute <Robert Doherty - Last Filed: 03/13/18 11:52>
[2018-03-12 12:20] LABS: Hematocrit 29.7 % (35.0-46.0); Hemoglobin 10.3 gm/dL (11.6-15.3)
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
[2018-03-12] MEDS ORDERED: PEG 3350/E-Lyte Soln 4000 ML Bottle PO ONE (16:00)
--- NOTE | 2018-03-12 16:33 | P.PNIM ---
Subjective Interval history: Patient reports episode of nausea and vague abdominal cramping this morning which has resolved. She reports a maroon bowel movement this morning, with none since. Currently she says she is feeling all right. Denies any chest pain or shortness of breath. Physical Exam Vital signs: Vital Signs 03/11/18 20:00 03/12/18 00:00 03/12/18 04:00 Temperature 97.4 F L 97.9 F 98.6 F Pulse Rate 90 81 105 H Respiratory Rate 18 17 17 Blood Pressure 137/65 129/83 124/83 Pulse Oximetry 99 99 97 03/12/18 08:00 03/12/18 12:00 Temperature 97.9 F 98.0 F Pulse Rate 84 87 Respiratory Rate 18 18 Blood Pressure 116/58 L 100/59 L Pulse Oximetry 95 96 Intake & Output 03/11/18 03/12/18 03/12/18 18:59 06:59 18:59 Intake Total 460 / 460 1253 / 1253 Output Total 1999 Balance 460 / 460 -747 / -747 Weight 95.1 kg Intake: Oral 460 / 460 1253 / 1253 Output: Urine 1999 Other: # Voids 3 Date of Last Bowel Movement 03/10/18 03/12/18 03/10/18 # Bowel Movements 1 Narrative: GENERAL: Patient sitting up in bed. Appears comfortable. SKIN: Warm and dry. NECK: Supple, trachea midline. No JVD. CARDIOVASCULAR: Regular rate and rhythm without murmurs, gallops, or rubs. Right upper chest Vas-Cath in place. RESPIRATORY: Breath sounds equal bilaterally. No accessory muscle use. GASTROINTESTINAL: Abdomen soft, non-tender, nondistended. MUSCULOSKELETAL: No cyanosis, trace bilateral lower extremity edema. Positive bowel sounds. BACK: Nontender without obvious deformity. No CVA tenderness. - Urinary Catheter Management Indwelling Urethral Catheter Cath placed during this visit: yes, but has since been removed by the nurse Reason for continuing: Acute urinary retention Insertion date: 02/16/18 Insertion time: 13:00 Removal date: 02/19/18 Removal time: 15:00 Results - Labs CBC & Chem 7: 03/12/18 11:35 03/12/18 03:55 Laboratory Results - last 24 hr 03/12/18 03/12/18 03/12/18 03:55 03:55 11:35 WBC 6.3 RBC 3.49 L Hgb 10.6 L 10.3 L Hct 30.3 L 29.7 L MCV 87.0 MCH 30.5 MCHC 35.0 RDW 13.6 Plt Count 321 MPV 8.3 Sodium 136 Potassium 3.0 L Chloride 95 L Carbon Dioxide 30.2 Anion Gap 11 BUN 48 H Creatinine 2.87 H Estimated GFR 18 L Random Glucose 107 H Calcium 8.9 Total Bilirubin 0.3 AST 45 H ALT 22 Alkaline Phosphatase 90 Total Protein 8.2 D Albumin 4.1 - Procedures Vas cath placed in right IJ 02/18. Right permacath placed March 04, 2018 Assessment and Plan - Assessment (1) Rhabdomyolysis Code(s): M62.82 - Rhabdomyolysis Status: Acute (2) Bipolar 1 disorder, mixed Code(s): F31.60 - Bipolar disorder, current episode mixed, unspecified Status : Chronic (3) Acute kidney injury Code(s): N17.9 - Acute kidney failure, unspecified Status: Acute (4) Elevated liver enzymes Code(s): R74.8 - Abnormal levels of other serum enzymes Status: Acute - Plan 48-year-old female with: //Severe Rhabdomyolysis: Resolved /Acute renal failure requiring hemodialysis -Hemodialysis started on February 18, 2018 -Status post permacath placement March 04, 2018 -Appreciate input from nephrology -Continue with dialysis Saturday -Continue with Lasix twice daily and monitor BUN and creatinine -Nephrology to decide if patient will need outpatient hemodialysis = 03/10. No need for hemodialysis today as per nephrology. Appreciate nephrology assistance. Continue to monitor. =03/11. Creatinine improving, however EUS in still elevated at 53. Continue to monitor. Patient without any insurance = 03/12. Creatinine improving to 2.9 today. BUN 48. As per nephrology. Continue to monitor. //Possible GI bleed. Hemoglobin appears stable however had maroon bowel movement on 03/12. EGD/ colonoscopy as per GI. Appreciate GI assistance. Continue to monitor. //Hyperkalemia //Hypokalemia -As per nephrology. //Orthopnea-resolved - Echocardiogram with EF 50-55% -continue Lasix 40 mg p.o. twice daily' //Elevated LFTs -Secondary to rhabdomyolysis, improving, GGT is negative //Hyponatremia-Improved -Monitor BMP //HTN -Continue Lopressor and nifedipine -Continue with clonidine as needed -Blood pressure continues acceptable. Cont. Hydralazine 25 mg p.o. 3 times daily //Bipolar disorder, hypomanic -Continue Seroquel 100 mg p.o. twice daily -Per psych, does not meet criteria for involuntary psychiatric admission. = 03/10. Patient appropriate. Continue to monitor. //Insomnia -continue Seroquel -Ativan 0.5 mg PO PRN //UTI -completed Rocephin. //DVT prophylaxis: SCD's/Feliberto/ Heparin sq Physical therapy, OOB Discharge Planning: Pending nephrology clearance. May need hemodialysis as outpatient. patient without insurance. (1) Rhabdomyolysis Qualifiers: Rhabdomyolysis type: non-traumatic Qualified Code(s): M62.82 - Rhabdomyolysis
[2018-03-12 18:31] LABS: Hematocrit 32.4 % (35.0-46.0); Hemoglobin 11.1 gm/dL (11.6-15.3)
[2018-03-12] MEDS: LORazepam 0.5 MG Tablet PO PRN (21:44)
[2018-03-12] MEDS: Melatonin 5 MG Tablet PO PRN (21:44)
[2018-03-12 22:44] LABS: Hematocrit 32.2 % (35.0-46.0); Hemoglobin 10.6 gm/dL (11.6-15.3)
[2018-03-13 06:58] LABS: Hematocrit 29.4 % (35.0-46.0); Hemoglobin 9.9 gm/dL (11.6-15.3); Mean Corpuscular HGB Conc 33.7 % (32.0-36.0); Mean Corpuscular Hemoglobin 30.1 pg (27.0-34.0); Mean Corpuscular Volume 89.3 fL (80.0-100.0); Mean Platelet Volume 8.4 fL (7.0-11.0); Platelet Count 297 th/mm3 (150-450); Red Blood Count 3.29 mil/mm3 (4.00-5.30); Red Cell Distribution Width 13.9 % (11.6-17.2)
[2018-03-13 07:47] LABS: Alanine Aminotransferase 19 U/L (10-53); Albumin 3.5 g/dL (3.4-5.0); Alkaline Phosphatase 82 U/L (45-117); Anion Gap 10 meq/L (5-15); Aspartate Aminotransferase 34 U/L (15-37); Blood Urea Nitrogen 34 mg/dL (7-18); Calcium 8.7 mg/dL (8.5-10.1); Carbon Dioxide 30.3 meq/L (21.0-32.0); Chloride 101 meq/L (98-107); Glomerular Filtration Rate 24 mL/min (>89); Glucose,Random 86 mg/dL (74-106); Phosphorus 3.9 mg/dL (2.5-4.9); Potassium 3.4 meq/L (3.5-5.1); Sodium 141 meq/L (136-145); Total Protein 7.3 g/dL (6.4-8.2)
[2018-03-13] MEDS ORDERED: Metoprolol Tartrate 25 MG Tablet PO ONE (08:55)
[2018-03-13] MEDS ORDERED: Chlorhexidine Gluconate 2% 1 Pack (2 Cloths) TOPICAL ONE (08:55)
[2018-03-13] MEDS ORDERED: Sodium Chlor 0.9% Inj 500 ML IV.SIG SCH (09:00)
[2018-03-13] MEDS ORDERED: Lidocaine PF 1% Inj 5 ML Syringe OTHER ONE (09:50)
--- NOTE | 2018-03-13 10:29 | P.PCN ---
Date of procedure: 03/13/18 Procedure: THANK YOU FOR THE REFERRAL Indication; dyspepsia, anemia, questionable GI bleed, family history of colon cancer Procedure Performed; upper endoscopy: With biopsy, dilation of esophageal ring Colonoscopy: Diagnostic After informing the patient about procedure and possible complications consent was signed. history and physical were updated. Patient was taken to the procedure room and placed in position. Time out was completed. Adequate sedation was performed by anesthesia provider. Upper Endoscopy, the scope was placed in the mouth advanced under video guide to the second portion of the duodenum, then the scope was withdrawal to the stomach and retro-flexion was performed, the scope was withdrawal to the esophagus then out of the mouth without any immediate complication Colonoscopy, rectal exam was performed the scope was placed in the rectum advanced under video guide to the cecum which was identified by ileo-cecal valve and appendiceal orifice, then the scope withdrawal slowly with examination of the mucosa to the rectum and retro-flexion was performed, the scope was withdrawal without any immediate complication Findings; colonoscopy, prep fair, some stool throughout the colon may interfere with division of small lesion Terminal ileum : Normal Colon: Normal exam except the area that could not be seen because of stool Rectum: Small hemorrhoid Esophagus: Esophagitis grade B, distal esophageal ring status post biopsy of the esophagitis and dilation with savory guidewire size 17 mm Stomach: Significant gastritis mostly in the body of the stomach biopsy from the antrum and body Duodenum: Normal Recommendations; 1- Supportive care 2- ok to transfer to recovery area then discharge per protocol 2-buzz-[place] diet 4-Hemoccult on a yearly basis by primary care physician 5-colonoscopy in 5 years 6- EGD as needed 7-no NSAIDs or alcohol 8-Protonix 40 mg daily 9-monitor hemoglobin with packed RBC as needed
--- NOTE | 2018-03-13 10:32 | P.PNGI ---
Subjective Interval history: Patient laying in bed, seems to be comfortable no new complaint, she takes significant amount of Benadryl on a daily basis for insomnia, she had rhabdomyolysis which seems to be resolving Physical Exam Vital signs: Vital Signs 03/12/18 12:00 03/12/18 16:00 03/12/18 20:00 Temperature 98.0 F 97.4 F L 98 F Pulse Rate 95 H 88 90 Respiratory Rate 18 18 20 Blood Pressure 100/59 L 135/63 119/71 Pulse Oximetry 96 98 100 03/13/18 00:00 03/13/18 04:00 03/13/18 08:02 Temperature 97.9 F 97.8 F 97.9 F Pulse Rate 87 84 87 Respiratory Rate 18 18 16 Blood Pressure 121/67 114/70 112/72 Pulse Oximetry 97 97 98 Intake & Output 03/12/18 03/13/18 03/13/18 18:59 06:59 18:59 Intake Total 520 / 520 0 / 0 Output Total 2300 / 2300 Balance -1780 / -1780 0 / 0 Weight 95.5 kg Intake: Oral 520 / 520 0 / 0 Output: Urine 2300 / 2300 Other: # Voids 7 Date of Last Bowel Movement 03/10/18 03/13/18 # Bowel Movements 1 7 - Constitutional no acute distress - Routine HEENT Exam Head: Present: normocephalic, atraumatic Eye: Present: EOMI, PERRL ENT: Present: mucous membranes moist - Routine Neck Exam Present: supple, full ROM - Routine Respiratory Exam Present: CTA bilaterally - Routine Cardiovascular Exam Present: RRR, S1, S2 - Routine Abdominal Exam Present: soft, normoactive bowel sounds - Routine Extremities Exam Present: full ROM - Routine Skin Exam Present: intact, warm - Routine Neurological Exam Present: alert, oriented X3 - Routine Psychiatric Exam Present: normal affect - Urinary Catheter Management Indwelling Urethral Catheter Cath placed during this visit: yes, but has since been removed by the nurse Reason for continuing: Acute urinary retention Insertion date: 02/16/18 Insertion time: 13:00 Removal date: 02/19/18 Removal time: 15:00 Results - Labs CBC & Chem 7: 03/13/18 04:38 03/13/18 04:38 Laboratory Results - last 24 hr 03/12/18 03/12/18 03/12/18 11:35 17:23 22:12 WBC RBC Hgb 10.3 L 11.1 L 10.6 L Hct 29.7 L 32.4 L 32.2 L MCV MCH MCHC RDW Plt Count MPV Sodium Potassium Chloride Carbon Dioxide Anion Gap BUN Creatinine Estimated GFR Random Glucose Calcium Phosphorus Total Bilirubin AST ALT Alkaline Phosphatase Total Protein Albumin 03/13/18 03/13/18 04:38 04:38 WBC 6.0 RBC 3.29 L Hgb 9.9 L Hct 29.4 L MCV 89.3 MCH 30.1 MCHC 33.7 RDW 13.9 Plt Count 297 MPV 8.4 Sodium 141 Potassium 3.4 L Chloride 101 Carbon Dioxide 30.3 Anion Gap 10 BUN 34 H Creatinine 2.19 H Estimated GFR 24 L Random Glucose 86 Calcium 8.7 Phosphorus 3.9 Total Bilirubin 0.3 AST 34 ALT 19 Alkaline Phosphatase 82 Total Protein 7.3 D Albumin 3.5 D - Procedures Vas cath placed in right IJ 02/18. Right permacath placed March 04, 2018 Assessment and Plan - Plan patient was seen and examined, no sign of active bleeding, liver function test improved most likely related to rhabdomyolysis and medication. Had upper endoscopy and colonoscopy today Findings; colonoscopy, prep fair, some stool throughout the colon may interfere with division of small lesion Terminal ileum : Normal Colon: Normal exam except the area that could not be seen because of stool Rectum: Small hemorrhoid Esophagus: Esophagitis grade B, distal esophageal ring status post biopsy of the esophagitis and dilation with savory guidewire size 17 mm Stomach: Significant gastritis mostly in the body of the stomach biopsy from the antrum and body Duodenum: Normal Recommendations; 1- Supportive care 2- ok to transfer to recovery area then discharge per protocol 8-ades-rmipi diet 4-Hemoccult on a yearly basis by primary care physician 5-colonoscopy in 5 years 6- EGD as needed 7-no NSAIDs or alcohol 8-Protonix 40 mg daily 9-monitor hemoglobin with packed RBC as needed
--- NOTE | 2018-03-13 11:10 | P.PNNP ---
Subjective Interval history: S/P EGD and colonscopy. Denies any shortness of breath. Creatinine continues to improve at 2.19. <Denise Raymond - Last Filed: 03/13/18 11:05> Physical Exam Vital signs: Vital Signs 03/12/18 12:00 03/12/18 16:00 03/12/18 20:00 Temperature 98.0 F 97.4 F L 98 F Pulse Rate 95 H 88 90 Respiratory Rate 18 20 Blood Pressure 100/59 L 135/63 119/71 Pulse Oximetry 96 98 100 03/13/18 00:00 03/13/18 04:00 03/13/18 08:02 Temperature 97.9 F 97.8 F 97.9 F Pulse Rate 87 84 87 Respiratory Rate 16 Blood Pressure 121/67 114/70 112/72 Pulse Oximetry 97 97 98 03/13/18 10:25 Temperature 97.4 F L Pulse Rate 88 Respiratory Rate 18 Blood Pressure 124/58 L Pulse Oximetry 99 Intake & Output 03/12/18 03/13/18 03/13/18 18:59 06:59 18:59 Intake Total 520 / 520 0 / 0 Output Total 2300 / 2300 Balance -1780 / -1780 0 / 0 Weight 95.5 kg Intake: Oral 520 / 520 0 / 0 Output: Urine 2300 / 2300 Other: # Voids 7 Date of Last Bowel Movement 03/10/18 03/13/18 03/13/18 # Bowel Movements 1 7 Narrative: GENERAL: Alert and oriented. Appears comfortable. SKIN: Warm and dry. NECK: Supple, trachea midline. No JVD. CARDIOVASCULAR: Regular rate and rhythm without murmurs, gallops, or rubs. Right upper chest permacath RESPIRATORY: Breath sounds equal bilaterally. No accessory muscle use. GASTROINTESTINAL: Abdomen soft, non-tender, nondistended. MUSCULOSKELETAL: No cyanosis, trace bilateral lower extremity edema. Positive bowel sounds. BACK: Nontender without obvious deformity. No CVA tenderness. - Urinary Catheter Management Indwelling Urethral Catheter Cath placed during this visit: yes, but has since been removed by the nurse Reason for continuing: Acute urinary retention Insertion date: 02/16/18 Insertion time: 13:00 Removal date: 02/19/18 Removal time: 15:00 <Denise Raymond - Last Filed: 03/13/18 11:05> - Urinary Catheter Management Indwelling Urethral Catheter Cath placed during this visit: no <Robert Doherty - Last Filed: 03/17/18 20:58> Assessment and Plan - Assessment (1) Acute kidney injury Code(s): N17.9 - Acute kidney failure, unspecified Status: Acute Plan: The patient has apparent acute kidney injury in the setting of rhabdomyolysis. Complements are normal and MICAH normal. Renal ultrasound with mildly echogenic kidneys which may reflect medical renal disease. Hemodialysis started on 02/18 with last 03/07. Continue to avoid nephrotoxic agents. Maintain strict I+O. Follow urinary output and BMP. Interventional radiology consulted for removal of permacath, no longer needed of HD Hypokalemia, replacement given (2) Hypertension Code(s): I10 - Essential (primary) hypertension Status: Acute Plan: Well controlled. <Deinse Raymond - Last Filed: 03/13/18 11:05> - Assessment (1) Acute kidney injury Code(s): N17.9 - Acute kidney failure, unspecified Status: Acute Plan: Patient seen and examined, agree with above. Creatinine continue to improve, removing PermCath. If discharge, to follow with PCP. (2) Hypertension Code(s): I10 - Essential (primary) hypertension Status: Acute <Robert Doherty - Last Filed: 03/17/18 20:58>
[2018-03-13] MEDS ORDERED: Lidocaine 1%/Epinephrine 1:100,000 Inj 30 ML Vial ONE (11:49)
--- NOTE | 2018-03-13 12:05 | P.RAD ---
Post Procedure Progress Note - Pre Procedure Diagnosis (1) Rhabdomyolysis (2) Acute kidney injury - Post Procedure Diagnosis (1) Rhabdomyolysis (2) Acute kidney injury - Procedure Information Procedure Date: 03/13/18 Supervising Radiologist: Ervin Alfaro MD Estimated blood loss (mL): 0 Anesthesia: Local - Plan of Activity Patient to Unit: Nursing Unit Additional Comments: Perm Cath removed without difficulty See PACS Report for procedural detail/treatment.
[2018-03-13] MEDS: Metoprolol Tartrate 50 MG Tablet PO SCH (15:03)
[2018-03-13] MEDS: QUEtiapine 100 MG Tablet PO SCH ×2 (15:04→21:17)
[2018-03-13] MEDS: Sodium Chloride 0.9% 2 ML Flush BID IV.FLUSH SCH (19:00)
[2018-03-13] MEDS: LORazepam 0.5 MG Tablet PO PRN (21:22)
[2018-03-13] MEDS: Melatonin 5 MG Tablet PO PRN (21:22)
--- NOTE | 2018-03-13 21:36 | P.PNIM ---
Subjective Interval history: patient seen today around 2 PM. Says she is feeling okay. Denies any abdominal pain. Denies any chest pain or shortness of breath. Physical Exam Vital signs: Vital Signs 03/13/18 00:00 03/13/18 04:00 03/13/18 08:02 Temperature 97.9 F 97.8 F 97.9 F Pulse Rate 87 84 87 Respiratory Rate 18 16 Blood Pressure 121/67 114/70 112/72 Pulse Oximetry 97 97 98 03/13/18 10:25 03/13/18 16:00 03/13/18 20:00 Temperature 97.4 F L 97.9 F 98.5 F Pulse Rate 88 100 H 100 H Respiratory Rate 16 Blood Pressure 124/58 L 128/67 110/70 Pulse Oximetry 99 97 98 Intake & Output 03/13/18 03/13/18 03/14/18 06:59 18:59 06:59 Intake Total 0 / 0 1020 / 1020 Balance 0 / 0 1020 / 1020 Weight 95.5 kg Intake: Oral 0 / 0 720 / 720 Anesthesia Amount 300 / 300 Other: # Voids 7 3 Date of Last Bowel Movement 03/13/18 03/13/18 # Bowel Movements 7 Narrative: GENERAL: patient sitting up in bed. Appears comfortable. Alert and oriented 3. SKIN: Warm and dry. HEAD: Normocephalic. EYES: No scleral icterus. No injection or drainage. NECK: Supple, trachea midline. No JVD. CARDIOVASCULAR: Regular rate and rhythm without murmurs, gallops, or rubs. RESPIRATORY: Breath sounds equal bilaterally. No accessory muscle use. GASTROINTESTINAL: Abdomen soft, non-tender, nondistended. MUSCULOSKELETAL: No cyanosis, or edema. BACK: Nontender without obvious deformity. No CVA tenderness. - Urinary Catheter Management Indwelling Urethral Catheter Cath placed during this visit: yes, but has since been removed by the nurse Reason for continuing: Acute urinary retention Insertion date: 02/16/18 Insertion time: 13:00 Removal date: 02/19/18 Removal time: 15:00 Results - Labs CBC & Chem 7: 03/13/18 04:38 03/13/18 04:38 Laboratory Results - last 24 hr 03/12/18 03/13/18 03/13/18 22:12 04:38 04:38 WBC 6.0 RBC 3.29 L Hgb 10.6 L 9.9 L Hct 32.2 L 29.4 L MCV 89.3 MCH 30.1 MCHC 33.7 RDW 13.9 Plt Count 297 MPV 8.4 Sodium 141 Potassium 3.4 L Chloride 101 Carbon Dioxide 30.3 Anion Gap 10 BUN 34 H Creatinine 2.19 H Estimated GFR 24 L Random Glucose 86 Calcium 8.7 Phosphorus 3.9 Total Bilirubin 0.3 AST 34 ALT 19 Alkaline Phosphatase 82 Total Protein 7.3 D Albumin 3.5 D - Procedures Vas cath placed in right IJ 02/18. Right permacath placed March 04, 2018 Assessment and Plan - Assessment (1) Rhabdomyolysis Code(s): M62.82 - Rhabdomyolysis Status: Acute (2) Bipolar 1 disorder, mixed Code(s): F31.60 - Bipolar disorder, current episode mixed, unspecified Status : Chronic (3) Acute kidney injury Code(s): N17.9 - Acute kidney failure, unspecified Status: Acute (4) Elevated liver enzymes Code(s): R74.8 - Abnormal levels of other serum enzymes Status: Acute - Plan 48-year-old female with: //Severe Rhabdomyolysis: Resolved /Acute renal failure requiring hemodialysis -Hemodialysis started on February 18, 2018 -Status post permacath placement March 04, 2018 -Appreciate input from nephrology -Continue with dialysis Saturday -Continue with Lasix twice daily and monitor BUN and creatinine -Nephrology to decide if patient will need outpatient hemodialysis = 03/10. No need for hemodialysis today as per nephrology. Appreciate nephrology assistance. Continue to monitor. =03/11. Creatinine improving, however EUS in still elevated at 53. Continue to monitor. Patient without any insurance = 03/12. Creatinine improving to 2.9 today. BUN 48. As per nephrology. Continue to monitor. =03/13. Creatinine much improved. 2.3. Vas-Cath removed. Follow-up with nephrology as outpatient. //Possible GI bleed. Hemoglobin appears stable however had maroon bowel movement on 03/12. EGD/ colonoscopy as per GI. Appreciate GI assistance. Continue to monitor. =EGD colonoscopy showing gastritis. Esophageal stricture status post dilation. Follow-up with GI as outpatient echo for biopsy results. //Hyperkalemia //Hypokalemia -As per nephrology. //Orthopnea-resolved - Echocardiogram with EF 50-55% -continue Lasix 40 mg p.o. twice daily' //Elevated LFTs -Secondary to rhabdomyolysis, improving, GGT is negative //Hyponatremia-Improved -Monitor BMP //HTN -Continue Lopressor and nifedipine -Continue with clonidine as needed -Blood pressure continues acceptable. Cont. Hydralazine 25 mg p.o. 3 times daily //Bipolar disorder, hypomanic -Continue Seroquel 100 mg p.o. twice daily -Per psych, does not meet criteria for involuntary psychiatric admission. = 03/10. Patient appropriate. Continue to monitor. //Insomnia -continue Seroquel -Ativan 0.5 mg PO PRN //UTI -completed Rocephin. //DVT prophylaxis: SCD's/Feliberto/ Heparin sq Physical therapy, OOB Discharge Planning: Pending nephrology clearance. May need hemodialysis as outpatient. patient without insurance. (1) Rhabdomyolysis Qualifiers: Rhabdomyolysis type: non-traumatic Qualified Code(s): M62.82 - Rhabdomyolysis
[2018-03-14] MEDS: Metoprolol Tartrate 50 MG Tablet PO SCH ×2 (03:33→08:05)
[2018-03-14] MEDS: Sodium Chloride 0.9% 2 ML Flush BID IV.FLUSH SCH ×2 (03:37→08:13)
[2018-03-14 07:20] LABS: Hematocrit 30.5 % (35.0-46.0); Hemoglobin 10.2 gm/dL (11.6-15.3); Mean Corpuscular HGB Conc 33.5 % (32.0-36.0); Mean Corpuscular Hemoglobin 29.8 pg (27.0-34.0); Mean Platelet Volume 8.2 fL (7.0-11.0); Platelet Count 328 th/mm3 (150-450); Red Blood Count 3.43 mil/mm3 (4.00-5.30); Red Cell Distribution Width 13.5 % (11.6-17.2)
--- NOTE | 2018-03-14 07:31 | IR ---
EXAM DATE: 03/13/2018 12:26 PM EST AGE/SEX: 48 years / Female INDICATIONS: Patient with history of acute kidney injury. No longer needs dialysis. CLINICAL DATA: This is the patient's subsequent encounter. Patient reports that signs and symptoms h ave been present for 1 day and indicates a pain score of 0/10. MEDICAL/SURGICAL HISTORY: . Bipolar disorder, Rhabdomyolysis, elevated liver enzymes ,smoker H ysterectomy. right perm cath , COMPARISON: No prior exams available for comparison. IMAGE SERIES: 0 ACCESS SITE: Right PROCEDURE: 1. PermaCath removal. The risks, benefits and alternatives to the procedure were explained and verbal and written consent w as obtained. The site was prepped in sterile fashion. Full sterile technique was used, including ca p, mask, sterile gloves and gown and a large sterile sheet. Hand hygiene and 2% chlorhexidine and/or betadine/alcohol prep was utilized per protocol for cutaneous antisepsis. The skin and subcutaneous tissues were infiltrated with local anesthetic solution. The tract was anesthetized with 1% Lidocaine using. The Permcath was dissected from the subcutaneous tissues and easily removed in one piece. Manual pressure was applied to the venotomy site until hem ostasis was obtained. Sterile dressing was applied. The patient tolerated the procedure well and there were no complications. CONCLUSION: 1. Uncomplicated Permcath removal. Electronically signed by: Ervin Alfaro MD 03/14/2018 7:30 AM EST
[2018-03-14 07:48] LABS: Albumin 3.8 g/dL (3.4-5.0); Calcium 8.4 mg/dL (8.5-10.1); Carbon Dioxide 26.5 meq/L (21.0-32.0); Potassium 3.6 meq/L (3.5-5.1)
[2018-03-14 07:50] LABS: Phosphorus 3.4 mg/dL (2.5-4.9)
[2018-03-14] MEDS: QUEtiapine 100 MG Tablet PO SCH (08:13)
[2018-03-14 08:58] LABS: Eosinophils 6 % (0-4); Lymphocytes 33 % (9-44); Monocytes 12 % (0-8)
[2018-03-14 08:59] LABS: Platelet Estimate Normal (Normal); Platelet Morphology Normal (Normal)
--- NOTE | 2018-03-14 09:34 | P.PNIM ---
Subjective Interval history: Says she is feeling well. Denies any chest pain or shortness of breath. Physical Exam Vital signs: Vital Signs 03/13/18 10:25 03/13/18 16:00 03/13/18 20:00 Temperature 97.4 F L 97.9 F 98.5 F Pulse Rate 88 100 H 98 H Respiratory Rate 18 18 16 Blood Pressure 124/58 L 128/67 110/70 Pulse Oximetry 99 97 98 03/13/18 23:39 03/14/18 00:00 03/14/18 04:00 Temperature 98.3 F 97.5 F L Pulse Rate 104 H 92 H 80 Respiratory Rate 16 16 Blood Pressure 122/57 L 131/73 Pulse Oximetry 98 100 03/14/18 08:00 03/14/18 08:27 Temperature 98.1 F Pulse Rate 86 Respiratory Rate 18 Blood Pressure 121/80 Pulse Oximetry 99 99 Intake & Output 03/13/18 03/14/18 03/14/18 18:59 06:59 18:59 Intake Total 1020 / 1020 690 / 690 Output Total 950 / 950 Balance 1020 / 1020 -260 / -260 Weight 96.2 kg Intake: Oral 720 / 720 690 / 690 Anesthesia Amount 300 / 300 Output: Urine 950 / 950 Other: # Voids 3 Date of Last Bowel Movement 03/13/18 # Bowel Movements 1 Narrative: GENERAL: patient sitting up in bed. Appears comfortable. Alert and oriented 3. Exam unchanged SKIN: Warm and dry. HEAD: Normocephalic. EYES: No scleral icterus. No injection or drainage. NECK: Supple, trachea midline. No JVD. CARDIOVASCULAR: Regular rate and rhythm without murmurs, gallops, or rubs. RESPIRATORY: Breath sounds equal bilaterally. No accessory muscle use. GASTROINTESTINAL: Abdomen soft, non-tender, nondistended. MUSCULOSKELETAL: No cyanosis, or edema. BACK: Nontender without obvious deformity. No CVA tenderness. - Urinary Catheter Management Indwelling Urethral Catheter Cath placed during this visit: yes, but has since been removed by the nurse Reason for continuing: Acute urinary retention Insertion date: 02/16/18 Insertion time: 13:00 Removal date: 02/19/18 Removal time: 15:00 Results - Labs CBC & Chem 7: 03/14/18 06:52 03/14/18 06:52 Laboratory Results - last 24 hr 03/14/18 03/14/18 06:52 06:52 WBC 7.0 RBC 3.43 L Hgb 10.2 L Hct 30.5 L MCV 89.0 MCH 29.8 MCHC 33.5 RDW 13.5 Plt Count 328 MPV 8.2 Prelim Diff (Auto) Manual diff required WBC Differential Manual diff final Seg Neuts % (Manual) 46 Band Neuts % (Manual) 1 Lymphocytes % (Manual) 33 Monocytes % (Manual) 12 H Eosinophils % (Manual) 6 H Basophils % (Manual) 2 Abs Neuts (Manual) 3.3 Differential Comment . Platelet Estimate Normal Platelet Morphology Normal Sodium 140 Potassium 3.6 Chloride 104 Carbon Dioxide 26.5 Anion Gap 10 BUN 26 H Creatinine 2.15 H Estimated GFR 25 L Random Glucose 99 Calcium 8.4 L Phosphorus 3.4 Magnesium 2.0 Albumin 3.8 - Imaging Impressions Tube Removal 03/13/18 00:00 CONCLUSION: 1. Uncomplicated Permcath removal. - Procedures Vas cath placed in right IJ 02/18. Right permacath placed March 04, 2018 Assessment and Plan - Assessment (1) Rhabdomyolysis Code(s): M62.82 - Rhabdomyolysis Status: Acute (2) Bipolar 1 disorder, mixed Code(s): F31.60 - Bipolar disorder, current episode mixed, unspecified Status : Chronic (3) Acute kidney injury Code(s): N17.9 - Acute kidney failure, unspecified Status: Acute (4) Elevated liver enzymes Code(s): R74.8 - Abnormal levels of other serum enzymes Status: Acute - Plan 48-year-old female with: //Severe Rhabdomyolysis: Resolved /Acute renal failure requiring hemodialysis -Hemodialysis started on February 18, 2018 -Status post permacath placement March 04, 2018 -Appreciate input from nephrology -Continue with dialysis Saturday -Continue with Lasix twice daily and monitor BUN and creatinine -Nephrology to decide if patient will need outpatient hemodialysis = 03/10. No need for hemodialysis today as per nephrology. Appreciate nephrology assistance. Continue to monitor. =03/11. Creatinine improving, however EUS in still elevated at 53. Continue to monitor. Patient without any insurance = 03/12. Creatinine improving to 2.9 today. BUN 48. As per nephrology. Continue to monitor. =03/13. Creatinine much improved. 2.3. Vas-Cath removed. Follow-up with nephrology as outpatient. = 03/14. Continues improving. //Possible GI bleed. Hemoglobin appears stable however had maroon bowel movement on 03/12. EGD/ colonoscopy as per GI. Appreciate GI assistance. Continue to monitor. =EGD colonoscopy showing gastritis. Esophageal stricture status post dilation. Follow-up with GI as outpatient echo for biopsy results. //Hyperkalemia //Hypokalemia -As per nephrology. //Orthopnea-resolved - Echocardiogram with EF 50-55% -continue Lasix 40 mg p.o. twice daily' //Elevated LFTs -Secondary to rhabdomyolysis, improving, GGT is negative //Hyponatremia-Improved -Monitor BMP //HTN -Continue Lopressor and nifedipine -Continue with clonidine as needed -Blood pressure continues acceptable. Cont. Hydralazine 25 mg p.o. 3 times daily //Bipolar disorder, hypomanic -Continue Seroquel 100 mg p.o. twice daily -Per psych, does not meet criteria for involuntary psychiatric admission. = 03/10. Patient appropriate. Continue to monitor. //Insomnia -continue Seroquel -Ativan 0.5 mg PO PRN //UTI -completed Rocephin. //DVT prophylaxis: SCD's/Feliberto/ Heparin sq Physical therapy, OOB Discharge Planning: patient without insurance. Discharge home. Follow-up with primary care, nephrology, GI. (1) Rhabdomyolysis Qualifiers: Rhabdomyolysis type: non-traumatic Qualified Code(s): M62.82 - Rhabdomyolysis
--- NOTE | 2018-03-14 09:36 | P.DS ---
Date of admission: 02/14/18 16:34 Primary care physician: No Primary Care Physician Brief History from admission: This is a 48-year-old female patient with a known medical history of bipolar disorder who presents the ED via ambulance after call for domestic abuse by the police. It was noted that the police arrived on the scene, patient supposedly had a laceration to her hand and hematoma to her head. Patient is definitely in a manic state on assessment this evening. She states that she has been unable to sleep for the past week, she states she has been taking excessive amounts of Benadryl at home. She states since Saturday night she has been taking at least 12 pills of Benadryl 25 mg at night to help her sleep. She denies any suicidal ideation or attempt. She slowly states that this was due to her inability to sleep and aspiration for something to help her in this area. When questioned about patient's laceration to her head she states she was moving too quickly and bumped her head on the cabinet. She states that also while she was at home she got angry and punched a wall. Patient does have a history of bipolar disorder, takes Depakote at home. She does have a history of tobacco abuse, states she smokes up to 2 packs/day of cigarettes. Patient denies any recent illness including fever, chills, cough, shortness of breath, headache, dumping, nausea, vomiting, diarrhea or dysuria. Patient has been admitted under Alexandra act. Patient will be transferred to the main hospital to the ICU for closer monitoring and eventually moved to the psychiatry unit. She presents with severe rhabdomyolysis with CPK above 14,000, liver enzymes elevated as well as acute kidney injury. DS: Diagnosis - Discharge Diagnosis (1) Rhabdomyolysis Status: Acute (2) Bipolar 1 disorder, mixed Status: Chronic (3) Acute kidney injury Status: Acute (4) Elevated liver enzymes Status: Acute DS: Medications - Discharge Medications Prescriptions: lorazepam 0.5 mg PO HS #14 tab quetiapine 100 mg PO BID 30 Days #60 tab DS: Summary Hospital Course: Patient presented with rhabdomyolysis with CK up to 14,000, acute kidney injury with creatinine starting at 1.8, increasing to 7, requiring dialysis. Patient was managed with aggressive IV fluids, eventually dialysis. Eventually renal function recovered and dialysis was discontinued. Patient had episode of maroon stool for which she underwent EGD and colonoscopy without any active source of bleeding noted. Biopsies are pending and she will need to follow with GI for these. Hemoglobin stable. Psychiatric meds were adjusted with improvement in patient's mood cooperativeness. Patient will need to follow with primary care as outpatient. For problem based summary from most recent progress note, please see below. 48-year-old female with: //Severe Rhabdomyolysis: Resolved /Acute renal failure requiring hemodialysis -Hemodialysis started on February 18, 2018 -Status post permacath placement March 04, 2018 -Appreciate input from nephrology -Continue with dialysis Saturday -Continue with Lasix twice daily and monitor BUN and creatinine -Nephrology to decide if patient will need outpatient hemodialysis = 03/10. No need for hemodialysis today as per nephrology. Appreciate nephrology assistance. Continue to monitor. =03/11. Creatinine improving, however EUS in still elevated at 53. Continue to monitor. Patient without any insurance = 03/12. Creatinine improving to 2.9 today. BUN 48. As per nephrology. Continue to monitor. =03/13. Creatinine much improved. 2.3. Vas-Cath removed. Follow-up with nephrology as outpatient. = 03/14. Continues improving. //Possible GI bleed. Hemoglobin appears stable however had maroon bowel movement on 03/12. EGD/ colonoscopy as per GI. Appreciate GI assistance. Continue to monitor. =EGD colonoscopy showing gastritis. Esophageal stricture status post dilation. Follow-up with GI as outpatient echo for biopsy results. //Hyperkalemia //Hypokalemia -As per nephrology. //Orthopnea-resolved - Echocardiogram with EF 50-55% -continue Lasix 40 mg p.o. twice daily' //Elevated LFTs -Secondary to rhabdomyolysis, improving, GGT is negative //Hyponatremia-Improved -Monitor BMP //HTN -Continue Lopressor and nifedipine -Continue with clonidine as needed -Blood pressure continues acceptable. Cont. Hydralazine 25 mg p.o. 3 times daily //Bipolar disorder, hypomanic -Continue Seroquel 100 mg p.o. twice daily -Per psych, does not meet criteria for involuntary psychiatric admission. = 03/10. Patient appropriate. Continue to monitor. //Insomnia -continue Seroquel -Ativan 0.5 mg PO PRN //UTI -completed Rocephin. //DVT prophylaxis: SCD's/Feliberto/ Heparin sq Physical therapy, OOB Discharge Planning: patient without insurance. Discharge home. Follow-up with primary care, nephrology, GI. - Time Spent with Patient Total time spent providing and/or coordinating discharge services: Greater than 30 minutes - Quality: VTE Deep Vein Thrombosis/Pulmonary Embolism Present on Admission: No Exam Vital signs: Vital Signs 03/13/18 10:25 03/13/18 16:00 03/13/18 20:00 Temperature 97.4 F L 97.9 F 98.5 F Pulse Rate 88 100 H 98 H Respiratory Rate 18 18 16 Blood Pressure 124/58 L 128/67 110/70 Pulse Oximetry 99 97 98 03/13/18 23:39 03/14/18 00:00 03/14/18 04:00 Temperature 98.3 F 97.5 F L Pulse Rate 104 H 92 H 80 Respiratory Rate 16 16 Blood Pressure 122/57 L 131/73 Pulse Oximetry 98 100 03/14/18 08:00 03/14/18 08:27 Temperature 98.1 F Pulse Rate 86 Respiratory Rate 18 Blood Pressure 121/80 Pulse Oximetry 99 99 Intake & Output 03/13/18 03/14/18 03/14/18 18:59 06:59 18:59 Intake Total 1020 / 1020 690 / 690 Output Total 950 / 950 Balance 1020 / 1020 -260 / -260 Weight 96.2 kg Intake: Oral 720 / 720 690 / 690 Anesthesia Amount 300 / 300 Output: Urine 950 / 950 Other: # Voids 3 Date of Last Bowel Movement 03/13/18 # Bowel Movements 1 Results Procedures completed during hospitalization: Vas cath placed in right IJ 02/18. Removed / Right permacath placed March 04, 2018 EGD and colonoscopy. Please see report Pending studies at discharge: Pending at discharge 03/13/18 16:44 Surgical [PTH] Routine Labs on day of discharge: Labs from last 24 hours 03/14/18 03/14/18 06:52 06:52 WBC 7.0 RBC 3.43 L Hgb 10.2 L Hct 30.5 L MCV 89.0 MCH 29.8 MCHC 33.5 RDW 13.5 Plt Count 328 MPV 8.2 Prelim Diff (Auto) Manual diff required WBC Differential Manual diff final Seg Neuts % (Manual) 46 Band Neuts % (Manual) 1 Lymphocytes % (Manual) 33 Monocytes % (Manual) 12 H Eosinophils % (Manual) 6 H Basophils % (Manual) 2 Abs Neuts (Manual) 3.3 Differential Comment . Platelet Estimate Normal Platelet Morphology Normal Sodium 140 Potassium 3.6 Chloride 104 Carbon Dioxide 26.5 Anion Gap 10 BUN 26 H Creatinine 2.15 H Estimated GFR 25 L Random Glucose 99 Calcium 8.4 L Phosphorus 3.4 Magnesium 2.0 Albumin 3.8 - Impressions ITS Impressions Hand X-Ray 02/14/18 14:39 CONCLUSION: No evidence of recent bony injury. Head CT 02/14/18 14:39 CONCLUSION: 1. No acute intracranial abnormality. . Abdomen/Bladder Ultrasound 02/16/18 10:25 CONCLUSION: 1. Mildly echogenic kidneys which may reflect medical renal disease. 2. No sonographic evidence for obstructive uropathy. Catheter Placement 02/18/18 00:00 CONCLUSION: 1. Uncomplicated line placement as above. Chest X-Ray 02/22/18 00:00 CONCLUSION: Small bilateral pleural effusions with associated atelectasis and/or airspace consolidation. Central Venous Line 03/04/18 00:00 CONCLUSION: 1. Uncomplicated PermaCath placement as above. Tube Removal 03/13/18 00:00 CONCLUSION: 1. Uncomplicated Permcath removal. Discharge Plan - Discharge Disposition Patient Disposition: 01 Discharge Home - Discharge Condition Condition: Good - Discharge Order Discharge Orders: Discharge Order (Routine); Ordered 03/14/18 Ordered By: Bijan Polk - Discharge Details Anticipated Discharge Date: 03/13/18 Discharge Comment: Discharge in am 03/14. will need all meds supplied. make sure patient has followup with pcp. - Physicians Team Primary Care Provider: Primary Care Physici,No Attending Provider: Bijan Polk Other Providers: Jl Kennedy MD ; Ervin Stallings MD ; Nasir Leon MD
[2018-03-14 12:32] VITALS: RESP 17; TEMP 98; O2SAT 96
--- NOTE | 2018-03-14 13:02 | P.PNNP ---
Subjective Interval history: Patient is alert, no SOB, no abd. pain, eating well. Physical Exam Vital signs: Vital Signs 03/13/18 16:00 03/13/18 20:00 03/13/18 23:39 Temperature 97.9 F 98.5 F 98.3 F Pulse Rate 100 H 98 H 104 H Respiratory Rate 18 16 16 Blood Pressure 128/67 110/70 122/57 L Pulse Oximetry 97 98 98 03/14/18 00:00 03/14/18 04:00 03/14/18 08:00 Temperature 97.5 F L 98.1 F Pulse Rate 92 H 80 86 Respiratory Rate 16 18 Blood Pressure 131/73 121/80 Pulse Oximetry 100 99 03/14/18 08:27 03/14/18 09:23 03/14/18 12:00 Temperature 98 F Pulse Rate 102 H 88 Respiratory Rate 17 Blood Pressure 102/68 Pulse Oximetry 99 96 Intake & Output 03/13/18 03/14/18 03/14/18 18:59 06:59 18:59 Intake Total 1020 / 1020 690 / 690 Output Total 950 / 950 Balance 1020 / 1020 -260 / -260 Weight 96.2 kg Intake: Oral 720 / 720 690 / 690 Anesthesia Amount 300 / 300 Output: Urine 950 / 950 Other: # Voids 3 Date of Last Bowel Movement 03/13/18 # Bowel Movements 1 Narrative: GENERAL: patient sitting up in bed. Appears comfortable. Alert and oriented 3. Exam unchanged SKIN: Warm and dry. HEAD: Normocephalic. EYES: No scleral icterus. No injection or drainage. NECK: Supple, trachea midline. No JVD. CARDIOVASCULAR: Regular rate and rhythm without murmurs, gallops, or rubs. RESPIRATORY: Breath sounds equal bilaterally. No accessory muscle use. GASTROINTESTINAL: Abdomen soft, non-tender, nondistended. MUSCULOSKELETAL: No cyanosis, or edema. BACK: Nontender without obvious deformity. No CVA tenderness. - Urinary Catheter Management Indwelling Urethral Catheter Cath placed during this visit: yes, but has since been removed by the nurse Reason for continuing: Acute urinary retention Insertion date: 02/16/18 Insertion time: 13:00 Removal date: 02/19/18 Removal time: 15:00 Assessment and Plan - Assessment (1) Acute kidney injury Code(s): N17.9 - Acute kidney failure, unspecified Status: Acute Plan: Patient with CRISTA, was on HD. Now the Creatinine is stable at 2.1. K is normal. Non oliguric. PermCath was removed. For possible discharge, to follow with her PCP. (2) Hypertension Code(s): I10 - Essential (primary) hypertension Status: Acute Plan: Well controlled.
[2018-03-14 14:18] VITALS: BP 123/70; PULSE 94
== END 2018-03-14 15:12 | disposition home or self-care (01) | DRG 683 ==
LOC: PHED 14:33 → PHEDH 16:34 → HIMC 19:25 → N04 02-20 13:59
PROVIDERS: ADMIT Internal Medicine; ATTEND Internal Medicine
PROC: COLONOS (2018-03-13 09:50)
PROC: PANENDO (2018-03-13 09:50)
CPT/HCPCS: 36556; 36558; 36589; 70450; 71010; 71020; 71045; 71046; 73130; 75998; 76775; 76937; 77001; 80048; 80053; 80069; 80074; 80076; 80164; 80307; 81001; 82550; 82552; 82947; 82948; 82962; 82977; 83605; 83735; 84100; 84155; 85014; 85018; 85025; 85027; 85610; 85730; 86021; 86038; 86160; 87040; 87077; 87086; 87186; 87641; 88305; 88312; 90772; 90774; 90775; 90784; 90935; 93005; 93306; 96372; 96374; 96375; 97116; 97162; 99145; 99152; 99153; 99291; C1750; C1752; C1769; C8952; C9204; J0360; J0610; J0696; J1580; J1644; J2060; J2250; J2405; J2704; J3010; J3370; J3480; J3486; J7030; J7050; P9047